=== PATIENT | male | born 1960 | race American Indian/Alaskan Native ===

== ENCOUNTER 2016-08-24 18:37 | Inpatient (IN) | payer OTHER ==
[2016-08-24 18:37] VITALS: BMI 25.0
--- NOTE | 2016-08-24 19:52 | C.PDOC ---
History Of Present Illness 55 y/o M c PMHx HTN, NH, cardiomegaly p/w bilateral lower leg edema x 5 days. He states the swelling is worse when he hangs his legs down and improves with elevation. He states it is difficult to walk now due to the pain. He denies any erythema, fever, or pain when not walking. He denies chest pain or dyspnea. Time Seen by Provider: 08/24/16 19:25 Chief Complaint (Nursing): Lower Extremity Problem/Injury Past Medical History Vital Signs: Last Vital Signs Temp 98.1 F 08/24/16 18:50 Pulse 112 H 08/24/16 18:50 Resp 20 08/24/16 18:50 BP 131/81 08/24/16 18:50 Pulse Ox 100 08/24/16 21:37 - Medical History PMH: HTN Family History: States: Unknown Family Hx - Social History Hx Alcohol Use: Yes Hx Substance Use: No - Immunization History Hx Tetanus Toxoid Vaccination: No Hx Influenza Vaccination: No Hx Pneumococcal Vaccination: No Review Of Systems Except As Marked, All Systems Reviewed And Found Negative. Constitutional: Negative for: Fever Cardiovascular: Negative for: Chest Pain Physical Exam - Physical Exam Additional Physical Exam Comments: Constitutional: No acute distress. Head: Normocephalic. Atraumatic. Eyes: PERRL. ENT: Moist mucous membranes. Neck: Supple. Cardiovascular: Regular rate. Radial pulses 2+ bilaterally. Chest: No tenderness. Respiratory: Crackles at R lung base. GI: Soft. Nontender. Nondistended. Back: No CVA tenderness. Musculoskeletal:Bilateral pitting edema of lower legs. Skin: No rash. Neurologic: Alert, no focal deficit. ED Course And Treatment - Laboratory Results Result Diagrams: 08/24/16 19:59 08/24/16 19:59 O2 Sat by Pulse Oximetry: 100 - Radiology CXR: Interpreted by Me, Viewed By Me CXR Interpretation: Yes: Cardiomegaly, Other (no consolidation) Medical Decision Making Medical Decision Making: EKG sinus rhythm 100 beats per minute, right bundle branch block and noncondordant ST elevations. Increased proBNP compared to previous. Will require diuresis, accepted to observation by Dr. Taylor. Disposition - Disposition Disposition: HOSPITALIZED Disposition Time: 20:34 Condition: FAIR - Clinical Impression Clinical Impression: Edema of foot
[2016-08-24 20:11] LABS: BASO # 0.1 K/uL (0.0-0.2); BASO % 1.5 % (0.0-2.0); EOS # 0.3 K/uL (0.0-0.7); EOS % 4.5 % (0.0-4.0); LYMPH # 0.8 K/uL (1.0-4.3); LYMPH % 11.3 % (20.0-40.0); MEAN CELL VOLUME 95.9 fL (80.0-94.0); MEAN CORPUSCULAR HEMOGLOBIN 31.4 pg (27.0-31.0); MEAN CORPUSCULAR HGB CONC 32.8 g/dL (33.0-37.0); MEAN PLATELET VOLUME 7.6 fL (7.2-11.7); MONO # 0.5 K/uL (0.0-0.8); NRBC % 0.1 % (0.0-2.0); WHITE BLOOD COUNT 6.7 K/uL (4.8-10.8)
[2016-08-24 20:12] LABS: CHLORIDE 92 mmol/L (98-107)
[2016-08-24 20:13] LABS: POTASSIUM 4.3 mmol/L (3.6-5.2); SODIUM 135 mmol/L (132-148)
[2016-08-24 20:15] LABS: ALB/GLOB RATIO 0.8 (1.0-2.1); ALKALINE PHOSPHATASE 71 U/L (38-126); AST/SGOT 29 U/L (17-59); BILIRUBIN,TOTAL 0.5 mg/dL (0.2-1.3); BLOOD UREA NITROGEN 10 mg/dL (9-20); CARBON DIOXIDE 29 mmol/L (22-30); GFR AFRICAN-AMERICAN > 60; TOTAL PROTEIN 8.4 g/dL (6.3-8.3)
[2016-08-24 20:16] LABS: ALT/SGPT 14 U/L (21-72); GLUCOSE,RANDOM 87 mg/dL (75-110)
[2016-08-24 20:19] LABS: INR 1.3
[2016-08-24 20:21] LABS: RBC URINE < 1 /hpf (0-3); URINE BILIRUBIN NEGATIVE (NEGATIVE); URINE BLOOD NEGATIVE (NEGATIVE); URINE COLOR Yellow (YELLOW); URINE GLUCOSE (UA) NORMAL (Normal); URINE KETONE NEGATIVE (NEGATIVE); URINE LEUKOCYTE ESTERASE NEG Leu/uL (Negative); URINE PROTEIN NEGATIVE (NEGATIVE); WBC URINE < 1 /hpf (0-5)
--- NOTE | 2016-08-24 23:47 | CP.PCM.HP ---
<Ynes Samayoa - Last Filed: 08/25/16 00:57> History of Present Illness - History of Present Illness History of Present Illness: CC: "leg swelling" 55 year old AA male with PMHx of SC, HTN, CHF, presents with 5 day history of lower extremity swelling. Patient admits to being off all his medications for the past 2 weeks since he ran out. He presented to the ED today when he noticed his leg swelling had worsened to the point where he was having trouble ambulating. He admits to associated bilateral leg pain. Patient reports this has happened to him one other time in the past (2011), but only to his right leg. Denies history of blood clots. He admits to dyspnea on exertion and is only able to travel 1/2 a block or go up 1 flight of stairs before having to catch his breath. He is able to lay flat, but admits to waking up in the middle of the night gasping for air. He admits to episode of chest pain this AM. Chest pain was rated 6/10, was described as pressure like and dull, radiating to left arm. Pain is intermittent and is now a 3/10. Denies diaphoresis, changes in vision, confusion, fevers, chills, n/v, diarrhea, constipation, abdominal pain, headache, lesions. Denies lesions on his legs. No redness, weeping, or warmth. PMHx: SC, HTN, CHF. Medications: ASA, Aldactone, Lisinopril and other medications he cannot remember. [facility] in [place]. Allergies: NKDA Social Hx: drinks 3 cans of 24 ox beers daily, denies drug and quit tobacco 1.5 months ago. Used to spoke 1/3 ppd for 30 years. Patient is homeless. Surgery Hx: none Family Hx: mother with heart issues, GM with DM, father with HTN. PMD: Dr. Venkat Allen (last seen 5 months ago) Present on Admission - Present on Admission Any Indicators Present on Admission: No Review of Systems - Constitutional Constitutional: absent: Chills, Fever - EENT Eyes: absent: Blurred Vision, Change in Vision Ears: absent: Dizziness - Cardiovascular Cardiovascular: Chest Pain, Chest Pain at Rest, Chest Pain with Activity, Dyspnea on Exertion, Pain Radiating to Arm/Neck/Jaw, Leg Edema, Paroxysmal Nocturnal Dyspnea, Pedal Edema. absent: Dyspnea, Orthopnea - Respiratory Respiratory: Dyspnea on Exertion. absent: Cough, Dyspnea, Wheezing - Gastrointestinal Gastrointestinal: absent: Abdominal Pain, Constipation, Diarrhea, Nausea, Vomiting - Genitourinary Genitourinary: absent: Difficulty Urinating, Dysuria - Musculoskeletal Musculoskeletal: absent: Back Pain, Numbness, Tingling - Integumentary Integumentary: absent: Lesions, Pruritus, Wounds - Neurological Neurological: absent: Dizziness, Numbness, Tingling, Weakness - Endocrine Endocrine: absent: Fatigue, Palpitations - Hematologic/Lymphatic Hematologic: absent: Easy Bleeding Past Patient History - Past Social History Smoking Status: Light Smoker < 10 Cigarettes Daily - CARDIAC Hx Hypertension: Yes - PSYCHIATRIC Hx Substance Use: No - SURGICAL HISTORY Hx Surgeries: No - ANESTHESIA Hx Anesthesia: No Meds Allergies/Adverse Reactions: Allergies Allergy/AdvReac Type Severity Reaction Status Date / Time No Known Allergies Allergy Verified 07/18/16 22:56 Physical Exam - Constitutional Appears: No Acute Distress - Head Exam Head Exam: NORMAL INSPECTION, NORMOCEPHALIC - Eye Exam Eye Exam: EOMI, Normal appearance, PERRL. absent: Scleral icterus - ENT Exam ENT Exam: Mucous Membranes Moist, Normal Exam - Neck Exam Neck exam: Positive for: Full Rom, Normal Inspection - Respiratory Exam Respiratory Exam: Clear to Auscultation Bilateral, NORMAL BREATHING PATTERN. absent: Rales, Rhonchi, Wheezes - Cardiovascular Exam Cardiovascular Exam: Tachycardia, REGULAR RHYTHM, +S1, +S2. absent: JVD, Rubs, Systolic Murmur - GI/Abdominal Exam GI & Abdominal Exam: Normal Bowel Sounds, Soft. absent: Distended, Tenderness - Extremities Exam Extremities exam: Positive for: calf tenderness, pedal edema, tenderness. Negative for: normal inspection - Back Exam Back exam: FULL ROM, NORMAL INSPECTION. absent: CVA tenderness (L), CVA tenderness (R) - Neurological Exam Neurological exam: Alert, Oriented x3 - Psychiatric Exam Psychiatric exam: Normal Affect, Normal Mood - Skin Skin Exam: Dry, Normal Color, Warm Additional comments: +venous stasis changes in b/l LE Results - Vital Signs Recent Vital Signs: Last Vital Signs Temp 98.2 F 08/24/16 22:27 Pulse 108 H 08/24/16 22:27 Resp 22 08/24/16 22:27 BP 113/71 08/24/16 22:27 Pulse Ox 98 08/24/16 22:27 - Labs Result Diagrams: 08/24/16 19:59 08/24/16 19:59 Assessment & Plan (1) CHF exacerbation Assessment and Plan: Patient with history of CHF, off meds for 2 weeks. Pro BNP on admission 3580. CXR shows cardiomegaly. f/u ECHO. No previous on record. Will call patient's pharmacy to confirm medications. Start the following medications: Lasix 60 mg IVP daily Coreg 3.125 mg PO BID Lisinopril 2.5 mg PO daily Aldactone 25 mg PO daily Cardio consult placed- Dr. Sauer- help appreciated. I/O's Daily weights Low Sodium Diet Status: Acute (2) Pedal edema Assessment and Plan: Likely secondary to CHF exacerbation. See plan above. F/U Venous Dopplers of LE. SCDs contraindicated. Status: Acute (3) Chest discomfort Assessment and Plan: Patient with hx of SC in 2011. SIXTO on admission negative. EKG on admission- sinus rhythm 103 bpm, LBBB. Also seen on EKG from 07/18/16. Cardio consult placed- Dr. Sauer- bonifacio appreciated. f/u SIXTO X2 Q8H f/u EKG X2 Q8H ASA 81 mg PO daily Coreg 3.125 mg PO BID Status: Acute (4) CAD (coronary artery disease) Assessment and Plan: Patient with hx of SC in 2011. SIXTO on admission negative. EKG on admission- sinus rhythm 103 bpm, LBBB. Also seen on EKG from 07/18/16. Cardio consult placed- Dr. Sauer- bonifacio appreciated. ASA 81 mg PO daily Coreg 3.125 mg PO BID Status: Acute (5) HTN (hypertension) Assessment and Plan: Lisinopril 2.5 mg PO daily Aldactone 25 mg PO daily Coreg 3.125 mg PO BID Lasix 60 mg IVP daily Status: Acute (6) Alcohol abuse Assessment and Plan: Folic Acid 1 mg PO daily Thiamine 100 mg PO daily MV 1 tab PO daily Seizure precautions Fall precautions Status: Acute (7) Prophylactic measure Assessment and Plan: Heparin 5000 SC Q8H Pepcid 20 mg PO BID SCDs contraindicated Status: Acute <Girish Taylor - Last Filed: 09/01/16 19:23> Results - Vital Signs Recent Vital Signs: Last Vital Signs Temp 98 F 08/29/16 15:00 Pulse 88 08/29/16 16:12 Resp 20 08/29/16 15:00 BP 97/63 L 08/29/16 15:00 Pulse Ox 95 08/29/16 15:00 - Labs Result Diagrams: 08/29/16 11:06 08/29/16 11:06 Assessment & Plan - Date & Time Date: 09/01/16 (I have seen and examined the patient. I agree with the findings and plan of care as documented by Dr. Samayoa. Patient with chf exacerbation and chest pain. History of CAD. Continue home meds. IV Lasix. ROMIx3 with EKG. Aspirin and Statin. Daily weight and record I&Os. Monitor for acute changes.) Time: 19:21 Attending/Attestation - Attestation I have personally seen and examined this patient.: Yes I have fully participated in the care of the patient.: Yes I have reviewed all pertinent clinical information: Yes
[2016-08-25 06:13] LABS: BASO # 0.1 K/uL (0.0-0.2); BASO % 1.2 % (0.0-2.0); EOS # 0.4 K/uL (0.0-0.7); EOS % 6.8 % (0.0-4.0); HEMATOCRIT 29.9 % (35.0-51.0); LYMPH % 18.1 % (20.0-40.0); MEAN CELL VOLUME 94.6 fL (80.0-94.0); MEAN CORPUSCULAR HEMOGLOBIN 31.3 pg (27.0-31.0); MEAN PLATELET VOLUME 7.6 fL (7.2-11.7); MONO # 0.6 K/uL (0.0-0.8); MONO % 11.9 % (0.0-10.0); RED CELL DISTRIBUTION WIDTH 16.1 % (11.5-14.5); WHITE BLOOD COUNT 5.4 K/uL (4.8-10.8)
[2016-08-25 06:45] LABS: CHLORIDE 95 mmol/L (98-107); POTASSIUM 3.8 mmol/L (3.6-5.2); SODIUM 135 mmol/L (132-148)
[2016-08-25 06:47] LABS: ALB/GLOB RATIO 0.7 (1.0-2.1); ALKALINE PHOSPHATASE 61 U/L (38-126); AST/SGOT 22 U/L (17-59); BILIRUBIN,TOTAL 0.7 mg/dL (0.2-1.3); CARBON DIOXIDE 29 mmol/L (22-30); GFR AFRICAN-AMERICAN > 60; TOTAL PROTEIN 7.3 g/dL (6.3-8.3)
[2016-08-25 06:48] LABS: ALT/SGPT 23 U/L (21-72); BLOOD UREA NITROGEN 9 mg/dL (9-20); CALCIUM 8.7 mg/dl (8.6-10.4); GLUCOSE,RANDOM 87 mg/dL (75-110)
[2016-08-25 06:50] LABS: MAGNESIUM 1.1 mg/dL (1.6-2.3); PHOSPHOROUS 4.6 mg/dL (2.5-4.5)
[2016-08-25 07:40] LABS: THYROID STIMULATING HORMONE 1.74 mIU/L (0.46-4.68)
--- NOTE | 2016-08-25 08:35 | RAD ---
HISTORY: leg swelling COMPARISON: 07/18/2016 FINDINGS: LUNGS: Mild venous congestion. Right hilar prominence. Left basilar airspace opacity with small left pleural effusion. PLEURA: As above. CARDIOVASCULAR: Cardiomegaly. OSSEOUS STRUCTURES: No significant abnormalities. VISUALIZED UPPER ABDOMEN: Normal. OTHER FINDINGS: Mammilated right hemidiaphragm. IMPRESSION: Mild venous congestion. Right hilar prominence. Left basilar airspace opacity with small left pleural effusion.
[2016-08-25] MEDS: Multiple Vitamins Tab PO SCH (11:00)
--- NOTE | 2016-08-25 11:09 | CP.PCM.PN ---
<Candice Tsai - Last Filed: 08/25/16 12:44> Subjective - Date & Time of Evaluation Date of Evaluation: 08/25/16 Time of Evaluation: 07:40 - Subjective Subjective: Internal medicine progress note for Hospitalist service-Candice Tsai, PGY-1 Pt S & E at bedside. Pt reports continued B/L LE pain/swelling/edema- some SOB- mostly resolved. Denies N/V/F/C, SOB, CP, abdominal pain. Objective - Vital Signs/Intake and Output Vital Signs (last 24 hours): Temp Pulse Resp BP Pulse Ox 98.1 F 91 H 18 110/66 99 08/25/16 10:31 08/25/16 10:31 08/25/16 10:31 08/25/16 10:59 08/25/16 10:31 Intake and Output: 08/25/16 08/25/16 06:59 18:59 Intake Total 254 540 Output Total 3100 400 Balance -2846 140 - Medications Medications: Current Medications Aspirin (Aspirin Chewable) 81 mg PO DAILY [facility] Last Admin: 08/25/16 10:59 Dose: 81 mg Carvedilol (Coreg) 3.125 mg PO BID [facility] Last Admin: 08/25/16 10:59 Dose: 3.125 mg Famotidine (Pepcid) 20 mg PO BID [facility] Last Admin: 08/25/16 11:00 Dose: 20 mg Folic Acid (Folic Acid) 1 mg PO DAILY [facility] Last Admin: 08/25/16 10:59 Dose: 1 mg Furosemide (Lasix) 60 mg IVP DAILY [facility] Last Admin: 08/25/16 10:59 Dose: 60 mg Heparin Sodium (Porcine) (Heparin) 5,000 units SC Q8 [facility] Last Admin: 08/25/16 06:46 Dose: 5,000 units Lisinopril (Zestril) 2.5 mg PO DAILY [facility] Multivitamins (Hexavitamin) 1 tab PO DAILY [facility] Last Admin: 08/25/16 11:00 Dose: 1 tab Spironolactone (Aldactone) 25 mg PO DAILY [facility] Last Admin: 08/25/16 11:00 Dose: 25 mg Thiamine HCl (Vitamin B1 Tab) 100 mg PO DAILY [facility] Last Admin: 08/25/16 11:01 Dose: 100 mg - Labs Labs: 08/25/16 06:00 08/25/16 06:00 PT 14.6 SECONDS (9.7-12.2) H 08/24/16 19:59 INR 1.3 08/24/16 19:59 APTT 31 SECONDS (21-34) 08/25/16 06:00 - Constitutional Appears: Non-toxic, No Acute Distress - Head Exam Head Exam: ATRAUMATIC, NORMAL INSPECTION, NORMOCEPHALIC - Eye Exam Eye Exam: EOMI, Normal appearance, PERRL Pupil Exam: NORMAL ACCOMODATION, PERRL - ENT Exam ENT Exam: Mucous Membranes Moist, Normal Exam - Neck Exam Neck Exam: Full ROM, Normal Inspection - Respiratory Exam Respiratory Exam: Decreased Breath Sounds (B/L ), NORMAL BREATHING PATTERN. absent: Clear to Ausculation Bilateral, Rales, Rhonchi, Wheezes, Respiratory Distress - Cardiovascular Exam Cardiovascular Exam: REGULAR RHYTHM, JVD, +S1, +S2, +S4 - GI/Abdominal Exam GI & Abdominal Exam: Soft, Normal Bowel Sounds. absent: Tenderness - Extremities Exam Extremities Exam: Full ROM, Pedal Edema (3+ pitting B/L), Tenderness (diffusely) . absent: Normal Capillary Refill - Back Exam Back Exam: NORMAL INSPECTION - Neurological Exam Neurological Exam: Alert, Awake, CN II-XII Intact, Oriented x3 - Psychiatric Exam Psychiatric exam: Normal Affect, Normal Mood - Skin Skin Exam: Dry, Intact, Normal Color, Warm Assessment and Plan - Assessment and Plan (Free Text) Assessment: (1) CHF exacerbation Patient with history of CHF, off meds for 2 weeks. Pro BNP on admission 3580. CXR shows cardiomegaly. FU ECHO- No previous on record. Cont Lasix 60 mg IVP daily - dose decreased to 40mg IVP Cont Coreg 3.125 mg PO BID Cont Lisinopril 2.5 mg PO daily Cont Aldactone 25 mg PO daily I/O's Daily weights Cardio consult placed-Camacho (2) Pedal edema Likely secondary to CHF exacerbation. See plan above. FU Venous Dopplers of LE. SCDs contraindicated. (3) Chest discomfort Patient with hx of CO in 2011. SIXTO on admission negative. EKG on admission- sinus rhythm 103 bpm, LBBB. Also seen on EKG from 07/18/16. Cardio consult placed- Dr. Sauer- help appreciated. SIXTO X2 neg EKG X2 only difference- 2nd EKG NSR instead of sinus tachycardia, compared to previous EKG in June of this year- pt had LBBB Cont ASA 81 mg PO daily Cont Coreg 3.125 mg PO BID (4) CAD (coronary artery disease) Patient with hx of CO in 2011. SIXTO neg x 2 EKG on admission- sinus rhythm 103 bpm, LBBB. Also seen on EKG from 07/18/16. Cardio consulted- [facility] Cont ASA 81 mg PO daily Coreg 3.125 mg PO BID Re-started statin as per pharmacy- Pravastatin 20mg daily- changed to Crestor 2.5mg daily (5) HTN (hypertension) Lisinopril 2.5 mg PO daily Aldactone 25 mg PO daily Coreg 3.125 mg PO BID Lasix 60 mg IVP daily switched to 40mg IVP daily (6) Alcohol abuse Folic Acid 1 mg PO daily Thiamine 100 mg PO daily MV 1 tab PO daily Started Vitamin D daily Seizure precautions Fall precautions CIWA protocol (7) Prophylactic measure Heparin 5000 SC Q8H Pepcid 20 mg PO BID SCDs contraindicated Dispo: Cont current medical mgmt FU tests DW attending <Gray Almonte - Last Filed: 08/25/16 17:38> Objective - Vital Signs/Intake and Output Vital Signs (last 24 hours): Temp Pulse Resp BP Pulse Ox 99.6 F 101 H 20 123/87 97 08/25/16 16:00 08/25/16 16:00 08/25/16 16:00 08/25/16 16:00 08/25/16 16:00 Intake and Output: 08/25/16 08/25/16 06:59 18:59 Intake Total 254 540 Output Total 3100 400 Balance -2846 140 - Medications Medications: Current Medications Aspirin (Aspirin Chewable) 81 mg PO DAILY [facility] Last Admin: 08/25/16 10:59 Dose: 81 mg Carvedilol (Coreg) 6.25 mg PO BID [facility] Ergocalciferol (Drisdol 50,000 Intl Units Cap) 1 cap PO QWK [facility] Famotidine (Pepcid) 20 mg PO BID [facility] Last Admin: 08/25/16 11:00 Dose: 20 mg Folic Acid (Folic Acid) 1 mg PO DAILY [facility] Last Admin: 08/25/16 10:59 Dose: 1 mg Furosemide (Lasix) 40 mg IVP Q12 [facility] Last Admin: 08/25/16 15:52 Dose: Not Given Heparin Sodium (Porcine) (Heparin) 5,000 units SC Q8 [facility] Last Admin: 08/25/16 06:46 Dose: 5,000 units Lisinopril (Zestril) 2.5 mg PO DAILY [facility] Last Admin: 08/25/16 12:00 Dose: 2.5 mg Multivitamins (Hexavitamin) 1 tab PO DAILY [facility] Last Admin: 08/25/16 11:00 Dose: 1 tab Rosuvastatin Calcium (Crestor) 2.5 mg PO [facility] Spironolactone (Aldactone) 25 mg PO DAILY [facility] Last Admin: 08/25/16 11:00 Dose: 25 mg Thiamine HCl (Vitamin B1 Tab) 100 mg PO DAILY [facility] Last Admin: 08/25/16 11:01 Dose: 100 mg - Labs Labs: 08/25/16 06:00 08/25/16 06:00 PT 14.6 SECONDS (9.7-12.2) H 08/24/16 19:59 INR 1.3 08/24/16 19:59 APTT 31 SECONDS (21-34) 08/25/16 06:00 Attending/Attestation - Attestation I have personally seen and examined this patient.: Yes I have fully participated in the care of the patient.: Yes I have reviewed all pertinent clinical information, including history, physical exam and plan: Yes Notes (Text): 08/25/16 17:35 Medical Attending: Patient was seen and examined by me. Agree with the above note by the resident. The patient reported that he felt that his breathing was much better than before. He explains he was previously on medication but that recently he has not been on medications. Currently pending echo at the moment. On exam he does appear to have JVD as well as S3 sound when listening to the heart. thank you Gray Almonte
[2016-08-25] MEDS ORDERED: Ergocalciferol 50,000 Intl Units Cap PO SCH (14:00)
--- NOTE | 2016-08-25 14:54 | CP.PCM.CON ---
History of Present Illness - History of Present Illness History of Present Illness: CC: "leg swelling" 55 year old AA male with PMHx of [place], HTN, CHF, presents with 5 day history of lower extremity swelling. Patient admits to being off all his medications for the past 2 weeks since he ran out. He presented to the ED today when he noticed his leg swelling had worsened to the point where he was having trouble ambulating. He admits to associated bilateral leg pain. Patient reports this has happened to him one other time in the past (2011), but only to his right leg. Denies history of blood clots. He admits to dyspnea on exertion and is only able to travel 1/2 a block or go up 1 flight of stairs before having to catch his breath. He is able to lay flat, but admits to waking up in the middle of the night gasping for air. He admits to episode of chest pain this AM. Chest pain was rated 6/10, was described as pressure like and dull, radiating to left arm. Pain is intermittent and is now a 3/10. Denies diaphoresis, changes in vision, confusion, fevers, chills, n/v, diarrhea, constipation, abdominal pain, headache, lesions. Denies lesions on his legs. No redness, weeping, or warmth. PER PT HE HAD CATH SEVERAL YEARS AGO AT [facility] AND REFUSED PCI AND AICD. PMHx: [place], HTN, CHF. Medications: ASA, Aldactone, Lisinopril and other medications he cannot remember. [facility] [address] in [place]. Allergies: NKDA Social Hx: drinks 3 cans of 24 ox beers daily, denies drug and quit tobacco 1.5 months ago. Used to spoke 1/3 ppd for 30 years. Patient is homeless. Surgery Hx: none Family Hx: mother with heart issues, GM with DM, father with HTN. PMD: Dr. Venkat Allen (last seen 5 months ago) Past Patient History - Past Social History Smoking Status: Light Smoker < 10 Cigarettes Daily - CARDIAC Hx Hypertension: Yes - MUSCULOSKELETAL/RHEUMATOLOGICAL Hx Falls: No - PSYCHIATRIC Hx Substance Use: No - SURGICAL HISTORY Hx Surgeries: No - ANESTHESIA Hx Anesthesia: No Meds Allergies/Adverse Reactions: Allergies Allergy/AdvReac Type Severity Reaction Status Date / Time No Known Allergies Allergy Verified 07/18/16 22:56 - Medications Medications: Current Medications Aspirin (Aspirin Chewable) 81 mg PO DAILY [facility] Last Admin: 08/25/16 10:59 Dose: 81 mg Carvedilol (Coreg) 3.125 mg PO BID [facility] Last Admin: 08/25/16 10:59 Dose: 3.125 mg Ergocalciferol (Drisdol 50,000 Intl Units Cap) 1 cap PO QWK [facility] Famotidine (Pepcid) 20 mg PO BID [facility] Last Admin: 08/25/16 11:00 Dose: 20 mg Folic Acid (Folic Acid) 1 mg PO DAILY [facility] Last Admin: 08/25/16 10:59 Dose: 1 mg Furosemide (Lasix) 40 mg IVP Q12 [facility] Heparin Sodium (Porcine) (Heparin) 5,000 units SC Q8 [facility] Last Admin: 08/25/16 06:46 Dose: 5,000 units Magnesium Sulfate/Dextrose (Magnesium Sulfate 1 Gm/100 Ml D5w) 100 mls @ 200 mls/hr IVPB Q30M [facility] Stop: 08/25/16 15:29 Lisinopril (Zestril) 2.5 mg PO DAILY [facility] Multivitamins (Hexavitamin) 1 tab PO DAILY [facility] Last Admin: 08/25/16 11:00 Dose: 1 tab Rosuvastatin Calcium (Crestor) 2.5 mg PO HS [facility] Spironolactone (Aldactone) 25 mg PO DAILY [facility] Last Admin: 08/25/16 11:00 Dose: 25 mg Thiamine HCl (Vitamin B1 Tab) 100 mg PO DAILY [facility] Last Admin: 08/25/16 11:01 Dose: 100 mg Physical Exam - Constitutional Appears: Well - Head Exam Head Exam: ATRAUMATIC, NORMAL INSPECTION, NORMOCEPHALIC - Eye Exam Eye Exam: EOMI, Normal appearance, PERRL Pupil Exam: NORMAL ACCOMODATION, PERRL - ENT Exam ENT Exam: Mucous Membranes Moist, Normal Exam - Neck Exam Neck exam: Positive for: Normal Inspection - Respiratory Exam Additional comments: B/L CRACKLES 1/2 WAY - Cardiovascular Exam Cardiovascular Exam: Diastolic murmur, REGULAR RHYTHM, +S1, +S2, Systolic Murmur - GI/Abdominal Exam GI & Abdominal Exam: Normal Bowel Sounds, Soft. absent: Tenderness - Extremities Exam Extremities exam: Positive for: pedal edema - Back Exam Back exam: NORMAL INSPECTION - Neurological Exam Neurological exam: Alert, CN II-XII Intact, Normal Gait, Oriented x3, Reflexes Normal - Psychiatric Exam Psychiatric exam: Normal Affect, Normal Mood - Skin Skin Exam: Dry, Intact, Normal Color, Warm Results - Vital Signs Recent Vital Signs: Last Vital Signs Temp 98 F 08/25/16 12:00 Pulse 96 H 08/25/16 12:00 Resp 18 08/25/16 12:00 BP 133/56 L 08/25/16 12:00 Pulse Ox 96 08/25/16 12:00 - Labs Result Diagrams: 08/25/16 06:00 08/25/16 06:00 Labs: Laboratory Results - last 24 hr 08/25/16 08/25/16 06:00 11:13 WBC 5.4 RBC 3.16 L Hgb 9.9 L Hct 29.9 L MCV 94.6 H MCH 31.3 H MCHC 33.0 RDW 16.1 H Plt Count 346 MPV 7.6 Neut % (Auto) 62.0 Lymph % (Auto) 18.1 L [place] % (Auto) 11.9 H Eos % (Auto) 6.8 H Baso % (Auto) 1.2 Neut # 3.3 Lymph # 1.0 [place] # 0.6 Eos # 0.4 Baso # 0.1 APTT 31 Sodium 135 Potassium 3.8 Chloride 95 L Carbon Dioxide 29 Anion Gap 15 BUN 9 Creatinine 0.8 Est GFR ( Amer) > 60 Est GFR (Non-Af Amer) > 60 Random Glucose 87 Calcium 8.7 Phosphorus 4.6 H Magnesium 1.1 L Total Bilirubin 0.7 AST 22 ALT 23 Alkaline Phosphatase 61 Total Creatine Kinase 49 L 58 CK-MB (Mass) 0.25 0.23 Troponin I, Quant 0.0320 0.0150 Total Protein 7.3 Albumin 2.9 L D Globulin 4.4 H Albumin/Globulin Ratio 0.7 L Triglycerides 44 Cholesterol 91 LDL Cholesterol Direct 38 HDL Cholesterol 31 TSH 3rd Generation 1.74 Assessment & Plan (1) CAD (coronary artery disease) Status: Acute (2) CHF exacerbation Status: Acute (3) HTN (hypertension) Status: Acute (4) Alcohol abuse Status: Acute - Assessment and Plan (Free Text) Plan: CONSIDER BUMEX 2 MG Q12 IVP FOR 2 DAYS WILL TRACK DOWN RECORDS FROM [facility] SHOULD BE CONSIDERED FOR AICD TITRATE COREG TOLERATED. MANAGE BP USING MAP NOT SYSTOLIC PRESSURE. REPLEAT MAG
[2016-08-25] MEDS: Rosuvastatin Calcium 2.5 mg Tab PO SCH (21:24)
--- NOTE | 2016-08-25 22:24 | CARD ---
APPROVED REPORT EKG Measurement Heart [id number] <Conclusion> Normal sinus rhythm Possible Left atrial enlargement Left axis deviation Left bundle branch block Abnormal ECG
--- NOTE | 2016-08-25 23:17 | CARD ---
APPROVED REPORT EKG Measurement Heart [id number] <Conclusion> Sinus tachycardia Possible Left atrial enlargement Left axis deviation Left bundle branch block Abnormal ECG
[2016-08-26] MEDS: Multiple Vitamins Tab PO SCH (09:51)
[2016-08-26 10:02] LABS: BASO # 0.1 K/uL (0.0-0.2); BASO % 1.1 % (0.0-2.0); EOS # 0.3 K/uL (0.0-0.7); HEMATOCRIT 32.9 % (35.0-51.0); LYMPH # 0.9 K/uL (1.0-4.3); LYMPH % 14.6 % (20.0-40.0); MEAN CELL VOLUME 94.1 fL (80.0-94.0); MEAN CORPUSCULAR HEMOGLOBIN 30.7 pg (27.0-31.0); MEAN CORPUSCULAR HGB CONC 32.6 g/dL (33.0-37.0); MEAN PLATELET VOLUME 7.6 fL (7.2-11.7); MONO # 0.5 K/uL (0.0-0.8); MONO % 8.1 % (0.0-10.0); RED CELL DISTRIBUTION WIDTH 16.2 % (11.5-14.5)
[2016-08-26 10:08] LABS: CHLORIDE 88 mmol/L (98-107); SODIUM 132 mmol/L (132-148)
[2016-08-26 10:09] LABS: POTASSIUM 3.3 mmol/L (3.6-5.2)
[2016-08-26 10:10] LABS: GFR AFRICAN-AMERICAN > 60
[2016-08-26 10:11] LABS: ALB/GLOB RATIO 0.8 (1.0-2.1); ALKALINE PHOSPHATASE 58 U/L (38-126); ALT/SGPT 10 U/L (21-72); AST/SGOT 23 U/L (17-59); BILIRUBIN,TOTAL 0.4 mg/dL (0.2-1.3); BLOOD UREA NITROGEN 13 mg/dL (9-20); CALCIUM 8.9 mg/dl (8.6-10.4); CARBON DIOXIDE 30 mmol/L (22-30); GLUCOSE,RANDOM 169 mg/dL (75-110); PHOSPHOROUS 4.3 mg/dL (2.5-4.5); TOTAL PROTEIN 7.7 g/dL (6.3-8.3)
[2016-08-26 10:12] LABS: MAGNESIUM 1.3 mg/dL (1.6-2.3)
--- NOTE | 2016-08-26 11:04 | CARD ---
APPROVED REPORT EXAM: Two-dimensional and M-mode echocardiogram with Doppler and color Doppler. Other Information Quality : GoodRhythm : INDICATION CAD Congestive Heart Failure FLUID,LCOHOL ABUSED RISK FACTORS Hypertension M-Mode DIMENSIONS RVDd2.18 (2.1-3.2cm)Left Atrium (MM)4.72 (2.5-4.0cm) IVSd1.13 (0.7-1.1cm)Aortic Root3.87 (2.2-3.7cm) LVDd5.82 (4.0-5.6cm)Aortic Cusp Exc.2.11 (1.5-2.0cm) PWd1.21 (0.7-1.1cm)FS (%) 23 % LVDs4.49 (2.0-3.8cm)LVEF (%)45 (>50%) Aortic Valve AoV Peak Wqbncare300.3cm/Jason Peak GR.6mmHg Mitral Valve MV E Bcrqrstz852.9cm/sMV A Eargajwr67.5cm/sE/A ratio4.1 TDI E/Lateral E'0.0E/Medial E'0.0 Tricuspid Valve TR Peak Upttumkr658fm/sTR Peak Gr.[id number] LEFT VENTRICLE The Left Ventricle is moderately dilated. There is normal left ventricular wall thickness. Left ventricle systolic function is severely impaired. The Ejection Fraction is <25%. There is global hypokinesis of the left ventricle. The left ventricular diastolic function is normal. No left ventricle thrombus noted on this study. RIGHT VENTRICLE The right ventricle is normal size. The right ventricular systolic function is normal. ATRIA The left atrium is moderately dilated. The right atrium is moderately dilated. AORTIC VALVE The aortic valve is trileaflet. No aortic regurgitation is present. There is no aortic valvular stenosis. There is no aortic valvular vegetation. MITRAL VALVE Mitral annular calcification is mild to moderate. There is no evidence of mitral valve prolapse. There is no mitral valve stenosis. Mitral regurgitation is mild to moderate. TRICUSPID VALVE The tricuspid valve is normal in structure. There is moderate tricuspid regurgitation. Right ventricular systolic pressure is estimated at 50-60 mmHg. There is moderate pulmonary hypertension. There is no tricuspid valve prolapse or vegetation. There is no tricuspid valve stenosis. PULMONIC VALVE The pulmonic valve is not well visualized. There is mild to moderate pulmonic valvular regurgitation. GREAT VESSELS The aortic root is mildly enlarged. The IVC collapses <50% with inspiration. PERICARDIAL EFFUSION There is no pericardial effusion. There is no pleural effusion. <Conclusion> The Left Ventricle is moderately dilated. Left ventricle systolic function is severely impaired. The Ejection Fraction is <25%. There is global hypokinesis of the left ventricle. The left ventricular diastolic function is normal. The right ventricularsize and systolic function are normal. The left atrium is moderately dilated. The right atrium is moderately dilated. Mitral regurgitation is mild to moderate. There is moderate tricuspid regurgitation. Right ventricular systolic pressure is estimated at 50-60 mmHg. There is moderate pulmonary hypertension. There is mild to moderate pulmonic valvular regurgitation. The aortic root is mildly enlarged.
--- NOTE | 2016-08-26 13:23 | CP.PCM.PN ---
<Candice Tsai - Last Filed: 08/26/16 13:20> Subjective - Date & Time of Evaluation Date of Evaluation: 08/26/16 Time of Evaluation: 07:50 - Subjective Subjective: Internal medicine progress note for Hospitalist service- Candice Tsai, PGY-1 Pt S & E at bedside. Pt reports good urine output overnight, continued B/L LE pain- inability to walk , poor sleep due to pain. Otherwise, is breathing better. Denies N/V/F/C, SOB, CP, abdominal pain. Objective - Vital Signs/Intake and Output Vital Signs (last 24 hours): Temp Pulse Resp BP Pulse Ox 98.2 F 78 19 102/68 98 08/26/16 12:00 08/26/16 12:00 08/26/16 12:00 08/26/16 12:00 08/26/16 12:00 - Medications Medications: Current Medications Acetaminophen (Tylenol 325mg Tab) 650 mg PO Q6 PRN PRN Reason: Pain, moderate (4-7) Aspirin (Aspirin Chewable) [address] [facility] Last Admin: 08/26/16 09:53 Dose: 81 mg Carvedilol (Coreg) 6.[address] [facility] Last Admin: 08/26/16 09:51 Dose: 6.25 mg Ergocalciferol (Drisdol 50,000 Intl Units Cap) [address] [facility] Last Admin: 08/25/16 17:53 Dose: 1 cap Famotidine (Pepcid) [address] [facility] Last Admin: 08/26/16 09:51 Dose: 20 mg Folic Acid (Folic Acid) [address] [facility] Last Admin: 08/26/16 09:51 Dose: 1 mg Furosemide (Lasix) [address] [facility] Last Admin: 08/26/16 09:53 Dose: 40 mg Heparin Sodium (Porcine) (Heparin) 5,[address] [facility] Last Admin: 08/26/16 05:54 Dose: 5,000 units Magnesium Sulfate/Dextrose (Magnesium Sulfate 1 Gm/100 Ml D5w) 100 mls @ 200 mls/hr IVPB ONCE ONE Stop: 08/26/16 13:45 Lisinopril (Zestril) 2.[address] [facility] Last Admin: 08/26/16 09:52 Dose: 2.5 mg Multivitamins (Hexavitamin) [address] [facility] Last Admin: 08/26/16 09:51 Dose: 1 tab Potassium Chloride (K-Dur 20 Meq Er Tab) [address] [facility] Rosuvastatin Calcium (Crestor) 2.[address] [facility] Last Admin: 08/25/16 21:24 Dose: 2.5 mg Spironolactone (Aldactone) [address] [facility] Last Admin: 08/26/16 09:52 Dose: 25 mg Thiamine HCl (Vitamin B1 Tab) [address] [facility] Last Admin: 08/26/16 09:52 Dose: 100 mg - Labs Labs: PT 14.6 SECONDS (9.7-12.2) H 08/24/16 19:59 INR 1.3 08/24/16 19:59 APTT 31 SECONDS (21-34) 08/25/16 06:00 - Constitutional Appears: Non-toxic, No Acute Distress - Head Exam Head Exam: ATRAUMATIC, NORMAL INSPECTION, NORMOCEPHALIC - Eye Exam Eye Exam: EOMI, Normal appearance, PERRL Pupil Exam: NORMAL ACCOMODATION, PERRL - ENT Exam ENT Exam: Mucous Membranes Moist, Normal Exam - Neck Exam Neck Exam: Full ROM, Normal Inspection - Respiratory Exam Respiratory Exam: Decreased Breath Sounds (at bases B/L), NORMAL BREATHING PATTERN. absent: Accessory Muscle Use, Chest Wall Tenderness, Clear to Ausculation Bilateral, Rales, Rhonchi, Wheezes, Respiratory Distress, Stridor - Cardiovascular Exam Cardiovascular Exam: REGULAR RHYTHM, JVD, +S1, +S2, +S4 - GI/Abdominal Exam GI & Abdominal Exam: Soft, Normal Bowel Sounds. absent: Distended, Firm, Guarding, Rigid, Tenderness - Extremities Exam Extremities Exam: Normal Inspection, Tenderness (B/L). absent: Pedal Edema - Back Exam Back Exam: Full ROM, NORMAL INSPECTION - Neurological Exam Neurological Exam: Alert, Awake, CN II-XII Intact, Oriented x3 - Psychiatric Exam Psychiatric exam: Normal Affect, Normal Mood - Skin Skin Exam: Dry, Intact, Normal Color, Warm Assessment and Plan - Assessment and Plan (Free Text) Assessment: (1) CHF exacerbation Patient with history of CHF, off meds for 2 weeks. Pro BNP on admission 3580. CXR shows cardiomegaly. Echo w/findings of LV mod dilated, LV systolic function severely impaired, EF<25 %, global hypokinesis of LV, LV diastolic functio normal, RV and systolic function normal, RA and LA mod dilated, MR mild to mod, mod TR, RV systolic P 50 -60mmHg, mod pulmonary HTN, mild-mod pulmonic valvular regurgitation, aortic root mildly enlarged Cont Lasix 40mg IVP daily Cont Coreg 3.125 mg PO BID Cont Lisinopril 2.5 mg PO daily Cont Aldactone 25 mg PO daily I/O's Daily weights Cardio consult [facility] - consider Bumex 2mg Q12H x 2 days, tracking down recs from [facility] [place], consider AICD, titrate Coreg as kishan, manage BP using MAP, not systolic pressure, repleat Mg (2) Pedal edema -resolving/ B/L LE pain Likely secondary to CHF exacerbation. See plan above. Tylenol PRN FU Venous Dopplers of LE- pending official report SCDs contraindicated. (3) Chest discomfort Patient with hx of PA in 2011. SIXTO on admission negative. EKG on admission- sinus rhythm 103 bpm, LBBB. Also seen on EKG from 07/18/16. SIXTO X2 neg EKG X2 only difference- 2nd EKG NSR instead of sinus tachycardia, compared to previous EKG in June of this year- pt had LBBB Cont ASA 81 mg PO daily Cont Coreg 3.125 mg PO BID Cardio recs as above (4) CAD (coronary artery disease) Patient with hx of PA in 2011. SIXTO neg x 2 EKG on admission- sinus rhythm 103 bpm, LBBB. Also seen on EKG from 07/18/16. Cont ASA 81 mg PO daily Coreg 3.125 mg PO BID Re-started statin as per pharmacy- Pravastatin 20mg daily- changed to Crestor 2.5mg daily Cardio following (5) HTN (hypertension) BP 122/92 Lisinopril 2.5 mg PO daily Aldactone 25 mg PO daily Coreg 3.125 mg PO BID Lasix 40mg IVP daily (6) Alcohol abuse Folic Acid 1 mg PO daily Thiamine 100 mg PO daily MV 1 tab PO daily Started Vitamin D daily Seizure precautions Fall precautions CIWA protocol (7) Hypomagnesemia Mg 1.1 Replaced 1 gm MgSO4 Repeated Mg 1.3 Given another 1 gm MgSo4 Will monitor (8) Prophylactic measure Heparin 5000 SC Q8H Pepcid 20 mg PO BID SCDs contraindicated Dispo: Transfer from [facility] to med-surg Changed to inpatient status Cont current medical mgmt Recs as per cardio PT/OT best CALDWELL attending <Gray Almonte - Last Filed: 08/26/16 14:07> Objective - Vital Signs/Intake and Output Vital Signs (last 24 hours): Temp Pulse Resp BP Pulse Ox 98.2 F 78 19 102/68 98 08/26/16 12:00 08/26/16 12:00 08/26/16 12:00 08/26/16 12:00 08/26/16 12:00 - Medications Medications: Current Medications Acetaminophen (Tylenol 325mg Tab) 650 mg PO Q6 PRN PRN Reason: Pain, moderate (4-7) Aspirin (Aspirin Chewable) [address] [facility] Last Admin: 08/26/16 09:53 Dose: 81 mg Carvedilol (Coreg) 6.[address] [facility] Last Admin: 08/26/16 09:51 Dose: 6.25 mg Ergocalciferol (Drisdol 50,000 Intl Units Cap) [address] [facility] Last Admin: 08/25/16 17:53 Dose: 1 cap Famotidine (Pepcid) [address] [facility] Last Admin: 08/26/16 09:51 Dose: 20 mg Folic Acid (Folic Acid) [address] [facility] Last Admin: 08/26/16 09:51 Dose: 1 mg Furosemide (Lasix) [address] [facility] Last Admin: 08/26/16 09:53 Dose: 40 mg Heparin Sodium (Porcine) (Heparin) 5,[address] [facility] Last Admin: 08/26/16 05:54 Dose: 5,000 units Magnesium Sulfate/Dextrose (Magnesium Sulfate 1 Gm/100 Ml D5w) 100 mls @ 200 mls/hr IVPB ONCE ONE Stop: 08/26/16 14:29 Lisinopril (Zestril) 2.[address] [facility] Last Admin: 08/26/16 09:52 Dose: 2.5 mg Multivitamins (Hexavitamin) [address] [facility] Last Admin: 08/26/16 09:51 Dose: 1 tab Potassium Chloride (K-Dur 20 Meq Er Tab) [address] [facility] Rosuvastatin Calcium (Crestor) 2.[address] [facility] Last Admin: 08/25/16 21:24 Dose: 2.5 mg Spironolactone (Aldactone) [address] [facility] Last Admin: 08/26/16 09:52 Dose: 25 mg Thiamine HCl (Vitamin B1 Tab) [address] [facility] Last Admin: 08/26/16 09:52 Dose: 100 mg - Labs Labs: PT 14.6 SECONDS (9.7-12.2) H 08/24/16 19:59 INR 1.3 08/24/16 19:59 APTT 31 SECONDS (21-34) 08/25/16 06:00 Attending/Attestation - Attestation I have personally seen and examined this patient.: Yes I have fully participated in the care of the patient.: Yes I have reviewed all pertinent clinical information, including history, physical exam and plan: Yes Notes (Text): 08/26/16 14:03 Medical Attending: Patient was seen and examined by me. Agree with the above note by the resident. Patient reports his lower extremity edema is much improved and that his breathing is much improved as well. As of now he is still having a lot of difficulty with weakness and as mentioned before he was not able to walk to hospital and required a wheelchair Patient can be moved out of ICU now. Continue with carlitos thank you Gray Almonte
[2016-08-26] MEDS: Potassium Chloride 20 mEq ER Tab PO SCH (14:22)
--- NOTE | 2016-08-26 15:59 | VASCLAB ---
PROCEDURE: Lower Extremity Venous Duplex Exam. HISTORY: LE swelling PRIORS: None. TECHNIQUE: Bilateral common femoral, femoral, popliteal and posterior tibial, peroneal and great saphenous veins were evaluated. Flow was assessed with color Doppler, compressibility, assessment of phasic flow and augmentation response. Report prepared by SIMEON Cuadra, RVT FINDINGS: RIGHT: 1. Common Femoral Vein: 1.1. Compressibility - Fully compressible: Thrombus - None : Flow - Phasic: Augmentation -Normal: Reflux - None. 2. Femoral Vein: 2.1. Compressibility - Fully compressible: Thrombus - None : Flow - Phasic: Augmentation -Normal: Reflux - None. 3. Popliteal Vein: 3.1. Compressibility - Fully compressible: Thrombus - None : Flow - Phasic: Augmentation -Normal: Reflux - None. 4. Posterior Tibial Vein: 4.1. Compressibility - Fully compressible: Thrombus - None: Flow - Phasic: Augmentation -Normal: Reflux - None. 5. Peroneal Vein: 5.1. Compressibility - Fully compressible: Thrombus - None: Flow - Phasic: Augmentation -Normal: Reflux - None. 6. Great Saphenous Vein: 6.1. Compressibility - Fully compressible: Thrombus - None: Flow - Phasic: Augmentation - Normal: Reflux - None. LEFT: 1. Common Femoral Vein: 1.1. Compressibility - Fully compressible: Thrombus - None: Flow - Phasic: Augmentation -Normal: Reflux - None. 2. Femoral Vein: 2.1. Compressibility - Fully compressible: Thrombus - None: Flow - Phasic: Augmentation -Normal: Reflux - None. 3. Popliteal Vein: 3.1. Compressibility - Fully compressible: Thrombus - None : Flow - Phasic: Augmentation -Normal: Reflux - None. 4. Posterior Tibial Vein: 4.1. Compressibility - Fully compressible: Thrombus - None: Flow - Phasic: Augmentation -Normal: Reflux - None. 5. Peroneal Vein: 5.1. Compressibility - Fully compressible: Thrombus - None: Flow - Phasic: Augmentation -Normal: Reflux - None. 6. Great Saphenous Vein: 6.1. Compressibility - Fully compressible: Thrombus - None: Flow - Phasic: Augmentation - Normal: Reflux - None. OTHER FINDINGS: Right: None significant. Left: None significant. IMPRESSION: Right: No evidence of deep or superficial vein thrombosis of the right lower extremity. Normal valve function noted of the right side. Left: No evidence of deep or superficial vein thrombosis of the left lower extremity. Normal valve function noted of the left side.
[2016-08-26 19:12] VITALS: RESP 20
[2016-08-26] MEDS: Rosuvastatin Calcium 2.5 mg Tab PO SCH (21:28)
[2016-08-27] MEDS: Multiple Vitamins Tab PO SCH (10:05)
[2016-08-27] MEDS: Potassium Chloride 20 mEq ER Tab PO SCH (10:05)
--- NOTE | 2016-08-27 10:42 | CP.PCM.PN ---
<Candice Tsai - Last Filed: 08/27/16 12:58> Subjective - Date & Time of Evaluation Date of Evaluation: 08/27/16 Time of Evaluation: 07:00 - Subjective Subjective: Internal medicine progress note for Hospitalist service- Candice Tsai, PGY-1 Pt S & E at bedside. Pt reports continued good urine output overnight, SOB resolved, only complaint is B/L LE soreness/weakness/inability to stand for long periods of time. Denies N/V/F/C, CP, abdominal pain, is eating well, sleeping ok - poor due to leg soreness. Objective - Vital Signs/Intake and Output Vital Signs (last 24 hours): Temp Pulse Resp BP Pulse Ox 98.2 F 90 20 139/98 H 99 08/27/16 07:52 08/27/16 07:52 08/27/16 07:52 08/27/16 10:06 08/27/16 07:52 Intake and Output: 08/27/16 08/27/16 06:59 18:59 Intake Total 540 Output Total 1800 Balance -1260 - Medications Medications: Current Medications Acetaminophen (Tylenol 325mg Tab) 650 mg PO Q6 PRN PRN Reason: Pain, moderate (4-7) Last Admin: 08/27/16 05:51 Dose: 650 mg Aspirin (Aspirin Chewable) 81 mg PO DAILY [facility] Last Admin: 08/27/16 10:06 Dose: 81 mg Carvedilol (Coreg) 6.25 mg PO BID [facility] Last Admin: 08/27/16 10:06 Dose: 6.25 mg Ergocalciferol (Drisdol 50,000 Intl Units Cap) 1 cap PO QWK [facility] Last Admin: 08/25/16 17:53 Dose: 1 cap Famotidine (Pepcid) 20 mg PO BID [facility] Last Admin: 08/27/16 10:06 Dose: 20 mg Folic Acid (Folic Acid) 1 mg PO DAILY [facility] Last Admin: 08/27/16 10:06 Dose: 1 mg Furosemide (Lasix) 20 mg IVP Q12 [facility] Heparin Sodium (Porcine) (Heparin) 5,000 units SC Q8 [facility] Last Admin: 08/27/16 05:55 Dose: 5,000 units Ibuprofen (Motrin Tab) 600 mg PO TID PRN PRN Reason: Pain, moderate (4-7) Lisinopril (Zestril) 2.5 mg PO DAILY [facility] Last Admin: 08/27/16 10:06 Dose: 2.5 mg Multivitamins (Hexavitamin) 1 tab PO DAILY [facility] Last Admin: 08/27/16 10:05 Dose: 1 tab Potassium Chloride (K-Dur 20 Meq Er Tab) 20 meq PO DAILY [facility] Last Admin: 08/27/16 10:05 Dose: 20 meq Rosuvastatin Calcium (Crestor) 2.5 mg PO HS [facility] Last Admin: 08/26/16 21:28 Dose: 2.5 mg Spironolactone (Aldactone) 25 mg PO DAILY [facility] Last Admin: 08/27/16 10:06 Dose: 25 mg Thiamine HCl (Vitamin B1 Tab) 100 mg PO DAILY [facility] Last Admin: 08/27/16 10:05 Dose: 100 mg - Labs Labs: PT 14.6 SECONDS (9.7-12.2) H 08/24/16 19:59 INR 1.3 08/24/16 19:59 APTT 31 SECONDS (21-34) 08/25/16 06:00 - Constitutional Appears: Non-toxic, No Acute Distress - Head Exam Head Exam: ATRAUMATIC, NORMAL INSPECTION, NORMOCEPHALIC - Eye Exam Eye Exam: EOMI, Normal appearance, PERRL Pupil Exam: NORMAL ACCOMODATION, PERRL - ENT Exam ENT Exam: Mucous Membranes Moist, Normal Exam - Neck Exam Neck Exam: Full ROM, Normal Inspection - Respiratory Exam Respiratory Exam: Clear to Ausculation Bilateral, NORMAL BREATHING PATTERN. absent: Accessory Muscle Use, Chest Wall Tenderness, Decreased Breath Sounds, Rales, Rhonchi, Wheezes, Respiratory Distress - Cardiovascular Exam Cardiovascular Exam: REGULAR RHYTHM, +S1, +S2. absent: JVD, +S4 - GI/Abdominal Exam GI & Abdominal Exam: Soft, Normal Bowel Sounds. absent: Distended, Firm, Guarding, Rigid, Tenderness - Extremities Exam Extremities Exam: Normal Inspection, Tenderness (B/L over Legs). absent: Pedal Edema - Back Exam Back Exam: Full ROM, NORMAL INSPECTION. absent: tenderness - Neurological Exam Neurological Exam: Alert, Awake, CN II-XII Intact, Oriented x3 - Psychiatric Exam Psychiatric exam: Normal Affect, Normal Mood - Skin Skin Exam: Dry, Intact, Normal Color, Warm Assessment and Plan - Assessment and Plan (Free Text) Assessment: (1) CHF exacerbation- resolving Patient with history of CHF, off meds for 2 weeks. Pro BNP on admission 3580. CXR shows cardiomegaly. Echo w/findings of LV mod dilated, LV systolic function severely impaired, EF<25 %, global hypokinesis of LV, LV diastolic functio normal, RV and systolic function normal, RA and LA mod dilated, MR mild to mod, mod TR, RV systolic P 50 -60mmHg, mod pulmonary HTN, mild-mod pulmonic valvular regurgitation, aortic root mildly enlarged Lasix 40mg IVP daily decreased to 20mg IVP daily Cont Coreg 3.125 mg PO BID Cont Lisinopril 2.5 mg PO daily Cont Aldactone 25 mg PO daily I/O's Daily weights Cardio consult [facility] - consider Bumex 2mg Q12H x 2 days, tracking down recs from [facility] [place], consider AICD, titrate Coreg as kishan, manage BP using MAP, not systolic pressure, repleat Mg (2) Pedal edema -resolved/ B/L LE pain Likely secondary to CHF exacerbation. See plan above. Tylenol PRN Started MOtrin PRN pain Venous Dopplers of LE-neg for DVT B/L SCDs contraindicated. (3) Chest discomfort Patient with hx of AR in 2011. SIXTO on admission negative. EKG on admission- sinus rhythm 103 bpm, LBBB. Also seen on EKG from 07/18/16. SIXTO X2 neg EKG X2 only difference- 2nd EKG NSR instead of sinus tachycardia, compared to previous EKG in June of this year- pt had LBBB Cont ASA 81 mg PO daily Cont Coreg 3.125 mg PO BID Cardio recs as above (4) CAD (coronary artery disease) Patient with hx of AR in 2011. SIXTO neg x 2 EKG on admission- sinus rhythm 103 bpm, LBBB. Also seen on EKG from 07/18/16. Cont ASA 81 mg PO daily Coreg 3.125 mg PO BID Re-started statin as per pharmacy- Pravastatin 20mg daily- changed to Crestor 2.5mg daily Cardio following (5) HTN (hypertension) BP 108/67 Lisinopril 2.5 mg PO daily Aldactone 25 mg PO daily Coreg 3.125 mg PO BID Lasix 40mg IVP daily changed to 20mg IVP daily (6) Alcohol abuse Folic Acid 1 mg PO daily Thiamine 100 mg PO daily MV 1 tab PO daily Started Vitamin D daily Seizure precautions Fall precautions CIWA protocol (7) Hypomagnesemia Mg 1.5 Replaced 1 gm MgSO4 Will monitor (8) hypokalemia - resolved K 3.7 Monitor (9) Prophylactic measure Heparin 5000 SC Q8H Pepcid 20 mg PO BID SCDs contraindicated Dispo: Decreased diuresis PT for B/L LE weakness Pain mgmt DW attending <Gray Almonte H - Last Filed: 08/27/16 14:40> Objective - Vital Signs/Intake and Output Vital Signs (last 24 hours): Temp Pulse Resp BP Pulse Ox 98.2 F 90 20 139/98 H 99 08/27/16 07:52 08/27/16 07:52 08/27/16 07:52 08/27/16 10:06 08/27/16 07:52 Intake and Output: 08/27/16 08/27/16 06:59 18:59 Intake Total 540 Output Total 1800 Balance -1260 - Medications Medications: Current Medications Acetaminophen (Tylenol 325mg Tab) 650 mg PO Q6 PRN PRN Reason: Pain, moderate (4-7) Last Admin: 08/27/16 05:51 Dose: 650 mg Aspirin (Aspirin Chewable) 81 mg PO DAILY [facility] Last Admin: 08/27/16 10:06 Dose: 81 mg Carvedilol (Coreg) 6.25 mg PO BID [facility] Last Admin: 08/27/16 10:06 Dose: 6.25 mg Ergocalciferol (Drisdol 50,000 Intl Units Cap) 1 cap PO QWK [facility] Last Admin: 08/25/16 17:53 Dose: 1 cap Famotidine (Pepcid) 20 mg PO BID [facility] Last Admin: 08/27/16 10:06 Dose: 20 mg Folic Acid (Folic Acid) 1 mg PO DAILY [facility] Last Admin: 08/27/16 10:06 Dose: 1 mg Furosemide (Lasix) 20 mg IVP Q12 [facility] Heparin Sodium (Porcine) (Heparin) 5,000 units SC Q8 [facility] Last Admin: 08/27/16 13:29 Dose: 5,000 units Ibuprofen (Motrin Tab) 600 mg PO TID PRN PRN Reason: Pain, moderate (4-7) Lisinopril (Zestril) 2.5 mg PO DAILY [facility] Last Admin: 08/27/16 10:06 Dose: 2.5 mg Multivitamins (Hexavitamin) 1 tab PO DAILY [facility] Last Admin: 08/27/16 10:05 Dose: 1 tab Potassium Chloride (K-Dur 20 Meq Er Tab) 20 meq PO DAILY [facility] Last Admin: 08/27/16 10:05 Dose: 20 meq Potassium Chloride (Potassium Chloride Oral Soln) 40 meq PO Q4 [facility] Stop: 08/27/16 20:01 Rosuvastatin Calcium (Crestor) 2.5 mg PO HS [facility] Last Admin: 08/26/16 21:28 Dose: 2.5 mg Spironolactone (Aldactone) 25 mg PO DAILY [facility] Last Admin: 08/27/16 10:06 Dose: 25 mg Thiamine HCl (Vitamin B1 Tab) 100 mg PO DAILY [facility] Last Admin: 08/27/16 10:05 Dose: 100 mg - Labs Labs: 08/27/16 11:13 08/27/16 11:13 PT 14.6 SECONDS (9.7-12.2) H 08/24/16 19:59 INR 1.3 08/24/16 19:59 APTT 31 SECONDS (21-34) 08/25/16 06:00 Attending/Attestation - Attestation I have personally seen and examined this patient.: Yes I have fully participated in the care of the patient.: Yes I have reviewed all pertinent clinical information, including history, physical exam and plan: Yes Notes (Text): 08/27/16 14:38 Medical Attending: Patient was seen and examined by me. Agree with the above note by the resident. The patient's lasix will be decreased to smaller dose. He has had a lot of improvement with the lasix, the edema is much less than before. The patient reports his breathing is much better as well. The patient still reports difficulty with walking, he reports weakness. Will need PT/OT thank you Gray Almonte
[2016-08-27 11:20] LABS: BASO # 0.1 K/uL (0.0-0.2); BASO % 1.2 % (0.0-2.0); EOS # 0.4 K/uL (0.0-0.7); EOS % 6.7 % (0.0-4.0); HEMATOCRIT 35.4 % (35.0-51.0); LYMPH # 1.1 K/uL (1.0-4.3); LYMPH % 18.3 % (20.0-40.0); MEAN CELL VOLUME 94.6 fL (80.0-94.0); MEAN CORPUSCULAR HEMOGLOBIN 30.9 pg (27.0-31.0); MEAN CORPUSCULAR HGB CONC 32.6 g/dL (33.0-37.0); MONO # 0.7 K/uL (0.0-0.8); MONO % 11.5 % (0.0-10.0)
[2016-08-27 11:41] LABS: CHLORIDE 87 mmol/L (98-107); POTASSIUM 3.7 mmol/L (3.6-5.2); SODIUM 133 mmol/L (132-148)
[2016-08-27 11:43] LABS: GFR AFRICAN-AMERICAN > 60
[2016-08-27 11:44] LABS: ALB/GLOB RATIO 0.8 (1.0-2.1); ALKALINE PHOSPHATASE 67 U/L (38-126); ALT/SGPT 7 U/L (21-72); AST/SGOT 31 U/L (17-59); BILIRUBIN,TOTAL 0.4 mg/dL (0.2-1.3); BLOOD UREA NITROGEN 17 mg/dL (9-20); CALCIUM 9.4 mg/dl (8.6-10.4); CARBON DIOXIDE 32 mmol/L (22-30); GLUCOSE,RANDOM 102 mg/dL (75-110); PHOSPHOROUS 4.4 mg/dL (2.5-4.5); TOTAL PROTEIN 8.5 g/dL (6.3-8.3)
[2016-08-27 11:45] LABS: MAGNESIUM 1.5 mg/dL (1.6-2.3)
--- NOTE | 2016-08-27 11:51 | CP.PCM.PN ---
Subjective - Date & Time of Evaluation Date of Evaluation: 08/27/16 Time of Evaluation: 13:22 - Subjective Subjective: PT WITH B/L KNEE PAIN AND LOWER LEG PAIN. NO DYSPNEA OR CP. Objective - Vital Signs/Intake and Output Vital Signs (last 24 hours): Temp Pulse Resp BP Pulse Ox 98.2 F 90 20 139/98 H 99 08/27/16 07:52 08/27/16 07:52 08/27/16 07:52 08/27/16 10:06 08/27/16 07:52 Intake and Output: 08/27/16 08/27/16 06:59 18:59 Intake Total 540 Output Total 1800 Balance -1260 - Medications Medications: Current Medications Acetaminophen (Tylenol 325mg Tab) 650 mg PO Q6 PRN PRN Reason: Pain, moderate (4-7) Last Admin: 08/27/16 05:51 Dose: 650 mg Aspirin (Aspirin Chewable) 81 mg PO DAILY [facility] Last Admin: 08/27/16 10:06 Dose: 81 mg Carvedilol (Coreg) 6.25 mg PO BID [facility] Last Admin: 08/27/16 10:06 Dose: 6.25 mg Ergocalciferol (Drisdol 50,000 Intl Units Cap) 1 cap PO QWK [facility] Last Admin: 08/25/16 17:53 Dose: 1 cap Famotidine (Pepcid) 20 mg PO BID [facility] Last Admin: 08/27/16 10:06 Dose: 20 mg Folic Acid (Folic Acid) 1 mg PO DAILY [facility] Last Admin: 08/27/16 10:06 Dose: 1 mg Furosemide (Lasix) 20 mg IVP Q12 [facility] Heparin Sodium (Porcine) (Heparin) 5,000 units SC Q8 [facility] Last Admin: 08/27/16 05:55 Dose: 5,000 units Ibuprofen (Motrin Tab) 600 mg PO TID PRN PRN Reason: Pain, moderate (4-7) Lisinopril (Zestril) 2.5 mg PO DAILY [facility] Last Admin: 08/27/16 10:06 Dose: 2.5 mg Multivitamins (Hexavitamin) 1 tab PO DAILY [facility] Last Admin: 08/27/16 10:05 Dose: 1 tab Potassium Chloride (K-Dur 20 Meq Er Tab) 20 meq PO DAILY [facility] Last Admin: 08/27/16 10:05 Dose: 20 meq Rosuvastatin Calcium (Crestor) 2.5 mg PO HS [facility] Last Admin: 08/26/16 21:28 Dose: 2.5 mg Spironolactone (Aldactone) 25 mg PO DAILY [facility] Last Admin: 08/27/16 10:06 Dose: 25 mg Thiamine HCl (Vitamin B1 Tab) 100 mg PO DAILY [facility] Last Admin: 08/27/16 10:05 Dose: 100 mg - Labs Labs: 08/27/16 11:13 08/27/16 11:13 PT 14.6 SECONDS (9.7-12.2) H 08/24/16 19:59 INR 1.3 08/24/16 19:59 APTT 31 SECONDS (21-34) 08/25/16 06:00 - Constitutional Appears: Well - Head Exam Head Exam: ATRAUMATIC, NORMAL INSPECTION, NORMOCEPHALIC - Eye Exam Eye Exam: EOMI, Normal appearance, PERRL Pupil Exam: NORMAL ACCOMODATION, PERRL - ENT Exam ENT Exam: Mucous Membranes Moist, Normal Exam - Neck Exam Neck Exam: Full ROM, Normal Inspection. absent: Lymphadenopathy - Respiratory Exam Respiratory Exam: Clear to Ausculation Bilateral, NORMAL BREATHING PATTERN - Cardiovascular Exam Cardiovascular Exam: REGULAR RHYTHM, +S1, +S2. absent: Murmur - GI/Abdominal Exam GI & Abdominal Exam: Soft, Normal Bowel Sounds. absent: Tenderness - Extremities Exam Extremities Exam: Full ROM, Normal Capillary Refill, Normal Inspection. absent : Joint Swelling, Pedal Edema - Back Exam Back Exam: NORMAL INSPECTION - Neurological Exam Neurological Exam: Alert, Awake, CN II-XII Intact, Normal Gait, Oriented x3 - Psychiatric Exam Psychiatric exam: Normal Affect, Normal Mood - Skin Skin Exam: Dry, Intact, Normal Color, Warm Assessment and Plan (1) CAD (coronary artery disease) Status: Acute (2) CHF exacerbation Status: Acute (3) HTN (hypertension) Status: Acute (4) Alcohol abuse Status: Acute - Assessment and Plan (Free Text) Plan: REPLEAT K AND MAG AGREE WITH DECREASING DIURETICS CURRENTLY UNABLE TO LOCATE PTS [facility] [place] RECORDS. EXAC SEEMS TO BE DUE TO MED NONCOMPLIANCE. 35 MIN
[2016-08-27] MEDS: Potassium Chloride 20 mEq/15 ml LIQ UD PO SCH ×2 (16:00→20:00)
[2016-08-27] MEDS: Rosuvastatin Calcium 2.5 mg Tab PO SCH (21:35)
[2016-08-28 05:56] LABS: BASO # 0.1 K/uL (0.0-0.2); BASO % 1.6 % (0.0-2.0); EOS # 0.4 K/uL (0.0-0.7); LYMPH # 1.3 K/uL (1.0-4.3); LYMPH % 20.7 % (20.0-40.0); MEAN CELL VOLUME 93.6 fL (80.0-94.0); MEAN CORPUSCULAR HEMOGLOBIN 30.6 pg (27.0-31.0); MEAN CORPUSCULAR HGB CONC 32.7 g/dL (33.0-37.0); MEAN PLATELET VOLUME 7.9 fL (7.2-11.7); MONO # 0.7 K/uL (0.0-0.8); MONO % 10.6 % (0.0-10.0); NRBC % 0.1 % (0.0-2.0); RED CELL DISTRIBUTION WIDTH 16.1 % (11.5-14.5); WHITE BLOOD COUNT 6.2 K/uL (4.8-10.8)
[2016-08-28 06:14] LABS: CHLORIDE 90 mmol/L (98-107); POTASSIUM 5.8 mmol/L (3.6-5.2); SODIUM 130 mmol/L (132-148)
[2016-08-28 06:16] LABS: ALB/GLOB RATIO 0.8 (1.0-2.1); ALKALINE PHOSPHATASE 69 U/L (38-126); AST/SGOT 33 U/L (17-59); BILIRUBIN,TOTAL 0.4 mg/dL (0.2-1.3); BLOOD UREA NITROGEN 15 mg/dL (9-20); CARBON DIOXIDE 27 mmol/L (22-30); GFR AFRICAN-AMERICAN > 60; TOTAL PROTEIN 8.7 g/dL (6.3-8.3)
[2016-08-28 06:17] LABS: CALCIUM 9.6 mg/dl (8.6-10.4); GLUCOSE,RANDOM 97 mg/dL (75-110); MAGNESIUM 1.6 mg/dL (1.6-2.3); PHOSPHOROUS 4.4 mg/dL (2.5-4.5)
[2016-08-28 06:20] LABS: ALT/SGPT < 6 U/L (21-72)
[2016-08-28] MEDS ORDERED: Calcium Gluconate 4.65 mEq/10 ml Inj IVP ONE (07:52)
[2016-08-28] MEDS ORDERED: Sod Polystyrene Sulf 15 gm/60 ml Oral Susp PO ONE (08:34)
--- NOTE | 2016-08-28 09:59 | CP.PCM.PN ---
<Candice Tsai - Last Filed: 08/28/16 09:56> Subjective - Date & Time of Evaluation Date of Evaluation: 08/28/16 Time of Evaluation: 09:30 - Subjective Subjective: Internal medicine progress note for Hospitalist service- Candice Tsai, PGY-1 Pt S & E at bedside. Pt reports continued B/L LE pain, weakness, does not remember if he worked with PT yesterday. Denies N/V/F/C, SOB, CP, chest tightness, lower extremity swelling. Objective - Vital Signs/Intake and Output Vital Signs (last 24 hours): Temp Pulse Resp BP Pulse Ox 98.5 F 81 20 114/78 100 08/28/16 08:32 08/28/16 08:32 08/28/16 08:32 08/28/16 08:51 08/28/16 08:32 Intake and Output: 08/28/16 08/28/16 06:59 18:59 Intake Total 250 Output Total 500 Balance -250 - Medications Medications: Current Medications Acetaminophen (Tylenol 325mg Tab) 650 mg PO Q6 PRN PRN Reason: Pain, moderate (4-7) Last Admin: 08/28/16 06:16 Dose: 650 mg Aspirin (Aspirin Chewable) 81 mg PO DAILY [facility] Last Admin: 08/27/16 10:06 Dose: 81 mg Carvedilol (Coreg) 6.25 mg PO BID [facility] Last Admin: 08/27/16 17:56 Dose: 6.25 mg Ergocalciferol (Drisdol 50,000 Intl Units Cap) 1 cap PO QWK [facility] Last Admin: 08/25/16 17:53 Dose: 1 cap Famotidine (Pepcid) 20 mg PO BID [facility] Last Admin: 08/27/16 17:56 Dose: 20 mg Folic Acid (Folic Acid) 1 mg PO DAILY [facility] Last Admin: 08/27/16 10:06 Dose: 1 mg Furosemide (Lasix) 20 mg IVP Q12 [facility] Last Admin: 08/27/16 21:35 Dose: 20 mg Heparin Sodium (Porcine) (Heparin) 5,000 units SC Q8 [facility] Last Admin: 08/28/16 06:19 Dose: 5,000 units Ibuprofen (Motrin Tab) 600 mg PO TID PRN PRN Reason: Pain, moderate (4-7) Lisinopril (Zestril) 2.5 mg PO DAILY [facility] Last Admin: 08/27/16 10:06 Dose: 2.5 mg Multivitamins (Hexavitamin) 1 tab PO DAILY [facility] Last Admin: 08/27/16 10:05 Dose: 1 tab Rosuvastatin Calcium (Crestor) 2.5 mg PO HS [facility] Last Admin: 08/27/16 21:35 Dose: 2.5 mg Spironolactone (Aldactone) 25 mg PO DAILY [facility] Last Admin: 08/27/16 10:06 Dose: 25 mg Thiamine HCl (Vitamin B1 Tab) 100 mg PO DAILY [facility] Last Admin: 08/27/16 10:05 Dose: 100 mg - Labs Labs: 08/28/16 05:44 08/28/16 05:44 PT 14.6 SECONDS (9.7-12.2) H 08/24/16 19:59 INR 1.3 08/24/16 19:59 APTT 31 SECONDS (21-34) 08/25/16 06:00 - Constitutional Appears: Non-toxic, No Acute Distress - Head Exam Head Exam: ATRAUMATIC, NORMAL INSPECTION, NORMOCEPHALIC - Eye Exam Eye Exam: EOMI, Normal appearance, PERRL Pupil Exam: NORMAL ACCOMODATION, PERRL - ENT Exam ENT Exam: Mucous Membranes Moist, Normal Exam - Neck Exam Neck Exam: Full ROM, Normal Inspection - Respiratory Exam Respiratory Exam: Clear to Ausculation Bilateral, NORMAL BREATHING PATTERN. absent: Rales, Rhonchi, Wheezes, Respiratory Distress, Stridor - Cardiovascular Exam Cardiovascular Exam: REGULAR RHYTHM, +S1, +S2 - GI/Abdominal Exam GI & Abdominal Exam: Soft, Normal Bowel Sounds. absent: Tenderness - Extremities Exam Extremities Exam: Normal Inspection, Tenderness (over B/L LE, karina with movement) . absent: Pedal Edema - Neurological Exam Neurological Exam: Alert, Awake, CN II-XII Intact, Oriented x3 - Psychiatric Exam Psychiatric exam: Normal Affect, Normal Mood - Skin Skin Exam: Dry, Intact, Normal Color, Warm Assessment and Plan - Assessment and Plan (Free Text) Assessment: Hyperkalemia K 5.8 Lasix 40mg IVP x 1 Kayexelate EKG w/o changes from previous Monitor B/L LE pain Tylenol PRN Started MOtrin PRN pain Venous Dopplers of LE-neg for DVT B/L SCDs contraindicated. FU B/L Knee and ankle X-rays CHF exacerbation- resolving Patient with history of CHF, off meds for 2 weeks. Pro BNP on admission 3580. CXR shows cardiomegaly. Echo w/findings of LV mod dilated, LV systolic function severely impaired, EF<25 %, global hypokinesis of LV, LV diastolic functio normal, RV and systolic function normal, RA and LA mod dilated, MR mild to mod, mod TR, RV systolic P 50 -60mmHg, mod pulmonary HTN, mild-mod pulmonic valvular regurgitation, aortic root mildly enlarged Lasix 40mg IVP daily decreased to 20mg IVP daily Cont Coreg 3.125 mg PO BID Cont Lisinopril 2.5 mg PO daily Cont Aldactone 25 mg PO daily I/O's Daily weights Cardio consult [facility] - consider Bumex 2mg Q12H x 2 days, tracking down recs from [facility] [place], consider AICD, titrate Coreg as kishan, manage BP using MAP, not systolic pressure, repleat Mg Chest discomfort Repeat EKG same as previous Patient with hx of [place] in 2011. SIXTO on admission negative. EKG on admission- sinus rhythm 103 bpm, LBBB. Also seen on EKG from 07/18/16. SIXTO X2 neg EKG X2 only difference- 2nd EKG NSR instead of sinus tachycardia, compared to previous EKG in June of this year- pt had LBBB Cont ASA 81 mg PO daily Cont Coreg 3.125 mg PO BID Cardio recs as above CAD (coronary artery disease) Patient with hx of MO in 2011. SIXTO neg x 2 EKG on admission- sinus rhythm 103 bpm, LBBB. Also seen on EKG from 07/18/16. Cont ASA 81 mg PO daily Coreg 3.125 mg PO BID Re-started statin as per pharmacy- Pravastatin 20mg daily- changed to Crestor 2.5mg daily Cardio following HTN (hypertension) BP 117/77 Lisinopril 2.5 mg PO daily Aldactone 25 mg PO daily Coreg 3.125 mg PO BID Cont Lasix 20mg IVP daily Alcohol abuse Folic Acid 1 mg PO daily Thiamine 100 mg PO daily MV 1 tab PO daily Started Vitamin D daily Seizure precautions Fall precautions [facility] protocol Hypomagnesemia- resolved Mg 1.6 Will monitor Prophylactic measure Heparin 5000 SC Q8H Pepcid 20 mg PO BID SCDs contraindicated Dispo: PT for B/L LE weakness Pain mgmt FU B/L Knee and ankle x-rays DW attending <Gray Almonte H - Last Filed: 08/28/16 15:40> Objective - Vital Signs/Intake and Output Vital Signs (last 24 hours): Temp Pulse Resp BP Pulse Ox 98.5 F 81 20 114/78 100 08/28/16 08:32 08/28/16 13:25 08/28/16 08:32 08/28/16 08:51 08/28/16 08:32 Intake and Output: 08/28/16 08/28/16 06:59 18:59 Intake Total 750 Output Total 2500 Balance -1750 - Medications Medications: Current Medications Acetaminophen (Tylenol 325mg Tab) 650 mg PO Q6 PRN PRN Reason: Pain, moderate (4-7) Last Admin: 08/28/16 06:16 Dose: 650 mg Aspirin (Aspirin Chewable) 81 mg PO DAILY [facility] Last Admin: 08/28/16 11:10 Dose: 81 mg Carvedilol (Coreg) 6.25 mg PO BID [facility] Last Admin: 08/28/16 11:11 Dose: 6.25 mg Ergocalciferol (Drisdol 50,000 Intl Units Cap) 1 cap PO QWK [facility] Last Admin: 08/25/16 17:53 Dose: 1 cap Famotidine (Pepcid) 20 mg PO BID [facility] Last Admin: 08/28/16 11:11 Dose: 20 mg Folic Acid (Folic Acid) 1 mg PO DAILY [facility] Last Admin: 08/28/16 11:11 Dose: 1 mg Furosemide (Lasix) 20 mg IVP Q12 [facility] Last Admin: 08/28/16 11:08 Dose: Not Given Heparin Sodium (Porcine) (Heparin) 5,000 units SC Q8 [facility] Last Admin: 08/28/16 13:08 Dose: 5,000 units Ibuprofen (Motrin Tab) 600 mg PO TID PRN PRN Reason: Pain, moderate (4-7) Lisinopril (Zestril) 2.5 mg PO DAILY [facility] Last Admin: 08/28/16 11:25 Dose: 2.5 mg Multivitamins (Hexavitamin) 1 tab PO DAILY [facility] Last Admin: 08/28/16 11:10 Dose: 1 tab Rosuvastatin Calcium (Crestor) 2.5 mg PO HS [facility] Last Admin: 08/27/16 21:35 Dose: 2.5 mg Spironolactone (Aldactone) 25 mg PO DAILY [facility] Last Admin: 08/28/16 11:11 Dose: 25 mg Thiamine HCl (Vitamin B1 Tab) 100 mg PO DAILY [facility] Last Admin: 08/28/16 11:10 Dose: 100 mg - Labs Labs: 08/28/16 05:44 08/28/16 05:44 PT 14.6 SECONDS (9.7-12.2) H 08/24/16 19:59 INR 1.3 08/24/16 19:59 APTT 31 SECONDS (21-34) 08/25/16 06:00 Attending/Attestation - Attestation I have personally seen and examined this patient.: Yes I have fully participated in the care of the patient.: Yes I have reviewed all pertinent clinical information, including history, physical exam and plan: Yes Notes (Text): Medical Attending: Patient was seen and examined by me. Agree with the above note by the resident. The patient reports that breathing is improving and also the swelling in the legs has decreased. According to the PT notes, the patient stood up only to report a lot of bilateral knee pain. Will re-adjust medication for pain. thank you Gray Almonte
[2016-08-28] MEDS: Multiple Vitamins Tab PO SCH (11:10)
--- NOTE | 2016-08-28 11:11 | RAD ---
PROCEDURE: Bilateral Knee Radiographs. HISTORY: knee pain COMPARISON: None. FINDINGS: BONES: Right Knee: Normal. No fracture. Left Knee: Normal. No fracture. JOINTS: Right Knee: No marked osteoarthrosis patellofemoral joint space narrowing is suggested Left knee: No marked osteoarthrosis patellofemoral joint space narrowing is suggested SOFT TISSUES: Right Knee: Normal. Left Knee: Normal. JOINT EFFUSION: Right Knee: None. Left Knee: None. OTHER FINDINGS: None. IMPRESSION: Patellofemoral joint space narrowing bilaterally
--- NOTE | 2016-08-28 13:18 | RAD ---
PROCEDURE: HISTORY: leg pain COMPARISON: None TECHNIQUE: Three views FINDINGS: A complete medial malleolar fracture chronic appearing is suggested at the fracture site a few tiny cystic changes are suggested . No acute fracture suggested. Anterior tibial plafond osseous hypertrophic changes probable Anterior posterior for joint soft tissue swelling - effusion probable IMPRESSION: Chronic medial malleolar fracture. 1 mm distraction of the fracture fragment . Effusion probable
[2016-08-28] MEDS: Rosuvastatin Calcium 2.5 mg Tab PO SCH (21:26)
--- NOTE | 2016-08-29 08:56 | CP.PCM.PN ---
Subjective - Date & Time of Evaluation Date of Evaluation: 08/29/16 Time of Evaluation: 07:00 - Subjective Subjective: Internal medicine progress note for Hospitalist service- Candice Tsai, PGY-1 Pt S & E at bedside. Pt continues to complain of B/L LE soreness, inability to stand, B/L LE weakness. Denies other complaints-N/V/F/C, SOB, CP, abdominal pain, tolerating diet, ambulating, moving bowels, sleeping ok. Objective - Vital Signs/Intake and Output Vital Signs (last 24 hours): Temp Pulse Resp BP Pulse Ox 98.8 F 86 20 107/75 98 08/29/16 00:00 08/29/16 01:41 08/29/16 00:00 08/29/16 00:00 08/29/16 00:00 Intake and Output: 08/29/16 08/29/16 06:59 18:59 Intake Total 300 200 Output Total 500 Balance 300 -300 - Medications Medications: Current Medications Acetaminophen (Tylenol 325mg Tab) 650 mg PO Q6 PRN PRN Reason: Pain, moderate (4-7) Last Admin: 08/28/16 06:16 Dose: 650 mg Aspirin (Aspirin Chewable) 81 mg PO DAILY [facility] Last Admin: 08/28/16 11:10 Dose: 81 mg Carvedilol (Coreg) 6.25 mg PO BID [facility] Last Admin: 08/28/16 17:22 Dose: 6.25 mg Ergocalciferol (Drisdol 50,000 Intl Units Cap) 1 cap PO QWK [facility] Last Admin: 08/25/16 17:53 Dose: 1 cap Famotidine (Pepcid) 20 mg PO BID [facility] Last Admin: 08/28/16 17:22 Dose: 20 mg Folic Acid (Folic Acid) 1 mg PO DAILY [facility] Last Admin: 08/28/16 11:11 Dose: 1 mg Furosemide (Lasix) 20 mg IVP Q12 [facility] Last Admin: 08/28/16 21:26 Dose: 20 mg Heparin Sodium (Porcine) (Heparin) 5,000 units SC Q8 [facility] Last Admin: 08/29/16 07:41 Dose: 5,000 units Ibuprofen (Motrin Tab) 600 mg PO TID PRN PRN Reason: Pain, moderate (4-7) Lisinopril (Zestril) 2.5 mg PO DAILY [facility] Last Admin: 08/28/16 11:25 Dose: 2.5 mg Multivitamins (Hexavitamin) 1 tab PO DAILY [facility] Last Admin: 08/28/16 11:10 Dose: 1 tab Rosuvastatin Calcium (Crestor) 2.5 mg PO HS [facility] Last Admin: 08/28/16 21:26 Dose: 2.5 mg Spironolactone (Aldactone) 25 mg PO DAILY [facility] Last Admin: 08/28/16 11:11 Dose: 25 mg Thiamine HCl (Vitamin B1 Tab) 100 mg PO DAILY [facility] Last Admin: 08/28/16 11:10 Dose: 100 mg - Labs Labs: 08/28/16 05:44 08/28/16 05:44 PT 14.6 SECONDS (9.7-12.2) H 08/24/16 19:59 INR 1.3 08/24/16 19:59 APTT 31 SECONDS (21-34) 08/25/16 06:00 Assessment and Plan - Assessment and Plan (Free Text) Assessment: B/L LE pain Tylenol PRN Started MOtrin PRN pain Venous Dopplers of LE-neg for DVT B/L SCDs contraindicated. Knee x-ray w/findings of Patellofemoral joint space narrowing bilaterally Ankle x-ray w/findings of Chronic medial malleolar fracture. 1 mm distraction of the fracture fragment. Effusion probable Will consider ortho consult Crutches Hyperkalemia FU labs CHF exacerbation- resolved Patient with history of CHF, off meds for 2 weeks. Pro BNP on admission 3580. CXR shows cardiomegaly. Echo w/findings of LV mod dilated, LV systolic function severely impaired, EF<25 %, global hypokinesis of LV, LV diastolic functio normal, RV and systolic function normal, RA and LA mod dilated, MR mild to mod, mod TR, RV systolic P 50 -60mmHg, mod pulmonary HTN, mild-mod pulmonic valvular regurgitation, aortic root mildly enlarged Lasix 40mg IVP daily decreased to 20mg IVP daily Cont Coreg 3.125 mg PO BID Cont Lisinopril 2.5 mg PO daily Cont Aldactone 25 mg PO daily I/O's Daily weights Cardio consult [facility] - consider Bumex 2mg Q12H x 2 days, tracking down recs from [facility] [place], consider AICD, titrate Coreg as kishan, manage BP using MAP, not systolic pressure, replete Mg Chest discomfort Repeat EKG same as previous Patient with hx of [place] in 2011. SIXTO on admission negative. EKG on admission- sinus rhythm 103 bpm, LBBB. Also seen on EKG from 07/18/16. SIXTO X2 neg EKG X2 only difference- 2nd EKG NSR instead of sinus tachycardia, compared to previous EKG in June of this year- pt had LBBB Cont ASA 81 mg PO daily Cont Coreg 3.125 mg PO BID Cardio recs as above CAD (coronary artery disease) Patient with hx of [place] in 2011. SIXTO neg x 2 EKG on admission- sinus rhythm 103 bpm, LBBB. Also seen on EKG from 07/18/16. Cont ASA 81 mg PO daily Coreg 3.125 mg PO BID Re-started statin as per pharmacy- Pravastatin 20mg daily- changed to Crestor 2.5mg daily Cardio following HTN (hypertension) BP 107/85 Lisinopril 2.5 mg PO daily Aldactone 25 mg PO daily Coreg 3.125 mg PO BID Cont Lasix 20mg IVP daily Alcohol abuse Folic Acid 1 mg PO daily Thiamine 100 mg PO daily MV 1 tab PO daily Started Vitamin D daily Seizure precautions Fall precautions [facility] protocol Prophylactic measure Heparin 5000 SC Q8H Pepcid 20 mg PO BID SCDs contraindicated Dispo: PT for B/L LE weakness Pain mgmt DW attending
[2016-08-29 09:36] VITALS: PULSE 88
[2016-08-29] MEDS: Multiple Vitamins Tab PO SCH (11:12)
[2016-08-29 11:22] LABS: BASO # 0.1 K/uL (0.0-0.2); BASO % 1.6 % (0.0-2.0); EOS # 0.3 K/uL (0.0-0.7); EOS % 5.2 % (0.0-4.0); HEMATOCRIT 40.6 % (35.0-51.0); LYMPH # 1.3 K/uL (1.0-4.3); LYMPH % 22.5 % (20.0-40.0); MEAN CELL VOLUME 93.1 fL (80.0-94.0); MEAN CORPUSCULAR HEMOGLOBIN 30.1 pg (27.0-31.0); MEAN CORPUSCULAR HGB CONC 32.4 g/dL (33.0-37.0); MONO # 0.6 K/uL (0.0-0.8); MONO % 9.8 % (0.0-10.0); NRBC % 0.1 % (0.0-2.0); RED CELL DISTRIBUTION WIDTH 16.7 % (11.5-14.5); WHITE BLOOD COUNT 5.8 K/uL (4.8-10.8)
[2016-08-29 11:30] LABS: CHLORIDE 84 mmol/L (98-107)
[2016-08-29 11:31] LABS: SODIUM 128 mmol/L (132-148)
[2016-08-29 11:33] LABS: ALB/GLOB RATIO 0.7 (1.0-2.1); ALKALINE PHOSPHATASE 84 U/L (38-126); AST/SGOT 39 U/L (17-59); BILIRUBIN,TOTAL 0.8 mg/dL (0.2-1.3); BLOOD UREA NITROGEN 22 mg/dL (9-20); CARBON DIOXIDE 29 mmol/L (22-30); GFR AFRICAN-AMERICAN > 60; GLUCOSE,RANDOM 121 mg/dL (75-110)
[2016-08-29 11:34] LABS: ALT/SGPT 12 U/L (21-72); CALCIUM 10.4 mg/dl (8.6-10.4); MAGNESIUM 1.6 mg/dL (1.6-2.3); PHOSPHOROUS 5.6 mg/dL (2.5-4.5)
--- NOTE | 2016-08-29 15:20 | CP.PCM.DIS ---
<QuinCandice - Last Filed: 08/29/16 15:21> Provider - Provider Date of Admission: 08/26/16 10:32 Attending physician: Girish Taylor MD Primary care physician: Alejandro Consults: Cardio-Chauncey Time Spent in preparation of Discharge (in minutes): 60 Hospital Course - Lab Results Lab Results: Micro Results 08/26/16 18:31 Naris MRSA Culture - Final MRSA NOT DETECTED Most Recent Lab Values WBC 5.8 K/uL (4.8-10.8) 08/29/16 11:06 RBC 4.37 Mil/uL (4.40-5.90) L 08/29/16 11:06 Hgb 13.2 g/dL (12.0-18.0) 08/29/16 11:06 Hct 40.6 % (35.0-51.0) 08/29/16 11:06 MCV 93.1 fL (80.0-94.0) 08/29/16 11:06 MCH 30.1 pg (27.0-31.0) 08/29/16 11:06 MCHC 32.4 g/dL (33.0-37.0) L 08/29/16 11:06 RDW 16.7 % (11.5-14.5) H 08/29/16 11:06 Plt Count 429 K/uL (130-400) H 08/29/16 11:06 MPV 8.0 fL (7.2-11.7) 08/29/16 11:06 Neut % (Auto) 60.9 % (50.0-75.0) 08/29/16 11:06 Lymph % (Auto) 22.5 % (20.0-40.0) 08/29/16 11:06 Gregg % (Auto) 9.8 % (0.0-10.0) 08/29/16 11:06 Eos % (Auto) 5.2 % (0.0-4.0) H 08/29/16 11:06 Baso % (Auto) 1.6 % (0.0-2.0) 08/29/16 11:06 Neut # 3.5 K/uL (1.8-7.0) 08/29/16 11:06 Lymph # 1.3 K/uL (1.0-4.3) 08/29/16 11:06 Gregg # 0.6 K/uL (0.0-0.8) 08/29/16 11:06 Eos # 0.3 K/uL (0.0-0.7) 08/29/16 11:06 Baso # 0.1 K/uL (0.0-0.2) 08/29/16 11:06 PT 14.6 SECONDS (9.7-12.2) H 08/24/16 19:59 INR 1.3 08/24/16 19:59 APTT 31 SECONDS (21-34) 08/25/16 06:00 Sodium 128 mmol/L (132-148) L 08/29/16 11:06 Potassium 5.0 mmol/L (3.6-5.2) 08/29/16 11:06 Chloride 84 mmol/L (98-107) L 08/29/16 11:06 Carbon Dioxide 29 mmol/L (22-30) 08/29/16 11:06 Anion Gap 20 (10-20) 08/29/16 11:06 BUN 22 mg/dL (9-20) H 08/29/16 11:06 Creatinine 1.2 MG/DL (0.8-1.5) 08/29/16 11:06 Est GFR ( Amer) > 60 08/29/16 11:06 Est GFR (Non-Af Amer) > 60 08/29/16 11:06 Random Glucose 121 mg/dL (75-110) H 08/29/16 11:06 Calcium 10.4 mg/dl (8.6-10.4) 08/29/16 11:06 Phosphorus 5.6 mg/dL (2.5-4.5) H 08/29/16 11:06 Magnesium 1.6 mg/dL (1.6-2.3) 08/29/16 11:06 Total Bilirubin 0.8 mg/dL (0.2-1.3) 08/29/16 11:06 AST 39 U/L (17-59) 08/29/16 11:06 ALT 12 U/L (21-72) L D 08/29/16 11:06 Alkaline Phosphatase 84 U/L (38-126) 08/29/16 11:06 Total Creatine Kinase 58 U/L (55-170) 08/25/16 11:13 CK-MB (Mass) 0.23 ng/mL (0.0-3.38) 08/25/16 11:13 Troponin I < 0.0120 ng/mL (0.00-0.120) 08/24/16 19:59 Troponin I, Quant 0.0150 ng/mL (0.00-0.120) 08/25/16 11:13 NT-Pro-B Natriuret Pep 3580 pg/mL (0-900) H 08/24/16 19:59 Total Protein 10.0 g/dL (6.3-8.3) H 08/29/16 11:06 Albumin 4.2 g/dL (3.5-5.0) 08/29/16 11:06 Globulin 5.8 gm/dL (2.2-3.9) H 08/29/16 11:06 Albumin/Globulin Ratio 0.7 (1.0-2.1) L 08/29/16 11:06 Triglycerides 44 mg/dL (0-149) 08/25/16 06:00 Cholesterol 91 mg/dL (0-199) 08/25/16 06:00 LDL Cholesterol Direct 38 mg/dL (0-129) 08/25/16 06:00 HDL Cholesterol 31 mg/dL (30-70) 08/25/16 06:00 TSH 3rd Generation 1.74 mIU/L (0.46-4.68) 08/25/16 06:00 Urine Color Yellow (YELLOW) 08/24/16 20:07 Urine Clarity Clear (Clear) 08/24/16 20:07 Urine pH 7.0 (5.0-8.0) 08/24/16 20:07 Ur Specific [place] 1.012 (1.003-1.030) 08/24/16 20:07 Urine Protein Negative mg/dL (NEGATIVE) 08/24/16 20:07 Urine Glucose (UA) Normal mg/dL (Normal) 08/24/16 20:07 Urine Ketones Negative mg/dL (NEGATIVE) 08/24/16 20:07 Urine Blood Negative (NEGATIVE) 08/24/16 20:07 Urine Nitrate Negative (NEGATIVE) 08/24/16 20:07 Urine Bilirubin Negative (NEGATIVE) 08/24/16 20:07 Urine Urobilinogen 4.0 mg/dL (0.2-1.0) 08/24/16 20:07 Ur Leukocyte Esterase Neg Jose/uL (Negative) 08/24/16 20:07 Urine WBC (Auto) < 1 /hpf (0-5) 08/24/16 20:07 Urine RBC (Auto) < 1 /hpf (0-3) 08/24/16 20:07 - Hospital Course Hospital Course: 55 year old AA male with PMHx of [place], HTN, CHF, presents with 5 day history of lower extremity swelling. Patient admits to being off all his medications for the past 2 weeks since he ran out. He presented to the ED today when he noticed his leg swelling had worsened to the point where he was having trouble ambulating. He admits to associated bilateral leg pain. Patient reports this has happened to him one other time in the past (2011), but only to his right leg. Denies history of blood clots. He admits to dyspnea on exertion and is only able to travel 1/2 a block or go up 1 flight of stairs before having to catch his breath. He is able to lay flat, but admits to waking up in the middle of the night gasping for air. He admits to episode of chest pain this AM. Chest pain was rated 6/10, was described as pressure like and dull, radiating to left arm. Pain is intermittent and is now a 3/10. Denies diaphoresis, changes in vision, confusion, fevers, chills, n/v, diarrhea, constipation, abdominal pain, headache, lesions. Denies lesions on his legs. No redness, weeping, or warmth. Pt admitted to hospital, CHF exacerbation work up and treatment initiated, pt placed on CIWA protocol and ETOH withdrawal medications. Pro BNP on admission 3580, CXR showed cardiomegaly. Echo done with findings of severely impaired systolic function, EF<25%. Pt seen/evaluated by cardiology. Patient with good diuresis, decreased SOB and B/L LE edema over hospitalization. Pt continued to complain of B/L LE pain/soresness. X-rays of knees & ankles were done with findings of:Knee x-ray w/findings of Patellofemoral joint space narrowing bilaterally. Ankle x-ray w/findings of Chronic medial malleolar fracture. 1 mm distraction of the fracture fragment. Effusion probable. Physical therapy evaluation was conducted, pt was given instructions on how to use crutches. Pt was given crutches, immobility boot with instructions to follow up with his primary resident care spec for further fracture management and medical management. Pt stable and ready for discharge with instructions to re-start home medications. Diagnoses: CHF exacerbation, Right chronic medial malleolar fracture, Transient hyperkalemia, hx CAD, HTN, ETOH abuse, transient hypomagnesemia - Date & Time of H&P Date of H&P: 08/24/16 Time of H&P: 23:47 Discharge Exam - Head Exam Head Exam: ATRAUMATIC, NORMAL INSPECTION, NORMOCEPHALIC - Eye Exam Eye Exam: EOMI, Normal appearance, PERRL Pupil Exam: NORMAL ACCOMODATION, PERRL - ENT Exam ENT Exam: Mucous Membranes Moist, Normal Exam - Neck Exam Neck exam: Full Rom, Normal Inspection - Respiratory Exam Respiratory Exam: Clear to PA & Lateral, NORMAL BREATHING PATTERN, UNREMARKABLE. absent: Chest Wall Tenderness - Cardiovascular Exam Cardiovascular Exam: REGULAR RHYTHM, +S1, +S2. absent: JVD - GI/Abdominal Exam GI & Abdominal Exam: Normal Bowel Sounds, Soft, Unremarkable. absent: Tenderness - Extremities Exam Extremities exam: normal capillary refill, normal inspection, tenderness ( minimal B/L) - Back Exam Back exam: FULL ROM, NORMAL INSPECTION - Neurological Exam Neurological exam: Alert, CN II-XII Intact, Oriented x3 - Psychiatric Exam Psychiatric exam: Normal Affect, Normal Mood - Skin Skin Exam: Dry, Intact, Normal Color, Warm Discharge Plan - Discharge Medications Prescriptions: Spironolactone [Aldactone] 25 mg PO DAILY #30 tab Carvedilol [Coreg] 6.25 mg PO BID #60 tab Aspirin [Ecotrin] 81 mg PO DAILY #30 tabec Furosemide [Lasix] 20 mg PO DAILY #30 tablet Lisinopril [Zestril] 2.5 mg PO DAILY #30 tab - Follow Up Plan Condition: STABLE Disposition: HOME/ ROUTINE Additional Instructions: Patient cleared for discharge as per Dr. Almonte. Please use crutches to ambulate due to Right ankle fracture. Please follow up with your primary care provider within 1 week after hospitalization for re-evaluation of medications and instructions regarding further fracture management. You are being given prescriptions for your medications, please be sure and fill them, take them daily. If you have pain in your legs, you may take Ibuprofen 400mg every 6 hours as needed, over the counter. If you have a recurrence of symptoms, please return to hospital. Clinical Quality Measures - CQM - Heart Failure Ejection Fraction: Less Than 40 % Left Ventricular Function to be assessed after discharge: No BUZZ Inhibitor Prescribed: Yes Beta-Marissa Prescribed: Carvedilol Angiotensin II Receptor Marissa Prescribed: No Contraindication/Reason for not providing: Not indicated at this time AnticoagulationTherapy for Atrial Fibrillation/Atrialflutter: No Contraindication/Reason for not providing: Not indicated at this time Aldosterone Antagonist Prescribed: Yes Hydralazine Nitrate Prescribed: No Contraindication/Reason for not providing: Not indicated at this time Implantable Cardioverter Defibrillator Therapy: No Contraindication/Reason for not providing: Not indicated at this time Cardiac Resynchronization Therapy Prescribed: No Contraindication/Reason for not providing: Not indicated at this time Will be discharged to: Home Follow Up Date (must be within 7 days from discharge): 08/29/16 Follow Up Time: 09:00 - Date & Time of Discharge Summary Date of Discharge Summary: 08/29/16 Time of Discharge Summary: 15:18 <Gray Almonte - Last Filed: 08/29/16 15:42> Provider - Provider Date of Admission: 08/26/16 10:32 Attending physician: Girish Taylor MD Hospital Course - Lab Results Lab Results: Micro Results 08/26/16 18:31 Naris MRSA Culture - Final MRSA NOT DETECTED Most Recent Lab Values WBC 5.8 K/uL (4.8-10.8) 08/29/16 11:06 RBC 4.37 Mil/uL (4.40-5.90) L 08/29/16 11:06 Hgb 13.2 g/dL (12.0-18.0) 08/29/16 11:06 Hct 40.6 % (35.0-51.0) 08/29/16 11:06 MCV 93.1 fL (80.0-94.0) 08/29/16 11:06 MCH 30.1 pg (27.0-31.0) 08/29/16 11:06 MCHC 32.4 g/dL (33.0-37.0) L 08/29/16 11:06 RDW 16.7 % (11.5-14.5) H 08/29/16 11:06 Plt Count 429 K/uL (130-400) H 08/29/16 11:06 MPV 8.0 fL (7.2-11.7) 08/29/16 11:06 Neut % (Auto) 60.9 % (50.0-75.0) 08/29/16 11:06 Lymph % (Auto) 22.5 % (20.0-40.0) 08/29/16 11:06 Gregg % (Auto) 9.8 % (0.0-10.0) 08/29/16 11:06 Eos % (Auto) 5.2 % (0.0-4.0) H 08/29/16 11:06 Baso % (Auto) 1.6 % (0.0-2.0) 08/29/16 11:06 Neut # 3.5 K/uL (1.8-7.0) 08/29/16 11:06 Lymph # 1.3 K/uL (1.0-4.3) 08/29/16 11:06 Gregg # 0.6 K/uL (0.0-0.8) 08/29/16 11:06 Eos # 0.3 K/uL (0.0-0.7) 08/29/16 11:06 Baso # 0.1 K/uL (0.0-0.2) 08/29/16 11:06 PT 14.6 SECONDS (9.7-12.2) H 08/24/16 19:59 INR 1.3 08/24/16 19:59 APTT 31 SECONDS (21-34) 08/25/16 06:00 Sodium 128 mmol/L (132-148) L 08/29/16 11:06 Potassium 5.0 mmol/L (3.6-5.2) 08/29/16 11:06 Chloride 84 mmol/L (98-107) L 08/29/16 11:06 Carbon Dioxide 29 mmol/L (22-30) 08/29/16 11:06 Anion Gap 20 (10-20) 08/29/16 11:06 BUN 22 mg/dL (9-20) H 08/29/16 11:06 Creatinine 1.2 MG/DL (0.8-1.5) 08/29/16 11:06 Est GFR ( Amer) > 60 08/29/16 11:06 Est GFR (Non-Af Amer) > 60 08/29/16 11:06 Random Glucose 121 mg/dL (75-110) H 08/29/16 11:06 Calcium 10.4 mg/dl (8.6-10.4) 08/29/16 11:06 Phosphorus 5.6 mg/dL (2.5-4.5) H 08/29/16 11:06 Magnesium 1.6 mg/dL (1.6-2.3) 08/29/16 11:06 Total Bilirubin 0.8 mg/dL (0.2-1.3) 08/29/16 11:06 AST 39 U/L (17-59) 08/29/16 11:06 ALT 12 U/L (21-72) L D 08/29/16 11:06 Alkaline Phosphatase 84 U/L (38-126) 08/29/16 11:06 Total Creatine Kinase 58 U/L (55-170) 08/25/16 11:13 CK-MB (Mass) 0.23 ng/mL (0.0-3.38) 08/25/16 11:13 Troponin I < 0.0120 ng/mL (0.00-0.120) 08/24/16 19:59 Troponin I, Quant 0.0150 ng/mL (0.00-0.120) 08/25/16 11:13 NT-Pro-B Natriuret Pep 3580 pg/mL (0-900) H 08/24/16 19:59 Total Protein 10.0 g/dL (6.3-8.3) H 08/29/16 11:06 Albumin 4.2 g/dL (3.5-5.0) 08/29/16 11:06 Globulin 5.8 gm/dL (2.2-3.9) H 08/29/16 11:06 Albumin/Globulin Ratio 0.7 (1.0-2.1) L 08/29/16 11:06 Triglycerides 44 mg/dL (0-149) 08/25/16 06:00 Cholesterol 91 mg/dL (0-199) 08/25/16 06:00 LDL Cholesterol Direct 38 mg/dL (0-129) 08/25/16 06:00 HDL Cholesterol 31 mg/dL (30-70) 08/25/16 06:00 TSH 3rd Generation 1.74 mIU/L (0.46-4.68) 08/25/16 06:00 Urine Color Yellow (YELLOW) 08/24/16 20:07 Urine Clarity Clear (Clear) 08/24/16 20:07 Urine pH 7.0 (5.0-8.0) 08/24/16 20:07 Ur Specific [place] 1.012 (1.003-1.030) 08/24/16 20:07 Urine Protein Negative mg/dL (NEGATIVE) 08/24/16 20:07 Urine Glucose (UA) Normal mg/dL (Normal) 08/24/16 20: Urine Ketones Negative mg/dL (NEGATIVE) 08/24/16 20:07 Urine Blood Negative (NEGATIVE) 08/24/16 20:07 Urine Nitrate Negative (NEGATIVE) 08/24/16 20:07 Urine Bilirubin Negative (NEGATIVE) 08/24/16 20:07 Urine Urobilinogen 4.0 mg/dL (0.2-1.0) 08/24/16 20:07 Ur Leukocyte Esterase Neg Jose/uL (Negative) 08/24/16 20:07 Urine WBC (Auto) < 1 /hpf (0-5) 08/24/16 20:07 Urine RBC (Auto) < 1 /hpf (0-3) 08/24/16 20:07 Attending/Attestation - Attestation I have personally seen and examined this patient.: Yes I have fully participated in the care of the patient.: Yes I have reviewed all pertinent clinical information, including history, physical exam and plan: Yes Notes (Text): Medical attending: Patient was seen and examined by me, agrees the above note by medical management specialist. When we saw the patient he reported that his breathing was much better than before, he also reported that the swelling in his lower extremities has also decreased significantly. He is been on IV Lasix and I explained to him that he needs to continue that Lasix when he gets home. The patient explains to us that he was not on his medication for some time which unfortunately led him to have more shortness of breath as well as lower extremity swelling and difficulty breathing. X-rays of the lower extremity suggests that he has a very small chronic medial malleolar fracture in the ankle area, he would benefit from a boot as well as walking on crutches at least for the short period of time. I explained to the patient that he should drooping on his crutches for this short duration of time until he feels more comfortable walking Thank you very much, Gray Almonte
[2016-08-29 17:04] VITALS: BP 97/63; TEMP 98; O2SAT 95
--- NOTE | 2016-09-01 12:35 | CARD ---
APPROVED REPORT EKG Measurement Heart [id number] 156P13 [id number] <Conclusion> Normal sinus rhythm Biatrial enlargement Left bundle branch block Abnormal ECG
== END 2016-08-29 19:25 | disposition home or self-care (01) | DRG 127 ==
LOC: C.ER 18:37 → C.9E 21:51 → C.9I 08-25 06:47 → OBSVTOIN 08-26 10:32 → C.3T 08-26 18:41
PROVIDERS: ADMIT Family Medicine; ATTEND Family Medicine
DX: I11.0 Hypertensive heart disease with heart failure (principal); I27.2 Other secondary pulmonary hypertension; I37.1 Nonrheumatic pulmonary valve insufficiency; E87.6 Hypokalemia; F10.239 Alcohol dependence with withdrawal, unspecified; I45.2 Bifascicular block; E87.5 Hyperkalemia; S82.54XA Nondisplaced fracture of medial malleolus of right tibia, initial encounter for closed fracture; I50.9 Heart failure, unspecified; I25.2 Old myocardial infarction; I25.10 Atherosclerotic heart disease of native coronary artery without angina pectoris; E83.42 Hypomagnesemia; Z87.891 Personal history of nicotine dependence; Z59.0 Homelessness; X58.XXXA Exposure to other specified factors, initial encounter; Z68.34 Body mass index [BMI] 34.0-34.9, adult

== ENCOUNTER 2017-03-14 01:57 | Inpatient (IN) | payer MEDICAID ==
[2017-03-14] MEDS ORDERED: Sodium Chloride 0.9% 1,000 ML IV ONE (02:46)
--- NOTE | 2017-03-14 02:48 | C.PDOC ---
History Of Present Illness <Mica Traylor - Last Filed: 03/14/17 19:26> <Claudine Sanderson - Last Filed: 03/15/17 23:19> 56 year old male with prior Hx of HTN presents to the ED with a sudden onset of chest pain that started today at 14:00, pain has been non stop, he admits to drinking 3 cans of beer and 1 shot [employer]. Patient states he quit smoking about 3 months ago. He denies diabetes, nausea, vomit, fever, chills, SOB, and known sick contacts. (Mica Traylor) History Per: Patient History/Exam Limitations: no limitations Onset/Duration Of Symptoms: Hrs Current Symptoms Are (Timing): Still Present Quality: Tightness Associated Symptoms: denies: Nausea, Dyspnea, Diaphoresis Recent travel outside of the [place]: No Additional History Per: Patient <Mica Traylor - Last Filed: 03/14/17 19:26> <Claudine Sanderson - Last Filed: 03/15/17 23:19> Chief Complaint (Nursing): Chest Pain Past Medical History Reviewed: Historical Data, Nursing Documentation, Vital Signs - Medical History PMH: CAD, CHF, HTN Surgical History: No Surg Hx Family History: States: Unknown Family Hx - Social History Hx Alcohol Use: Yes Hx Substance Use: No - Immunization History Hx Tetanus Toxoid Vaccination: No Hx Influenza Vaccination: No Hx Pneumococcal Vaccination: No <Mica Traylor - Last Filed: 03/14/17 19:26> Vital Signs: Last Vital Signs Temp 98.3 F 03/15/17 15:12 Pulse 74 03/15/17 19:30 Resp 20 03/15/17 15:12 BP 105/71 03/15/17 15:12 Pulse Ox 99 03/15/17 15:12 Review Of Systems Constitutional: Negative for: Fever, Chills, Sweats Cardiovascular: Positive for: Chest Pain. Negative for: Palpitations Respiratory: Positive for: Cough. Negative for: Shortness of Breath Gastrointestinal: Negative for: Nausea, Vomiting, Abdominal Pain Neurological: Negative for: Weakness, Numbness <Mica Traylor - Last Filed: 03/14/17 19:26> Physical Exam - Physical Exam Appears: Non-toxic, No Acute Distress Skin: Normal Color, Warm, Dry Head: Atraumatic, Normacephalic Oral Mucosa: Moist Neck: Normal, Supple Chest: Symmetrical Cardiovascular: Rhythm Regular, No Friction Rub, No Murmur Respiratory: No Normal Breath Sounds (Diminished breath sounds on right side), No Rales, No Rhonchi, No Wheezing Gastrointestinal/Abdominal: Soft, No Tenderness, No Guarding, No Rebound Extremity: Normal ROM, Pedal Edema Pulses: Left Dorsalis Pedis: Normal, Right Dorsalis Pedis: Normal Neurological/Psych: Oriented x3, Normal Speech, Normal Cognition <Mica Traylor - Last Filed: 03/14/17 19:26> ED Course And Treatment - Laboratory Results Result Diagrams: 03/14/17 03:02 03/14/17 03:02 ECG: Interpreted By Me ECG Rhythm: Sinus Rhythm Interpretation Of ECG: Intraventicular conduction delay left bundle, no old ekg for comparisson Rate From EC O2 Sat by Pulse Oximetry: 100 (On RA) Pulse Ox Interpretation: Normal - Radiology CXR: Interpreted by Me, Viewed By Me CXR Interpretation: Yes: No Acute Disease, Cardiomegaly ([place]). No: Fracture, Pnemothorax Nexus Criteria: Negative Progress Note: CT chest pos for R pleural effusionposs infiltrate <Mica Traylor - Last Filed: 03/14/17 19:26> - Laboratory Results Result Diagrams: 03/14/17 03:02 03/14/17 03:02 <Claudine Sanderson - Last Filed: 03/15/17 23:19> Medical Decision Making <Mica Traylor - Last Filed: 03/14/17 19:26> <Claudine Sanderson - Last Filed: 03/15/17 23:19> Medical Decision Making: Impression : 56 y/o male presents with CP since this afternoon Plan: * Angio Chest CT ordered * EKG ordered * Blood work ordered * CXR ordered * IV Fluids administered (Mica Traylor) Disposition - Disposition Disposition Time: 19:28 <Mica Traylor - Last Filed: 03/14/17 19:26> - Disposition Disposition Time: 10:36 <Claudine Sanderson - Last Filed: 03/15/17 23:19> - Disposition Disposition: HOSPITALIZED Condition: FAIR - Clinical Impression Clinical Impression: Pneumonia, Pleural effusion, Lung mass - Scribe Statement The provider has reviewed the documentation as recorded by the Scribe <Mica Traylor - Last Filed: 03/14/17 19:26> <Claudine Sanderson - Last Filed: 03/15/17 23:19> - Scribe Statement Aki Griffin All medical record entries made by the Scribe were at my direction and personally dictated by me. I have reviewed the chart and agree that the record accurately reflects my personal performance of the history, physical exam, medical decision making, and the department course for this patient. I have also personally directed, reviewed, and agree with the discharge instructions and disposition. (Mica Traylor) Addendum <Mica Traylor - Last Filed: 03/14/17 19:26> <Claudine Sanderson - Last Filed: 03/15/17 23:19> Addendum: 03/14/17 10:15 Accession No. : [id number] Patient Name / ID : NASEEM LUO / [id number] Exam Date : 03/14/2017 08:44:29 ( Approved ) Study Comment : Sex / Age : M / 56Y Creator : Danica An RT,CT Dictator : Accounts Payable Lead : [employer] Worker : Сергей Olivier MD Approver2 : Report Date : 03/14/2017 09:10:53 My Comment : PROCEDURE: CT Chest with contrast (Pulmonary Angiogram) HISTORY: r/o pe COMPARISON: Comparison made with chest radiograph 03/12/2017 TECHNIQUE: Axial computed tomography images were obtained of the chest in the pulmonary arterial phase of enhancement. Coronal and sagittal reformatted images were created and reviewed. Intravenous contrast dose: 100 cc Visipaque 320 Radiation dose: Total exam DLP = 293.27 mGy-cm. This CT exam was performed using one or more of the following dose reduction techniques: Automated exposure control, adjustment of the mA and/or kV according to patient size, and/or use of iterative reconstruction technique. FINDINGS: PULMONARY ARTERIES: . The visualized portions of the pulmonary trunk, right and left main, lobar segmental and proximal subsegmental branches of the pulmonary arteries are well opacified with no definitive filling defects seen to suggest acute central pulmonary embolus. Pulmonary trunk measures approximately 3.1 cm. AORTA: No acute findings. No thoracic aortic aneurysm. Ascending thoracic aorta measures approximately 3.4 cm. Descending thoracic aorta measures approximately 2.5 cm. . LUNGS: Moderate size right-sided effusion and right basilar atelectasis. There is also appears to be masslike rounded atelectasis and/or infiltrate in the middle lobe and to a lesser lung base and lingular region. . Mild on linear/on substance segmental atelectasis in the left lung base and lingular region. . In addition , there appears to be a small amount of fluid tracking along the left major fissure PLEURAL SPACES: As above. No evidence of pneumothorax HEART: Marked cardiomegaly. . There appears to be small amount of fluid anterior to the aorta and pulmonary trunk. LYMPH NODES: No lymphadenopathy. BONES, CHEST WALL: Note is made of a hemivertebra involving the T6 segment. OTHER FINDINGS: Central airways are midline and patent. Small hiatal hernia with mild wall thickening of the distal esophagus Minimal changes of gynecomastia IMPRESSION: No evidence of acute central pulmonary embolus. Moderate-sized of right-sided effusion and right basilar atelectasis. There is also on what may represent masslike rounded atelectasis and or infiltrate in the middle lobe an mild subsegmental atelectasis in the left lung base and lingular region. Marked cardiomegaly. Hemivertebra T6 segment 03/14/17 10:[address] Hickman (covers for Dr. Allen). Since patient is medicaid patient, he would like patient admitted to service. Will discuss with Dr. Peres. Patient had right sided pain, admits to nonproductive cough for 3 days, denies fever, SOB. (+) 35 year history of smoking, quit 3 months ago. 03/14/17 10:[address] Peres, agrees with admission to his service for right sided pleural effusion, atelectasis vs pneumonia. IV rocephin and IV azithromycin ordered for possible pneumonia. BNP added and pending. (Claudine Sanderson)
[2017-03-14 03:06] LABS: BASO # 0.1 K/uL (0.0-0.2); BASO % 1.2 % (0.0-2.0); EOS # 0.1 K/uL (0.0-0.7); EOS % 1.3 % (0.0-4.0); LYMPH % 21.9 % (20.0-40.0); MEAN CELL VOLUME 104.4 fL (80.0-94.0); MEAN CORPUSCULAR HEMOGLOBIN 34.8 pg (27.0-31.0); MEAN CORPUSCULAR HGB CONC 33.3 g/dL (33.0-37.0); MEAN PLATELET VOLUME 7.6 fL (7.2-11.7); MONO # 0.5 K/uL (0.0-0.8); MONO % 11.7 % (0.0-10.0); NRBC % 0.1 % (0.0-2.0); WHITE BLOOD COUNT 4.7 K/uL (4.8-10.8)
[2017-03-14 03:13] LABS: CHLORIDE 102 mmol/L (98-107)
[2017-03-14 03:14] LABS: SODIUM 136 mmol/L (132-148)
[2017-03-14 03:16] LABS: ALB/GLOB RATIO 0.6 (1.0-2.1); ALKALINE PHOSPHATASE 86 U/L (38-126); AST/SGOT 65 U/L (17-59); BILIRUBIN,TOTAL 1.2 mg/dL (0.2-1.3); BLOOD UREA NITROGEN 7 mg/dL (9-20); CARBON DIOXIDE 26 mmol/L (22-30); GFR AFRICAN-AMERICAN > 60; GLUCOSE,RANDOM 72 mg/dL (75-110); TOTAL PROTEIN 9.3 g/dL (6.3-8.3)
[2017-03-14 03:17] LABS: ALT/SGPT 23 U/L (21-72); CALCIUM 8.7 mg/dl (8.6-10.4)
[2017-03-14 03:48] LABS: POTASSIUM 4.6 mmol/L (3.6-5.2)
[2017-03-14] MEDS ORDERED: Iodixanol 320 MG/ML 100 ML BOTTLE IV ONE (05:41)
--- NOTE | 2017-03-14 10:02 | CT ---
PROCEDURE: CT Chest with contrast (Pulmonary Angiogram) HISTORY: r/o pe COMPARISON: Comparison made with chest radiograph 03/12/2017 TECHNIQUE: Axial computed tomography images were obtained of the chest in the pulmonary arterial phase of enhancement. Coronal and sagittal reformatted images were created and reviewed. Intravenous contrast dose: 100 cc Visipaque 320 Radiation dose: Total exam DLP = 293.27 mGy-cm. This CT exam was performed using one or more of the following dose reduction techniques: Automated exposure control, adjustment of the mA and/or kV according to patient size, and/or use of iterative reconstruction technique. FINDINGS: PULMONARY ARTERIES: . The visualized portions of the pulmonary trunk, right and left main, lobar segmental and proximal subsegmental branches of the pulmonary arteries are well opacified with no definitive filling defects seen to suggest acute central pulmonary embolus. Pulmonary trunk measures approximately 3.1 cm. AORTA: No acute findings. No thoracic aortic aneurysm. Ascending thoracic aorta measures approximately 3.4 cm. Descending thoracic aorta measures approximately 2.5 cm. . LUNGS: Moderate size right-sided effusion and right basilar atelectasis. There is also appears to be masslike rounded atelectasis and/or infiltrate in the middle lobe and to a lesser lung base and lingular region. . Mild on linear/on substance segmental atelectasis in the left lung base and lingular region. . In addition, there appears to be a small amount of fluid tracking along the left major fissure PLEURAL SPACES: As above. No evidence of pneumothorax HEART: Marked cardiomegaly. . There appears to be small amount of fluid anterior to the aorta and pulmonary trunk. LYMPH NODES: No lymphadenopathy. BONES, CHEST WALL: Note is made of a hemivertebra involving the T6 segment. OTHER FINDINGS: Central airways are midline and patent. Small hiatal hernia with mild wall thickening of the distal esophagus Minimal changes of gynecomastia IMPRESSION: No evidence of acute central pulmonary embolus. Moderate-sized of right-sided effusion and right basilar atelectasis. There is also on what may represent masslike rounded atelectasis and or infiltrate in the middle lobe an mild subsegmental atelectasis in the left lung base and lingular region. Marked cardiomegaly. Hemivertebra T6 segment
[2017-03-14] MEDS ORDERED: Azithromycin 500 MG in Sodium Chloride 0.9% 250 ML IVPB STA ×2 (10:37)
[2017-03-14] MEDS ORDERED: Ipratropium 0.02% Inhal Soln (0.5 mg/2.5 ml) UD IH PRN (10:38)
--- NOTE | 2017-03-14 11:04 | RAD ---
PROCEDURE: CHEST RADIOGRAPH, 1 VIEW HISTORY: chest pain COMPARISON: Correlation made with subsequent CTA chest an FINDINGS: LUNGS: Moderate-sized right-sided effusion and minor right basilar atelectasis. Trace left effusion. PLEURA: No pneumothorax or pleural fluid seen. CARDIOVASCULAR: Marked cardiomegaly. OSSEOUS STRUCTURES: No significant abnormalities. VISUALIZED UPPER ABDOMEN: Normal. OTHER FINDINGS: None. IMPRESSION: Marked cardiomegaly. Moderate size right-sided effusion and minor right basilar atelectasis. Trace left effusion
[2017-03-14] MEDS ORDERED: Azithromycin 500mg/250ML NS 0 MG/0 ML BAG IVPB ONE (12:01)
[2017-03-14] MEDS ORDERED: cefTRIAXone IV 1 gm in Dextros 50 ML IVPB STA (12:03)
[2017-03-14] MEDS ORDERED: cefTRIAXone IV 1 gm in Dextros 50 ML IVPB ONE (12:05)
[2017-03-14] MEDS ORDERED: Pneumococcal 23-Valent Vaccine IM ONE (14:47)
--- NOTE | 2017-03-14 17:32 | CP.PCM.CON ---
History of Present Illness - History of Present Illness History of Present Illness: reason for consultation: pleural effusion 56-year-old male with history of alcohol abuse, hypertension presented to emergency room with sudden onset of chest pain. CAT scan of the chest with contrast showed no pulmonary embolism but moderate right pleural effusion. Patient denies fever chills. Complaining of slight cough and on and off shortness of breath. Review of Systems - Review of Systems All systems: reviewed and no additional remarkable complaints except (chest pain ) Past Patient History - Infectious Disease Hx of Infectious Diseases: None - Past Medical History & Family History Past Medical History?: Yes - Past Social History Smoking Status: Former Smoker - CARDIAC Hx Congestive Heart Failure: Yes Hx Hypertension: Yes - PULMONARY Hx Respiratory Disorders: No - NEUROLOGICAL Hx Neurological Disorder: No - HEENT Hx HEENT Problems: No - RENAL Hx Chronic Kidney Disease: No - ENDOCRINE/METABOLIC Hx Endocrine Disorders: No - HEMATOLOGICAL/ONCOLOGICAL Hx Blood Disorders: No - INTEGUMENTARY Hx Dermatological Problems: No - MUSCULOSKELETAL/RHEUMATOLOGICAL Hx Musculoskeletal Disorders: No Hx Falls: No - GASTROINTESTINAL Hx Gastrointestinal Disorders: No - GENITOURINARY/GYNECOLOGICAL Hx Genitourinary Disorders: No - PSYCHIATRIC Hx Psychophysiologic Disorder: No Hx Substance Use: No - SURGICAL HISTORY Hx Surgeries: No Other/Comment: PT REFUSED CARDIAC STENT - ANESTHESIA Hx Anesthesia: No Meds Allergies/Adverse Reactions: Allergies Allergy/AdvReac Type Severity Reaction Status Date / Time No Known Allergies Allergy Verified 03/02/17 09:42 - Medications Medications: Current Medications Aspirin (Ecotrin) 81 mg PO DAILY [facility] Carvedilol (Coreg) 6.25 mg PO BID [facility] Last Admin: 03/14/17 17:18 Dose: 6.25 mg Enoxaparin Sodium (Lovenox) 40 mg SC DAILY [facility] Furosemide (Lasix) 20 mg PO DAILY [facility] Azithromycin 500 mg/ Sodium (Chloride) 250 mls @ 250 mls/hr IVPB DAILY [facility] Ipratropium [place] (Atrovent) 0.5 mg IH RQ6 PRN PRN Reason: Shortness of Breath Lisinopril (Zestril) 2.5 mg PO DAILY [facility] Pneumococcal Polyvalent Vaccine (Pneumovax 23 Vaccine) 0.5 ml IM .ONCE ONE Stop: 03/16/17 14:01 Spironolactone (Aldactone) 25 mg PO DAILY [facility] Thiamine HCl (Vitamin B1 Tab) 100 mg PO DAILY [facility] Physical Exam - Head Exam Head Exam: ATRAUMATIC, NORMOCEPHALIC - Eye Exam Eye Exam: Normal appearance - ENT Exam ENT Exam: Mucous Membranes Moist - Neck Exam Neck exam: Positive for: Normal Inspection - Respiratory Exam Respiratory Exam: Clear to Auscultation Bilateral - Cardiovascular Exam Cardiovascular Exam: REGULAR RHYTHM - GI/Abdominal Exam GI & Abdominal Exam: Normal Bowel Sounds - Extremities Exam Extremities exam: Positive for: normal inspection - Neurological Exam Neurological exam: Alert, Oriented x3 Results - Vital Signs Recent Vital Signs: Last Vital Signs Temp 97.7 F 03/14/17 15:10 Pulse 97 H 03/14/17 15:10 Resp 20 03/14/17 15:10 BP 116/76 03/14/17 17:15 Pulse Ox 100 03/14/17 15:10 - Labs Result Diagrams: 03/14/17 03:02 03/14/17 03:02 Labs: Laboratory Results - last 24 hr 03/14/17 03/14/17 03/14/17 03:02 03:02 03:02 WBC 4.7 L RBC 2.97 L Hgb 10.3 L D Hct 31.0 L MCV 104.4 H D MCH 34.8 H MCHC 33.3 RDW 15.0 H Plt Count 298 D MPV 7.6 Neut % (Auto) 63.9 Lymph % (Auto) 21.9 [place] % (Auto) 11.7 H Eos % (Auto) 1.3 Baso % (Auto) 1.2 Neut # 3.0 Lymph # 1.0 [place] # 0.5 Eos # 0.1 Baso # 0.1 D-Dimer, Quantitative 1138 H Sodium 136 Potassium 4.6 Chloride 102 Carbon Dioxide 26 Anion Gap 13 BUN 7 L Creatinine 0.7 L Est GFR ( Amer) > 60 Est GFR (Non-Af Amer) > 60 Random Glucose 72 L Calcium 8.7 Total Bilirubin 1.2 AST 65 H ALT 23 Alkaline Phosphatase 86 Troponin I 0.0150 NT-Pro-B Natriuret Pep Total Protein 9.3 H Albumin 3.5 Globulin 5.8 H Albumin/Globulin Ratio 0.6 L 03/14/17 11:57 WBC RBC Hgb Hct MCV MCH MCHC RDW Plt Count MPV Neut % (Auto) Lymph % (Auto) [place] % (Auto) Eos % (Auto) Baso % (Auto) Neut # Lymph # [place] # Eos # Baso # D-Dimer, Quantitative Sodium Potassium Chloride Carbon Dioxide Anion Gap BUN Creatinine Est GFR ( Amer) Est GFR (Non-Af Amer) Random Glucose Calcium Total Bilirubin AST ALT Alkaline Phosphatase Troponin I NT-Pro-B Natriuret Pep 5460 H Total Protein Albumin Globulin Albumin/Globulin Ratio Assessment & Plan (1) Pleural effusion Status: Acute Comment: CHF versus pneumonia. Continue antibiotics. Thoracentesis. Ejection fraction 25%. history of alcohol abuse (2) Alcohol abuse Status: Acute (3) CHF exacerbation Status: Acute
--- NOTE | 2017-03-14 22:55 | CP.PCM.HP ---
History of Present Illness - History of Present Illness History of Present Illness: 56 year old male with prior Hx of HTN presents to the ED with a sudden onset of chest pain that started today at 14:00, pain has been non stop, he admits to drinking 3 cans of beer and 1 shot [employer]. Patient states he quit smoking about 3 months ago. He denies diabetes, nausea, vomit, fever, chills, SOB, and known sick contacts Present on Admission - Present on Admission Any Indicators Present on Admission: No Past Patient History - Infectious Disease Hx of Infectious Diseases: None - Past Medical History & Family History Past Medical History?: Yes - Past Social History Smoking Status: Former Smoker - CARDIAC Hx Congestive Heart Failure: Yes Hx Hypertension: Yes - PULMONARY Hx Respiratory Disorders: No - NEUROLOGICAL Hx Neurological Disorder: No - HEENT Hx HEENT Problems: No - RENAL Hx Chronic Kidney Disease: No - ENDOCRINE/METABOLIC Hx Endocrine Disorders: No - HEMATOLOGICAL/ONCOLOGICAL Hx Blood Disorders: No - INTEGUMENTARY Hx Dermatological Problems: No - MUSCULOSKELETAL/RHEUMATOLOGICAL Hx Musculoskeletal Disorders: No Hx Falls: No - GASTROINTESTINAL Hx Gastrointestinal Disorders: No - GENITOURINARY/GYNECOLOGICAL Hx Genitourinary Disorders: No - PSYCHIATRIC Hx Substance Use: No - SURGICAL HISTORY Hx Surgeries: No Other/Comment: PT REFUSED CARDIAC STENT - ANESTHESIA Hx Anesthesia: No Meds Allergies/Adverse Reactions: Allergies Allergy/AdvReac Type Severity Reaction Status Date / Time No Known Allergies Allergy Verified 03/02/17 09:42 Results - Vital Signs Recent Vital Signs: Last Vital Signs Temp 97.7 F 03/14/17 15:10 Pulse 78 03/14/17 20:00 Resp 20 03/14/17 15:10 BP 116/76 03/14/17 17:15 Pulse Ox 100 03/14/17 19:29 - Labs Result Diagrams: 03/14/17 03:02 03/14/17 03:02 Labs: Laboratory Results - last 24 hr 03/14/17 03/14/17 03/14/17 03:02 03:02 03:02 WBC 4.7 L RBC 2.97 L Hgb 10.3 L D Hct 31.0 L MCV 104.4 H D MCH 34.8 H MCHC 33.3 RDW 15.0 H Plt Count 298 D MPV 7.6 Neut % (Auto) 63.9 Lymph % (Auto) 21.9 [place] % (Auto) 11.7 H Eos % (Auto) 1.3 Baso % (Auto) 1.2 Neut # 3.0 Lymph # 1.0 [place] # 0.5 Eos # 0.1 Baso # 0.1 D-Dimer, Quantitative 1138 H Sodium 136 Potassium 4.6 Chloride 102 Carbon Dioxide 26 Anion Gap 13 BUN 7 L Creatinine 0.7 L Est GFR ( Amer) > 60 Est GFR (Non-Af Amer) > 60 Random Glucose 72 L Calcium 8.7 Total Bilirubin 1.2 AST 65 H ALT 23 Alkaline Phosphatase 86 Troponin I 0.0150 NT-Pro-B Natriuret Pep Total Protein 9.3 H Albumin 3.5 Globulin 5.8 H Albumin/Globulin Ratio 0.6 L 03/14/17 11:57 WBC RBC Hgb Hct MCV MCH MCHC RDW Plt Count MPV Neut % (Auto) Lymph % (Auto) [place] % (Auto) Eos % (Auto) Baso % (Auto) Neut # Lymph # [place] # Eos # Baso # D-Dimer, Quantitative Sodium Potassium Chloride Carbon Dioxide Anion Gap BUN Creatinine Est GFR ( Amer) Est GFR (Non-Af Amer) Random Glucose Calcium Total Bilirubin AST ALT Alkaline Phosphatase Troponin I NT-Pro-B Natriuret Pep 5460 H Total Protein Albumin Globulin Albumin/Globulin Ratio
[2017-03-15] MEDS: Azithromycin 500 MG in Sodium Chloride 0.9% 250 ML IVPB SCH (09:47)
[2017-03-15] MEDS ORDERED: Enoxaparin 30 mg Syringe SC SCH (10:00)
[2017-03-15] MEDS: Acetaminophen-Codeine 300/30 mg Tab PO PRN ×2 (16:53→23:43)
--- NOTE | 2017-03-15 21:07 | CP.PCM.PN ---
Subjective - Date & Time of Evaluation Date of Evaluation: 03/15/17 Time of Evaluation: 16:10 - Subjective Subjective: Pt seen and evalauted at bedside CAT scan of the chest with contrast showed no pulmonary embolism but moderate right pleural effusion. Patient denies fever chills. Complaining of slight cough and on and off shortness of breath. Objective - Vital Signs/Intake and Output Vital Signs (last 24 hours): Temp Pulse Resp BP Pulse Ox 98.3 F 74 20 105/71 99 03/15/17 15:12 03/15/17 19:30 03/15/17 15:12 03/15/17 15:12 03/15/17 15:12 - Medications Medications: Current Medications Acetaminophen/Codeine Phosphate (Tylenol/Codeine 300 Mg/30 Mg) 2 ea PO Q4 PRN PRN Reason: Pain, moderate (4-7) Last Admin: 03/15/17 16:53 Dose: 2 ea Aspirin (Ecotrin) 81 mg PO DAILY [facility] Last Admin: 03/15/17 09:47 Dose: 81 mg Carvedilol (Coreg) 6.25 mg PO BID [facility] Last Admin: 03/15/17 09:47 Dose: 6.25 mg Enoxaparin Sodium (Lovenox) 40 mg SC DAILY [facility] Last Admin: 03/15/17 09:48 Dose: 40 mg Furosemide (Lasix) 20 mg PO DAILY [facility] Last Admin: 03/15/17 09:47 Dose: 20 mg Azithromycin 500 mg/ Sodium (Chloride) 250 mls @ 250 mls/hr IVPB DAILY [facility] Last Admin: 03/15/17 09:47 Dose: 250 mls/hr Ipratropium [place] (Atrovent) 0.5 mg IH RQ6 PRN PRN Reason: Shortness of Breath Last Admin: 03/15/17 09:10 Dose: 0.5 mg Lisinopril (Zestril) 2.5 mg PO DAILY [facility] Last Admin: 03/15/17 09:47 Dose: 2.5 mg Pneumococcal Polyvalent Vaccine (Pneumovax 23 Vaccine) 0.5 ml IM .ONCE ONE Stop: 03/16/17 14:01 Spironolactone (Aldactone) 25 mg PO DAILY [facility] Last Admin: 03/15/17 09:47 Dose: 25 mg Thiamine HCl (Vitamin B1 Tab) 100 mg PO DAILY [facility] Last Admin: 03/15/17 09:47 Dose: 100 mg - Labs Labs: 03/14/17 03:02 03/14/17 03:02 - Constitutional Appears: No Acute Distress - Head Exam Head Exam: ATRAUMATIC, NORMAL INSPECTION, NORMOCEPHALIC - Eye Exam Eye Exam: EOMI, Normal appearance, PERRL Pupil Exam: NORMAL ACCOMODATION, PERRL - Respiratory Exam Respiratory Exam: Decreased Breath Sounds, Rales, Rhonchi - Cardiovascular Exam Cardiovascular Exam: REGULAR RHYTHM, +S1, +S2. absent: Murmur - GI/Abdominal Exam GI & Abdominal Exam: Soft, Normal Bowel Sounds. absent: Tenderness Assessment and Plan (1) Pleural effusion Assessment & Plan: CHF versus pneumonia. Continue antibiotics. Thoracentesis. Ejection fraction 25%. history of alcohol abuse Status: Acute (2) Pneumonia Status: Acute (3) Alcohol abuse Status: Acute (4) Chest pain Assessment & Plan: 56-year-old male with history of alcohol abuse, hypertension presented to emergency room with sudden onset of chest pain. CAT scan of the chest with contrast showed no pulmonary embolism but moderate right pleural effusion. Patient denies fever chills. Complaining of slight cough and on and off shortness of breath. Status: Acute
[2017-03-16] MEDS: Acetaminophen-Codeine 300/30 mg Tab PO PRN (04:01)
--- NOTE | 2017-03-16 09:35 | CP.PCM.PN ---
<Hodan Milian - Last Filed: 03/16/17 11:49> Subjective - Date & Time of Evaluation Date of Evaluation: 03/16/17 Time of Evaluation: 09:00 - Subjective Subjective: Pulmonology Note for Dr. Berry's Service Patient was seen and examined at bedside. Patient reported he did not have SOB when ambulating or walking to the bathroom. He reported a nonproductive cough which keeps him up at night. Denied fever, chills, headache, chest pain, SOB, cough abdominal pain, n/v/d/c, or urinary symptoms. After patient was seen, MANAGER [employer] was called 10:32am for SOB. Ordered during [employer]: CXR, ABG, IR- consult for thoracentesis was ordered, BiPAP PRN Objective - Vital Signs/Intake and Output Vital Signs (last 24 hours): Temp Pulse Resp BP Pulse Ox 97.4 F L 79 20 105/73 96 03/16/17 08:58 03/16/17 08:58 03/16/17 08:58 03/16/17 08:58 03/16/17 08:58 - Medications Medications: Current Medications Acetaminophen/Codeine Phosphate (Tylenol/Codeine 300 Mg/30 Mg) 2 ea PO Q4 PRN PRN Reason: Pain, moderate (4-7) Last Admin: 03/16/17 04:01 Dose: 2 ea Aspirin (Ecotrin) 81 mg PO DAILY [facility] Last Admin: 03/15/17 09:47 Dose: 81 mg Carvedilol (Coreg) 6.25 mg PO BID [facility] Last Admin: 03/15/17 09:47 Dose: 6.25 mg Enoxaparin Sodium (Lovenox) 40 mg SC DAILY [facility] Furosemide (Lasix) 20 mg PO DAILY [facility] Last Admin: 03/15/17 09:47 Dose: 20 mg Azithromycin 500 mg/ Sodium (Chloride) 250 mls @ 250 mls/hr IVPB DAILY [facility] Last Admin: 03/15/17 09:47 Dose: 250 mls/hr Ipratropium [place] (Atrovent) 0.5 mg IH RQ6 PRN PRN Reason: Shortness of Breath Last Admin: 03/15/17 09:10 Dose: 0.5 mg Lisinopril (Zestril) 2.5 mg PO DAILY [facility] Last Admin: 03/15/17 09:47 Dose: 2.5 mg Pneumococcal Polyvalent Vaccine (Pneumovax 23 Vaccine) 0.5 ml IM .ONCE ONE Stop: 03/16/17 14:01 Spironolactone (Aldactone) 25 mg PO DAILY [facility] Last Admin: 03/15/17 09:47 Dose: 25 mg Thiamine HCl (Vitamin B1 Tab) 100 mg PO DAILY [facility] Last Admin: 03/15/17 09:47 Dose: 100 mg - Labs Labs: 03/14/17 03:02 03/14/17 03:02 - Constitutional Appears: No Acute Distress - Head Exam Head Exam: NORMAL INSPECTION, NORMOCEPHALIC - Eye Exam Eye Exam: EOMI, Normal appearance, PERRL Pupil Exam: NORMAL ACCOMODATION - ENT Exam ENT Exam: Mucous Membranes Dry - Respiratory Exam Respiratory Exam: Decreased Breath Sounds (R >L ), NORMAL BREATHING PATTERN. absent: Rales, Rhonchi, Wheezes - Cardiovascular Exam Cardiovascular Exam: REGULAR RHYTHM, RRR, +S1, +S2 - GI/Abdominal Exam GI & Abdominal Exam: Soft, Normal Bowel Sounds. absent: Distended, Tenderness - Extremities Exam Extremities Exam: Normal Inspection. absent: Pedal Edema, Tenderness - Neurological Exam Neurological Exam: Alert, Awake, Oriented x3 - Skin Skin Exam: Dry, Intact, Normal Color, Warm Assessment and Plan - Assessment and Plan (Free Text) Plan: RLL Pleural Effusion Chest CT: No evidence of acute central pulmonary embolus. Moderate-sized of right-sided effusion and right basilar atelectasis. There is also on what may represent masslike rounded atelectasis and or infiltrate in the middle lobe an mild subsegmental atelectasis in the left lung base and lingular region. CXR: Moderate bilateral pleural effusions with adjacent prominent consolidative changes at both lung bases; right greater left. Venous congestion. Right hilar prominence. Tortuous aorta. Cardiomegaly. Worsening Pleural Effusion, now bilaterally R > L IR consulted for thoracentesis F/U ABG Phenegran PRN, Atrovent PRN Azithromycin 250mg IVP daily started on 03/15/17 Lasix 20mg PO daily Aldactone 25mg PO daily BiPAP PRN Chronic Systolic Congestive Heart Failure ECHO 08/2016: EF of <25%, LV mod dilated, LV systolic function severely impaired , global hypokinesis of LV, LV diastolic functio normal, RV and systolic function normal, RA and LA mod dilated, MR mild to mod, mod TR, RV systolic P 50 -60mmHg, mod pulmonary HTN, mild-mod pulmonic valvular regurgitation, aortic root mildly enlarged Lasix 20mg PO daily Aldactone 25mg PO daily Hx Chronic Alcohol Abuse Hx CAD Patient with hx of [place] in 2012 Hx HTN DW Maicol Wilson DO, PGY-1 <Raimundo Berry - Last Filed: 03/16/17 13:30> Objective - Vital Signs/Intake and Output Vital Signs (last 24 hours): Temp Pulse Resp BP Pulse Ox 97.4 F L 75 24 105/75 100 03/16/17 08:58 03/16/17 10:56 03/16/17 10:56 03/16/17 10:56 03/16/17 10:56 - Medications Medications: Current Medications Acetaminophen/Codeine Phosphate (Tylenol/Codeine 300 Mg/30 Mg) 2 ea PO Q4 PRN PRN Reason: Pain, moderate (4-7) Last Admin: 03/16/17 04:01 Dose: 2 ea Aspirin (Ecotrin) 81 mg PO DAILY [facility] Last Admin: 03/16/17 09:40 Dose: 81 mg Carvedilol (Coreg) 6.25 mg PO BID [facility] Last Admin: 03/16/17 09:39 Dose: 6.25 mg Enoxaparin Sodium (Lovenox) 40 mg SC DAILY [facility] Last Admin: 03/16/17 09:39 Dose: 40 mg Furosemide (Lasix) 20 mg PO DAILY [facility] Last Admin: 03/16/17 09:40 Dose: 20 mg Azithromycin 500 mg/ Sodium (Chloride) 250 mls @ 250 mls/hr IVPB DAILY [facility] Last Admin: 03/16/17 09:39 Dose: 250 mls/hr Ipratropium [place] (Atrovent) 0.5 mg IH RQ6 PRN PRN Reason: Shortness of Breath Last Admin: 03/15/17 09:10 Dose: 0.5 mg Lisinopril (Zestril) 2.5 mg PO DAILY [facility] Last Admin: 03/16/17 09:40 Dose: 2.5 mg Pneumococcal Polyvalent Vaccine (Pneumovax 23 Vaccine) 0.5 ml IM .ONCE ONE Stop: 03/16/17 14:01 Promethazine HCl (Phenergan Syrup) 12.5 mg PO Q6 PRN PRN Reason: Cough and congestion Spironolactone (Aldactone) 25 mg PO DAILY [facility] Last Admin: 03/16/17 09:40 Dose: 25 mg Thiamine HCl (Vitamin B1 Tab) 100 mg PO DAILY [facility] Last Admin: 03/16/17 09:39 Dose: 100 mg - Labs Labs: 03/14/17 03:02 03/14/17 03:02 Assessment and Plan (1) Pleural effusion Status: Acute (2) Alcohol abuse Status: Acute (3) CHF exacerbation Status: Acute Attending/Attestation - Attestation I have personally seen and examined this patient.: Yes I have fully participated in the care of the patient.: Yes I have reviewed all pertinent clinical information, including history, physical exam and plan: Yes Notes (Text): 03/16/17 13:28 the patient seen and examined Status post rapid response for shortness of breath Chest x-ray bilateral effusions Followup ABG BiPAP Continue Lasix
[2017-03-16] MEDS: Azithromycin 500 MG in Sodium Chloride 0.9% 250 ML IVPB SCH (09:39)
[2017-03-16] MEDS: Enoxaparin 40 mg Syringe SC SCH (09:39)
[2017-03-16] MEDS ORDERED: Promethazine 12.5 mg/10 ml Syrup PO PRN (10:45)
--- NOTE | 2017-03-16 10:46 | CP.PCM.PN ---
Subjective - Date & Time of Evaluation Date of Evaluation: 03/16/17 Time of Evaluation: 10:45 - Subjective Subjective: Progress note. Rapid response Rapid response called at about 1030 AM. Patient was found by nurse and said "can 't breathe" and vomiting. VSS, patient stabilized. placed on non rebreather. Objective - Vital Signs/Intake and Output Vital Signs (last 24 hours): Temp Pulse Resp BP Pulse Ox 97.4 F L 79 20 108/77 96 03/16/17 08:58 03/16/17 08:58 03/16/17 08:58 03/16/17 09:40 03/16/17 08:58 - Medications Medications: Current Medications Acetaminophen/Codeine Phosphate (Tylenol/Codeine 300 Mg/30 Mg) 2 ea PO Q4 PRN PRN Reason: Pain, moderate (4-7) Last Admin: 03/16/17 04:01 Dose: 2 ea Aspirin (Ecotrin) 81 mg PO DAILY [facility] Last Admin: 03/16/17 09:40 Dose: 81 mg Carvedilol (Coreg) 6.25 mg PO BID [facility] Last Admin: 03/16/17 09:39 Dose: 6.25 mg Enoxaparin Sodium (Lovenox) 40 mg SC DAILY [facility] Last Admin: 03/16/17 09:39 Dose: 40 mg Furosemide (Lasix) 20 mg PO DAILY [facility] Last Admin: 03/16/17 09:40 Dose: 20 mg Azithromycin 500 mg/ Sodium (Chloride) 250 mls @ 250 mls/hr IVPB DAILY [facility] Last Admin: 03/16/17 09:39 Dose: 250 mls/hr Ipratropium [place] (Atrovent) 0.5 mg IH RQ6 PRN PRN Reason: Shortness of Breath Last Admin: 03/15/17 09:10 Dose: 0.5 mg Lisinopril (Zestril) 2.5 mg PO DAILY [facility] Last Admin: 03/16/17 09:40 Dose: 2.5 mg Pneumococcal Polyvalent Vaccine (Pneumovax 23 Vaccine) 0.5 ml IM .ONCE ONE Stop: 03/16/17 14:01 Spironolactone (Aldactone) 25 mg PO DAILY [facility] Last Admin: 03/16/17 09:40 Dose: 25 mg Thiamine HCl (Vitamin B1 Tab) 100 mg PO DAILY [facility] Last Admin: 03/16/17 09:39 Dose: 100 mg - Labs Labs: 03/14/17 03:02 03/14/17 03:02 Assessment and Plan - Assessment and Plan (Free Text) Assessment: -stat cxr ordered -IR consulted for possible thoracentesis -VSS -continue on non rebreather
--- NOTE | 2017-03-16 11:15 | RAD ---
Chest x-ray single frontal view History: Shortness of breath. Comparison: 03/14/2017 Findings: Moderate bilateral pleural effusions with adjacent prominent consolidative changes at both lung bases; right greater left. Venous congestion. Right hilar prominence. Tortuous aorta. Cardiomegaly. Degenerative changes in the spine and shoulders. Some tubing projects over the right lateral thorax, likely external. Impression: Moderate bilateral pleural effusions with adjacent prominent consolidative changes at both lung bases; right greater left. Venous congestion. Right hilar prominence. Tortuous aorta. Cardiomegaly.
--- NOTE | 2017-03-16 12:58 | CARD ---
APPROVED REPORT EKG Measurement Heart [id number] <Conclusion> Normal sinus rhythm Left atrial enlargement Right axis deviation Nonspecific intraventricular block Abnormal ECG
[2017-03-16] MEDS ORDERED: Influenza Vaccine 60 mcg/0.5 mL SYR (4YR UP) IM ONE (14:00)
[2017-03-16] MEDS ORDERED: Pneumococcal 23-Valent Vaccine IM ONE (14:00)
[2017-03-16] MEDS: Budesonide 0.5 mg/2 ml Inhal Susp UD INH SCH (19:02)
[2017-03-16] MEDS: Albuterol-Ipratrop 3 mg / 0.5 (3 ml) UD INH SCH (19:03)
--- NOTE | 2017-03-16 23:05 | CP.PCM.PN ---
Subjective - Date & Time of Evaluation Date of Evaluation: 03/16/17 Time of Evaluation: 17:30 - Subjective Subjective: Pt seen and evaluated, is restless, agitated, in delirium tremens and CHF Objective - Vital Signs/Intake and Output Vital Signs (last 24 hours): Temp Pulse Resp BP Pulse Ox 98 F 70 20 118/83 97 03/16/17 15:52 03/16/17 17:21 03/16/17 17:21 03/16/17 17:21 03/16/17 15:52 Intake and Output: 03/16/17 03/17/17 18:59 06:59 Intake Total 320 Output Total 450 Balance -130 - Medications Medications: Current Medications Acetaminophen/Codeine Phosphate (Tylenol/Codeine 300 Mg/30 Mg) 2 ea PO Q4 PRN PRN Reason: Pain, moderate (4-7) Last Admin: 03/16/17 04:01 Dose: 2 ea Albuterol/Ipratropium (Duoneb 3 Mg/0.5 Mg (3 Ml) Ud) 3 ml INH RQ6 [facility] Last Admin: 03/16/17 19:03 Dose: 3 ml Aspirin (Ecotrin) 81 mg PO DAILY [facility] Last Admin: 03/16/17 09:40 Dose: 81 mg Budesonide (Pulmicort Respules) 0.5 mg INH RQ12 [facility] Last Admin: 03/16/17 19:02 Dose: 0.5 mg Carvedilol (Coreg) 6.25 mg PO BID [facility] Last Admin: 03/16/17 17:16 Dose: 6.25 mg Chlordiazepoxide (Librium) 25 mg PO Q8 PRN PRN Reason: Agitation Enoxaparin Sodium (Lovenox) 40 mg SC DAILY [facility] Last Admin: 03/16/17 09:39 Dose: 40 mg Furosemide (Lasix) 40 mg IVP DAILY [facility] Azithromycin 500 mg/ Sodium (Chloride) 250 mls @ 250 mls/hr IVPB DAILY [facility] Last Admin: 03/16/17 09:39 Dose: 250 mls/hr Ipratropium [place] (Atrovent) 0.5 mg IH RQ6 PRN PRN Reason: Shortness of Breath Last Admin: 03/15/17 09:10 Dose: 0.5 mg Lisinopril (Zestril) 2.5 mg PO DAILY [facility] Last Admin: 03/16/17 09:40 Dose: 2.5 mg Promethazine HCl (Phenergan Syrup) 12.5 mg PO Q6 PRN PRN Reason: Cough and congestion Spironolactone (Aldactone) 25 mg PO DAILY [facility] Last Admin: 03/16/17 09:40 Dose: 25 mg Thiamine HCl (Vitamin B1 Tab) 100 mg PO DAILY [facility] Last Admin: 03/16/17 09:39 Dose: 100 mg - Labs Labs: 03/14/17 03:02 03/14/17 03:02 - Constitutional Appears: Toxic, Agitated, Confused - Head Exam Head Exam: ATRAUMATIC, NORMAL INSPECTION, NORMOCEPHALIC - Eye Exam Eye Exam: EOMI, Normal appearance, PERRL Pupil Exam: NORMAL ACCOMODATION, PERRL - ENT Exam ENT Exam: Mucous Membranes Moist, Normal Exam - Respiratory Exam Respiratory Exam: Decreased Breath Sounds, Rales - Cardiovascular Exam Cardiovascular Exam: +S1, +S2 Additional comments: s3 pos - GI/Abdominal Exam GI & Abdominal Exam: Soft, Normal Bowel Sounds. absent: Tenderness - Extremities Exam Extremities Exam: Pedal Edema Additional comments: +3 pedal edema Assessment and Plan (1) Pleural effusion Status: Acute (2) Pneumonia Status: Acute (3) Alcohol abuse Status: Acute (4) Chest pain Status: Acute (5) CHF exacerbation Status: Acute
[2017-03-17] MEDS: Albuterol-Ipratrop 3 mg / 0.5 (3 ml) UD INH SCH ×4 (01:20→19:02)
[2017-03-17 07:23] LABS: HEMATOCRIT 29.5 % (35.0-51.0); MEAN CELL VOLUME 104.3 fL (80.0-94.0); MEAN CORPUSCULAR HEMOGLOBIN 34.4 pg (27.0-31.0); MEAN PLATELET VOLUME 8.1 fL (7.2-11.7); RED CELL DISTRIBUTION WIDTH 15.3 % (11.5-14.5)
[2017-03-17 07:44] LABS: INR 1.8
[2017-03-17] MEDS: Budesonide 0.5 mg/2 ml Inhal Susp UD INH SCH ×3 (08:47→19:02)
[2017-03-17] MEDS: Azithromycin 500 MG in Sodium Chloride 0.9% 250 ML IVPB SCH (09:49)
--- NOTE | 2017-03-17 11:28 | CP.PCM.PN ---
<Hodan Milian - Last Filed: 03/17/17 11:25> Subjective - Date & Time of Evaluation Date of Evaluation: 03/17/17 Time of Evaluation: 09:00 - Subjective Subjective: Pulmonology Note for Dr. Berry's Service Patient was seen and examined at bedside. Patient reported he still continues to feel SOB, but not as severe as it was yesterday. He has been able to ambulate to the bathroom without needing to have oxygen placed. Denied fever, chills, headache, chest pain, cough abdominal pain, n/v/d/c, or urinary symptoms. Objective - Vital Signs/Intake and Output Vital Signs (last 24 hours): Temp Pulse Resp BP Pulse Ox 97.5 F L 69 18 104/69 96 03/17/17 07:35 03/17/17 07:35 03/17/17 07:35 03/17/17 09:52 03/17/17 07:35 Intake and Output: 03/17/17 03/17/17 06:59 18:59 Intake Total 320 Output Total 450 Balance -130 - Medications Medications: Current Medications Acetaminophen/Codeine Phosphate (Tylenol/Codeine 300 Mg/30 Mg) 2 ea PO Q4 PRN PRN Reason: Pain, moderate (4-7) Last Admin: 03/16/17 04:01 Dose: 2 ea Albuterol/Ipratropium (Duoneb 3 Mg/0.5 Mg (3 Ml) Ud) 3 ml INH RQ6 [facility] Last Admin: 03/17/17 08:47 Dose: Not Given Aspirin (Ecotrin) 81 mg PO DAILY [facility] Last Admin: 03/16/17 09:40 Dose: 81 mg Budesonide (Pulmicort Respules) 0.5 mg INH RQ12 [facility] Last Admin: 03/17/17 08:47 Dose: Not Given Carvedilol (Coreg) 6.25 mg PO BID [facility] Last Admin: 03/17/17 10:02 Dose: Not Given Chlordiazepoxide (Librium) 25 mg PO Q8 PRN PRN Reason: Agitation Enoxaparin Sodium (Lovenox) 40 mg SC DAILY [facility] Last Admin: 03/16/17 09:39 Dose: 40 mg Furosemide (Lasix) 40 mg IVP DAILY [facility] Last Admin: 03/17/17 09:52 Dose: 40 mg Azithromycin 500 mg/ Sodium (Chloride) 250 mls @ 250 mls/hr IVPB DAILY [facility] Last Admin: 03/17/17 09:49 Dose: 250 mls/hr Ipratropium [place] (Atrovent) 0.5 mg IH RQ6 PRN PRN Reason: Shortness of Breath Last Admin: 03/15/17 09:10 Dose: 0.5 mg Lisinopril (Zestril) 2.5 mg PO DAILY [facility] Last Admin: 03/17/17 10:02 Dose: Not Given Promethazine HCl (Phenergan Syrup) 12.5 mg PO Q6 PRN PRN Reason: Cough and congestion Spironolactone (Aldactone) 25 mg PO DAILY [facility] Last Admin: 03/17/17 10:02 Dose: Not Given Thiamine HCl (Vitamin B1 Tab) 100 mg PO DAILY [facility] Last Admin: 03/17/17 09:52 Dose: 100 mg - Labs Labs: 03/17/17 06:57 03/14/17 03:02 PT 20.3 SECONDS (9.7-12.2) H 03/17/17 06:57 INR 1.8 03/17/17 06:57 APTT 35 SECONDS (21-34) H 03/17/17 06:57 - Additional Findings Additional findings: - Constitutional Appears: No Acute Distress - Head Exam Head Exam: NORMAL INSPECTION, NORMOCEPHALIC - Eye Exam Eye Exam: EOMI, Normal appearance, PERRL Pupil Exam: NORMAL ACCOMODATION - ENT Exam ENT Exam: Mucous Membranes Dry - Respiratory Exam Respiratory Exam: Decreased Breath Sounds (R >L ), NORMAL BREATHING PATTERN. absent: Rales, Rhonchi, Wheezes - Cardiovascular Exam Cardiovascular Exam: REGULAR RHYTHM, RRR, +S1, +S2 - GI/Abdominal Exam GI & Abdominal Exam: Soft, Normal Bowel Sounds. absent: Distended, Tenderness - Extremities Exam Extremities Exam: Normal Inspection. absent: Pedal Edema, Tenderness - Neurological Exam Neurological Exam: Alert, Awake, Oriented x3 - Skin Skin Exam: Dry, Intact, Normal Color, Warm Assessment and Plan - Assessment and Plan (Free Text) Plan: RLL Pleural Effusion Chest CT: No evidence of acute central pulmonary embolus. Moderate-sized of right-sided effusion and right basilar atelectasis. There is also on what may represent masslike rounded atelectasis and or infiltrate in the middle lobe an mild subsegmental atelectasis in the left lung base and lingular region. CXR: Moderate bilateral pleural effusions with adjacent prominent consolidative changes at both lung bases; right greater left. Venous congestion. Right hilar prominence. Tortuous aorta. Cardiomegaly. Worsening Pleural Effusion, now bilaterally R > L IR consulted for thoracentesis - not enough fluid for thoracentesis - resumed ASA and lovenox Phenegran PRN, Atrovent PRN Azithromycin 250mg IVP daily started on 03/15/17 Increased Lasix to 40mg IVP daily Aldactone 25mg PO daily BiPAP PRN Chronic Systolic Congestive Heart Failure ECHO 08/2016: EF of <25%, LV mod dilated, LV systolic function severely impaired , global hypokinesis of LV, LV diastolic functio normal, RV and systolic function normal, RA and LA mod dilated, MR mild to mod, mod TR, RV systolic P 50 -60mmHg, mod pulmonary HTN, mild-mod pulmonic valvular regurgitation, aortic root mildly enlarged Lasix 20mg PO daily Aldactone 25mg PO daily Hx Chronic Alcohol Abuse Hx CAD Patient with hx of [place] in 2011 Hx HTN DW Maicol Wilson DO, PGY-1 <Raimundo Berry S - Last Filed: 03/17/17 16:15> Objective - Vital Signs/Intake and Output Vital Signs (last 24 hours): Temp Pulse Resp BP Pulse Ox 97.5 F L 69 18 104/69 96 03/17/17 07:35 03/17/17 07:35 03/17/17 07:35 03/17/17 09:52 03/17/17 07:35 Intake and Output: 03/17/17 03/17/17 06:59 18:59 Intake Total 320 Output Total 450 Balance -130 - Medications Medications: Current Medications Acetaminophen/Codeine Phosphate (Tylenol/Codeine 300 Mg/30 Mg) 2 ea PO Q4 PRN PRN Reason: Pain, moderate (4-7) Last Admin: 03/16/17 04:01 Dose: 2 ea Albuterol/Ipratropium (Duoneb 3 Mg/0.5 Mg (3 Ml) Ud) 3 ml INH RQ6 [facility] Last Admin: 03/17/17 13:56 Dose: 3 ml Aspirin (Ecotrin) 81 mg PO DAILY [facility] Last Admin: 03/16/17 09:40 Dose: 81 mg Budesonide (Pulmicort Respules) 0.5 mg INH RQ12 [facility] Last Admin: 03/17/17 13:56 Dose: 0.5 mg Carvedilol (Coreg) 6.25 mg PO BID [facility] Last Admin: 03/17/17 10:02 Dose: Not Given Chlordiazepoxide (Librium) 25 mg PO Q8 PRN PRN Reason: Agitation Enoxaparin Sodium (Lovenox) 40 mg SC DAILY [facility] Last Admin: 03/16/17 09:39 Dose: 40 mg Furosemide (Lasix) 40 mg IVP DAILY [facility] Last Admin: 03/17/17 09:52 Dose: 40 mg Azithromycin 500 mg/ Sodium (Chloride) 250 mls @ 250 mls/hr IVPB DAILY [facility] Last Admin: 03/17/17 09:49 Dose: 250 mls/hr Ipratropium [place] (Atrovent) 0.5 mg IH RQ6 PRN PRN Reason: Shortness of Breath Last Admin: 03/15/17 09:10 Dose: 0.5 mg Lisinopril (Zestril) 2.5 mg PO DAILY [facility] Last Admin: 03/17/17 10:02 Dose: Not Given Promethazine HCl (Phenergan Syrup) 12.5 mg PO Q6 PRN PRN Reason: Cough and congestion Spironolactone (Aldactone) 25 mg PO DAILY [facility] Last Admin: 03/17/17 10:02 Dose: Not Given Thiamine HCl (Vitamin B1 Tab) 100 mg PO DAILY [facility] Last Admin: 03/17/17 09:52 Dose: 100 mg - Labs Labs: 03/17/17 06:57 03/17/17 14:27 PT 20.3 SECONDS (9.7-12.2) H 03/17/17 06:57 INR 1.8 03/17/17 06:57 APTT 35 SECONDS (21-34) H 03/17/17 06:57 Assessment and Plan (1) Pleural effusion Status: Acute (2) Alcohol abuse Status: Acute (3) CHF exacerbation Status: Acute Attending/Attestation - Attestation I have personally seen and examined this patient.: Yes I have fully participated in the care of the patient.: Yes I have reviewed all pertinent clinical information, including history, physical exam and plan: Yes Notes (Text): 03/17/17 16:13 Patient seen and examined. Breathing much improved off BIPAP and 100% nonrebreather Started on Librium because of history of alcohol abuse Seen by IR and no thoracentesis done because of small effusion Continue diuretics Continue present treatment
[2017-03-17 13:01] LABS: CHLORIDE 98 mmol/L (98-107); POTASSIUM 4.9 mmol/L (3.6-5.2); SODIUM 132 mmol/L (132-148)
[2017-03-17 13:04] LABS: ALKALINE PHOSPHATASE 86 U/L (38-126); ALT/SGPT 32 U/L (21-72); AST/SGOT 45 U/L (17-59); BLOOD UREA NITROGEN 17 mg/dL (9-20); CARBON DIOXIDE 23 mmol/L (22-30); GFR AFRICAN-AMERICAN > 60; GLUCOSE,RANDOM 95 mg/dL (75-110); TOTAL PROTEIN 8.6 g/dL (6.3-8.3)
[2017-03-17 13:05] LABS: ALB/GLOB RATIO 0.7 (1.0-2.1)
[2017-03-17 14:47] LABS: CHLORIDE 98 mmol/L (98-107)
[2017-03-17 14:48] LABS: POTASSIUM 4.2 mmol/L (3.6-5.2); SODIUM 131 mmol/L (132-148)
[2017-03-17 14:50] LABS: ALB/GLOB RATIO 0.8 (1.0-2.1); ALKALINE PHOSPHATASE 84 U/L (38-126); AST/SGOT 52 U/L (17-59); CARBON DIOXIDE 24 mmol/L (22-30); GFR AFRICAN-AMERICAN > 60; TOTAL PROTEIN 7.9 g/dL (6.3-8.3)
[2017-03-17 14:51] LABS: ALT/SGPT 25 U/L (21-72); BLOOD UREA NITROGEN 18 mg/dL (9-20); CALCIUM 8.7 mg/dl (8.6-10.4); GLUCOSE,RANDOM 71 mg/dL (75-110)
--- NOTE | 2017-03-17 22:53 | CP.PCM.PN ---
Subjective - Date & Time of Evaluation Date of Evaluation: 03/17/17 Time of Evaluation: 20:00 - Subjective Subjective: Patient was seen and examined at bedside. Patient reported he still continues to feel SOB, but not as severe as it was yesterday. He has been able to ambulate to the bathroom without needing to have oxygen placed. Denied fever, chills, headache, chest pain, cough abdominal pain, n/v/d/c, or urinary symptoms. Objective - Vital Signs/Intake and Output Vital Signs (last 24 hours): Temp Pulse Resp BP Pulse Ox 98.3 F 81 20 116/87 100 03/17/17 15:40 03/17/17 18:07 03/17/17 15:40 03/17/17 18:07 03/17/17 15:40 Intake and Output: 03/17/17 03/18/17 18:59 06:59 Intake Total 650 320 Output Total 600 Balance 650 -280 - Medications Medications: Current Medications Acetaminophen/Codeine Phosphate (Tylenol/Codeine 300 Mg/30 Mg) 2 ea PO Q4 PRN PRN Reason: Pain, moderate (4-7) Last Admin: 03/16/17 04:01 Dose: 2 ea Albuterol/Ipratropium (Duoneb 3 Mg/0.5 Mg (3 Ml) Ud) 3 ml INH RQ6 [facility] Last Admin: 03/17/17 19:02 Dose: 3 ml Aspirin (Ecotrin) 81 mg PO DAILY [facility] Last Admin: 03/16/17 09:40 Dose: 81 mg Budesonide (Pulmicort Respules) 0.5 mg INH RQ12 [facility] Last Admin: 03/17/17 19:02 Dose: 0.5 mg Carvedilol (Coreg) 6.25 mg PO BID [facility] Last Admin: 03/17/17 18:04 Dose: 6.25 mg Chlordiazepoxide (Librium) 25 mg PO Q8 PRN PRN Reason: Agitation Enoxaparin Sodium (Lovenox) 40 mg SC DAILY [facility] Last Admin: 03/16/17 09:39 Dose: 40 mg Furosemide (Lasix) 40 mg IVP DAILY [facility] Last Admin: 03/17/17 09:52 Dose: 40 mg Azithromycin 500 mg/ Sodium (Chloride) 250 mls @ 250 mls/hr IVPB DAILY [facility] Last Admin: 03/17/17 09:49 Dose: 250 mls/hr Ipratropium [place] (Atrovent) 0.5 mg IH RQ6 PRN PRN Reason: Shortness of Breath Last Admin: 03/15/17 09:10 Dose: 0.5 mg Lisinopril (Zestril) 2.5 mg PO DAILY [facility] Last Admin: 03/17/17 10:02 Dose: Not Given Promethazine HCl (Phenergan Syrup) 12.5 mg PO Q6 PRN PRN Reason: Cough and congestion Spironolactone (Aldactone) 25 mg PO DAILY [facility] Last Admin: 03/17/17 10:02 Dose: Not Given Thiamine HCl (Vitamin B1 Tab) 100 mg PO DAILY [facility] Last Admin: 03/17/17 09:52 Dose: 100 mg - Labs Labs: 03/17/17 06:57 03/17/17 14:27 PT 20.3 SECONDS (9.7-12.2) H 03/17/17 06:57 INR 1.8 03/17/17 06:57 APTT 35 SECONDS (21-34) H 03/17/17 06:57 Assessment and Plan (1) Pleural effusion Status: Acute (2) Pneumonia Status: Acute (3) Alcohol abuse Status: Acute (4) Chest pain Status: Acute (5) CHF exacerbation Status: Acute
[2017-03-18] MEDS: Albuterol-Ipratrop 3 mg / 0.5 (3 ml) UD INH SCH ×4 (01:33→20:13)
--- NOTE | 2017-03-18 04:34 | CON ---
DATE: REASON FOR CONSULTATION: Shortness of breath. HISTORY OF PRESENT ILLNESS: The patient is 56 years old male who has history of hypertension, smoking and alcohol abuse, admitted because of shortness of breath. The patient is unaware of any history of heart attack in the past. He denies any retrosternal chest pain at this time. SOCIAL HISTORY: The patient is a smoker and ETOH abuser. REVIEW OF SYSTEMS: The patient has experienced gradual and progressive loss of weight. He denies any vomiting or diarrhea. PHYSICAL EXAMINATION: GENERAL: The patient is a middle-aged male who does not appear to be in acute distress. VITAL SIGNS: Blood pressure 104/70, heart rate 71, temperature 98.3, respirations 20. HEENT: Pale conjunctivae. NECK: No JVD. CHEST: Bilateral rhonchi. HEART: S1 and S2 regular. ABDOMEN: Soft. EXTREMITIES: No edema. LABORATORY DATA: Today's SMA-7 is within normal limits except for sodium of 131, which has been progressively going down compared to 136 on admission. ProBNP is 5460. One set of troponin is negative. INR is 1.8, PTT is 35, D-dimer is elevated at 138. Hemoglobin and hematocrit 9.7 and 29.5, white count and platelet count today are within normal limits. Chest CT angio, no evidence of acute central pulmonary embolus, moderate sized right-sided pleural effusion and right basilar atelectasis. There are also what may represent mass-like rounded atelectasis or infiltrate in the middle lobe and mild subsegmental atelectasis in the left lung base and lingular region. Marked cardiomegaly. Chest x-ray revealed cardiomegaly and right pleural effusion. EKG revealed sinus rhythm, left atrial enlargement, right axis deviation, nonspecific intraventricular conduction delay. Echocardiogram study performed in 08/2016 revealed ejection fraction below 25% with global hypokinesis, normal right ventricular size and systolic function, moderate pulmonary hypertension, and mildly dilated aortic root. ASSESSMENT: 1. Exacerbation of congestive heart failure. 2. Right pleural effusion. 3. Questionable right middle lobe mass. 4. Hyponatremia. 5. Mild anemia. RECOMMENDATIONS: Continue Aldactone at 25 mg daily, Zithromax 500 mg intravenously daily, Coreg 6.25 mg twice a day, aspirin 81 mg once a day, Lasix 40 mg intravenously daily, Lovenox 40 mg subcutaneous once a day, thiamine 100 mg orally daily, and Zestril 2.5 mg daily. I will also obtain a urine for drug screen. Kalen Lao MD
[2017-03-18] MEDS: Budesonide 0.5 mg/2 ml Inhal Susp UD INH SCH ×2 (07:31→20:13)
[2017-03-18] MEDS: Enoxaparin 40 mg Syringe SC SCH (09:40)
[2017-03-18] MEDS: Azithromycin 500 MG in Sodium Chloride 0.9% 250 ML IVPB SCH (10:11)
--- NOTE | 2017-03-18 10:15 | CP.PCM.PN ---
<Maria Esther Miliana - Last Filed: 03/18/17 13:55> Subjective - Date & Time of Evaluation Date of Evaluation: 03/18/17 Time of Evaluation: 09:00 - Subjective Subjective: Pulmonology Note for Dr. Berry's Service Patient was seen and examined at bedside. Patient reported his breathing has improved, but continues to feel like he needs oxygen. Denied fever, chills, headache, chest pain, cough abdominal pain, n/v/d/c, or urinary symptoms. Objective - Vital Signs/Intake and Output Vital Signs (last 24 hours): Temp Pulse Resp BP Pulse Ox 98.4 F 70 20 118/74 96 03/17/17 23:10 03/18/17 08:00 03/17/17 23:10 03/18/17 09:39 03/17/17 23:10 Intake and Output: 03/18/17 03/18/17 06:59 18:59 Intake Total 320 Output Total 600 Balance -280 - Medications Medications: Current Medications Acetaminophen/Codeine Phosphate (Tylenol/Codeine 300 Mg/30 Mg) 2 ea PO Q4 PRN PRN Reason: Pain, moderate (4-7) Last Admin: 03/16/17 04:01 Dose: 2 ea Albuterol/Ipratropium (Duoneb 3 Mg/0.5 Mg (3 Ml) Ud) 3 ml INH RQ6 [facility] Last Admin: 03/18/17 07:31 Dose: Not Given Aspirin (Ecotrin) 81 mg PO DAILY [facility] Last Admin: 03/18/17 09:40 Dose: Not Given Budesonide (Pulmicort Respules) 0.5 mg INH RQ12 [facility] Last Admin: 03/18/17 07:31 Dose: Not Given Carvedilol (Coreg) 6.25 mg PO BID [facility] Last Admin: 03/18/17 09:39 Dose: 6.25 mg Chlordiazepoxide (Librium) 25 mg PO Q8 PRN PRN Reason: Agitation Enoxaparin Sodium (Lovenox) 40 mg SC DAILY [facility] Last Admin: 03/18/17 09:40 Dose: Not Given Furosemide (Lasix) 40 mg IVP DAILY [facility] Last Admin: 03/18/17 09:39 Dose: 40 mg Azithromycin 500 mg/ Sodium (Chloride) 250 mls @ 250 mls/hr IVPB DAILY [facility] Last Admin: 03/17/17 09:49 Dose: 250 mls/hr Ipratropium [place] (Atrovent) 0.5 mg IH RQ6 PRN PRN Reason: Shortness of Breath Last Admin: 03/15/17 09:10 Dose: 0.5 mg Lisinopril (Zestril) 2.5 mg PO DAILY [facility] Last Admin: 03/18/17 09:39 Dose: 2.5 mg Promethazine HCl (Phenergan Syrup) 12.5 mg PO Q6 PRN PRN Reason: Cough and congestion Last Admin: 03/18/17 09:40 Dose: 12.5 mg Spironolactone (Aldactone) 25 mg PO DAILY [facility] Last Admin: 03/18/17 09:40 Dose: 25 mg Thiamine HCl (Vitamin B1 Tab) 100 mg PO DAILY [facility] Last Admin: 03/18/17 09:40 Dose: 100 mg - Labs Labs: 03/17/17 06:57 03/17/17 14:27 PT 20.3 SECONDS (9.7-12.2) H 03/17/17 06:57 INR 1.8 03/17/17 06:57 APTT 35 SECONDS (21-34) H 03/17/17 06:57 - Additional Findings Additional findings: - Constitutional Appears: No Acute Distress - Head Exam Head Exam: NORMAL INSPECTION, NORMOCEPHALIC - Eye Exam Eye Exam: EOMI, Normal appearance, PERRL Pupil Exam: NORMAL ACCOMODATION - ENT Exam ENT Exam: Mucous Membranes Dry - Respiratory Exam Respiratory Exam: Decreased Breath Sounds (R >L ), NORMAL BREATHING PATTERN. absent: Rales, Rhonchi, Wheezes - Cardiovascular Exam Cardiovascular Exam: REGULAR RHYTHM, RRR, +S1, +S2 - GI/Abdominal Exam GI & Abdominal Exam: Soft, Normal Bowel Sounds. absent: Distended, Tenderness - Extremities Exam Extremities Exam: Normal Inspection. absent: Pedal Edema, Tenderness - Neurological Exam Neurological Exam: Alert, Awake, Oriented x3 - Skin Skin Exam: Dry, Intact, Normal Color, Warm Assessment and Plan - Assessment and Plan (Free Text) Plan: RLL Pleural Effusion Chest CT: No evidence of acute central pulmonary embolus. Moderate-sized of right-sided effusion and right basilar atelectasis. There is also on what may represent masslike rounded atelectasis and or infiltrate in the middle lobe an mild subsegmental atelectasis in the left lung base and lingular region. CXR: Moderate bilateral pleural effusions with adjacent prominent consolidative changes at both lung bases; right greater left. Venous congestion. Right hilar prominence. Tortuous aorta. Cardiomegaly. Worsening Pleural Effusion, now bilaterally R > L IR consulted for thoracentesis - not enough fluid for thoracentesis - resumed ASA and lovenox Phenegran PRN, Atrovent PRN Azithromycin 500mg IVP daily started on 03/15/17 Increased Lasix to 40mg IVP daily Aldactone 25mg PO daily BiPAP PRN Chronic Systolic Congestive Heart Failure ECHO 08/2016: EF of <25%, LV mod dilated, LV systolic function severely impaired , global hypokinesis of LV, LV diastolic functio normal, RV and systolic function normal, RA and LA mod dilated, MR mild to mod, mod TR, RV systolic P 50 -60mmHg, mod pulmonary HTN, mild-mod pulmonic valvular regurgitation, aortic root mildly enlarged Lasix to 40mg IVP daily Aldactone 25mg PO daily Hx Chronic Alcohol Abuse Started on librium taper Hx CAD Patient with hx of [place] in 2011 Hx HTN DW Maicol Wilson DO, PGY-1 <Raimundo Berry S - Last Filed: 03/18/17 14:58> Objective - Vital Signs/Intake and Output Vital Signs (last 24 hours): Temp Pulse Resp BP Pulse Ox 97.9 F 70 18 118/74 98 03/18/17 07:15 03/18/17 08:00 03/18/17 07:15 03/18/17 09:39 03/18/17 07:15 Intake and Output: 03/18/17 03/18/17 06:59 18:59 Intake Total 320 Output Total 600 Balance -280 - Medications Medications: Current Medications Acetaminophen/Codeine Phosphate (Tylenol/Codeine 300 Mg/30 Mg) 2 ea PO Q4 PRN PRN Reason: Pain, moderate (4-7) Last Admin: 03/18/17 10:18 Dose: 2 ea Albuterol/Ipratropium (Duoneb 3 Mg/0.5 Mg (3 Ml) Ud) 3 ml INH RQ6 [facility] Last Admin: 03/18/17 13:49 Dose: 3 ml Aspirin (Ecotrin) 81 mg PO DAILY [facility] Last Admin: 03/18/17 09:40 Dose: Not Given Budesonide (Pulmicort Respules) 0.5 mg INH RQ12 [facility] Last Admin: 03/18/17 07:31 Dose: Not Given Carvedilol (Coreg) 6.25 mg PO BID [facility] Last Admin: 03/18/17 09:39 Dose: 6.25 mg Chlordiazepoxide (Librium) 25 mg PO Q8 PRN PRN Reason: Agitation Enoxaparin Sodium (Lovenox) 40 mg SC DAILY [facility] Last Admin: 03/18/17 09:40 Dose: Not Given Furosemide (Lasix) 40 mg IVP DAILY [facility] Last Admin: 03/18/17 09:39 Dose: 40 mg Vancomycin/Sodium Chloride (Vancomycin 1 Gm/Ns 200 Ml) 1 gm in 200 mls @ 133 mls/hr IVPB Q12H [facility] Stop: 03/23/17 14:31 Last Admin: 03/18/17 14:09 Dose: 133 mls/hr Ceftriaxone Sodium (Rocephin Iv 1 Gm Duplex) 50 mls @ 100 mls/hr IVPB Q24H [facility] Last Admin: 03/18/17 14:04 Dose: 100 mls/hr Ipratropium [place] (Atrovent) 0.5 mg IH RQ6 PRN PRN Reason: Shortness of Breath Last Admin: 03/15/17 09:10 Dose: 0.5 mg Lisinopril (Zestril) 2.5 mg PO DAILY [facility] Last Admin: 03/18/17 09:39 Dose: 2.5 mg Promethazine HCl (Phenergan Syrup) 12.5 mg PO Q6 PRN PRN Reason: Cough and congestion Last Admin: 03/18/17 09:40 Dose: 12.5 mg Spironolactone (Aldactone) 25 mg PO DAILY [facility] Last Admin: 03/18/17 09:40 Dose: 25 mg Thiamine HCl (Vitamin B1 Tab) 100 mg PO DAILY [facility] Last Admin: 03/18/17 09:40 Dose: 100 mg - Labs Labs: 03/17/17 06:57 03/17/17 14:27 PT 20.3 SECONDS (9.7-12.2) H 03/17/17 06:57 INR 1.8 03/17/17 06:57 APTT 35 SECONDS (21-34) H 03/17/17 06:57 Assessment and Plan (1) Pleural effusion Status: Acute (2) Alcohol abuse Status: Acute (3) CHF exacerbation Status: Acute Attending/Attestation - Attestation I have personally seen and examined this patient.: Yes I have fully participated in the care of the patient.: Yes I have reviewed all pertinent clinical information, including history, physical exam and plan: Yes Notes (Text): 03/18/17 14:58 Patient seen and examined. Still complaining of dyspnea on exertion but overall breathing much improved Afebrile denies any chest pain
[2017-03-18] MEDS: Acetaminophen-Codeine 300/30 mg Tab PO PRN (10:18)
[2017-03-18] MEDS: cefTRIAXone IV 1 gm in Dextros 50 ML IVPB SCH (14:04)
[2017-03-18] MEDS: Vancomycin 1 gm/NS 200 ml 1 GM/200 ML BAG IVPB SCH (14:09)
--- NOTE | 2017-03-18 19:22 | PN ---
DATE: SUBJECTIVE: The patient is still experiencing shortness of breath. He denies any chest pain. PHYSICAL EXAMINATION VITAL SIGNS: Blood pressure 118/74, heart rate 70, temperature 97.9, respiration 18. HEENT: Pale conjunctivae. CHEST: Absent breath sound over the bases. HEART: S1 and S2 regular. EXTREMITIES: Trace leg edema. LABORATORY DATA: Urine drug screen is positive for opiates. ASSESSMENT: 1. The patient with congestive heart failure. 2. Right pleural effusion. 3. Hyponatremia. 4. Anemia. RECOMMENDATIONS: Continue Aldactone at 25 mg once a day, Coreg 6.25 mg twice a day, aspirin 81 mg once a day, Lasix 40 mg intravenously daily, IV Rocephin at 1 g daily, IV vancomycin at 1 g q. 12 hours, Zestril 2.5 mg once a day, thiamine at 100 mg once a day. Kalen Lao MD
--- NOTE | 2017-03-18 23:28 | CP.PCM.PN ---
Subjective - Date & Time of Evaluation Date of Evaluation: 03/18/17 Time of Evaluation: 19:30 - Subjective Subjective: PT SEEN AND EXAMINED, FEELING BETTER Objective - Vital Signs/Intake and Output Vital Signs (last 24 hours): Temp Pulse Resp BP Pulse Ox 97.4 F L 55 L 20 105/62 100 03/18/17 16:00 03/18/17 16:00 03/18/17 16:00 03/18/17 16:00 03/18/17 16:00 - Medications Medications: Current Medications Acetaminophen/Codeine Phosphate (Tylenol/Codeine 300 Mg/30 Mg) 2 ea PO Q4 PRN PRN Reason: Pain, moderate (4-7) Last Admin: 03/18/17 10:18 Dose: 2 ea Albuterol/Ipratropium (Duoneb 3 Mg/0.5 Mg (3 Ml) Ud) 3 ml INH RQ6 [facility] Last Admin: 03/18/17 20:13 Dose: Not Given Aspirin (Ecotrin) 81 mg PO DAILY [facility] Last Admin: 03/18/17 09:40 Dose: Not Given Budesonide (Pulmicort Respules) 0.5 mg INH RQ12 [facility] Last Admin: 03/18/17 20:13 Dose: Not Given Carvedilol (Coreg) 6.25 mg PO BID [facility] Last Admin: 03/18/17 17:31 Dose: 6.25 mg Chlordiazepoxide (Librium) 25 mg PO Q8 PRN PRN Reason: Agitation Enoxaparin Sodium (Lovenox) 40 mg SC DAILY [facility] Last Admin: 03/18/17 09:40 Dose: Not Given Furosemide (Lasix) 40 mg IVP DAILY [facility] 234 [facility] Last Admin: 03/18/17 09:39 Dose: 40 mg Vancomycin/Sodium Chloride (Vancomycin 1 Gm/Ns 200 Ml) 1 gm in 200 mls @ 133 mls/hr IVPB Q12H [facility] Stop: 03/23/17 14:31 Last Admin: 03/18/17 14:09 Dose: 133 mls/hr Ceftriaxone Sodium (Rocephin Iv 1 Gm Duplex) 50 mls @ 100 mls/hr IVPB Q24H [facility] 234 [facility]S [facility] Last Admin: 03/18/17 14:04 Dose: 100 mls/hr Ipratropium [place] (Atrovent) 0.5 mg IH RQ6 PRN PRN Reason: Shortness of Breath Last Admin: 03/15/17 09:10 Dose: 0.5 mg Lisinopril (Zestril) 2.5 mg PO DAILY [facility] 234 [facility]S [facility] Last Admin: 03/18/17 09:39 Dose: 2.5 mg Promethazine HCl (Phenergan Syrup) 12.5 mg PO Q6 PRN PRN Reason: Cough and congestion Last Admin: 03/18/17 09:40 Dose: 12.5 mg Spironolactone (Aldactone) 25 mg PO DAILY [facility] 234 [facility] Last Admin: 03/18/17 09:40 Dose: 25 mg Thiamine HCl (Vitamin B1 Tab) 100 mg PO DAILY [facility] 234 [facility] Last Admin: 03/18/17 09:40 Dose: 100 mg - Labs Labs: 03/17/17 06:57 03/17/17 14:27 PT 20.3 SECONDS (9.7-12.2) H 03/17/17 06:57 INR 1.8 03/17/17 06:57 APTT 35 SECONDS (21-34) H 03/17/17 06:57 Assessment and Plan (1) Pleural effusion Status: Acute (2) Pneumonia Status: Acute (3) Alcohol abuse Status: Acute (4) Chest pain Status: Acute (5) CHF exacerbation Status: Acute
[2017-03-19] MEDS: Albuterol-Ipratrop 3 mg / 0.5 (3 ml) UD INH SCH ×4 (01:15→19:34)
[2017-03-19] MEDS: Vancomycin 1 gm/NS 200 ml 1 GM/200 ML BAG IVPB SCH ×2 (01:49→14:58)
[2017-03-19 06:50] LABS: CHLORIDE 100 mmol/L (98-107); POTASSIUM 3.8 mmol/L (3.6-5.2); SODIUM 135 mmol/L (132-148)
[2017-03-19 06:53] LABS: BLOOD UREA NITROGEN 17 mg/dL (9-20); CARBON DIOXIDE 26 mmol/L (22-30); GFR AFRICAN-AMERICAN > 60
[2017-03-19 06:54] LABS: CALCIUM 8.6 mg/dl (8.6-10.4); GLUCOSE,RANDOM 86 mg/dL (75-110)
[2017-03-19] MEDS: Budesonide 0.5 mg/2 ml Inhal Susp UD INH SCH ×2 (07:30→19:34)
--- NOTE | 2017-03-19 08:46 | CP.PCM.PN ---
<ArnoldsantaVimalHodan - Last Filed: 03/19/17 09:26> Subjective - Date & Time of Evaluation Date of Evaluation: 03/19/17 Time of Evaluation: 09:00 - Subjective Subjective: Pulmonology Note for Dr. Berry's Service Patient was seen and examined at bedside. Patient reported his breathing has improved significantly. Denied fever, chills, headache, chest pain, cough abdominal pain, n/v/d/c, or urinary symptoms. Objective - Vital Signs/Intake and Output Vital Signs (last 24 hours): Temp Pulse Resp BP Pulse Ox 98.1 F 72 20 105/65 98 03/19/17 04:40 03/19/17 04:40 03/19/17 04:40 03/19/17 04:40 03/19/17 04:40 - Medications Medications: Current Medications Acetaminophen/Codeine Phosphate (Tylenol/Codeine 300 Mg/30 Mg) 2 ea PO Q4 PRN PRN Reason: Pain, moderate (4-7) Last Admin: 03/18/17 10:18 Dose: 2 ea Albuterol/Ipratropium (Duoneb 3 Mg/0.5 Mg (3 Ml) Ud) 3 ml INH RQ6 [facility] Last Admin: 03/19/17 07:30 Dose: 3 ml Aspirin (Ecotrin) 81 mg PO DAILY [facility] Last Admin: 03/18/17 09:40 Dose: Not Given Budesonide (Pulmicort Respules) 0.5 mg INH RQ12 [facility] Last Admin: 03/19/17 07:30 Dose: 0.5 mg Carvedilol (Coreg) 6.25 mg PO BID [facility] Last Admin: 03/18/17 17:31 Dose: 6.25 mg Chlordiazepoxide (Librium) 25 mg PO Q8 PRN PRN Reason: Agitation Enoxaparin Sodium (Lovenox) 40 mg SC DAILY [facility] Last Admin: 03/18/17 09:40 Dose: Not Given Furosemide (Lasix) 40 mg IVP DAILY [facility] Last Admin: 03/18/17 09:39 Dose: 40 mg Vancomycin/Sodium Chloride (Vancomycin 1 Gm/Ns 200 Ml) 1 gm in 200 mls @ 133 mls/hr IVPB Q12H [facility] Stop: 03/23/17 14:31 Last Admin: 03/19/17 01:49 Dose: 133 mls/hr Ceftriaxone Sodium (Rocephin Iv 1 Gm Duplex) 50 mls @ 100 mls/hr IVPB Q24H [facility] Last Admin: 03/18/17 14:04 Dose: 100 mls/hr Ipratropium [place] (Atrovent) 0.5 mg IH RQ6 PRN PRN Reason: Shortness of Breath Last Admin: 03/15/17 09:10 Dose: 0.5 mg Lisinopril (Zestril) 2.5 mg PO DAILY [facility] Last Admin: 03/18/17 09:39 Dose: 2.5 mg Promethazine HCl (Phenergan Syrup) 12.5 mg PO Q6 PRN PRN Reason: Cough and congestion Last Admin: 03/18/17 09:40 Dose: 12.5 mg Spironolactone (Aldactone) 25 mg PO DAILY [facility] Last Admin: 03/18/17 09:40 Dose: 25 mg Thiamine HCl (Vitamin B1 Tab) 100 mg PO DAILY [facility] Last Admin: 03/18/17 09:40 Dose: 100 mg - Labs Labs: 03/17/17 06:57 03/19/17 06:19 PT 20.3 SECONDS (9.7-12.2) H 03/17/17 06:57 INR 1.8 03/17/17 06:57 APTT 35 SECONDS (21-34) H 03/17/17 06:57 - Additional Findings Additional findings: - Constitutional Appears: No Acute Distress - Head Exam Head Exam: NORMAL INSPECTION, NORMOCEPHALIC - Eye Exam Eye Exam: EOMI, Normal appearance, PERRL Pupil Exam: NORMAL ACCOMODATION - ENT Exam ENT Exam: Mucous Membranes Dry - Respiratory Exam Respiratory Exam: Decreased Breath Sounds (R >L ), NORMAL BREATHING PATTERN. absent: Rales, Rhonchi, Wheezes - Cardiovascular Exam Cardiovascular Exam: REGULAR RHYTHM, RRR, +S1, +S2 - GI/Abdominal Exam GI & Abdominal Exam: Soft, Normal Bowel Sounds. absent: Distended, Tenderness - Extremities Exam Extremities Exam: Normal Inspection. absent: Pedal Edema, Tenderness - Neurological Exam Neurological Exam: Alert, Awake, Oriented x3 - Skin Skin Exam: Dry, Intact, Normal Color, Warm Assessment and Plan - Assessment and Plan (Free Text) Plan: RLL Pleural Effusion Chest CT: No evidence of acute central pulmonary embolus. Moderate-sized of right-sided effusion and right basilar atelectasis. There is also on what may represent masslike rounded atelectasis and or infiltrate in the middle lobe an mild subsegmental atelectasis in the left lung base and lingular region. CXR: Moderate bilateral pleural effusions with adjacent prominent consolidative changes at both lung bases; right greater left. Venous congestion. Right hilar prominence. Tortuous aorta. Cardiomegaly. Worsening Pleural Effusion, now bilaterally R > L IR consulted for thoracentesis - not enough fluid for thoracentesis - resumed ASA and lovenox Phenegran PRN, Atrovent PRN Azithromycin 500mg IVP daily started on 03/15/17 Increased Lasix to 40mg IVP daily Aldactone 25mg PO daily BiPAP PRN Continue current management - pulse ox 96-98 on RA and NC Chronic Systolic Congestive Heart Failure ECHO 08/2016: EF of <25%, LV mod dilated, LV systolic function severely impaired , global hypokinesis of LV, LV diastolic functio normal, RV and systolic function normal, RA and LA mod dilated, MR mild to mod, mod TR, RV systolic P 50 -60mmHg, mod pulmonary HTN, mild-mod pulmonic valvular regurgitation, aortic root mildly enlarged Lasix to 40mg IVP daily Aldactone 25mg PO daily Hx Chronic Alcohol Abuse Started on librium taper Hx CAD Patient with hx of VT in 2011 Hx HTN Pulmonology will be signing off - Thank you for the interesting consult. Please re-consult if necessary. Maicol Morrell Dr., DO, PGY-1 <Raimundo Berry S - Last Filed: 03/19/17 17:47> Objective - Vital Signs/Intake and Output Vital Signs (last 24 hours): Temp Pulse Resp BP Pulse Ox 98.6 F 68 20 134/91 H 100 03/19/17 15:15 03/19/17 16:00 03/19/17 15:15 03/19/17 15:15 03/19/17 15:15 Intake and Output: 03/19/17 03/19/17 06:59 18:59 Intake Total 480 Output Total 2000 Balance -1520 - Medications Medications: Current Medications Acetaminophen/Codeine Phosphate (Tylenol/Codeine 300 Mg/30 Mg) 2 ea PO Q4 PRN PRN Reason: Pain, moderate (4-7) Last Admin: 03/18/17 10:18 Dose: 2 ea Albuterol/Ipratropium (Duoneb 3 Mg/0.5 Mg (3 Ml) Ud) 3 ml INH RQ6 [facility] Last Admin: 03/19/17 13:37 Dose: 3 ml Aspirin (Ecotrin) 81 mg PO DAILY [facility] Last Admin: 03/19/17 10:04 Dose: 81 mg Budesonide (Pulmicort Respules) 0.5 mg INH RQ12 [facility] Last Admin: 03/19/17 07:30 Dose: 0.5 mg Carvedilol (Coreg) 6.25 mg PO BID [facility] Last Admin: 03/19/17 10:04 Dose: 6.25 mg Chlordiazepoxide (Librium) 25 mg PO Q8 PRN PRN Reason: Agitation Enoxaparin Sodium (Lovenox) 40 mg SC DAILY [facility] Last Admin: 03/19/17 10:04 Dose: 40 mg Furosemide (Lasix) 40 mg IVP DAILY [facility] Last Admin: 03/19/17 10:04 Dose: 40 mg Vancomycin/Sodium Chloride (Vancomycin 1 Gm/Ns 200 Ml) 1 gm in 200 mls @ 133 mls/hr IVPB Q12H [facility] Stop: 03/23/17 14:31 Last Admin: 03/19/17 14:58 Dose: 133 mls/hr Ceftriaxone Sodium (Rocephin Iv 1 Gm Duplex) 50 mls @ 100 mls/hr IVPB Q24H [facility] Last Admin: 03/19/17 14:00 Dose: 100 mls/hr Ipratropium [place] (Atrovent) 0.5 mg IH RQ6 PRN PRN Reason: Shortness of Breath Last Admin: 03/15/17 09:10 Dose: 0.5 mg Lisinopril (Zestril) 2.5 mg PO DAILY [facility] Last Admin: 03/19/17 10:04 Dose: 2.5 mg Promethazine HCl (Phenergan Syrup) 12.5 mg PO Q6 PRN PRN Reason: Cough and congestion Last Admin: 03/18/17 09:40 Dose: 12.5 mg Spironolactone (Aldactone) 25 mg PO DAILY [facility] Last Admin: 03/19/17 10:04 Dose: 25 mg Thiamine HCl (Vitamin B1 Tab) 100 mg PO DAILY [facility] Last Admin: 03/19/17 10:04 Dose: 100 mg - Labs Labs: 03/17/17 06:57 03/19/17 06:19 PT 20.3 SECONDS (9.7-12.2) H 03/17/17 06:57 INR 1.8 03/17/17 06:57 APTT 35 SECONDS (21-34) H 03/17/17 06:57 Assessment and Plan (1) Pleural effusion Status: Acute (2) Alcohol abuse Status: Acute (3) CHF exacerbation Status: Acute Attending/Attestation - Attestation I have personally seen and examined this patient.: Yes I have fully participated in the care of the patient.: Yes I have reviewed all pertinent clinical information, including history, physical exam and plan: Yes
[2017-03-19] MEDS: Enoxaparin 40 mg Syringe SC SCH (10:04)
[2017-03-19] MEDS: cefTRIAXone IV 1 gm in Dextros 50 ML IVPB SCH (14:00)
--- NOTE | 2017-03-19 17:09 | PN ---
DATE: SUBJECTIVE: The patient's shortness of breath has improved as well as the leg swelling. PHYSICAL EXAMINATION: VITAL SIGNS: Blood pressure 115/73, heart rate is 67, temperature 98.1 and respirations 20. HEENT: Pale conjunctivae. CHEST: Bilateral rhonchi. HEART: S1 and S2 regular. EXTREMITIES: Trace leg edema. LABORATORY DATA: Today's SMA-7 is within normal limits. ASSESSMENT: 1. Cardiomyopathy. The patient reported that he had coronary intervention in 2011 at [facility], but does not recall the processing mgr. He is chest pain free now. 2. Pneumonia. 3. Alcohol abuse. 4. Anemia. 5. Improved hyponatremia. RECOMMENDATIONS: Continue current Aldactone 25 mg once a day, Coreg 6.25 mg once a day, aspirin 81 mg once a day, Lasix 40 mg intravenously once a day, Lovenox 40 mg once a day and Zestril 2.5 mg once a day. Continue IV vancomycin at 1 g q. 12 hours. The patient will be followed by his own outreach team member, Dr. Venkat Allen, at [facility] whom the patient follows on a regular basis with. Kalen Lao MD
--- NOTE | 2017-03-19 20:05 | CP.PCM.PN ---
Subjective - Date & Time of Evaluation Date of Evaluation: 03/19/17 Time of Evaluation: 19:00 - Subjective Subjective: Patient was seen and examined at bedside. Patient reported his breathing has improved significantly. Denied fever, chills, headache, chest pain, cough abdominal pain, n/v/d/c, or urinary symptoms. Objective - Vital Signs/Intake and Output Vital Signs (last 24 hours): Temp Pulse Resp BP Pulse Ox 98.6 F 77 20 113/74 100 03/19/17 15:15 03/19/17 17:51 03/19/17 15:15 03/19/17 17:51 03/19/17 15:15 Intake and Output: 03/19/17 03/20/17 18:59 06:59 Intake Total 480 Output Total 2000 Balance -1520 - Medications Medications: Current Medications Acetaminophen/Codeine Phosphate (Tylenol/Codeine 300 Mg/30 Mg) 2 ea PO Q4 PRN PRN Reason: Pain, moderate (4-7) Last Admin: 03/18/17 10:18 Dose: 2 ea Albuterol/Ipratropium (Duoneb 3 Mg/0.5 Mg (3 Ml) Ud) 3 ml INH RQ6 [facility] Last Admin: 03/19/17 19:34 Dose: 3 ml Aspirin (Ecotrin) 81 mg PO DAILY [facility] Last Admin: 03/19/17 10:04 Dose: 81 mg Budesonide (Pulmicort Respules) 0.5 mg INH RQ12 [facility] Last Admin: 03/19/17 19:34 Dose: 0.5 mg Carvedilol (Coreg) 6.25 mg PO BID [facility] Last Admin: 03/19/17 17:50 Dose: 6.25 mg Chlordiazepoxide (Librium) 25 mg PO Q8 PRN PRN Reason: Agitation Enoxaparin Sodium (Lovenox) 40 mg SC DAILY [facility] Last Admin: 03/19/17 10:04 Dose: 40 mg Furosemide (Lasix) 40 mg IVP DAILY [facility] Last Admin: 03/19/17 10:04 Dose: 40 mg Vancomycin/Sodium Chloride (Vancomycin 1 Gm/Ns 200 Ml) 1 gm in 200 mls @ 133 mls/hr IVPB Q12H [facility] Stop: 03/23/17 14:31 Last Admin: 03/19/17 14:58 Dose: 133 mls/hr Ceftriaxone Sodium (Rocephin Iv 1 Gm Duplex) 50 mls @ 100 mls/hr IVPB Q24H [facility] Last Admin: 03/19/17 14:00 Dose: 100 mls/hr Ipratropium [place] (Atrovent) 0.5 mg IH RQ6 PRN PRN Reason: Shortness of Breath Last Admin: 03/15/17 09:10 Dose: 0.5 mg Lisinopril (Zestril) 2.5 mg PO DAILY [facility] Last Admin: 03/19/17 10:04 Dose: 2.5 mg Promethazine HCl (Phenergan Syrup) 12.5 mg PO Q6 PRN PRN Reason: Cough and congestion Last Admin: 03/18/17 09:40 Dose: 12.5 mg Spironolactone (Aldactone) 25 mg PO DAILY [facility] Last Admin: 03/19/17 10:04 Dose: 25 mg Thiamine HCl (Vitamin B1 Tab) 100 mg PO DAILY [facility] Last Admin: 03/19/17 10:04 Dose: 100 mg - Labs Labs: 03/17/17 06:57 03/19/17 06:19 PT 20.3 SECONDS (9.7-12.2) H 03/17/17 06:57 INR 1.8 03/17/17 06:57 APTT 35 SECONDS (21-34) H 03/17/17 06:57 Assessment and Plan (1) Pleural effusion Assessment & Plan: RLL Pleural Effusion Chest CT: No evidence of acute central pulmonary embolus. Moderate-sized of right-sided effusion and right basilar atelectasis. There is also on what may represent masslike rounded atelectasis and or infiltrate in the middle lobe an mild subsegmental atelectasis in the left lung base and lingular region. CXR: Moderate bilateral pleural effusions with adjacent prominent consolidative changes at both lung bases; right greater left. Venous congestion. Right hilar prominence. Tortuous aorta. Cardiomegaly. Worsening Pleural Effusion, now bilaterally R > L IR consulted for thoracentesis - not enough fluid for thoracentesis - resumed ASA and lovenox Phenegran PRN, Atrovent PRN Azithromycin 500mg IVP daily started on 03/15/17 Increased Lasix to 40mg IVP daily Aldactone 25mg PO daily BiPAP PRN Continue current management - pulse ox 96-98 on RA and NC Status: Acute (2) Pneumonia Status: Acute (3) Alcohol abuse Assessment & Plan: Hx Chronic Alcohol Abuse Started on librium taper Status: Acute (4) Chest pain Status: Acute (5) CHF exacerbation Assessment & Plan: Chronic Systolic Congestive Heart Failure ECHO 08/2016: EF of <25%, LV mod dilated, LV systolic function severely impaired , global hypokinesis of LV, LV diastolic functio normal, RV and systolic function normal, RA and LA mod dilated, MR mild to mod, mod TR, RV systolic P 50 -60mmHg, mod pulmonary HTN, mild-mod pulmonic valvular regurgitation, aortic root mildly enlarged Lasix to 40mg IVP daily Aldactone 25mg PO daily Status: Acute (6) CHF (congestive heart failure) Status: Acute
[2017-03-19] MEDS: Acetaminophen-Codeine 300/30 mg Tab PO PRN (21:48)
[2017-03-20] MEDS: Albuterol-Ipratrop 3 mg / 0.5 (3 ml) UD INH SCH ×3 (01:10→14:10)
[2017-03-20] MEDS: Vancomycin 1 gm/NS 200 ml 1 GM/200 ML BAG IVPB SCH ×2 (01:54→15:43)
[2017-03-20] MEDS: Acetaminophen-Codeine 300/30 mg Tab PO PRN ×2 (02:03→09:07)
[2017-03-20] MEDS: Budesonide 0.5 mg/2 ml Inhal Susp UD INH SCH (07:37)
[2017-03-20 07:45] LABS: CHLORIDE 96 mmol/L (98-107); POTASSIUM 4.1 mmol/L (3.6-5.2); SODIUM 134 mmol/L (132-148)
[2017-03-20 07:47] LABS: GFR AFRICAN-AMERICAN > 60
[2017-03-20 07:48] LABS: BLOOD UREA NITROGEN 18 mg/dL (9-20); CALCIUM 8.9 mg/dl (8.6-10.4); CARBON DIOXIDE 30 mmol/L (22-30); GLUCOSE,RANDOM 96 mg/dL (75-110)
[2017-03-20 07:52] LABS: BASO # 0.1 K/uL (0.0-0.2); EOS # 0.1 K/uL (0.0-0.7); EOS % 2.6 % (0.0-4.0); HEMATOCRIT 30.3 % (35.0-51.0); LYMPH # 1.1 K/uL (1.0-4.3); MEAN CORPUSCULAR HEMOGLOBIN 34.9 pg (27.0-31.0); MEAN CORPUSCULAR HGB CONC 33.5 g/dL (33.0-37.0); MEAN PLATELET VOLUME 8.4 fL (7.2-11.7); MONO # 0.6 K/uL (0.0-0.8); MONO % 11.4 % (0.0-10.0); NRBC % 0.1 % (0.0-2.0); RED CELL DISTRIBUTION WIDTH 14.8 % (11.5-14.5); WHITE BLOOD COUNT 5.2 K/uL (4.8-10.8)
[2017-03-20] MEDS: Enoxaparin 40 mg Syringe SC SCH (09:09)
[2017-03-20] MEDS: cefTRIAXone IV 1 gm in Dextros 50 ML IVPB SCH (13:43)
--- NOTE | 2017-03-20 14:03 | CP.PCM.PN ---
Subjective - Date & Time of Evaluation Date of Evaluation: 03/20/17 Time of Evaluation: 11:20 - Subjective Subjective: Patient seen today , sob improved, denies any chest pain, dizziness, headache, cough, N/VD ambulates without sob No overnight events reported by RN Objective - Vital Signs/Intake and Output Vital Signs (last 24 hours): Temp Pulse Resp BP Pulse Ox 97.3 F L 68 20 110/71 100 03/20/17 07:30 03/20/17 07:30 03/20/17 07:30 03/20/17 09:05 03/20/17 07:30 Intake and Output: 03/20/17 03/20/17 06:59 18:59 Intake Total 1180 Output Total 2200 Balance -1020 - Medications Medications: Current Medications Acetaminophen/Codeine Phosphate (Tylenol/Codeine 300 Mg/30 Mg) 2 ea PO Q4 PRN PRN Reason: Pain, moderate (4-7) Last Admin: 03/20/17 09:07 Dose: 2 ea Albuterol/Ipratropium (Duoneb 3 Mg/0.5 Mg (3 Ml) Ud) 3 ml INH RQ6 [facility] Last Admin: 03/20/17 07:37 Dose: 3 ml Aspirin (Ecotrin) 81 mg PO DAILY [facility] Last Admin: 03/20/17 09:05 Dose: 81 mg Budesonide (Pulmicort Respules) 0.5 mg INH RQ12 [facility] Last Admin: 03/20/17 07:37 Dose: 0.5 mg Carvedilol (Coreg) 6.25 mg PO BID [facility] Last Admin: 03/20/17 09:06 Dose: Not Given Chlordiazepoxide (Librium) 25 mg PO Q8 PRN PRN Reason: Agitation Enoxaparin Sodium (Lovenox) 40 mg SC DAILY [facility] Last Admin: 03/20/17 09:09 Dose: 40 mg Furosemide (Lasix) 40 mg IVP DAILY [facility] Last Admin: 03/20/17 09:05 Dose: 40 mg Vancomycin/Sodium Chloride (Vancomycin 1 Gm/Ns 200 Ml) 1 gm in 200 mls @ 133 mls/hr IVPB Q12H [facility] Stop: 03/23/17 14:31 Last Admin: 03/20/17 01:54 Dose: 133 mls/hr Ceftriaxone Sodium (Rocephin Iv 1 Gm Duplex) 50 mls @ 100 mls/hr IVPB Q24H [facility] Last Admin: 03/20/17 13:43 Dose: 100 mls/hr Ipratropium [place] (Atrovent) 0.5 mg IH RQ6 PRN PRN Reason: Shortness of Breath Last Admin: 03/15/17 09:10 Dose: 0.5 mg Lisinopril (Zestril) 2.5 mg PO DAILY [facility] Last Admin: 03/20/17 09:05 Dose: 2.5 mg Promethazine HCl (Phenergan Syrup) 12.5 mg PO Q6 PRN PRN Reason: Cough and congestion Last Admin: 03/18/17 09:40 Dose: 12.5 mg Spironolactone (Aldactone) 25 mg PO DAILY [facility] Last Admin: 03/20/17 09:05 Dose: 25 mg Thiamine HCl (Vitamin B1 Tab) 100 mg PO DAILY [facility] Last Admin: 03/20/17 09:05 Dose: 100 mg - Labs Labs: 03/20/17 07:15 03/20/17 07:15 PT 20.3 SECONDS (9.7-12.2) H 03/17/17 06:57 INR 1.8 03/17/17 06:57 APTT 35 SECONDS (21-34) H 03/17/17 06:57 - Constitutional Appears: Well, No Acute Distress - Respiratory Exam Respiratory Exam: Decreased Breath Sounds, Clear to Ausculation Bilateral, NORMAL BREATHING PATTERN - Cardiovascular Exam Cardiovascular Exam: REGULAR RHYTHM, +S1, +S2 - Extremities Exam Extremities Exam: Full ROM - Neurological Exam Neurological Exam: Alert, Awake, Normal Gait, Oriented x3 Assessment and Plan - Assessment and Plan (Free Text) Assessment: A/P 56 yr old male admitted for chest pain /Pneumonia/, Pleural effusion, and chroninc CHF troponin x 3 - negative patient clinically improved with IV lasix blood culture - ist- +pepto streptococus and started on vanco and rocephin repeat blood culture - negative for [address] CHEST -No evidence of acute central pulmonary embolus. Moderate-sized of right-sided effusion and right basilar atelectasis. There is also on what may represent masslike rounded atelectasis and or infiltrate in the middle lobe an mild subsegmental atelectasis in the left lung base and lingular region. Marked cardiomegaly. D/w Dr. Peres, stable for discharge home today and f/u with his general road supervisor Dr. Allen. N discharge plan discussed with patient who understands and agree with plan meds to bed side offered and patient accepted Patient instructed to returns to ED if symptoms returns
--- NOTE | 2017-03-20 16:55 | PCM.HF ---
Heart Failure Core Measure - Heart Failure Ejection Fraction: Less Than 40 % BUZZ Inhibitor Prescribed: Yes Beta-Marissa Prescribed: Carvedilol Angiotensin II Receptor Marissa Prescribed: No Contraindication/Reason for not providing: buzz AnticoagulationTherapy for Atrial Fibrillation/Atrialflutter: No Contraindication/Reason for not providing: no hx of afib Aldosterone Antagonist Prescribed: Yes Hydralazine Nitrate Prescribed: No Contraindication/Reason for not providing: low bp Implantable Cardioverter Defibrillator Therapy: No Contraindication/Reason for not providing: medical therapy as per tower operator Cardiac Resynchronization Therapy Prescribed: No Contraindication/Reason for not providing: an aicd - Follow up Will be discharged to: Home Follow Up Date (must be within 7 days from discharge): 03/24/17 Follow Up Time: 09:00
[2017-03-20 17:39] VITALS: BP 129/78; PULSE 74; RESP 18; TEMP 97.5; O2SAT 95
--- NOTE | 2017-03-20 18:13 | PN ---
SUBJECTIVE: The patient denies chest pain. His shortness of breath has improved as well as leg swelling. PHYSICAL EXAMINATION: VITAL SIGNS: Blood pressure 108/76, heart rate 68, temperature 97.3, respirations 20. HEENT: Normocephalic. CHEST: Bilateral rhonchi. HEART: S1 and S2 regular. ABDOMEN: Soft. EXTREMITIES: 1+ pitting edema. LABORATORY DATA: Hemoglobin and hematocrit 10.2 and 30.3, white count 10, platelet counts today are within normal limits. Today, SMA-7 is within normal limits except for chloride of 96. ASSESSMENT: 1. Exacerbation of congestive heart failure. 2. Right pleural effusion. 3. Improved hyponatremia. 4. Anemia. 5. EtOH abuse. RECOMMENDATIONS: Continue Aldactone 25 mg daily, Coreg 6.25 mg once a day, aspirin 81 mg once a day, Lasix 40 mg intravenously once a day, subcutaneous Lovenox 40 mg once a day, IV Rocephin and IV vancomycin. Continue Zestril 2.5 mg once a day. The patient is not a suitable candidate for long-term anticoagulation because of his compliance as well as EtOH abuse. Kalen Lao MD
--- NOTE | 2017-03-20 23:25 | CP.PCM.DIS ---
Provider - Provider Date of Admission: 03/14/17 10:36 Attending physician: Luis Enrique Peres MD Diagnosis - Discharge Diagnosis (1) Pleural effusion Status: Acute (2) Pneumonia Status: Acute (3) Alcohol abuse Status: Acute (4) Chest pain Status: Acute (5) CHF exacerbation Status: Acute (6) CHF (congestive heart failure) Status: Acute Hospital Course - Lab Results Lab Results: Micro Results 03/17/17 12:15 Blood Blood Culture - Preliminary NO GROWTH AFTER 3 DAYS 03/17/17 14:27 Blood Blood Culture - Preliminary NO GROWTH AFTER 3 DAYS 03/14/17 11:30 Blood Blood Culture - Final Peptostreptococcus Species 03/14/17 11:30 Blood Gram Stain - Final 03/14/17 11:30 Blood S.aureus & Coag-Neg Staph PNA FISH - Final 03/14/17 11:30 Blood Blood Culture - Final Peptostreptococcus Species 03/14/17 11:30 Blood Gram Stain - Final Most Recent Lab Values WBC 5.2 K/uL (4.8-10.8) 03/20/17 07:15 RBC 2.92 Mil/uL (4.40-5.90) L 03/20/17 07:15 Hgb 10.2 g/dL (12.0-18.0) L 03/20/17 07:15 Hct 30.3 % (35.0-51.0) L 03/20/17 07:15 MCV 104.0 fL (80.0-94.0) H 03/20/17 07:15 MCH 34.9 pg (27.0-31.0) H 03/20/17 07:15 MCHC 33.5 g/dL (33.0-37.0) 03/20/17 07:15 RDW 14.8 % (11.5-14.5) H 03/20/17 07:15 Plt Count 257 K/uL (130-400) 03/20/17 07:15 MPV 8.4 fL (7.2-11.7) 03/20/17 07:15 Neut % (Auto) 63.0 % (50.0-75.0) 03/20/17 07:15 Lymph % (Auto) 22.0 % (20.0-40.0) 03/20/17 07:15 [place] % (Auto) 11.4 % (0.0-10.0) H 03/20/17 07:15 Eos % (Auto) 2.6 % (0.0-4.0) 03/20/17 07:15 Baso % (Auto) 1.0 % (0.0-2.0) 03/20/17 07:15 Neut # 3.3 K/uL (1.8-7.0) 03/20/17 07:15 Lymph # 1.1 K/uL (1.0-4.3) 03/20/17 07:15 [place] # 0.6 K/uL (0.0-0.8) 03/20/17 07:15 Eos # 0.1 K/uL (0.0-0.7) 03/20/17 07:15 Baso # 0.1 K/uL (0.0-0.2) 03/20/17 07:15 PT 20.3 SECONDS (9.7-12.2) H 03/17/17 06:57 INR 1.8 03/17/17 06:57 APTT 35 SECONDS (21-34) H 03/17/17 06:57 D-Dimer, Quantitative 1138 ng/mlDDU (0-243) H 03/14/17 03:02 Sodium 134 mmol/L (132-148) 03/20/17 07:15 Potassium 4.1 mmol/L (3.6-5.2) 03/20/17 07:15 Chloride 96 mmol/L (98-107) L 03/20/17 07:15 Carbon Dioxide 30 mmol/L (22-30) 03/20/17 07:15 Anion Gap 12 (10-20) 03/20/17 07:15 BUN 18 mg/dL (9-20) 03/20/17 07:15 Creatinine 0.9 mg/dL (0.8-1.5) 03/20/17 07:15 Est GFR ( Amer) > 60 03/20/17 07:15 Est GFR (Non-Af Amer) > 60 03/20/17 07:15 POC Glucose (mg/dL) 115 mg/dL (65-110) H 03/16/17 11:48 Random Glucose 96 mg/dL (75-110) 03/20/17 07:15 Calcium 8.9 mg/dl (8.6-10.4) 03/20/17 07:15 Total Bilirubin 1.0 mg/dL (0.2-1.3) 03/17/17 14:27 AST 52 U/L (17-59) 03/17/17 14:27 ALT 25 U/L (21-72) 03/17/17 14:27 Alkaline Phosphatase 84 U/L (38-126) 03/17/17 14:27 Troponin I 0.0150 ng/mL (0.00-0.120) 03/14/17 03:02 NT-Pro-B Natriuret Pep 5460 pg/mL (0-900) H 03/14/17 11:57 Total Protein 7.9 g/dL (6.3-8.3) 03/17/17 14:27 Albumin 3.5 g/dL (3.5-5.0) 03/17/17 14:27 Globulin 4.4 gm/dL (2.2-3.9) H 03/17/17 14:27 Albumin/Globulin Ratio 0.8 (1.0-2.1) L 03/17/17 14:27 Vancomycin Trough 12.2 ug/mL (5.0-10.0) H 03/20/17 13:58 Urine Opiates Screen Positive (NEGATIVE) 03/17/17 23:01 Urine Methadone Screen Negative (NEGATIVE) 03/17/17 23:01 Ur Barbiturates Screen Negative (NEGATIVE) 03/17/17 23:01 Ur Phencyclidine Scrn Negative (NEGATIVE) 03/17/17 23:01 Ur Amphetamines Screen Negative (NEGATIVE) 03/17/17 23:01 U Benzodiazepines Scrn Negative (NEGATIVE) 03/17/17 23:01 U Oth Cocaine Metabols Negative (NEGATIVE) 03/17/17 23:01 U Cannabinoids Screen Negative (NEGATIVE) 03/17/17 23:01 TB Test (QFT) Nil 0.03 IU/mL 03/14/17 11:59 TB Test Mitogen - Nil 1.89 IU/mL 03/14/17 11:59 TB Test TB - Nil <0.00 IU/mL 03/14/17 11:59 TB Test (QFT) Negative (Negative) 03/14/17 11:59 - Hospital Course Hospital Course: A/P 56 yr old male admitted for chest pain /Pneumonia/, Pleural effusion, and chroninc CHF troponin x 3 - negative patient clinically improved with IV lasix blood culture - ist- +pepto streptococus and started on vanco and rocephin repeat blood culture - negative for [address] CHEST -No evidence of acute central pulmonary embolus. Moderate-sized of right-sided effusion and right basilar atelectasis. There is also on what may represent masslike rounded atelectasis and or infiltrate in the middle lobe an mild subsegmental atelectasis in the left lung base and lingular region. Marked cardiomegaly. Pt is stable for discharge home today and f/u with his clinical dental technician Dr. Allen. Alanna discharge plan discussed with patient who understands and agree with plan meds to bed side offered and patient accepted Patient instructed to returns to ED if symptoms returns Discharge Exam - Head Exam Head Exam: ATRAUMATIC, NORMAL INSPECTION, NORMOCEPHALIC Discharge Plan - Discharge Medications Prescriptions: Spironolactone [Aldactone] 25 mg PO DAILY #30 tab Amoxicillin/Clavulanate [Augmentin 875 MG-125 MG] 1 tab PO Q12 #10 tab Carvedilol [Coreg] 6.25 mg PO BID #60 tab Aspirin [Ecotrin] 81 mg PO DAILY #30 tabec Furosemide [Lasix] 40 mg PO DAILY #30 tablet Budesonide [Pulmicort Respules] 0.5 mg INH RQ12 #30 neb Albuterol HFA [Ventolin HFA 90 mcg/actuation (8 g)] 0.09 mg IH Q6 PRN #2 puff PRN Reason: Shortness Of Breath Lisinopril [Zestril] 2.5 mg PO DAILY #30 tab - Follow Up Plan Condition: FAIR Disposition: HOME/ ROUTINE Instructions: Heart Failure (DC), Chest Pain (DC), Heart Healthy Diet (DC), Pleural Effusion (DC), Pneumonia (DC) Additional Instructions: Please f/u with Dr. Alejandro Johnston in 3-5 days continue medication as per med. rec.
== END 2017-03-20 19:30 | disposition home or self-care (01) | DRG 544 ==
LOC: C.ER 01:57 → C.9E 10:36 → C.6T 11:43
PROVIDERS: ADMIT Internal Medicine; ATTEND Internal Medicine
DX: I11.0 Hypertensive heart disease with heart failure (principal); J18.9 Pneumonia, unspecified organism; I42.9 Cardiomyopathy, unspecified; E87.1 Hypo-osmolality and hyponatremia; J98.11 Atelectasis; D64.9 Anemia, unspecified; I50.22 Chronic systolic (congestive) heart failure; F17.200 Nicotine dependence, unspecified, uncomplicated; I25.10 Atherosclerotic heart disease of native coronary artery without angina pectoris; F10.10 Alcohol abuse, uncomplicated; Y90.9 Presence of alcohol in blood, level not specified; Z68.1 Body mass index [BMI] 19.9 or less, adult

== ENCOUNTER 2017-04-05 22:52 | Inpatient (IN) | payer MEDICAID ==
--- NOTE | 2017-04-05 23:07 | C.PDOC ---
History Of Present Illness presents with some shortness of breath. States that he has had about 3 beers car ferry [employer]. No cp or palpitation. States he has an enlarged heart and he has been refusing a defibrillator. Speaking in complete sentences. Time Seen by Provider: 04/05/17 23:07 Chief Complaint (Nursing): Medical Clearance History Per: Patient History/Exam Limitations: no limitations Onset/Duration Of Symptoms: Days Current Symptoms Are (Timing): Still Present Severity: Mild Pain Scale Rating Of: 2 Reports Recently: Seen In ED, Treated By A Physician, Hospitalized Recent travel outside of the [place]: No Additional History Per: Patient Past Medical History Reviewed: Historical Data, Nursing Documentation, Vital Signs Vital Signs: Last Vital Signs Temp 98 F 04/05/17 23:00 Pulse 83 04/06/17 01:47 Resp 23 04/06/17 01:47 BP 92/50 L 04/06/17 01:59 Pulse Ox 98 04/06/17 01:47 - Medical History PMH: CAD, CHF, HTN Denies: Chronic Kidney Disease Family History: States: No Known Family Hx - Social History Hx Alcohol Use: Yes Hx Substance Use: No - Immunization History Hx Tetanus Toxoid Vaccination: No Hx Influenza Vaccination: No Hx Pneumococcal Vaccination: No Review Of Systems Constitutional: Negative for: Fever, Chills Eyes: Negative for: Redness ENT: Negative for: Throat Pain Cardiovascular: Negative for: Chest Pain Respiratory: Positive for: Shortness of Breath Gastrointestinal: Negative for: Nausea, Vomiting, Abdominal Pain Genitourinary: Negative for: Dysuria Musculoskeletal: Negative for: Back Pain Skin: Positive for: Lesions (both legs). Negative for: Rash Neurological: Negative for: Weakness Psych: Negative for: Anxiety Physical Exam - Physical Exam Appears: Non-toxic, No Acute Distress Skin: Warm, Dry Head: Normacephalic Eye(s): bilateral: Normal Inspection Oral Mucosa: Moist Neck: Supple Chest: Symmetrical Cardiovascular: Rhythm Regular Respiratory: Rales (few at bases) Gastrointestinal/Abdominal: Soft, No Tenderness, No Distention Back: No CVA Tenderness Extremity: No Calf Tenderness Extremity: Bilateral: Atraumatic Pulses: Left Dorsalis Pedis: Normal, Right Dorsalis Pedis: Normal Neurological/Psych: Oriented x3, Normal Speech, Normal Cognition Gait: Steady ED Course And Treatment - Laboratory Results Result Diagrams: 04/05/17 23:26 04/05/17 23:26 ECG: Interpreted By Me, Viewed By Me ECG Rhythm: Sinus Rhythm (79), Nonspecific Changes (rad, non specific ivcd unchanged from 03/14/17) O2 Sat by Pulse Oximetry: 98 Pulse Ox Interpretation: Normal - Radiology CXR: Interpreted by Me, Viewed By Me CXR Interpretation: Yes: Cardiomegaly, Other. No: Infiltrates, Fracture Disposition Discussed With Dr.: Girish Taylor Comment: accepted the pt on his service and took over the care at 2:10 AM Doctor Will See Patient In The: ED Counseled Patient/Family Regarding: Studies Performed, Diagnosis - Disposition Disposition: HOSPITALIZED Disposition Time: 23:07 Condition: FAIR Forms: [employer] (Pakistani) - POA Present On Arrival: None - Clinical Impression Clinical Impression: CHF (congestive heart failure), Alcohol abuse Decision To Admit - Pt Status Changed To: Hospital Disposition Of: Inpatient - Admit Certification Admit to Inpatient:: After my assessment, the patient will require hospitalization for at least two midnights. This is because of the severity of symptoms shown, intensity of services needed, and/or the medical risk in this patient being treated as an outpatient. - InPatient: Physician Admission Certification: I certify that this patient requires 2 or more midnights of care for the following reason:: After my assessment, the patient will require hospitalization for at least two midnights. This is because of the severity of symptoms shown, intensity of services needed, and/or the medical risk in this patient being treated as an outpatient. - . Bed Request Type: Telemetry Admitting Physician: Girish Taylor Patient Diagnosis: CHF (congestive heart failure), Alcohol abuse
[2017-04-05] MEDS ORDERED: Aspirin 325 mg EC Tablets PO STA (23:09)
[2017-04-05 23:31] LABS: BASO % 1.3 % (0.0-2.0); EOS # 0.2 K/uL (0.0-0.7); EOS % 4.4 % (0.0-4.0); HEMATOCRIT 32.4 % (35.0-51.0); LYMPH # 1.1 K/uL (1.0-4.3); LYMPH % 29.3 % (20.0-40.0); MEAN CELL VOLUME 100.3 fL (80.0-94.0); MEAN CORPUSCULAR HEMOGLOBIN 32.6 pg (27.0-31.0); MEAN CORPUSCULAR HGB CONC 32.6 g/dL (33.0-37.0); MONO # 0.4 K/uL (0.0-0.8); MONO % 10.9 % (0.0-10.0); NRBC % 0.1 % (0.0-2.0); RED CELL DISTRIBUTION WIDTH 15.8 % (11.5-14.5); WHITE BLOOD COUNT 3.7 K/uL (4.8-10.8)
[2017-04-05 23:39] LABS: CHLORIDE 101 mmol/L (98-107)
[2017-04-05 23:40] LABS: POTASSIUM 3.9 mmol/L (3.6-5.2); SODIUM 134 mmol/L (132-148)
[2017-04-05 23:43] LABS: ALB/GLOB RATIO 0.6 (1.0-2.1); ALKALINE PHOSPHATASE 84 U/L (38-126); ALT/SGPT 35 U/L (21-72); AST/SGOT 36 U/L (17-59); BILIRUBIN,TOTAL 0.8 mg/dL (0.2-1.3); BLOOD UREA NITROGEN 7 mg/dL (9-20); CARBON DIOXIDE 23 mmol/L (22-30); GFR AFRICAN-AMERICAN > 60; GLUCOSE,RANDOM 79 mg/dL (75-110)
[2017-04-05 23:44] LABS: ALCOHOL SERUM 163 mg/dl (0-10); CALCIUM 8.2 mg/dl (8.6-10.4)
[2017-04-06] LABS: INR 1.4
[2017-04-06 00:05] LABS: URINE BILIRUBIN NEGATIVE (NEGATIVE); URINE BLOOD NEGATIVE (NEGATIVE); URINE COLOR Yellow (YELLOW); URINE GLUCOSE (UA) NORMAL (Normal); URINE KETONE NEGATIVE (NEGATIVE); URINE LEUKOCYTE ESTERASE NEG Leu/uL (Negative); URINE PROTEIN 1+ mg/dL (NEGATIVE); WBC URINE 1 /hpf (0-5)
--- NOTE | 2017-04-06 02:12 | CP.PCM.HP ---
<Saud Zaidi - Last Filed: 04/06/17 06:00> History of Present Illness - History of Present Illness History of Present Illness: CC: "I feel short of breath" Patient is a 56 year old AA male, with PMHx of CO, HTN, CHF, presents with 3 day history of cough and worsening SOB. Patient history severely limited by patient's lack of cooperation. Patient admits to not taking all his medications for over a week because he ran out. He presented to the ED this evening because his cough was worsening, and he was starting to become short of breath. Patient states the cough is dry, and he has attempted to take cough syrup for but this has not improved the cough. He admits associated bilateral leg swelling that he states "is there all the time." He admits to dyspnea on exertion and is only able to travel 1/2 -1 block before becoming short of breath when he can normally "walk four blocks." He states he is unable to lay flat and admits waking up in the middle of the night gasping for air. He denies chest pain or palpitations. Denies diaphoresis, changes in vision, confusion, fevers, chills, n/v, diarrhea, constipation, abdominal pain, headache, lesions. Denies pain in his legs, which are without redness, weeping, or warmth. Patient admits long history of alcohol abuse. He states his latest use was today when he had "2-3 tallboys" (24oz beers). He denies history of seizures from alcohol withdrawal. Patient states he is aware he has "a weak heart." EMR shows pt has been recommended for defibrillator before, but pt has refused. PMHx: CO (2012), HTN, CHF. Medications: Patient states he does not remember them, but has not been taking them since discharged from hospital on Allergies: NKDA Social Hx: drinks ~3 cans of 24 ox beers daily, denies drug and quit tobacco 1.5 months ago. Used to spoke 1/3 ppd for 30 years. Patient is homeless. Surgery Hx: none Family Hx: mother with heart issues, GM with DM, father with HTN. PMD: Dr. Venkat Allen (last seen 3 months ago) Present on Admission - Present on Admission Any Indicators Present on Admission: No Review of Systems - Review of Systems Systems not reviewed;Unavailable: Uncooperative - Constitutional Constitutional: absent: Chills, Fever - EENT Eyes: absent: Change in Vision Ears: absent: Decreased Hearing Nose/Mouth/Throat: absent: Nasal Discharge, Sore Throat - Cardiovascular Cardiovascular: Dyspnea, Dyspnea on Exertion. absent: Chest Pain - Respiratory Respiratory: Cough, Dyspnea. absent: Hemoptysis, Wheezing - Gastrointestinal Gastrointestinal: absent: Abdominal Pain, Nausea, Vomiting - Genitourinary Genitourinary: absent: Difficulty Urinating, Dysuria - Integumentary Integumentary: Lesions (bilateral legs) Additional comments: chronic venous changes noted - Neurological Neurological: absent: Tingling, Weakness Past Patient History - Infectious Disease Hx of Infectious Diseases: None - Past Medical History & Family History Past Medical History?: Yes - Past Social History Smoking Status: Former Smoker - CARDIAC Hx Congestive Heart Failure: Yes Hx Hypertension: Yes - PULMONARY Hx Respiratory Disorders: No - NEUROLOGICAL Hx Neurological Disorder: No - HEENT Hx HEENT Problems: No - RENAL Hx Chronic Kidney Disease: No - ENDOCRINE/METABOLIC Hx Endocrine Disorders: No - HEMATOLOGICAL/ONCOLOGICAL Hx Blood Disorders: No - INTEGUMENTARY Hx Dermatological Problems: No - MUSCULOSKELETAL/RHEUMATOLOGICAL Hx Musculoskeletal Disorders: No Hx Falls: No - GASTROINTESTINAL Hx Gastrointestinal Disorders: No - GENITOURINARY/GYNECOLOGICAL Hx Genitourinary Disorders: No - PSYCHIATRIC Hx Substance Use: No - SURGICAL HISTORY Hx Surgeries: No Other/Comment: PT REFUSED CARDIAC STENT - ANESTHESIA Hx Anesthesia: No Meds Allergies/Adverse Reactions: Allergies Allergy/AdvReac Type Severity Reaction Status Date / Time No Known Allergies Allergy Verified 03/02/17 09:42 Physical Exam - Constitutional Appears: Non-toxic, No Acute Distress, Unkempt, Chronically Ill - Head Exam Head Exam: ATRAUMATIC, NORMOCEPHALIC - Eye Exam Eye Exam: EOMI. absent: Scleral icterus - ENT Exam ENT Exam: Mucous Membranes Dry - Neck Exam Additional comments: Difficult to assess JVD due to pts non-compliance and refusal to move from decubitis position in bed - Respiratory Exam Respiratory Exam: Rales (bases). absent: Accessory Muscle Use, Clear to Auscultation Bilateral - Cardiovascular Exam Cardiovascular Exam: +S1, +S2 - GI/Abdominal Exam GI & Abdominal Exam: Normal Bowel Sounds, Soft. absent: Distended, Tenderness - Extremities Exam Extremities exam: Positive for: calf tenderness (bilateral), pedal edema, pedal pulses present. Negative for: normal inspection - Back Exam Back exam: absent: CVA tenderness (L), CVA tenderness (R) - Neurological Exam Neurological exam: Alert Additional comments: patient refusing to answer orientation questions - Skin Skin Exam: Dry, Normal Color, Warm Results - Vital Signs Recent Vital Signs: Last Vital Signs Temp 98 F 04/05/17 23:00 Pulse 83 04/06/17 01:47 Resp 23 04/06/17 01:47 BP 92/50 L 04/06/17 01:59 Pulse Ox 98 04/06/17 02:11 - Labs Result Diagrams: 04/05/17 23:26 04/05/17 23:26 Labs: Laboratory Results - last 24 hr 04/05/17 04/05/17 04/05/17 00:00 23:07 23:26 WBC 3.7 L RBC 3.23 L Hgb 10.5 L Hct 32.4 L MCV 100.3 H D MCH 32.6 H MCHC 32.6 L RDW 15.8 H Plt Count 209 MPV 8.0 Neut % (Auto) 54.1 Lymph % (Auto) 29.3 [place] % (Auto) 10.9 H Eos % (Auto) 4.4 H Baso % (Auto) 1.3 Neut # 2.0 Lymph # 1.1 [place] # 0.4 Eos # 0.2 Baso # 0.0 PT INR APTT Sodium Potassium Chloride Carbon Dioxide Anion Gap BUN Creatinine Est GFR ( Amer) Est GFR (Non-Af Amer) POC Glucose (mg/dL) 80 Random Glucose Calcium Total Bilirubin AST ALT Alkaline Phosphatase Troponin I NT-Pro-B Natriuret Pep Total Protein Albumin Globulin Albumin/Globulin Ratio Urine Color Yellow Urine Clarity Clear Urine pH 6.0 Ur Specific [place] 1.003 Urine Protein 1+ H Urine Glucose (UA) Normal Urine Ketones Negative Urine Blood Negative Urine Nitrate Negative Urine Bilirubin Negative Urine Urobilinogen 4.0 Ur Leukocyte Esterase Neg Urine WBC (Auto) 1 Alcohol, Quantitative 04/05/17 04/05/17 23:26 23:26 WBC RBC Hgb Hct MCV MCH MCHC RDW Plt Count MPV Neut % (Auto) Lymph % (Auto) [place] % (Auto) Eos % (Auto) Baso % (Auto) Neut # Lymph # [place] # Eos # Baso # PT 15.6 H INR 1.4 APTT 38 H Sodium 134 Potassium 3.9 Chloride 101 Carbon Dioxide 23 Anion Gap 14 BUN 7 L Creatinine 0.7 L Est GFR ( Amer) > 60 Est GFR (Non-Af Amer) > 60 POC Glucose (mg/dL) Random Glucose 79 Calcium 8.2 L Total Bilirubin 0.8 AST 36 ALT 35 Alkaline Phosphatase 84 Troponin I 0.0260 NT-Pro-B Natriuret Pep 4930 H Total Protein 9.0 H Albumin 3.5 Globulin 5.4 H Albumin/Globulin Ratio 0.6 L Urine Color Urine Clarity Urine pH Ur Specific [place] Urine Protein Urine Glucose (UA) Urine Ketones Urine Blood Urine Nitrate Urine Bilirubin Urine Urobilinogen Ur Leukocyte Esterase Urine WBC (Auto) Alcohol, Quantitative 163 H Assessment & Plan - Assessment and Plan (Free Text) Plan: CHF exacerbation Admit to telemetry Patient with history of systolic CHF, off meds for 1 week Pro BNP on admission 4930 (Prior admissions: 3580, 3310, 3580) CXR (04/06/17): cardiomegaly, no obvious infiltrate (f/u offical read) EKG (04/06/17): NSR, 79 BPM, right axis deviation ECHO (08/25/16): EF <25%, LV moderately dilated, global hypokinesis of LV, moderate pulm HTN Quantiferon negative on previous admission (03/14/17) Start the following medications: Lasix 40 mg IVP BID Coreg 6.25 mg PO BID (HOLD until UDS negative for cocaine) Lisinopril 2.5 mg PO daily Aldactone 25 mg PO daily Robitussin for cough PRN Cardio consult placed- Dr. Good, help appreciated. f/u reccs I/O's Daily weights Low Sodium Diet Pedal edema Likely secondary to CHF exacerbation. SCDs contraindicated f/u US VDL B/L Hx of CO Patient with hx of CO in 2011. SIXTO on admission negative. EKG on admission- sinus rhythm 103 bpm, LBBB. Also seen on EKG from 07/18/16. Cardio consult placed- - help appreciated. f/u SIXTO X2 Q8H f/u EKG X2 Q8H ASA 81 mg PO daily Coreg 6.25 mg PO BID (HOLD until UDS negative for cocaine) CAD (coronary artery disease) Patient with hx of [place] in 2011. SIXTO on admission negative. EKG on admission- sinus rhythm 103 bpm, LBBB. Also seen on EKG from 07/18/16. Cardio consult placed- Dr. Good- help appreciated. ASA 81 mg PO daily Coreg 6.25 mg PO BID (HOLD until UDS negative for cocaine) HTN (hypertension) Initially hypotensive in ED Lisinopril 2.5 mg PO daily Aldactone 25 mg PO daily Coreg 6.250 mg PO BID (HOLD until UDS negative for cocaine) Lasix 40 mg IVP BID Monitor Alcohol abuse Alcohol level 143 Folic Acid 1 mg PO daily Thiamine 100 mg PO daily MV 1 tab PO daily CIWA protocol Clonidine 0.1mg PO Q4H PRN withdrawal symptoms Ativan 1mg IV Q4H PRN Seizure precautions Fall precautions f/u UDS Leukopenia WBC 3.7 on presentation f/u HIV Elevated INR believed 2/2 liver damage from chronic alcoholism INR 1.4 Macrocytic anemia MCV 100.3 2/2 long-term alcohol abuse Proteinuria UA: 1+ protein Continue home zestril 2.5mg PO Daily Prophylactic measure Heparin 5000 SC Q8H Pepcid 20 mg PO BID SCDs contraindicated due to lower extremity edema Saud Zaidi PGY-[address] Taylor, media specialist <Girish Taylor - Last Filed: 04/06/17 06:12> Results - Vital Signs Recent Vital Signs: Last Vital Signs Temp 98.1 F 04/06/17 04:00 Pulse 88 04/06/17 04:00 Resp 20 04/06/17 04:00 BP 115/80 04/06/17 04:00 Pulse Ox 100 04/06/17 04:00 - Labs Result Diagrams: 04/05/17 23:26 04/05/17 23:26 Labs: Laboratory Results - last 24 hr 04/05/17 04/05/17 04/05/17 00:00 23:07 23:26 WBC 3.7 L RBC 3.23 L Hgb 10.5 L Hct 32.4 L MCV 100.3 H D MCH 32.6 H MCHC 32.6 L RDW 15.8 H Plt Count 209 MPV 8.0 Neut % (Auto) 54.1 Lymph % (Auto) 29.3 [place] % (Auto) 10.9 H Eos % (Auto) 4.4 H Baso % (Auto) 1.3 Neut # 2.0 Lymph # 1.1 [place] # 0.4 Eos # 0.2 Baso # 0.0 PT INR APTT Sodium Potassium Chloride Carbon Dioxide Anion Gap BUN Creatinine Est GFR ( Amer) Est GFR (Non-Af Amer) POC Glucose (mg/dL) 80 Random Glucose Calcium Total Bilirubin AST ALT Alkaline Phosphatase Troponin I NT-Pro-B Natriuret Pep Total Protein Albumin Globulin Albumin/Globulin Ratio Urine Color Yellow Urine Clarity Clear Urine pH 6.0 Ur Specific [place] 1.003 Urine Protein 1+ H Urine Glucose (UA) Normal Urine Ketones Negative Urine Blood Negative Urine Nitrate Negative Urine Bilirubin Negative Urine Urobilinogen 4.0 Ur Leukocyte Esterase Neg Urine WBC (Auto) 1 Alcohol, Quantitative 04/05/17 04/05/17 23:26 23:26 WBC RBC Hgb Hct MCV MCH MCHC RDW Plt Count MPV Neut % (Auto) Lymph % (Auto) [place] % (Auto) Eos % (Auto) Baso % (Auto) Neut # Lymph # [place] # Eos # Baso # PT 15.6 H INR 1.4 APTT 38 H Sodium 134 Potassium 3.9 Chloride 101 Carbon Dioxide 23 Anion Gap 14 BUN 7 L Creatinine 0.7 L Est GFR ( Amer) > 60 Est GFR (Non-Af Amer) > 60 POC Glucose (mg/dL) Random Glucose 79 Calcium 8.2 L Total Bilirubin 0.8 AST 36 ALT 35 Alkaline Phosphatase 84 Troponin I 0.0260 NT-Pro-B Natriuret Pep 4930 H Total Protein 9.0 H Albumin 3.5 Globulin 5.4 H Albumin/Globulin Ratio 0.6 L Urine Color Urine Clarity Urine pH Ur Specific [place] Urine Protein Urine Glucose (UA) Urine Ketones Urine Blood Urine Nitrate Urine Bilirubin Urine Urobilinogen Ur Leukocyte Esterase Urine WBC (Auto) Alcohol, Quantitative 163 H Assessment & Plan - Date & Time Date: 04/06/17 (I have seen and examined the patient. I agree with the findings and plan of care as documented by Dr. Zaidi. Patient with CHF exacerbation and history of CO. Continue home meds. ROMIx3 with EKG. Consult to Cardio. IV lasix. Daily weights. Monitor I&Os. Monitor for acute changes.) Time: 06:11 Attending/Attestation - Attestation I have personally seen and examined this patient.: Yes I have fully participated in the care of the patient.: Yes I have reviewed all pertinent clinical information: Yes
[2017-04-06] MEDS ORDERED: guaiFENesin 100 mg/5 ml Syrup UD PO PRN (04:08)
--- NOTE | 2017-04-06 09:14 | RAD ---
PROCEDURE: CHEST RADIOGRAPH, 1 VIEW HISTORY: Shortness of breath COMPARISON: 03/14/2017 FINDINGS: LUNGS: Moderate venous congestion with small to moderate right and small left pleural effusion. Patchy consolidative changes in the mid to lower lung zones bilaterally. Biapical pleural thickening with upper lobe granulomatous changes. PLEURA: As above. CARDIOVASCULAR: Cardiomegaly. OSSEOUS STRUCTURES: Degenerative changes in the spine and shoulders. VISUALIZED UPPER ABDOMEN: Normal. OTHER FINDINGS: None. IMPRESSION: Moderate venous congestion with small to moderate right and small left pleural effusion. Patchy consolidative changes in the mid to lower lung zones bilaterally. Biapical pleural thickening with upper lobe granulomatous changes.
[2017-04-06] MEDS: Multiple Vitamins Tab PO SCH (10:16)
[2017-04-06 11:39] LABS: BASO % 0.9 % (0.0-2.0); EOS # 0.1 K/uL (0.0-0.7); EOS % 4.2 % (0.0-4.0); HEMATOCRIT 32.4 % (35.0-51.0); LYMPH # 0.7 K/uL (1.0-4.3); LYMPH % 20.7 % (20.0-40.0); MEAN CELL VOLUME 98.6 fL (80.0-94.0); MEAN CORPUSCULAR HGB CONC 33.5 g/dL (33.0-37.0); MEAN PLATELET VOLUME 8.3 fL (7.2-11.7); MONO # 0.4 K/uL (0.0-0.8); MONO % 12.6 % (0.0-10.0); NRBC % 0.1 % (0.0-2.0); RED CELL DISTRIBUTION WIDTH 16.1 % (11.5-14.5); WHITE BLOOD COUNT 3.5 K/uL (4.8-10.8)
[2017-04-06 11:53] LABS: CHLORIDE 101 mmol/L (98-107)
[2017-04-06 11:54] LABS: POTASSIUM 3.8 mmol/L (3.6-5.2); SODIUM 137 mmol/L (132-148)
[2017-04-06 11:56] LABS: ALB/GLOB RATIO 0.7 (1.0-2.1); ALKALINE PHOSPHATASE 87 U/L (38-126); AST/SGOT 31 U/L (17-59); BILIRUBIN,TOTAL 0.7 mg/dL (0.2-1.3); BLOOD UREA NITROGEN 9 mg/dL (9-20); CARBON DIOXIDE 25 mmol/L (22-30); GFR AFRICAN-AMERICAN > 60; GLUCOSE,RANDOM 94 mg/dL (75-110)
[2017-04-06 11:57] LABS: ALT/SGPT 27 U/L (21-72); CALCIUM 8.3 mg/dl (8.6-10.4)
[2017-04-06 13:49] LABS: MAGNESIUM 0.9 mg/dL (1.6-2.3)
[2017-04-06] MEDS ORDERED: Magnesium Sulfate 1 gm in D5W 1 GM/100 ML BAG IVPB ONE ×2 (13:51→17:26)
[2017-04-06] MEDS: Magnesium Oxide 400 mg Tab UD PO SCH (17:41)
--- NOTE | 2017-04-06 21:34 | CARD ---
APPROVED REPORT EKG Measurement Heart [id number] <Conclusion> Normal sinus rhythm Left atrial enlargement Right axis deviation Nonspecific intraventricular block Abnormal ECG
[2017-04-06] MEDS: Magnesium Sulfate 1 gm in D5W 1 GM/100 ML BAG IVPB SCH (22:41)
[2017-04-07] MEDS: Magnesium Sulfate 1 gm in D5W 1 GM/100 ML BAG IVPB SCH (00:07)
[2017-04-07 07:36] LABS: BASO # 0.1 K/uL (0.0-0.2); BASO % 1.1 % (0.0-2.0); EOS # 0.1 K/uL (0.0-0.7); EOS % 2.8 % (0.0-4.0); HEMATOCRIT 31.5 % (35.0-51.0); LYMPH # 1.1 K/uL (1.0-4.3); LYMPH % 23.8 % (20.0-40.0); MEAN CELL VOLUME 97.6 fL (80.0-94.0); MEAN CORPUSCULAR HEMOGLOBIN 32.6 pg (27.0-31.0); MEAN CORPUSCULAR HGB CONC 33.4 g/dL (33.0-37.0); MEAN PLATELET VOLUME 8.1 fL (7.2-11.7); MONO # 0.6 K/uL (0.0-0.8); MONO % 13.6 % (0.0-10.0); NRBC % 0.2 % (0.0-2.0); RED CELL DISTRIBUTION WIDTH 15.7 % (11.5-14.5); WHITE BLOOD COUNT 4.6 K/uL (4.8-10.8)
[2017-04-07 08:18] LABS: CHLORIDE 96 mmol/L (98-107); POTASSIUM 3.6 mmol/L (3.6-5.2); SODIUM 131 mmol/L (132-148)
[2017-04-07 08:20] LABS: BILIRUBIN,TOTAL 1.4 mg/dL (0.2-1.3); GFR AFRICAN-AMERICAN > 60
[2017-04-07 08:21] LABS: ALB/GLOB RATIO 0.8 (1.0-2.1); ALKALINE PHOSPHATASE 81 U/L (38-126); ALT/SGPT 21 U/L (21-72); AST/SGOT 33 U/L (17-59); BLOOD UREA NITROGEN 13 mg/dL (9-20); CALCIUM 8.2 mg/dl (8.6-10.4); CARBON DIOXIDE 27 mmol/L (22-30); GLUCOSE,RANDOM 83 mg/dL (75-110); PHOSPHOROUS 4.5 mg/dL (2.5-4.5); TOTAL PROTEIN 7.6 g/dL (6.3-8.3)
[2017-04-07 08:22] LABS: MAGNESIUM 1.4 mg/dL (1.6-2.3)
[2017-04-07] MEDS ORDERED: Magnesium Sulfate 1 gm in D5W 1 GM/100 ML BAG IVPB ONE (09:41)
[2017-04-07] MEDS: Magnesium Oxide 400 mg Tab UD PO SCH ×2 (10:09→17:31)
[2017-04-07] MEDS: Multiple Vitamins Tab PO SCH (10:10)
--- NOTE | 2017-04-07 12:34 | CARD ---
APPROVED REPORT EKG Measurement Heart [id number] ID [id number] <Conclusion> Normal sinus rhythm Left atrial enlargement Right axis deviation Nonspecific intraventricular block Abnormal ECG
--- NOTE | 2017-04-07 12:34 | CARD ---
APPROVED REPORT EKG Measurement Heart [id number] <Conclusion> Sinus rhythm with occasional premature ventricular complexes Left atrial enlargement Right axis deviation Nonspecific intraventricular block Abnormal ECG
--- NOTE | 2017-04-07 15:20 | CP.PCM.PN ---
Subjective - Date & Time of Evaluation Date of Evaluation: 04/07/17 Time of Evaluation: 15:18 - Subjective Subjective: Patient has been seen and examined. Patient has been complaining of a dry cough but it has improved. Patient denies any fevers, chills, chest pain, abdominal pain, changes in bowel habits, or urinary symptoms. Per Nurse, patient had 17 PVC's around 11:13 AM. Patient was asymptomatic Objective - Vital Signs/Intake and Output Vital Signs (last 24 hours): Temp Pulse Resp BP Pulse Ox 98.1 F 82 20 128/86 95 04/07/17 08:38 04/07/17 08:38 04/07/17 08:38 04/07/17 10:10 04/07/17 08:38 - Medications Medications: Current Medications Aspirin (Ecotrin) 81 mg PO DAILY [facility] Last Admin: 04/07/17 10:10 Dose: 81 mg Carvedilol (Coreg) 6.25 mg PO BID [facility] Last Admin: 04/07/17 10:09 Dose: 6.25 mg Clonidine HCl (Catapres) 0.1 mg PO Q4H PRN PRN Reason: Symptoms of alcohol withdrawl Famotidine (Pepcid) 20 mg PO BID [facility] Last Admin: 04/07/17 10:11 Dose: 20 mg Folic Acid (Folic Acid) 1 mg PO DAILY [facility] Last Admin: 04/07/17 10:12 Dose: 1 mg Furosemide (Lasix) 40 mg IVP BID [facility] Last Admin: 04/07/17 10:10 Dose: 40 mg Guaifenesin (Robitussin) 100 mg PO Q4H PRN PRN Reason: Cough Heparin Sodium (Porcine) (Heparin) 5,000 units SC Q8H [facility] Last Admin: 04/07/17 10:16 Dose: Not Given Lisinopril (Zestril) 2.5 mg PO DAILY [facility] Last Admin: 04/07/17 10:11 Dose: 2.5 mg Lorazepam (Ativan) 1 mg PO Q4H PRN PRN Reason: Symptoms of alcohol withdrawl Magnesium Oxide (Mag-Ox) 800 mg PO BID [facility] Last Admin: 04/07/17 10:09 Dose: 800 mg Multivitamins (Hexavitamin) 1 tab PO DAILY [facility] Last Admin: 04/07/17 10:10 Dose: 1 tab Pneumococcal Polyvalent Vaccine (Pneumovax 23 Vaccine) 0.5 ml IM .ONCE ONE Stop: 04/08/17 10:01 Spironolactone (Aldactone) 25 mg PO DAILY [facility] Last Admin: 04/07/17 10:09 Dose: 25 mg Thiamine HCl (Vitamin B1 Tab) 100 mg PO DAILY [facility] Last Admin: 04/07/17 10:11 Dose: 100 mg - Labs Labs: 04/07/17 07:26 04/07/17 07:26 PT 15.6 SECONDS (9.7-12.2) H 04/05/17 23:26 INR 1.4 04/05/17 23:26 APTT 38 SECONDS (21-34) H 04/05/17 23:26 - Constitutional Appears: No Acute Distress - Head Exam Head Exam: ATRAUMATIC, NORMAL INSPECTION, NORMOCEPHALIC - Eye Exam Eye Exam: Normal appearance - ENT Exam ENT Exam: Mucous Membranes Moist - Respiratory Exam Respiratory Exam: Clear to Ausculation Bilateral, NORMAL BREATHING PATTERN - Cardiovascular Exam Cardiovascular Exam: RRR, +S1, +S2 - GI/Abdominal Exam GI & Abdominal Exam: Soft. absent: Tenderness - Extremities Exam Extremities Exam: Pedal Edema (trace (improved)) - Neurological Exam Neurological Exam: Alert, Awake, Oriented x3 - Psychiatric Exam Psychiatric exam: Normal Affect, Normal Mood - Skin Skin Exam: Normal Color, Warm Assessment and Plan - Assessment and Plan (Free Text) Assessment: 56 year old male with PMHx of CHF (EF<25%), [place], CAD, HTN, and ETOH abuse admitted for SOB 2/2 to CHF exacerbation. Plan: CHF exacerbation Admit to telemetry Patient with history of systolic CHF, off meds for 1 week Pro BNP on admission 4930 (Prior admissions: 3580, 3310, 3580) CXR (04/06/17): cardiomegaly, no obvious infiltrate (f/u offical read) EKG (04/06/17): NSR, 79 BPM, right axis deviation ECHO (08/25/16): EF <25%, LV moderately dilated, global hypokinesis of LV, moderate pulm HTN Quantiferon negative on previous admission (03/14/17) Start the following medications: Lasix 40 mg IVP BID Coreg 6.25 mg PO BID Lisinopril 2.5 mg PO daily Aldactone 25 mg PO daily Robitussin for cough PRN I/O's Daily weights Low Sodium Diet Pedal edema Likely secondary to CHF exacerbation. SCDs contraindicated f/u US VDL B/L Hx of [place] Patient with hx of [place] in 2011. SIXTO on admission negative. EKG on admission- sinus rhythm 103 bpm, LBBB. Also seen on EKG from 07/18/16. 3rd EKG had occasional PVC's Troponins NEGATIVE x 3 ASA 81 mg PO daily Coreg 6.25 mg PO BID CAD (coronary artery disease) Patient with hx of [place] in 2011. SIXTO on admission negative. EKG on admission- sinus rhythm 103 bpm, LBBB. Also seen on EKG from 07/18/16. ASA 81 mg PO daily Coreg 6.25 mg PO BID HTN (hypertension) Initially hypotensive in ED Lisinopril 2.5 mg PO daily Aldactone 25 mg PO daily Coreg 6.250 mg PO BID (HOLD until UDS negative for cocaine) Lasix 40 mg IVP BID Monitor Alcohol abuse Alcohol level 143 Folic Acid 1 mg PO daily Thiamine 100 mg PO daily MV 1 tab PO daily CIWA protocol Clonidine 0.1mg PO Q4H PRN withdrawal symptoms Ativan 1mg IV Q4H PRN Seizure precautions Fall precautions 04/06/17 UDS negative except Alcohol Leukopenia WBC 3.7 on presentation HIV NEGATIVE Elevated INR believed 2/2 liver damage from chronic alcoholism INR 1.4 Macrocytic anemia MCV 100.3 2/2 long-term alcohol abuse B12 an Folate Proteinuria UA: 1+ protein Continue home zestril 2.5mg PO Daily Prophylactic measure Heparin 5000 SC Q8H Pepcid 20 mg PO BID SCDs contraindicated due to lower extremity edema Rhonda Corbin PGY-1 Discussed with Attending.
[2017-04-07 17:10] LABS: VENOUS BLOOD GAS BASE EXCESS 6.7 mmol/L (0.0-2.0); VENOUS BLOOD GAS PCO2 55 mmHg (40-60); VENOUS BLOOD PH 7.39 (7.32-7.43)
[2017-04-07 17:31] LABS: INR 1.4
[2017-04-08 09:11] LABS: BASO % 1.2 % (0.0-2.0); EOS # 0.3 K/uL (0.0-0.7); EOS % 6.4 % (0.0-4.0); LYMPH # 1.1 K/uL (1.0-4.3); LYMPH % 27.6 % (20.0-40.0); MEAN CELL VOLUME 97.9 fL (80.0-94.0); MEAN CORPUSCULAR HEMOGLOBIN 32.9 pg (27.0-31.0); MEAN CORPUSCULAR HGB CONC 33.6 g/dL (33.0-37.0); MEAN PLATELET VOLUME 8.5 fL (7.2-11.7); MONO # 0.6 K/uL (0.0-0.8); MONO % 14.5 % (0.0-10.0); NRBC % 0.1 % (0.0-2.0); RED CELL DISTRIBUTION WIDTH 15.9 % (11.5-14.5)
[2017-04-08 09:25] LABS: ALKALINE PHOSPHATASE 76 U/L (38-126); ALT/SGPT 25 U/L (21-72); AST/SGOT 27 U/L (17-59); BILIRUBIN,TOTAL 0.6 mg/dL (0.2-1.3); BLOOD UREA NITROGEN 17 mg/dL (9-20); CALCIUM 8.4 mg/dl (8.6-10.4); CARBON DIOXIDE 29 mmol/L (22-30); CHLORIDE 97 mmol/L (98-107); GFR AFRICAN-AMERICAN > 60; GLUCOSE,RANDOM 80 mg/dL (75-110); MAGNESIUM 1.3 mg/dL (1.6-2.3); PHOSPHOROUS 4.3 mg/dL (2.5-4.5); SODIUM 133 mmol/L (132-148); TOTAL PROTEIN 8.3 g/dL (6.3-8.3)
[2017-04-08 09:28] LABS: ALB/GLOB RATIO 0.6 (1.0-2.1)
[2017-04-08] MEDS ORDERED: Pneumococcal 23-Valent Vaccine IM ONE (10:00)
[2017-04-08] MEDS: Magnesium Sulfate 1 gm in D5W 1 GM/100 ML BAG IVPB SCH ×2 (10:30→10:51)
[2017-04-08] MEDS: Magnesium Oxide 400 mg Tab UD PO SCH ×2 (10:51→17:42)
[2017-04-08] MEDS: Multiple Vitamins Tab PO SCH (10:52)
--- NOTE | 2017-04-08 11:10 | CP.PCM.CON ---
<Trino Otero Neva - Last Filed: 04/08/17 12:22> History of Present Illness - History of Present Illness History of Present Illness: Cardiology consult note for Dr. Scott Tang DO, PGY-8 Reason For Consult: SOB HPI: 56 AA M pertinent PMHx MT, HTN, CHF presented 2 days ago with 3 day history of cough and worsening SOB. Pt admits to medication non-compliance for over a week 2/2 running out of meds. Cough was dry, cough syrup did not help. Pt states that for the past few days, he is only able to walk ~ 1 block before [place]. He further reports pain in his b/l LE with exertion. He states that before that, he was able to easily walk 20 blocks. He also admits to b/l LE swelling, which he states IS his baseline. Pt also admits to orthopnea. Pt had an MT 5 years ago, at which time he was taken to the laboratory inspector but did not have stents placed. He admits that around this time, he used to do cocaine. Pt had a recent ECHO in August which showed 45% EF. Pt denies any current symptoms, including f/ch/cp/sob/n/v/d/dysuria/frequency/ urgency/hematuria/hematochezia/ hematemesis PSHx: Pt denies PMHx: MT (2011), HTN, CHF All: NKDA SocHx: +heavy daily etoh; +smoker; denies illicits. pt homeless FamHx: Cardiac on maternal; DM, HTN Meds: Pt non-compliant with medications PMD: Dr. Venkat Allen (last seen 3 months ago) ROS: Const'l: pt denies fever, chills, generalized weakness ENT: pt denies dysphagia, otalgia, hearing deficit, rhinorrhea Eyes: pt denies sudden loss of vision, diplopia, blurred vision MSK: pt denies muscle stiffness, joint pain, extremity cramping Cardio: +see hpi Pulm: pt denies cough, hemoptysis, wheeze GI: pt denies loss of appetite, abdominal pain, constipation, melena, n/v/d : pt denies burning on urination, urinary frequency, hematuria, urinary urgency Neuro: pt denies paresis, paresthesia, dizziness, peng, numbness, tingling Derm: pt denies skin changes, lesions, nail changes Endo: pt denies intolerance to heat/cold, diaphoresis, night sweats, polydipsia Psych: pt denies anxiety, depression, mood changes Past Patient History - Infectious Disease Hx of Infectious Diseases: None - Past Medical History & Family History Past Medical History?: Yes - Past Social History Smoking Status: Former Smoker - CARDIAC Hx Congestive Heart Failure: Yes Hx Hypertension: Yes - PULMONARY Hx Respiratory Disorders: No - NEUROLOGICAL Hx Neurological Disorder: No - HEENT Hx HEENT Problems: No - RENAL Hx Chronic Kidney Disease: No - ENDOCRINE/METABOLIC Hx Endocrine Disorders: No - HEMATOLOGICAL/ONCOLOGICAL Hx Blood Disorders: No - INTEGUMENTARY Hx Dermatological Problems: No - MUSCULOSKELETAL/RHEUMATOLOGICAL Hx Musculoskeletal Disorders: No Hx Falls: No - GASTROINTESTINAL Hx Gastrointestinal Disorders: No - GENITOURINARY/GYNECOLOGICAL Hx Genitourinary Disorders: No - PSYCHIATRIC Hx Substance Use: No - SURGICAL HISTORY Hx Surgeries: No Other/Comment: PT REFUSED CARDIAC STENT - ANESTHESIA Hx Anesthesia: No Meds Allergies/Adverse Reactions: Allergies Allergy/AdvReac Type Severity Reaction Status Date / Time No Known Allergies Allergy Verified 03/02/17 09:42 - Medications Medications: Current Medications Aspirin (Ecotrin) 81 mg PO DAILY [facility] Last Admin: 04/08/17 10:52 Dose: 81 mg Carvedilol (Coreg) 6.25 mg PO BID [facility] Last Admin: 04/08/17 10:52 Dose: 6.25 mg Clonidine HCl (Catapres) 0.1 mg PO Q4H PRN PRN Reason: Symptoms of alcohol withdrawl Famotidine (Pepcid) 20 mg PO BID [facility] Last Admin: 04/08/17 10:52 Dose: 20 mg Folic Acid (Folic Acid) 1 mg PO DAILY [facility] Last Admin: 04/08/17 10:52 Dose: 1 mg Furosemide (Lasix) 40 mg IVP BID [facility] Last Admin: 04/08/17 10:51 Dose: 40 mg Guaifenesin (Robitussin) 100 mg PO Q4H PRN PRN Reason: Cough Heparin Sodium (Porcine) (Heparin) 5,000 units SC Q8H [facility] Last Admin: 04/08/17 10:52 Dose: 5,000 units Lisinopril (Zestril) 2.5 mg PO DAILY [facility] Last Admin: 04/08/17 10:52 Dose: 2.5 mg Lorazepam (Ativan) 1 mg PO Q4H PRN PRN Reason: Symptoms of alcohol withdrawl Magnesium Oxide (Mag-Ox) 800 mg PO BID [facility] Last Admin: 04/08/17 10:51 Dose: 800 mg Multivitamins (Hexavitamin) 1 tab PO DAILY [facility] Last Admin: 04/08/17 10:52 Dose: 1 tab Spironolactone (Aldactone) 25 mg PO DAILY [facility] Last Admin: 04/08/17 10:52 Dose: 25 mg Thiamine HCl (Vitamin B1 Tab) 100 mg PO DAILY [facility] Last Admin: 04/08/17 10:52 Dose: 100 mg Physical Exam - Additional Findings Additional findings: Phys Exam: VS as below Const'l: a&o x 4, nad Head/Neck: neck supple, no jvd, trachea midline, carotid midline, no cervical/ head mass Eyes: dolores, nonicteric sclera, eom intact ENT: auditory acuity grossly intact, throat not congested, no nasal deformity Cardio: rrr, no m/r/g, no carotid bruit, nml s1, s2 Pulm: no accessory muscle use, equal nml breath sounds bilaterally, ctab Abd: s/nt/nd, nbs x 4 q, no palpable masses Derm: no rashes, no ulcers, no lesions Extr: no edema, no cyanosis, no calf tenderness, no lesions, no varicosities Neuro: cn II-XII grossly intact, ue and le 5/5 muscle strength bilaterally, no los ue, le bilaterally and core Results - Vital Signs Recent Vital Signs: Last Vital Signs Temp 97.9 F 04/08/17 07:44 Pulse 72 04/08/17 10:49 Resp 20 04/08/17 07:44 BP 114/77 04/08/17 10:51 Pulse Ox 99 04/08/17 07:44 - Labs Result Diagrams: 04/08/17 08:58 04/08/17 08:58 Labs: Laboratory Results - last 24 hr 04/07/17 04/07/17 04/07/17 17:00 17:12 17:12 WBC RBC Hgb Hct MCV MCH MCHC RDW Plt Count MPV Neut % (Auto) Lymph % (Auto) [place] % (Auto) Eos % (Auto) Baso % (Auto) Neut # Lymph # [place] # Eos # Baso # ESR 79 H PT 15.3 H INR 1.4 APTT 33 D pO2 29 L VBG pH 7.39 VBG pCO2 55 VBG HCO3 29.0 VBG Total CO2 35.0 H VBG O2 Sat (Calc) 40.6 VBG Base Excess 6.7 H VBG Potassium 4.3 Sodium 138.0 Chloride 102.0 Glucose 90 Lactate 1.9 Potassium Carbon Dioxide Anion Gap BUN Creatinine Est GFR ( Amer) Est GFR (Non-Af Amer) Random Glucose Lactic Acid Calcium Phosphorus Magnesium Total Bilirubin AST ALT Alkaline Phosphatase NT-Pro-B Natriuret Pep Total Protein Albumin Globulin Albumin/Globulin Ratio Procalcitonin Plasma Cortisol PM Venous Blood Potassium 4.3 04/07/17 04/07/17 04/07/17 17:12 17:12 17:12 WBC RBC Hgb Hct MCV MCH MCHC RDW Plt Count MPV Neut % (Auto) Lymph % (Auto) [place] % (Auto) Eos % (Auto) Baso % (Auto) Neut # Lymph # [place] # Eos # Baso # ESR PT INR APTT pO2 VBG pH VBG pCO2 VBG HCO3 VBG Total CO2 VBG O2 Sat (Calc) VBG Base Excess VBG Potassium Sodium Chloride Glucose Lactate Potassium Carbon Dioxide Anion Gap BUN Creatinine Est GFR ( Amer) Est GFR (Non-Af Amer) Random Glucose Lactic Acid 1.7 Calcium Phosphorus Magnesium Total Bilirubin AST ALT Alkaline Phosphatase NT-Pro-B Natriuret Pep Total Protein Albumin Globulin Albumin/Globulin Ratio Procalcitonin < 0.05 L Plasma Cortisol PM 5.74 Venous Blood Potassium 04/07/17 04/08/17 04/08/17 17:14 08:58 08:58 WBC 4.0 L RBC 3.17 L Hgb 10.4 L Hct 31.0 L MCV 97.9 H MCH 32.9 H MCHC 33.6 RDW 15.9 H Plt Count 238 MPV 8.5 Neut % (Auto) 50.3 Lymph % (Auto) 27.6 [place] % (Auto) 14.5 H Eos % (Auto) 6.4 H Baso % (Auto) 1.2 Neut # 2.0 Lymph # 1.1 [place] # 0.6 Eos # 0.3 Baso # 0.0 ESR PT INR APTT pO2 VBG pH VBG pCO2 VBG HCO3 VBG Total CO2 VBG O2 Sat (Calc) VBG Base Excess VBG Potassium Sodium 133 Chloride 97 L Glucose Lactate Potassium 4.0 Carbon Dioxide 29 Anion Gap 11 BUN 17 Creatinine 1.1 Est GFR ( Amer) > 60 Est GFR (Non-Af Amer) > 60 Random Glucose 80 Lactic Acid Calcium 8.4 L Phosphorus 4.3 Magnesium 1.3 L Total Bilirubin 0.6 AST 27 ALT 25 Alkaline Phosphatase 76 NT-Pro-B Natriuret Pep 6340 H Total Protein 8.3 Albumin 3.3 L Globulin 5.1 H Albumin/Globulin Ratio 0.6 L Procalcitonin Plasma Cortisol PM Venous Blood Potassium Assessment & Plan - Assessment and Plan (Free Text) Assessment: A/P 56 M with PMHx of CAD, HTN, CHF, and EtOH abuse presenting with SOB. CHF exacerbation - Pro BNP on admission 4930 (Prior admissions: 3580, 3310, 3580) - CXR (04/06/17): cardiomegaly, no obvious infiltrate (f/u offical read) - EKG (04/06/17): NSR, 79 BPM, right axis deviation - ECHO: please see ECHO reading - Lasix 40 mg IVP BID - Coreg 6.25 mg PO BID (HOLD until UDS negative for cocaine) - Lisinopril 2.5 mg PO daily - Aldactone 25 mg PO daily - Robitussin for cough PRN - I/O's - Daily weights - Low Sodium Diet Hx of MT - Patient with hx of MT in 2011. - SIXTO on admission negative. - EKG on admission- sinus rhythm 103 bpm, LBBB. Also seen on EKG from 07/18/16. - ASA 81 mg PO daily - Coreg 6.25 mg PO BID (HOLD until UDS negative for cocaine) CAD - ASA 81 mg PO daily - Coreg 6.25 mg PO BID (HOLD until UDS negative for cocaine) HTN - Lisinopril 2.5 mg PO daily - Aldactone 25 mg PO daily - Coreg 6.250 mg PO BID (HOLD until UDS negative for cocaine) - Lasix 40 mg IVP BID - Monitor Possible PVD - b/l NARDA <Derek Chavez - Last Filed: 04/11/17 22:00> Meds - Medications Medications: Current Medications Aspirin (Ecotrin) 81 mg PO DAILY [facility] Last Admin: 04/08/17 10:52 Dose: 81 mg Carvedilol (Coreg) 6.25 mg PO BID [facility] Last Admin: 04/08/17 10:52 Dose: 6.25 mg Clonidine HCl (Catapres) 0.1 mg PO Q4H PRN PRN Reason: Symptoms of alcohol withdrawl Famotidine (Pepcid) 20 mg PO BID [facility] Last Admin: 04/08/17 10:52 Dose: 20 mg Folic Acid (Folic Acid) 1 mg PO DAILY [facility] Last Admin: 04/08/17 10:52 Dose: 1 mg Furosemide (Lasix) 40 mg IVP BID [facility] Last Admin: 04/08/17 10:51 Dose: 40 mg Guaifenesin (Robitussin) 100 mg PO Q4H PRN PRN Reason: Cough Heparin Sodium (Porcine) (Heparin) 5,000 units SC Q8H [facility] Last Admin: 04/08/17 10:52 Dose: 5,000 units Lisinopril (Zestril) 2.5 mg PO DAILY [facility] Last Admin: 04/08/17 10:52 Dose: 2.5 mg Lorazepam (Ativan) 1 mg PO Q4H PRN PRN Reason: Symptoms of alcohol withdrawl Magnesium Oxide (Mag-Ox) 800 mg PO BID [facility] Last Admin: 04/08/17 10:51 Dose: 800 mg Multivitamins (Hexavitamin) 1 tab PO DAILY [facility] Last Admin: 04/08/17 10:52 Dose: 1 tab Rosuvastatin Calcium (Crestor) 5 mg PO [facility] Spironolactone (Aldactone) 25 mg PO DAILY [facility] Last Admin: 04/08/17 10:52 Dose: 25 mg Thiamine HCl (Vitamin B1 Tab) 100 mg PO DAILY [facility] Last Admin: 04/08/17 10:52 Dose: 100 mg Results - Vital Signs Recent Vital Signs: Last Vital Signs Temp 98 F 04/08/17 15:00 Pulse 67 04/08/17 15:00 Resp 20 04/08/17 15:00 BP 109/72 04/08/17 15:00 Pulse Ox 96 04/08/17 15:00 - Labs Result Diagrams: 04/11/17 11:44 04/11/17 11:44 Labs: Laboratory Results - last 24 hr 11/04/07/17 04/07/17 17:00 17:12 17:12 WBC RBC Hgb Hct MCV MCH MCHC RDW Plt Count MPV Neut % (Auto) Lymph % (Auto) [place] % (Auto) Eos % (Auto) Baso % (Auto) Neut # Lymph # [place] # Eos # Baso # ESR 79 H PT 15.3 H INR 1.4 APTT 33 D pO2 29 L VBG pH 7.39 VBG pCO2 55 VBG HCO3 29.0 VBG Total CO2 35.0 H VBG O2 Sat (Calc) 40.6 VBG Base Excess 6.7 H VBG Potassium 4.3 Sodium 138.0 Chloride 102.0 Glucose 90 Lactate 1.9 Potassium Carbon Dioxide Anion Gap BUN Creatinine Est GFR ( Amer) Est GFR (Non-Af Amer) Random Glucose Lactic Acid Calcium Phosphorus Magnesium Total Bilirubin AST ALT Alkaline Phosphatase NT-Pro-B Natriuret Pep Total Protein Albumin Globulin Albumin/Globulin Ratio Procalcitonin Plasma Cortisol PM Venous Blood Potassium 4.3 04/07/17 04/07/17 04/07/17 17:12 17:12 17:12 WBC RBC Hgb Hct MCV MCH MCHC RDW Plt Count MPV Neut % (Auto) Lymph % (Auto) [place] % (Auto) Eos % (Auto) Baso % (Auto) Neut # Lymph # [place] # Eos # Baso # ESR PT INR APTT pO2 VBG pH VBG pCO2 VBG HCO3 VBG Total CO2 VBG O2 Sat (Calc) VBG Base Excess VBG Potassium Sodium Chloride Glucose Lactate Potassium Carbon Dioxide Anion Gap BUN Creatinine Est GFR ( Amer) Est GFR (Non-Af Amer) Random Glucose Lactic Acid 1.7 Calcium Phosphorus Magnesium Total Bilirubin AST ALT Alkaline Phosphatase NT-Pro-B Natriuret Pep Total Protein Albumin Globulin Albumin/Globulin Ratio Procalcitonin < 0.05 L Plasma Cortisol PM 5.74 Venous Blood Potassium 04/07/17 04/08/17 04/08/17 17:14 08:58 08:58 WBC 4.0 L RBC 3.17 L Hgb 10.4 L Hct 31.0 L MCV 97.9 H MCH 32.9 H MCHC 33.6 RDW 15.9 H Plt Count 238 MPV 8.5 Neut % (Auto) 50.3 Lymph % (Auto) 27.6 [place] % (Auto) 14.5 H Eos % (Auto) 6.4 H Baso % (Auto) 1.2 Neut # 2.0 Lymph # 1.1 [place] # 0.6 Eos # 0.3 Baso # 0.0 ESR PT INR APTT pO2 VBG pH VBG pCO2 VBG HCO3 VBG Total CO2 VBG O2 Sat (Calc) VBG Base Excess VBG Potassium Sodium 133 Chloride 97 L Glucose Lactate Potassium 4.0 Carbon Dioxide 29 Anion Gap 11 BUN 17 Creatinine 1.1 Est GFR ( Amer) > 60 Est GFR (Non-Af Amer) > 60 Random Glucose 80 Lactic Acid Calcium 8.4 L Phosphorus 4.3 Magnesium 1.3 L Total Bilirubin 0.6 AST 27 ALT 25 Alkaline Phosphatase 76 NT-Pro-B Natriuret Pep 6340 H Total Protein 8.3 Albumin 3.3 L Globulin 5.1 H Albumin/Globulin Ratio 0.6 L Procalcitonin Plasma Cortisol PM Venous Blood Potassium Attending/Attestation - Attestation I have personally seen and examined this patient.: Yes I have fully participated in the care of the patient.: Yes I have reviewed all pertinent clinical information: Yes Notes (Text): 04/11/17 21:59 Worsening CHF plan for further w/u cont aggressive diuretic therapy RAAS modulation
--- NOTE | 2017-04-08 16:10 | CP.PCM.PN ---
<Rhonda Corbin - Last Filed: 04/08/17 16:04> Subjective - Date & Time of Evaluation Date of Evaluation: 04/08/17 Time of Evaluation: 16:04 - Subjective Subjective: Patient has been seen and examined. Patient has been complaining of a dry cough but it has improved. Patient denies any fevers, chills, chest pain, abdominal pain, changes in bowel habits, or urinary symptoms. Objective - Vital Signs/Intake and Output Vital Signs (last 24 hours): Temp Pulse Resp BP Pulse Ox 98 F 67 20 109/72 96 04/08/17 15:00 04/08/17 15:00 04/08/17 15:00 04/08/17 15:00 04/08/17 15:00 Intake and Output: 04/08/17 04/08/17 06:59 18:59 Intake Total 600 Output Total 900 Balance -300 - Medications Medications: Current Medications Aspirin (Ecotrin) 81 mg PO DAILY [facility] Last Admin: 04/08/17 10:52 Dose: 81 mg Carvedilol (Coreg) 6.25 mg PO BID [facility] Last Admin: 04/08/17 10:52 Dose: 6.25 mg Clonidine HCl (Catapres) 0.1 mg PO Q4H PRN PRN Reason: Symptoms of alcohol withdrawl Famotidine (Pepcid) 20 mg PO BID [facility] Last Admin: 04/08/17 10:52 Dose: 20 mg Folic Acid (Folic Acid) 1 mg PO DAILY [facility] Last Admin: 04/08/17 10:52 Dose: 1 mg Furosemide (Lasix) 40 mg IVP BID [facility] Last Admin: 04/08/17 10:51 Dose: 40 mg Guaifenesin (Robitussin) 100 mg PO Q4H PRN PRN Reason: Cough Heparin Sodium (Porcine) (Heparin) 5,000 units SC Q8H [facility] Last Admin: 04/08/17 10:52 Dose: 5,000 units Lisinopril (Zestril) 2.5 mg PO DAILY [facility] Last Admin: 04/08/17 10:52 Dose: 2.5 mg Lorazepam (Ativan) 1 mg PO Q4H PRN PRN Reason: Symptoms of alcohol withdrawl Magnesium Oxide (Mag-Ox) 800 mg PO BID [facility] Last Admin: 04/08/17 10:51 Dose: 800 mg Multivitamins (Hexavitamin) 1 tab PO DAILY [facility] Last Admin: 04/08/17 10:52 Dose: 1 tab Rosuvastatin Calcium (Crestor) 5 mg PO [facility] Spironolactone (Aldactone) 25 mg PO DAILY [facility] Last Admin: 04/08/17 10:52 Dose: 25 mg Thiamine HCl (Vitamin B1 Tab) 100 mg PO DAILY [facility] Last Admin: 04/08/17 10:52 Dose: 100 mg - Labs Labs: 04/08/17 08:58 04/08/17 08:58 PT 15.3 SECONDS (9.7-12.2) H 04/07/17 17:12 INR 1.4 04/07/17 17:12 APTT 33 SECONDS (21-34) D 04/07/17 17:12 - Additional Findings Additional findings: Constitutional Appears: No Acute Distress - Head Exam Head Exam: ATRAUMATIC, NORMAL INSPECTION, NORMOCEPHALIC - Eye Exam Eye Exam: Normal appearance - ENT Exam ENT Exam: Mucous Membranes Moist - Respiratory Exam Respiratory Exam: Clear to Ausculation Bilateral, NORMAL BREATHING PATTERN - Cardiovascular Exam Cardiovascular Exam: RRR, +S1, +S2 - GI/Abdominal Exam GI & Abdominal Exam: Soft. absent: Tenderness - Extremities Exam Extremities Exam: Pedal Edema (trace (improved)) - Neurological Exam Neurological Exam: Alert, Awake, Oriented x3 - Psychiatric Exam Psychiatric exam: Normal Affect, Normal Mood - Skin Skin Exam: Normal Color, Warm Assessment and Plan - Assessment and Plan (Free Text) Assessment: 56 year old male with PMHx of CHF (EF<25%), SD, CAD, HTN, and ETOH abuse admitted for SOB 2/2 to CHF exacerbation. Plan: CHF exacerbation Admit to telemetry Patient with history of systolic CHF, off meds for 1 week Pro BNP on admission 4930 (Prior admissions: 3580, 3310, 3580) CXR (04/06/17): cardiomegaly, no obvious infiltrate (f/u offical read) EKG (04/06/17): NSR, 79 BPM, right axis deviation ECHO (08/25/16): EF <25%, LV moderately dilated, global hypokinesis of LV, moderate pulm HTN Quantiferon negative on previous admission (03/14/17) ECHO ordered. Follow up Results Cardio Consult (Dr. Chavez) Cont. the following medications: Lasix 40 mg IVP BID Coreg 6.25 mg PO BID Lisinopril 2.5 mg PO daily Aldactone 25 mg PO daily Crestor 5 HS Robitussin for cough PRN I/O's Daily weights Low Sodium Diet Pedal edema Likely secondary to CHF exacerbation. SCDs contraindicated US negative for DVT Hx of SD Patient with hx of SD in 2011. SIXTO on admission negative. EKG on admission- sinus rhythm 103 bpm, LBBB. Also seen on EKG from 07/18/16. 3rd EKG had occasional PVC's Troponins NEGATIVE x 3 ASA 81 mg PO daily Coreg 6.25 mg PO BID Lisinopril 2.5 mg PO daily Crestor 5 PO HS CAD (coronary artery disease) Patient with hx of SD in 2011. SIXTO on admission negative. EKG on admission- sinus rhythm 103 bpm, LBBB. Also seen on EKG from 07/18/16. ASA 81 mg PO daily Coreg 6.25 mg PO BID Crestor 5 PO HS HTN (hypertension) Initially hypotensive in ED Lisinopril 2.5 mg PO daily Aldactone 25 mg PO daily Coreg 6.250 mg PO BID (HOLD until UDS negative for cocaine) Lasix 40 mg IVP BID Monitor Alcohol abuse Alcohol level 143 Folic Acid 1 mg PO daily Thiamine 100 mg PO daily MV 1 tab PO daily [facility] protocol Clonidine 0.1mg PO Q4H PRN withdrawal symptoms Ativan 1mg IV Q4H PRN Seizure precautions Fall precautions 04/06/17 UDS negative except Alcohol Leukopenia WBC 3.7 on presentation HIV NEGATIVE Elevated INR believed 2/2 liver damage from chronic alcoholism INR 1.4 Macrocytic anemia MCV 100.3 2/2 long-term alcohol abuse B12 an Folate Proteinuria UA: 1+ protein Continue home zestril 2.5mg PO Daily Prophylactic measure Heparin 5000 SC Q8H Pepcid 20 mg PO BID SCDs contraindicated due to lower extremity edema Rhonda Corbin PGY-1 Discussed with Attending. Dispo: Patient refused AICD on admission. I have been reinforcing the need for AICD on every visit. Patient understands risk associated with not getting an AICD including . Patient stated that he will cont. to think about it, but he is afraid of surgery. <Angela Schmitt V - Last Filed: 04/08/17 23:49> Objective - Vital Signs/Intake and Output Vital Signs (last 24 hours): Temp Pulse Resp BP Pulse Ox 97.9 F 73 20 110/73 98 04/08/17 22:33 04/08/17 22:33 04/08/17 22:33 04/08/17 22:33 04/08/17 22:33 Intake and Output: 04/08/17 04/09/17 18:59 06:59 Intake Total 600 Output Total 900 Balance -300 - Medications Medications: Current Medications Aspirin (Ecotrin) 81 mg PO DAILY [facility] Last Admin: 04/08/17 10:52 Dose: 81 mg Carvedilol (Coreg) 6.25 mg PO BID [facility] Last Admin: 04/08/17 17:44 Dose: Not Given Clonidine HCl (Catapres) 0.1 mg PO Q4H PRN PRN Reason: Symptoms of alcohol withdrawl Famotidine (Pepcid) 20 mg PO BID [facility] Last Admin: 04/08/17 17:43 Dose: 20 mg Folic Acid (Folic Acid) 1 mg PO DAILY [facility] Last Admin: 04/08/17 10:52 Dose: 1 mg Furosemide (Lasix) 40 mg IVP BID [facility] Last Admin: 04/08/17 17:44 Dose: Not Given Guaifenesin (Robitussin) 100 mg PO Q4H PRN PRN Reason: Cough Last Admin: 04/08/17 17:42 Dose: 100 mg Heparin Sodium (Porcine) (Heparin) 5,000 units SC Q8H [facility] Last Admin: 04/08/17 17:44 Dose: Not Given Lisinopril (Zestril) 2.5 mg PO DAILY [facility] Last Admin: 04/08/17 10:52 Dose: 2.5 mg Lorazepam (Ativan) 1 mg PO Q4H PRN PRN Reason: Symptoms of alcohol withdrawl Magnesium Oxide (Mag-Ox) 800 mg PO BID [facility] Last Admin: 04/08/17 17:42 Dose: 800 mg Multivitamins (Hexavitamin) 1 tab PO DAILY [facility] Last Admin: 04/08/17 10:52 Dose: 1 tab Rosuvastatin Calcium (Crestor) 5 mg PO HS [facility] Last Admin: 04/08/17 21:11 Dose: 5 mg Spironolactone (Aldactone) 25 mg PO DAILY [facility] Last Admin: 04/08/17 10:52 Dose: 25 mg Thiamine HCl (Vitamin B1 Tab) 100 mg PO DAILY [facility] Last Admin: 04/08/17 10:52 Dose: 100 mg - Labs Labs: 04/08/17 08:58 04/08/17 08:58 PT 15.3 SECONDS (9.7-12.2) H 04/07/17 17:12 INR 1.4 04/07/17 17:12 APTT 33 SECONDS (21-34) D 04/07/17 17:12 Attending/Attestation - Attestation I have personally seen and examined this patient.: Yes I have fully participated in the care of the patient.: Yes I have reviewed all pertinent clinical information, including history, physical exam and plan: Yes Notes (Text): Patient seen, examined and case discussed with day-time resident. Patient seen at bedside. Patient reports swelling in the legs has resolved alot. Patient reports shortness of breathe has improved. Patient is aware his heart is a weak pumper, and he refuses AICD because he is afraid of surgery. Patient has never had surgery. Patient does not want cardiac arrest either. Explained to the patient the AICD fires as a warning when there is an abnormal rhythm that requires a shock. Patient has had SD about 5 years ago, [place] [facility] [place] follow with [place]ology. Cardiology consult on this admission given EF <25, CHF,, and will need cardiology to monitor as outpatient. Assessment/Plan 1) Acute systolic CHF exacerbation * Admit to telemetry * Patient with history of systolic CHF, off meds for 1 week * Pro BNP on admission 4930 (Prior admissions: 3580, 3310, 3580) * CXR (04/06/17): cardiomegaly, no obvious infiltrate (f/u offical read) * EKG (04/06/17): NSR, 79 BPM, right axis deviation * ECHO (08/25/16): EF <25%, LV moderately dilated, global hypokinesis of LV, moderate pulm HTN * Quantiferon negative on previous admission (03/14/17) * ECHO ordered. Follow up Results * Cardio Consult (Dr. Chavez) on board * Cont. the following medications: * Lasix 40 mg IVP BID * Coreg 6.25 mg PO BID * Lisinopril 2.5 mg PO daily * Aldactone 25 mg PO daily * Crestor 5 HS * Robitussin for cough PRN * Aspirin 81mg PO daily * I/O's * Daily weights * Low Sodium Diet 2) Pedal edema * Likely secondary to CHF exacerbation. * SCDs contraindicated * US negative for DVT 3) Hx of SD * Patient with hx of SD in 2011. * SIXTO on admission negative. * EKG on admission- sinus rhythm 103 bpm, LBBB. Also seen on EKG from 07/18/16. 3rd EKG had occasional PVC's * Troponins NEGATIVE x 3 * ASA 81 mg PO daily * Coreg 6.25 mg PO BID * Lisinopril 2.5 mg PO daily * Crestor 5 PO HS 4) CAD (coronary artery disease) * Patient with hx of SD in 2011. * SIXTO on admission negative. * EKG on admission- sinus rhythm 103 bpm, LBBB. Also seen on EKG from 07/18/16. * ASA 81 mg PO daily * Coreg 6.25 mg PO BID * Crestor 5MG PO HS 5) HTN (hypertension) Initially hypotensive in ED * Lisinopril 2.5 mg PO daily * Aldactone 25 mg PO daily * Coreg 6.250 mg PO BID (HOLD until UDS negative for cocaine) * Lasix 40 mg IVP BID * Monitor 6) Alcohol abuse * Alcohol level 143 * Folic Acid 1 mg PO daily * Thiamine 100 mg PO daily * MV 1 tab PO daily * [facility] protocol * Clonidine 0.1mg PO Q4H PRN withdrawal symptoms * Ativan 1mg IV Q4H PRN * Seizure precautions * Fall precautions * 04/06/17 UDS negative except Alcohol 7) Leukopenia * WBC 3.7 on presentation * HIV NEGATIVE * History of alcoholism * N >2.0 8) Elevated INR * believed 2/2 liver damage from chronic alcoholism * INR 1.4 9) Macrocytic anemia * MCV 100.3 * 2/2 long-term alcohol abuse * B12 an Folate 10) Proteinuria * UA: 1+ protein * Continue home zestril 2.5mg PO Daily 11) Prophylactic measure * Heparin 5000 SC Q8H * Pepcid 20 mg PO BID * SCDs contraindicated due to lower extremity edema Dispo: Patient refused AICD on admission. I have been reinforcing the need for AICD. Patient understands risk associated with not getting an AICD including . Patient stated that he will cont. to think about it, but he is afraid of surgery.
--- NOTE | 2017-04-09 05:37 | CARD ---
APPROVED REPORT EXAM: Two-dimensional and M-mode echocardiogram with Doppler and color Doppler. Other Information Quality : GoodRhythm : NSR INDICATION Pleural Effusion Cardiac Disease: CAD Chest Pain Congestive Heart Failure ALCOHOL ABUSE, PNEUMONIA RISK FACTORS Hypertension 2D DIMENSIONS IVSd0.9 (0.7-1.1cm)LVDd6.9 (3.9-5.9cm) PWd1.0 (0.7-1.1cm) M-Mode DIMENSIONS Left Atrium (MM)5.04 (2.5-4.0cm)Aortic Root3.57 (2.2-3.7cm) Aortic Cusp Exc.2.24 (1.5-2.0cm) Mitral Valve E/A ratio0.0 TDI E/Lateral E'0.0E/Medial E'0.0 Tricuspid Valve TR Peak [id number] Peak [id number] LEFT VENTRICLE The Left Ventricle is severely dilated. There is normal left ventricular wall thickness. Left ventricle systolic function is severely impaired. The Ejection Fraction is 15-20%. There is severe global hypokinesis of the left ventricle. RIGHT VENTRICLE The right ventricle is normal size. There is normal right ventricular wall thickness. Systolic function is severely reduced. ATRIA The left atrium is moderately dilated. The right atrium is severely dilated. The interatrial septum bows toward right atrium consistent with elevated left atrial pressure. AORTIC VALVE The aortic valve is normal in structure. No aortic regurgitation is present. There is no aortic valvular stenosis. There is no aortic valvular vegetation. MITRAL VALVE The mitral valve is normal in structure. There is no evidence of mitral valve prolapse. There is no mitral valve stenosis. Mitral regurgitation is mild. TRICUSPID VALVE The tricuspid valve is normal in structure. There is mild to moderate tricuspid regurgitation. Right ventricular systolic pressure is estimated at 40-50 mmHg. There is mild-moderate pulmonary hypertension. PULMONIC VALVE The pulmonic valve is not well visualized. There is mild pulmonic valvular regurgitation. GREAT VESSELS The aortic root is normal in size. PERICARDIAL EFFUSION There is no pericardial effusion. <Conclusion> Dilated cardiomyopathy with severely impaired left ventricular systolic function. The Ejection Fraction is 15-20%. No aortic regurgitation is present. Mitral regurgitation is mild. There is mild to moderate tricuspid regurgitation. There is mild-moderate pulmonary hypertension. There is mild pulmonic valvular regurgitation.
--- NOTE | 2017-04-09 08:45 | CP.PCM.PN ---
<Trino Otero - Last Filed: 04/09/17 10:28> Subjective - Date & Time of Evaluation Date of Evaluation: 04/09/17 Time of Evaluation: 10:29 - Subjective Subjective: Cardiology progress note for Dr. Scott Tang DO PGY - 1, Pt s/e bedside. Pt is doing well, states that swelling in his b/l LE is much better than when he first arrived. Pt states his sob is near-resolved. No cp. No further complaints at this time. Objective - Vital Signs/Intake and Output Vital Signs (last 24 hours): Temp Pulse Resp BP Pulse Ox 97.7 F 67 20 102/69 94 L 04/09/17 08:37 04/09/17 08:37 04/09/17 08:37 04/09/17 08:37 04/09/17 08:37 Intake and Output: 04/09/17 04/09/17 06:59 18:59 Intake Total 200 Balance 200 - Medications Medications: Current Medications Aspirin (Ecotrin) 81 mg PO DAILY [facility] Last Admin: 04/08/17 10:52 Dose: 81 mg Carvedilol (Coreg) 6.25 mg PO BID [facility] Last Admin: 04/08/17 17:44 Dose: Not Given Clonidine HCl (Catapres) 0.1 mg PO Q4H PRN PRN Reason: Symptoms of alcohol withdrawl Famotidine (Pepcid) 20 mg PO BID [facility] Last Admin: 04/08/17 17:43 Dose: 20 mg Folic Acid (Folic Acid) 1 mg PO DAILY [facility] Last Admin: 04/08/17 10:52 Dose: 1 mg Furosemide (Lasix) 40 mg IVP BID [facility] Last Admin: 04/08/17 17:44 Dose: Not Given Guaifenesin (Robitussin) 100 mg PO Q4H PRN PRN Reason: Cough Last Admin: 04/08/17 17:42 Dose: 100 mg Heparin Sodium (Porcine) (Heparin) 5,000 units SC Q8H [facility] Last Admin: 04/09/17 02:00 Dose: Not Given Lisinopril (Zestril) 2.5 mg PO DAILY [facility] Last Admin: 04/08/17 10:52 Dose: 2.5 mg Lorazepam (Ativan) 1 mg PO Q4H PRN PRN Reason: Symptoms of alcohol withdrawl Magnesium Oxide (Mag-Ox) 800 mg PO BID [facility] Last Admin: 04/08/17 17:42 Dose: 800 mg Multivitamins (Hexavitamin) 1 tab PO DAILY [facility] Last Admin: 04/08/17 10:52 Dose: 1 tab Rosuvastatin Calcium (Crestor) 5 mg PO HS [facility] Last Admin: 04/08/17 21:11 Dose: 5 mg Spironolactone (Aldactone) 25 mg PO DAILY [facility] Last Admin: 04/08/17 10:52 Dose: 25 mg Thiamine HCl (Vitamin B1 Tab) 100 mg PO DAILY [facility] Last Admin: 04/08/17 10:52 Dose: 100 mg - Labs Labs: 04/08/17 08:58 04/08/17 08:58 PT 15.3 SECONDS (9.7-12.2) H 04/07/17 17:12 INR 1.4 04/07/17 17:12 APTT 33 SECONDS (21-34) D 04/07/17 17:12 - Additional Findings Additional findings: Phys Exam: VS as below Const'l: a&o x 4, nad Head/Neck: neck supple, no jvd, trachea midline, carotid midline, no cervical/ head mass Eyes: dolores, nonicteric sclera, eom intact ENT: auditory acuity grossly intact, throat not congested, no nasal deformity Cardio: rrr, no m/r/g, no carotid bruit, nml s1, s2 Pulm: no accessory muscle use, equal nml breath sounds bilaterally, ctab Abd: s/nt/nd, nbs x 4 q, no palpable masses Derm: no rashes, no ulcers, no lesions Extr: no edema, no cyanosis, no calf tenderness, no lesions, no varicosities Neuro: cn II-XII grossly intact, ue and le 5/5 muscle strength bilaterally, no los ue, le bilaterally and core Assessment and Plan - Assessment and Plan (Free Text) Assessment: A/P 56 M with PMHx of CAD, HTN, CHF, and EtOH abuse presenting with SOB. CHF exacerbation likely 2/2 medication non-compliance - Pro BNP on admission 4930 (Prior admissions: 3580, 3310, 3580) - ECHO: Dilated CM with severely impaired LV systolic function; 15-20% EF. No AR. Significant EF change from previous ECHO. - Lasix, Coreg, Lisinopril, Aldactone - Robitussin for cough PRN - I/O's, Daily weights - Low Sodium Diet - Ordered trope, BNP - Cath, as his EF has fallen significantly since August Hx of WA - Patient with hx of WA in 2011. - SIXTO on admission negative. - EKG on admission- sinus rhythm 103 bpm, LBBB. Also seen on EKG from 07/18/16. - ASA 81 mg PO daily - Coreg 6.25 mg PO BID CAD - ASA 81 mg PO daily - Coreg 6.25 mg PO BID HTN - Lisinopril 2.5 mg PO daily - Aldactone 25 mg PO daily - Coreg 6.250 mg PO BID - Lasix 40 mg IVP BID - Monitor Possible PVD - b/l NARDA: not read yet Dispo: can labeler, since his EF has fallen significantly since AUGUST. <Derek Chavez - Last Filed: 04/11/17 21:59> Objective - Vital Signs/Intake and Output Vital Signs (last 24 hours): Temp Pulse Resp BP Pulse Ox 97.9 F 65 20 103/59 L 98 04/11/17 15:10 04/11/17 18:00 04/11/17 15:10 04/11/17 15:10 04/11/17 15:10 Intake and Output: 04/11/17 04/12/17 18:59 06:59 Intake Total 400 Balance 400 - Medications Medications: Current Medications Aspirin (Ecotrin) 81 mg PO DAILY [facility] Last Admin: 04/11/17 10:36 Dose: 81 mg Carvedilol (Coreg) 6.25 mg PO BID [facility] Last Admin: 04/11/17 18:00 Dose: 6.25 mg Famotidine (Pepcid) 20 mg PO BID [facility] Last Admin: 04/11/17 18:00 Dose: 20 mg Folic Acid (Folic Acid) 1 mg PO DAILY [facility] Last Admin: 04/11/17 10:37 Dose: 1 mg Furosemide (Lasix) 40 mg IVP BID [facility] Last Admin: 04/11/17 10:34 Dose: 40 mg Guaifenesin (Robitussin) 100 mg PO Q4H PRN PRN Reason: Cough Last Admin: 04/08/17 17:42 Dose: 100 mg Ketorolac Tromethamine (Toradol) 10 mg PO Q6 PRN PRN Reason: Pain, moderate (4-7) Last Admin: 04/11/17 15:06 Dose: 10 mg Lisinopril (Zestril) 2.5 mg PO DAILY [facility] Last Admin: 04/11/17 12:01 Dose: 2.5 mg Lorazepam (Ativan) 1 mg PO Q4H PRN PRN Reason: Symptoms of alcohol withdrawl Multivitamins (Hexavitamin) 1 tab PO DAILY [facility] Last Admin: 04/11/17 10:36 Dose: 1 tab [id number] Ethyl Esters (Lovaza) 1 gm PO BID [facility] Last Admin: 04/11/17 18:00 Dose: 1 gm Rosuvastatin Calcium (Crestor) 5 mg PO HS [facility] Last Admin: 04/10/17 22:23 Dose: 5 mg Spironolactone (Aldactone) 25 mg PO DAILY [facility] Last Admin: 04/11/17 10:36 Dose: 25 mg Thiamine HCl (Vitamin B1 Tab) 100 mg PO DAILY [facility] Last Admin: 04/11/17 10:37 Dose: 100 mg - Labs Labs: 04/11/17 11:44 04/11/17 11:44 PT 14.9 SECONDS (9.7-12.2) H 04/10/17 11:12 INR 1.3 04/10/17 11:12 APTT 33 SECONDS (21-34) D 04/07/17 17:12 Attending/Attestation - Attestation I have personally seen and examined this patient.: Yes I have fully participated in the care of the patient.: Yes I have reviewed all pertinent clinical information, including history, physical exam and plan: Yes Notes (Text): 04/11/17 21:58 will need further w/u with complete heart cath cont GDMT for CHF
[2017-04-09 08:47] LABS: BASO # 0.1 K/uL (0.0-0.2); BASO % 1.6 % (0.0-2.0); EOS # 0.3 K/uL (0.0-0.7); EOS % 6.7 % (0.0-4.0); HEMATOCRIT 33.6 % (35.0-51.0); LYMPH # 1.1 K/uL (1.0-4.3); LYMPH % 28.7 % (20.0-40.0); MEAN CELL VOLUME 97.9 fL (80.0-94.0); MEAN CORPUSCULAR HEMOGLOBIN 31.7 pg (27.0-31.0); MEAN CORPUSCULAR HGB CONC 32.4 g/dL (33.0-37.0); MEAN PLATELET VOLUME 8.6 fL (7.2-11.7); MONO # 0.5 K/uL (0.0-0.8); MONO % 13.4 % (0.0-10.0); NRBC % 0.2 % (0.0-2.0); RED CELL DISTRIBUTION WIDTH 16.1 % (11.5-14.5); WHITE BLOOD COUNT 3.9 K/uL (4.8-10.8)
[2017-04-09 09:05] LABS: ALKALINE PHOSPHATASE 71 U/L (38-126); ALT/SGPT 28 U/L (21-72); AST/SGOT 27 U/L (17-59); BILIRUBIN,TOTAL 0.8 mg/dL (0.2-1.3); BLOOD UREA NITROGEN 20 mg/dL (9-20); CALCIUM 8.5 mg/dl (8.6-10.4); CARBON DIOXIDE 28 mmol/L (22-30); CHLORIDE 97 mmol/L (98-107); CHOLESTEROL 97 mg/dL (0-199); GFR AFRICAN-AMERICAN > 60; GLUCOSE,RANDOM 83 mg/dL (75-110); MAGNESIUM 1.4 mg/dL (1.6-2.3); PHOSPHOROUS 3.7 mg/dL (2.5-4.5); SODIUM 133 mmol/L (132-148); TOTAL PROTEIN 7.7 g/dL (6.3-8.3)
[2017-04-09 09:07] LABS: ALB/GLOB RATIO 0.8 (1.0-2.1)
[2017-04-09] MEDS: Magnesium Oxide 400 mg Tab UD PO SCH (09:18)
[2017-04-09] MEDS: Multiple Vitamins Tab PO SCH (09:19)
[2017-04-09 09:35] LABS: THYROID STIMULATING HORMONE 2.43 mIU/L (0.46-4.68)
[2017-04-09 10:10] LABS: FOLATE 14.9 ng/mL
[2017-04-09] MEDS: Magnesium Sulfate 1 gm in D5W 1 GM/100 ML BAG IVPB SCH ×2 (11:35→13:44)
[2017-04-09] MEDS: Omega-3-Acid Ethyl Esters 1 GM Cap PO SCH ×2 (13:42→18:00)
--- NOTE | 2017-04-09 16:23 | VASCLAB ---
PROCEDURE: Lower Extremity Venous Duplex Exam. HISTORY: Edema; calf tenderness PRIORS: Last exam 08/2016, normal. TECHNIQUE: Bilateral common femoral, femoral, popliteal and posterior tibial, peroneal and great saphenous veins were evaluated. Flow was assessed with color Doppler, compressibility, assessment of phasic flow and augmentation response. Report prepared by SIMEON Cuadra, RVT FINDINGS: RIGHT: 1. Common Femoral Vein: 1.1. Compressibility - Fully compressible: Thrombus - None : Flow - Phasic: Augmentation -Normal: Reflux - None. 2. Femoral Vein: 2.1. Compressibility - Fully compressible: Thrombus - None : Flow - Phasic: Augmentation -Normal: Reflux - None. 3. Popliteal Vein: 3.1. Compressibility - Fully compressible: Thrombus - None : Flow - Phasic: Augmentation -Normal: Reflux - Moderate. 4.14 seconds 4. Posterior Tibial Vein: 4.1. Compressibility - Fully compressible: Thrombus - None: Flow - Phasic: Augmentation -Normal: Reflux - Mild. 2.13 seconds 5. Peroneal Vein: 5.1. Compressibility - Fully compressible: Thrombus - None: Flow - Phasic: Augmentation -Normal: Reflux - None. 6. Great Saphenous Vein: 6.1. Compressibility - Fully compressible: Thrombus - None: Flow - Phasic: Augmentation - Normal: Reflux - None. LEFT: 1. Common Femoral Vein: 1.1. Compressibility - Fully compressible: Thrombus - None: Flow - Phasic: Augmentation -Normal: Reflux - None. 2. Femoral Vein: 2.1. Compressibility - Fully compressible: Thrombus - None: Flow - Phasic: Augmentation -Normal: Reflux - None. 3. Popliteal Vein: 3.1. Compressibility - Fully compressible: Thrombus - None : Flow - Phasic: Augmentation -Normal: Reflux - None. 4. Posterior Tibial Vein: 4.1. Compressibility - Fully compressible: Thrombus - None: Flow - Phasic: Augmentation -Normal: Reflux - None. 5. Peroneal Vein: 5.1. Compressibility - Fully compressible: Thrombus - None: Flow - Phasic: Augmentation -Normal: Reflux - Moderate. 4.72 seconds 6. Great Saphenous Vein: 6.1. Compressibility - Fully compressible: Thrombus - None: Flow - Phasic: Augmentation - Normal: Reflux - None. OTHER FINDINGS: Right: None significant. Left: None significant. IMPRESSION: Right: No evidence of deep or superficial vein thrombosis of the right lower extremity. Valvular incompetence noted of the popliteal and posterior tibial veins. Left: No evidence of deep or superficial vein thrombosis of the left lower extremity. Valvular incompetence noted of the peroneal veins.
--- NOTE | 2017-04-09 17:01 | CP.PCM.PN ---
"<Rhonda Corbin - Last Filed: 04/09/17 16:49> Subjective - Date & Time of Evaluation Date of Evaluation: 04/09/17 Time of Evaluation: 08:15 - Subjective Subjective: Patient has been seen and examined. Patient has been complaining of a dry cough but it has improved. Patient denies any fevers, chills, chest pain, abdominal pain, changes in bowel habits, or urinary symptoms. Patient does complain of distal leg soreness. Objective - Vital Signs/Intake and Output Vital Signs (last 24 hours): Temp Pulse Resp BP Pulse Ox 97.6 F 71 20 114/53 L 96 04/09/17 09:16 04/09/17 12:30 04/09/17 09:16 04/09/17 11:00 04/09/17 09:16 Intake and Output: 04/09/17 04/09/17 06:59 18:59 Intake Total 200 700 Output Total 1500 Balance 200 -800 - Medications Medications: Current Medications Aspirin (Ecotrin) 81 mg PO DAILY [facility] Last Admin: 04/09/17 09:19 Dose: 81 mg Carvedilol (Coreg) 6.25 mg PO BID [facility] Last Admin: 04/09/17 10:45 Dose: Not Given Famotidine (Pepcid) 20 mg PO BID [facility] Last Admin: 04/09/17 09:19 Dose: 20 mg Folic Acid (Folic Acid) 1 mg PO DAILY [facility] Last Admin: 04/09/17 09:19 Dose: 1 mg Furosemide (Lasix) 40 mg IVP BID [facility] Last Admin: 04/09/17 09:20 Dose: 40 mg Guaifenesin (Robitussin) 100 mg PO Q4H PRN PRN Reason: Cough Last Admin: 04/08/17 17:42 Dose: 100 mg Lisinopril (Zestril) 2.5 mg PO DAILY [facility] Last Admin: 04/09/17 11:00 Dose: Not Given Lorazepam (Ativan) 1 mg PO Q4H PRN PRN Reason: Symptoms of alcohol withdrawl Multivitamins (Hexavitamin) 1 tab PO DAILY [facility] Last Admin: 04/09/17 09:19 Dose: 1 tab [id number] Ethyl Esters (Lovaza) 1 gm PO BID [facility] Last Admin: 04/09/17 13:42 Dose: 1 gm Rosuvastatin Calcium (Crestor) 5 mg PO HS [facility] Last Admin: 04/08/17 21:11 Dose: 5 mg Spironolactone (Aldactone) 25 mg PO DAILY [facility] Last Admin: 04/09/17 09:19 Dose: 25 mg Thiamine HCl (Vitamin B1 Tab) 100 mg PO DAILY [facility] Last Admin: 04/09/17 09:19 Dose: 100 mg - Labs Labs: 04/09/17 08:38 04/09/17 08:38 PT 15.3 SECONDS (9.7-12.2) H 04/07/17 17:12 INR 1.4 04/07/17 17:12 APTT 33 SECONDS (21-34) D 04/07/17 17:12 - Additional Findings Additional findings: Constitutional Appears: No Acute Distress - Head Exam Head Exam: ATRAUMATIC, NORMAL INSPECTION, NORMOCEPHALIC - Eye Exam Eye Exam: Normal appearance - ENT Exam ENT Exam: Mucous Membranes Moist - Respiratory Exam Respiratory Exam: Clear to Ausculation Bilateral, NORMAL BREATHING PATTERN - Cardiovascular Exam Cardiovascular Exam: RRR, +S1, +S2 - GI/Abdominal Exam GI & Abdominal Exam: Soft. absent: Tenderness - Extremities Exam Extremities Exam: Absent: Pedal Edema - Neurological Exam Neurological Exam: Alert, Awake, Oriented x3 - Psychiatric Exam Psychiatric exam: Normal Affect, Normal Mood - Skin Skin Exam: Normal Color, Warm Assessment and Plan - Assessment and Plan (Free Text) Assessment: 56 year old male with PMHx of CHF (EF<20%), ND, CAD, HTN, and ETOH abuse admitted for SOB 2/2 to CHF exacerbation. Plan: CHF exacerbation Admit to telemetry Patient with history of systolic CHF, off meds for 1 week Pro BNP on admission 4930 (Prior admissions: 3580, 3310, 3580) Pro BNP (04/07/17): 6340 || Pro BNP (04/09/17): 3040 CXR (04/06/17): cardiomegaly, no obvious infiltrate (f/u offical read) EKG (04/06/17): NSR, 79 BPM, right axis deviation ECHO (08/25/16): EF <25%, LV moderately dilated, global hypokinesis of LV, moderate pulm HTN Quantiferon negative on previous admission (03/14/17) ECHO ordered showed EF between 15-20%. Plan for Cath per Cardio Cardio Consult (Dr. Chavez) - Recs appreciated Cont. the following medications: Lasix 40 mg IVP BID Coreg 6.25 mg PO BID Lisinopril 2.5 mg PO daily Aldactone 25 mg PO daily Crestor 5 HS Robitussin for cough PRN I/O's Daily weights Low Sodium Diet Pedal edema (Resolved) Likely secondary to CHF exacerbation. SCDs contraindicated US negative for DVT Hx of ND Patient with hx of ND in 2011. SIXTO on admission negative. EKG on admission- sinus rhythm 103 bpm, LBBB. Also seen on EKG from 07/18/16. 3rd EKG had occasional PVC's Troponins NEGATIVE x 3 Peripheral Vascular Disease Lower Ext Arterial Duplex Scan showed Valvular incompetence of right popliteal and posterior tibial veins and Left peroneal veins. NO DVT B/L. ASA 81 mg PO daily Coreg 6.25 mg PO BID Lisinopril 2.5 mg PO daily Crestor 5 PO HS CAD (coronary artery disease) Patient with hx of ND in 2011. SIXTO on admission negative. EKG on admission- sinus rhythm 103 bpm, LBBB. Also seen on EKG from 07/18/16. ASA 81 mg PO daily Coreg 6.25 mg PO BID Crestor 5 PO HS HTN (hypertension) Initially hypotensive in ED Lisinopril 2.5 mg PO daily Aldactone 25 mg PO daily Coreg 6.250 mg PO BID (HOLD until UDS negative for cocaine) Lasix 40 mg IVP BID Monitor Alcohol abuse Alcohol level 143 Folic Acid 1 mg PO daily Thiamine 100 mg PO daily MV 1 tab PO daily CIWA protocol Clonidine 0.1mg PO Q4H PRN withdrawal symptoms Ativan 1mg IV Q4H PRN Seizure precautions Fall precautions 04/06/17 UDS negative except Alcohol Leukopenia WBC 3.7 on presentation HIV NEGATIVE Elevated INR believed 2/2 liver damage from chronic alcoholism INR 1.4 Macrocytic anemia MCV 100.3 2/2 long-term alcohol abuse B12 an Folate Low HDL Start Lovaza Proteinuria UA: 1+ protein Continue home zestril 2.5mg PO Daily Prophylactic measure Heparin 5000 SC Q8H Pepcid 20 mg PO BID SCDs contraindicated due to lower extremity edema Dispo: Patient refused AICD on admission. I have been reinforcing the need for AICD on every visit. Patient understands risk associated with not getting an AICD including . Patient stated that he will cont. to think about it, but he is afraid of surgery. Rhonda Corbin PGY-1 Discussed with Attending. <Angela Schmitt V - Last Filed: 04/09/17 22:37> Objective - Vital Signs/Intake and Output Vital Signs (last 24 hours): Temp Pulse Resp BP Pulse Ox 97.4 F L 60 20 104/74 98 04/09/17 15:21 04/09/17 18:00 04/09/17 15:21 04/09/17 18:00 04/09/17 15:21 Intake and Output: 04/09/17 04/10/17 18:59 06:59 Intake Total 700 Output Total 1500 Balance -800 - Medications Medications: Current Medications Aspirin (Ecotrin) 81 mg PO DAILY [facility] Last Admin: 04/09/17 09:19 Dose: 81 mg Carvedilol (Coreg) 6.25 mg PO BID [facility] Last Admin: 04/09/17 18:00 Dose: 6.25 mg Famotidine (Pepcid) 20 mg PO BID [facility] Last Admin: 04/09/17 18:00 Dose: 20 mg Folic Acid (Folic Acid) 1 mg PO DAILY [facility] Last Admin: 04/09/17 09:19 Dose: 1 mg Furosemide (Lasix) 40 mg IVP BID [facility] Last Admin: 04/09/17 18:00 Dose: 40 mg Guaifenesin (Robitussin) 100 mg PO Q4H PRN PRN Reason: Cough Last Admin: 04/08/17 17:42 Dose: 100 mg Lisinopril (Zestril) 2.5 mg PO DAILY [facility] Last Admin: 04/09/17 11:00 Dose: Not Given Lorazepam (Ativan) 1 mg PO Q4H PRN PRN Reason: Symptoms of alcohol withdrawl Multivitamins (Hexavitamin) 1 tab PO DAILY [facility] Last Admin: 04/09/17 09:19 Dose: 1 tab [id number] Ethyl Esters (Lovaza) 1 gm PO BID [facility] Last Admin: 04/09/17 18:00 Dose: 1 gm Rosuvastatin Calcium (Crestor) 5 mg PO HS [facility] Last Admin: 04/09/17 21:20 Dose: 5 mg Spironolactone (Aldactone) 25 mg PO DAILY [facility] Last Admin: 04/09/17 09:19 Dose: 25 mg Thiamine HCl (Vitamin B1 Tab) 100 mg PO DAILY [facility] Last Admin: 04/09/17 09:19 Dose: 100 mg - Labs Labs: 04/09/17 08:38 04/09/17 08:38 PT 15.3 SECONDS (9.7-12.2) H 04/07/17 17:12 INR 1.4 04/07/17 17:12 APTT 33 SECONDS (21-34) D 04/07/17 17:12 Attending/Attestation - Attestation I have personally seen and examined this patient.: Yes I have fully participated in the care of the patient.: Yes I have reviewed all pertinent clinical information, including history, physical exam and plan: Yes Notes (Text): Patient seen, examined and case discussed with day-time resident. Patient seen at bedside. Patient reports swelling in the legs has resolved alot. Weights reflect: 148lbs to 124lbs Patient reports shortness of breathe has improved. Patient reports pleuritic chest pain; Patient has not made a decision about AICD. Per cardiology, recommending for cardiac cath in light of worsening EF. WIll need to follow-up with cardiology, when patient is to have cardiac cath. Assessment/Plan 1) Acute systolic CHF exacerbation * Admit to telemetry * Patient with history of systolic CHF, off meds for 1 week * Pro BNP on admission 4930 (Prior admissions: 3580, 3310, 3580) * CXR (04/06/17): cardiomegaly, no obvious infiltrate * EKG (04/06/17): NSR, 79 BPM, right axis deviation * ECHO (08/25/16): EF <25%, LV moderately dilated, global hypokinesis of LV, moderate pulm HTN * Quantiferon negative on previous admission (03/14/17) * ECHO ordered: EF: 15-20% systolic * Cardio Consult (Dr. Chavez) on board * Cont. the following medications: * Lasix 40 mg IVP BID * Coreg 6.25 mg PO BID * Lisinopril 2.5 mg PO daily * Aldactone 25 mg PO daily * Crestor 5 HS * Robitussin for cough PRN * Aspirin 81mg PO daily * I/O's * Daily weights-->improved 148 to 124lbs * Low Sodium Diet 2) Pedal edema * Likely secondary to CHF exacerbation. * SCDs contraindicated * US negative for DVT 3) Hx of ND * Patient with hx of ND in 2011. * SIXTO on admission negative. * EKG on admission- sinus rhythm 103 bpm, LBBB. Also seen on EKG from 07/18/16. 3rd EKG had occasional PVC's * Troponins NEGATIVE x 3 * ASA 81 mg PO daily * Coreg 6.25 mg PO BID * Lisinopril 2.5 mg PO daily * Crestor 5 PO HS 4) CAD (coronary artery disease) * Patient with hx of ND in 2011. * SIXTO on admission negative. * EKG on admission- sinus rhythm 103 bpm, LBBB. Also seen on EKG from 07/18/16. * ASA 81 mg PO daily * Coreg 6.25 mg PO BID * Crestor 5MG PO HS 5) HTN (hypertension) Initially hypotensive in ED * Lisinopril 2.5 mg PO daily * Aldactone 25 mg PO daily * Coreg 6.250 mg PO BID (HOLD until UDS negative for cocaine) * Lasix 40 mg IVP BID * Monitor 6) Alcohol abuse * Alcohol level 143 * Folic Acid 1 mg PO daily * Thiamine 100 mg PO daily * MV 1 tab PO daily * CIWA protocol * Clonidine 0.1mg PO Q4H PRN withdrawal symptoms * Ativan 1mg IV Q4H PRN * Seizure precautions * Fall precautions * 04/06/17 UDS negative except Alcohol 7) Leukopenia * WBC 3.7 on presentation * HIV NEGATIVE * History of alcoholism * Neutrophil >2.0 8) Elevated INR * believed 2/2 liver damage from chronic alcoholism * INR 1.4 9) Macrocytic anemia * MCV 100.3 * 2/2 long-term alcohol abuse * B12 an Folate 10) Proteinuria * UA: 1+ protein * Continue home zestril 2.5mg PO Daily 11) Prophylactic measure * Heparin 5000 SC Q8H * Pepcid 20 mg PO BID * SCDs contraindicated due to lower extremity edema Dispo: Patient refused AICD on admission; wants to think about it. Cardiology recommending for cardiac cath. Cardiology to discuss risk and benefits of cardiac cath with the patient."
--- NOTE | 2017-04-10 02:41 | CP.PCM.PN ---
<Trino Otero - Last Filed: 04/10/17 20:25> Subjective - Date & Time of Evaluation Date of Evaluation: 04/10/17 Time of Evaluation: 07:00 - Subjective Subjective: Cardiology progress note for Dr. Scott Tang DO PGY - 1, Pt s/e bedside. Pt is doing well, states that swelling in his b/l LE is much better than when he first arrived. Pt states his sob is near-resolved. No cp. No further complaints at this time. Objective - Vital Signs/Intake and Output Vital Signs (last 24 hours): Temp Pulse Resp BP Pulse Ox 97.9 F 78 20 100/69 99 04/09/17 23:50 04/10/17 00:05 04/09/17 23:50 04/09/17 23:50 04/09/17 23:50 Intake and Output: 04/09/17 04/10/17 18:59 06:59 Intake Total 700 Output Total 1500 Balance -800 - Medications Medications: Current Medications Aspirin (Ecotrin) 81 mg PO DAILY [facility] Last Admin: 04/09/17 09:19 Dose: 81 mg Carvedilol (Coreg) 6.25 mg PO BID [facility] Last Admin: 04/09/17 18:00 Dose: 6.25 mg Famotidine (Pepcid) 20 mg PO BID [facility] Last Admin: 04/09/17 18:00 Dose: 20 mg Folic Acid (Folic Acid) 1 mg PO DAILY [facility] Last Admin: 04/09/17 09:19 Dose: 1 mg Furosemide (Lasix) 40 mg IVP BID [facility] Last Admin: 04/09/17 18:00 Dose: 40 mg Guaifenesin (Robitussin) 100 mg PO Q4H PRN PRN Reason: Cough Last Admin: 04/08/17 17:42 Dose: 100 mg Lisinopril (Zestril) 2.5 mg PO DAILY [facility] Last Admin: 04/09/17 11:00 Dose: Not Given Lorazepam (Ativan) 1 mg PO Q4H PRN PRN Reason: Symptoms of alcohol withdrawl Multivitamins (Hexavitamin) 1 tab PO DAILY [facility] Last Admin: 04/09/17 09:19 Dose: 1 tab [id number] Ethyl Esters (Lovaza) 1 gm PO BID [facility] Last Admin: 04/09/17 18:00 Dose: 1 gm Rosuvastatin Calcium (Crestor) 5 mg PO HS [facility] Last Admin: 04/09/17 21:20 Dose: 5 mg Spironolactone (Aldactone) 25 mg PO DAILY [facility] Last Admin: 04/09/17 09:19 Dose: 25 mg Thiamine HCl (Vitamin B1 Tab) 100 mg PO DAILY [facility] Last Admin: 04/09/17 09:19 Dose: 100 mg - Labs Labs: 04/09/17 08:38 04/09/17 08:38 PT 15.3 SECONDS (9.7-12.2) H 04/07/17 17:12 INR 1.4 04/07/17 17:12 APTT 33 SECONDS (21-34) D 04/07/17 17:12 - Additional Findings Additional findings: Phys Exam: VS as below Const'l: a&o x 4, nad Head/Neck: neck supple, no jvd, trachea midline, carotid midline, no cervical /head mass Eyes: dolores, nonicteric sclera, eom intact ENT: auditory acuity grossly intact, throat not congested, no nasal deformity Cardio: rrr, no m/r/g, no carotid bruit, nml s1, s2 Pulm: no accessory muscle use, equal nml breath sounds bilaterally, ctab Abd: s/nt/nd, nbs x 4 q, no palpable masses Derm: no rashes, no ulcers, no lesions Extr: no edema, no cyanosis, no calf tenderness, no lesions, no varicosities Neuro: cn II-XII grossly intact, ue and le 5/5 muscle strength bilaterally, no los ue, le bilaterally and core Assessment and Plan - Assessment and Plan (Free Text) Assessment: A/P 56 M with PMHx of CAD, HTN, CHF, and EtOH abuse presenting with SOB. CHF exacerbation likely 2/2 medication non-compliance - Pro BNP on admission 4930. BNP Now: - ECHO: Dilated CM with severely impaired LV systolic function; 15-20% EF. No AR. Significant EF change from previous ECHO. - Lasix, Coreg, Lisinopril, Aldactone - Robitussin for cough PRN - I/O's, Daily weights - Low Sodium Diet - Ordered trope, BNP - Cath, as his EF has fallen significantly since August Hx of KS - Patient with hx of KS in 2011. - SIXTO on admission negative. - EKG on admission- sinus rhythm 103 bpm, LBBB. Also seen on EKG from 07/18/16. - ASA 81 mg PO daily - Coreg 6.25 mg PO BID CAD - ASA 81 mg PO daily - Coreg 6.25 mg PO BID HTN - Lisinopril 2.5 mg PO daily - Aldactone 25 mg PO daily - Coreg 6.250 mg PO BID - Lasix 40 mg IVP BID - Monitor Possible PVD - b/l NARDA: not read yet Dispo: pathology laboratory technologist, since his EF has fallen significantly since AUGUST. Pt will be taken to dental laboratory technician apprentice on Thursday. Thank you for this interesting consult Trino Tang DO PGY - 1, d/w Dr. Chavez <Derek Chavez - Last Filed: 04/11/17 22:01> Objective - Vital Signs/Intake and Output Vital Signs (last 24 hours): Temp Pulse Resp BP Pulse Ox 97.9 F 65 20 103/59 L 98 04/11/17 15:10 04/11/17 18:00 04/11/17 15:10 04/11/17 15:10 04/11/17 15:10 Intake and Output: 04/11/17 04/12/17 18:59 06:59 Intake Total 400 Balance 400 - Medications Medications: Current Medications Aspirin (Ecotrin) 81 mg PO DAILY [facility] Last Admin: 04/11/17 10:36 Dose: 81 mg Carvedilol (Coreg) 6.25 mg PO BID [facility] Last Admin: 04/11/17 18:00 Dose: 6.25 mg Famotidine (Pepcid) 20 mg PO BID [facility] Last Admin: 04/11/17 18:00 Dose: 20 mg Folic Acid (Folic Acid) 1 mg PO DAILY [facility] Last Admin: 04/11/17 10:37 Dose: 1 mg Furosemide (Lasix) 40 mg IVP BID [facility] Last Admin: 04/11/17 10:34 Dose: 40 mg Guaifenesin (Robitussin) 100 mg PO Q4H PRN PRN Reason: Cough Last Admin: 04/08/17 17:42 Dose: 100 mg Ketorolac Tromethamine (Toradol) 10 mg PO Q6 PRN PRN Reason: Pain, moderate (4-7) Last Admin: 04/11/17 15:06 Dose: 10 mg Lisinopril (Zestril) 2.5 mg PO DAILY [facility] Last Admin: 04/11/17 12:01 Dose: 2.5 mg Lorazepam (Ativan) 1 mg PO Q4H PRN PRN Reason: Symptoms of alcohol withdrawl Multivitamins (Hexavitamin) 1 tab PO DAILY [facility] Last Admin: 04/11/17 10:36 Dose: 1 tab [id number] Ethyl Esters (Lovaza) 1 gm PO BID [facility] Last Admin: 04/11/17 18:00 Dose: 1 gm Rosuvastatin Calcium (Crestor) 5 mg PO HS [facility] Last Admin: 04/10/17 22:23 Dose: 5 mg Spironolactone (Aldactone) 25 mg PO DAILY [facility] Last Admin: 04/11/17 10:36 Dose: 25 mg Thiamine HCl (Vitamin B1 Tab) 100 mg PO DAILY [facility] Last Admin: 04/11/17 10:37 Dose: 100 mg - Labs Labs: 04/11/17 11:44 04/11/17 11:44 PT 14.9 SECONDS (9.7-12.2) H 04/10/17 11:12 INR 1.3 04/10/17 11:12 APTT 33 SECONDS (21-34) D 04/07/17 17:12 Attending/Attestation - Attestation I have personally seen and examined this patient.: Yes I have fully participated in the care of the patient.: Yes I have reviewed all pertinent clinical information, including history, physical exam and plan: Yes Notes (Text): 04/11/17 22:00 CHF - worsening EF hx of KS in 2011 no ischemic w/u in last 5 years plan for [facility] on Thursday cont GDMT for CHF and CAD
[2017-04-10] MEDS: Omega-3-Acid Ethyl Esters 1 GM Cap PO SCH ×2 (09:20→18:20)
[2017-04-10] MEDS: Multiple Vitamins Tab PO SCH (09:20)
--- NOTE | 2017-04-10 10:59 | CARD ---
APPROVED REPORT EKG Measurement Heart [id number] MD [id number] <Conclusion> Normal sinus rhythm Possible Left atrial enlargement Indeterminate axis Left bundle branch block Abnormal ECG
[2017-04-10 11:23] LABS: INR 1.3
[2017-04-10 11:27] LABS: BASO # 0.1 K/uL (0.0-0.2); BASO % 1.1 % (0.0-2.0); EOS # 0.2 K/uL (0.0-0.7); EOS % 4.8 % (0.0-4.0); HEMATOCRIT 36.6 % (35.0-51.0); LYMPH # 0.9 K/uL (1.0-4.3); LYMPH % 19.8 % (20.0-40.0); MEAN CELL VOLUME 97.6 fL (80.0-94.0); MEAN CORPUSCULAR HEMOGLOBIN 32.3 pg (27.0-31.0); MEAN CORPUSCULAR HGB CONC 33.1 g/dL (33.0-37.0); MEAN PLATELET VOLUME 8.5 fL (7.2-11.7); MONO # 0.6 K/uL (0.0-0.8); MONO % 13.7 % (0.0-10.0); NRBC % 0.1 % (0.0-2.0); RED CELL DISTRIBUTION WIDTH 16.2 % (11.5-14.5); WHITE BLOOD COUNT 4.6 K/uL (4.8-10.8)
[2017-04-10 11:44] LABS: ALKALINE PHOSPHATASE 78 U/L (38-126); ALT/SGPT 18 U/L (21-72); AST/SGOT 29 U/L (17-59); BILIRUBIN,TOTAL 0.6 mg/dL (0.2-1.3); BLOOD UREA NITROGEN 18 mg/dL (9-20); CALCIUM 8.9 mg/dl (8.6-10.4); CARBON DIOXIDE 26 mmol/L (22-30); CHLORIDE 94 mmol/L (98-107); GFR AFRICAN-AMERICAN > 60; GLUCOSE,RANDOM 95 mg/dL (75-110); MAGNESIUM 1.3 mg/dL (1.6-2.3); PHOSPHOROUS 3.1 mg/dL (2.5-4.5); POTASSIUM 3.9 mmol/L (3.6-5.2); SODIUM 132 mmol/L (132-148); TOTAL PROTEIN 9.4 g/dL (6.3-8.3)
[2017-04-10 11:53] LABS: ALB/GLOB RATIO 0.7 (1.0-2.1)
[2017-04-10] MEDS: Magnesium Sulfate 1 gm in D5W 1 GM/100 ML BAG IVPB SCH ×2 (14:18→15:22)
--- NOTE | 2017-04-10 18:51 | CP.PCM.PN ---
"<Zay Graham - Last Filed: 04/10/17 18:46> Subjective - Date & Time of Evaluation Date of Evaluation: 04/10/17 Time of Evaluation: 18:46 - Subjective Subjective: PGY-[address] Schmitt. No acute events noted overnight. Patient states his breathing is much improved from a few days ago. He says his LE swelling is improved as well. He denied chest pain, abdominal pain, shortness of breath, fever, vomiting, diarrhea. Objective - Vital Signs/Intake and Output Vital Signs (last 24 hours): Temp Pulse Resp BP Pulse Ox 97.7 F 71 20 110/73 96 04/10/17 15:24 04/10/17 15:24 04/10/17 15:24 04/10/17 18:19 04/10/17 15:24 Intake and Output: 04/10/17 04/10/17 06:59 18:59 Intake Total 600 Balance 600 - Medications Medications: Current Medications Aspirin (Ecotrin) 81 mg PO DAILY [facility] Last Admin: 04/10/17 09:19 Dose: 81 mg Carvedilol (Coreg) 6.25 mg PO BID [facility] Last Admin: 04/10/17 18:19 Dose: 6.25 mg Famotidine (Pepcid) 20 mg PO BID [facility] Last Admin: 04/10/17 18:20 Dose: 20 mg Folic Acid (Folic Acid) 1 mg PO DAILY [facility] Last Admin: 04/10/17 09:20 Dose: 1 mg Furosemide (Lasix) 40 mg IVP BID [facility] Last Admin: 04/10/17 18:19 Dose: 40 mg Guaifenesin (Robitussin) 100 mg PO Q4H PRN PRN Reason: Cough Last Admin: 04/08/17 17:42 Dose: 100 mg Lisinopril (Zestril) 2.5 mg PO DAILY [facility] Last Admin: 04/10/17 09:21 Dose: 2.5 mg Lorazepam (Ativan) 1 mg PO Q4H PRN PRN Reason: Symptoms of alcohol withdrawl Multivitamins (Hexavitamin) 1 tab PO DAILY [facility] Last Admin: 04/10/17 09:20 Dose: 1 tab Lydjw-0-Sfyi Ethyl Esters (Lovaza) 1 gm PO BID [facility] Last Admin: 04/10/17 18:20 Dose: 1 gm Rosuvastatin Calcium (Crestor) 5 mg PO HS [facility] Last Admin: 04/09/17 21:20 Dose: 5 mg Spironolactone (Aldactone) 25 mg PO DAILY [facility] Last Admin: 04/10/17 09:18 Dose: 25 mg Thiamine HCl (Vitamin B1 Tab) 100 mg PO DAILY [facility] Last Admin: 04/10/17 09:20 Dose: 100 mg - Labs Labs: 04/10/17 11:12 04/10/17 11:12 PT 14.9 SECONDS (9.7-12.2) H 04/10/17 11:12 INR 1.3 04/10/17 11:12 APTT 33 SECONDS (21-34) D 04/07/17 17:12 - Additional Findings Additional findings: Constitutional Appears: No Acute Distress - Head Exam Head Exam: ATRAUMATIC, NORMAL INSPECTION, NORMOCEPHALIC - Eye Exam Eye Exam: Normal appearance - ENT Exam ENT Exam: Mucous Membranes Moist - Respiratory Exam Respiratory Exam: Clear to Ausculation Bilateral, NORMAL BREATHING PATTERN - Cardiovascular Exam Cardiovascular Exam: RRR, +S1, +S2 - GI/Abdominal Exam GI & Abdominal Exam: Soft. absent: Tenderness - Extremities Exam Extremities Exam: Absent: Pedal Edema - Neurological Exam Neurological Exam: Alert, Awake, Oriented x3 - Psychiatric Exam Psychiatric exam: Normal Affect, Normal Mood - Skin Skin Exam: Normal Color, Warm Assessment and Plan - Assessment and Plan (Free Text) Assessment: Assessment: 56 year old male with PMHx of CHF (EF<20%), [place], CAD, HTN, and ETOH abuse admitted for SOB 2/2 to CHF exacerbation. Plan: CHF exacerbation Admit to telemetry Patient with history of systolic CHF, off meds for 1 week Pro BNP on admission 4930 (Prior admissions: 3580, 3310, 3580) Pro BNP (04/07/17): 6340 || Pro BNP (04/09/17): 3040 CXR (04/06/17): cardiomegaly, no obvious infiltrate (f/u offical read) EKG (04/06/17): NSR, 79 BPM, right axis deviation ECHO (08/25/16): EF <25%, LV moderately dilated, global hypokinesis of LV, moderate pulm HTN Quantiferon negative on previous admission (03/14/17) ECHO ordered showed EF between 15-20%. Plan for Cath per Cardio, cardio awaiting BNP/Trop to determine disposition, if patient stays then possible cath friday 04/13 Cardio Consult (Dr. Chavez) - Recs appreciated Cont. the following medications: Lasix 40 mg IVP BID Coreg 6.25 mg PO BID Lisinopril 2.5 mg PO daily Aldactone 25 mg PO daily Crestor 5 HS Robitussin for cough PRN I/O's Daily weights Low Sodium Diet Pedal edema (Resolved) Likely secondary to CHF exacerbation. SCDs contraindicated US negative for DVT Hx of [place] Patient with hx of [place] in 2011. SIXTO on admission negative. EKG on admission- sinus rhythm 103 bpm, LBBB. Also seen on EKG from 07/18/16. 3rd EKG had occasional PVC's Troponins NEGATIVE x 3 Peripheral Vascular Disease Lower Ext Arterial Duplex Scan showed Valvular incompetence of right popliteal and posterior tibial veins and Left peroneal veins. NO DVT B/L. ASA 81 mg PO daily Coreg 6.25 mg PO BID Lisinopril 2.5 mg PO daily Crestor 5 PO HS CAD (coronary artery disease) Patient with hx of [place] in 2011. SIXTO on admission negative. EKG on admission- sinus rhythm 103 bpm, LBBB. Also seen on EKG from 07/18/16. ASA 81 mg PO daily Coreg 6.25 mg PO BID Crestor 5 PO HS HTN (hypertension) Initially hypotensive in ED Lisinopril 2.5 mg PO daily Aldactone 25 mg PO daily Coreg 6.250 mg PO BID (HOLD until UDS negative for cocaine) Lasix 40 mg IVP BID Monitor Alcohol abuse Alcohol level 143 Folic Acid 1 mg PO daily Thiamine 100 mg PO daily MV 1 tab PO daily CIWA protocol Clonidine 0.1mg PO Q4H PRN withdrawal symptoms Ativan 1mg IV Q4H PRN Seizure precautions Fall precautions 04/06/17 UDS negative except Alcohol Leukopenia WBC 3.7 on presentation HIV NEGATIVE Elevated INR believed 2/2 liver damage from chronic alcoholism INR 1.4 Macrocytic anemia MCV 100.3 2/2 long-term alcohol abuse B12 an Folate Low HDL Start Lovaza Proteinuria UA: 1+ protein Continue home zestril 2.5mg PO Daily Prophylactic measure Heparin 5000 SC Q8H Pepcid 20 mg PO BID SCDs contraindicated due to lower extremity edema Dispo: Patient refused AICD on admission. I have been reinforcing the need for AICD on every visit. Patient understands risk associated with not getting an AICD including . Patient stated that he will cont. to think about it, but he is afraid of surgery. <Angela Schmitt V - Last Filed: 04/12/17 15:05> Objective - Vital Signs/Intake and Output Vital Signs (last 24 hours): Temp Pulse Resp BP Pulse Ox 98.3 F 68 20 120/82 98 04/12/17 09:39 04/12/17 12:30 04/12/17 09:39 04/12/17 11:30 04/12/17 09:39 Intake and Output: 04/12/17 04/12/17 06:59 18:59 Intake Total 150 400 Output Total 600 Balance 150 -200 - Medications Medications: Current Medications Aspirin (Ecotrin) 81 mg PO DAILY [facility] Last Admin: 04/12/17 10:09 Dose: 81 mg Carvedilol (Coreg) 6.25 mg PO BID [facility] Last Admin: 04/12/17 10:00 Dose: 6.25 mg Famotidine (Pepcid) 20 mg PO BID [facility] Last Admin: 04/12/17 10:09 Dose: 20 mg Folic Acid (Folic Acid) 1 mg PO DAILY [facility] Last Admin: 04/12/17 10:10 Dose: 1 mg Furosemide (Lasix) 40 mg IVP BID [facility] Last Admin: 04/12/17 10:00 Dose: 40 mg Guaifenesin (Robitussin) 100 mg PO Q4H PRN PRN Reason: Cough Last Admin: 04/08/17 17:42 Dose: 100 mg Ketorolac Tromethamine (Toradol) 10 mg PO Q6 PRN PRN Reason: Pain, moderate (4-7) Last Admin: 04/11/17 15:06 Dose: 10 mg Lisinopril (Zestril) 2.5 mg PO DAILY [facility] Last Admin: 04/12/17 11:30 Dose: 2.5 mg Lorazepam (Ativan) 1 mg PO Q4H PRN PRN Reason: Symptoms of alcohol withdrawl Multivitamins (Hexavitamin) 1 tab PO DAILY [facility] Last Admin: 04/12/17 10:09 Dose: 1 tab Cddas-0-Mlaf Ethyl Esters (Lovaza) 1 gm PO BID [facility] Last Admin: 04/12/17 10:09 Dose: 1 gm Rosuvastatin Calcium (Crestor) 5 mg PO HS [facility] Last Admin: 04/11/17 22:38 Dose: 5 mg Spironolactone (Aldactone) 25 mg PO DAILY [facility] Last Admin: 04/12/17 10:00 Dose: 25 mg Thiamine HCl (Vitamin B1 Tab) 100 mg PO DAILY [facility] Last Admin: 04/12/17 10:10 Dose: 100 mg - Labs Labs: 04/12/17 11:33 04/12/17 11:33 PT 14.9 SECONDS (9.7-12.2) H 04/10/17 11:12 INR 1.3 04/10/17 11:12 APTT 33 SECONDS (21-34) D 04/07/17 17:12 Attending/Attestation - Attestation I have personally seen and examined this patient.: Yes I have fully participated in the care of the patient.: Yes I have reviewed all pertinent clinical information, including history, physical exam and plan: Yes Notes (Text): This is late computer entry for 04/10/17. Patient seen, examined and case discussed with day-time resident. Patient seen at bedside. Patient reports swelling in the legs has resolved alot. Weights reflect: 148lbs to 123lbs Patient reports shortness of breathe has improved. Patient still refuses to have the AICD. Per cardiology, recommending for inpatient cardiac cath in light of worsening EF. Patient refused blood work; re-ordered for Probnp. Assessment/Plan 1) Acute systolic CHF exacerbation * Admit to telemetry * Patient with history of systolic CHF, off meds for 1 week * Pro BNP on admission 4930 (Prior admissions: 3580, 3310, 3580) * CXR (04/06/17): cardiomegaly, no obvious infiltrate * EKG (04/06/17): NSR, 79 BPM, right axis deviation * ECHO (08/25/16): EF <25%, LV moderately dilated, global hypokinesis of LV, moderate pulm HTN * Quantiferon negative on previous admission (03/14/17) * ECHO ordered: EF: 15-20% systolic * Cardio Consult (Dr. Chavez) on board * Inpatient cardiac cath * Cont. the following medications: * Lasix 40 mg IVP BID * Coreg 6.25 mg PO BID * Lisinopril 2.5 mg PO daily * Aldactone 25 mg PO daily * Crestor 5 HS * Robitussin for cough PRN * Aspirin 81mg PO daily * I/O's * Daily weights-->improved 148 to 123lbs * Low Sodium Diet 2) Pedal edema * Likely secondary to CHF exacerbation. * SCDs contraindicated * US negative for DVT * Improved 3) Hx of [place] * Patient with hx of [place] in 2011. * SIXTO on admission negative. * EKG on admission- sinus rhythm 103 bpm, LBBB. Also seen on EKG from 07/18/16. 3rd EKG had occasional PVC's * Troponins NEGATIVE x 3 * ASA 81 mg PO daily * Coreg 6.25 mg PO BID * Lisinopril 2.5 mg PO daily * Crestor 5 PO HS 4) CAD (coronary artery disease) * Patient with hx of [place] in 2011. * SIXTO on admission negative. * EKG on admission- sinus rhythm 103 bpm, LBBB. Also seen on EKG from 07/18/16. * ASA 81 mg PO daily * Coreg 6.25 mg PO BID * Crestor 5MG PO HS 5) HTN (hypertension) * Lisinopril 2.5 mg PO daily * Aldactone 25 mg PO daily * Coreg 6.250 mg PO BID (HOLD until UDS negative for cocaine) * Lasix 40 mg IVP BID * Monitor 6) Alcohol abuse * Alcohol level 143 * Folic Acid 1 mg PO daily * Thiamine 100 mg PO daily * MV 1 tab PO daily * [facility] protocol * Clonidine 0.1mg PO Q4H PRN withdrawal symptoms * Ativan 1mg IV Q4H PRN * Seizure precautions * Fall precautions * 04/06/17 UDS negative except Alcohol 7) Leukopenia * WBC 3.7 on presentation * HIV NEGATIVE * History of alcoholism * Neutrophil >2.0 8) Elevated INR * believed 2/2 liver damage from chronic alcoholism * INR 1.4 9) Macrocytic anemia * MCV 100.3 * 2/2 long-term alcohol abuse * B12 an Folate 10) Proteinuria * UA: 1+ protein * Continue home zestril 2.5mg PO Daily 11) Prophylactic measure * Heparin 5000 SC Q8H * Pepcid 20 mg PO BID * SCDs contraindicated due to lower extremity edema Dispo: Patient refused AICD on admission; wants to think about it. Patient to have inpatient cardiac cath."
--- NOTE | 2017-04-11 05:45 | CP.PCM.PN ---
"<Rhonda Corbin - Last Filed: 04/11/17 05:43> Subjective - Date & Time of Evaluation Date of Evaluation: 04/11/17 Time of Evaluation: 05:44 - Subjective Subjective: No acute events noted overnight. Patient states his breathing is much improved from a few days ago. He says his LE swelling is improved as well. He denied chest pain, abdominal pain, shortness of breath, fever, vomiting, diarrhea. Objective - Vital Signs/Intake and Output Vital Signs (last 24 hours): Temp Pulse Resp BP Pulse Ox 97.7 F 68 20 100/68 99 04/10/17 15:24 04/11/17 04:07 04/10/17 23:40 04/10/17 23:40 04/10/17 23:40 Intake and Output: 04/10/17 04/11/17 18:59 06:59 Intake Total 600 Balance 600 - Medications Medications: Current Medications Aspirin (Ecotrin) 81 mg PO DAILY [facility] Last Admin: 04/10/17 09:19 Dose: 81 mg Carvedilol (Coreg) 6.25 mg PO BID [facility] Last Admin: 04/10/17 18:19 Dose: 6.25 mg Famotidine (Pepcid) 20 mg PO BID [facility] Last Admin: 04/10/17 18:20 Dose: 20 mg Folic Acid (Folic Acid) 1 mg PO DAILY [facility] Last Admin: 04/10/17 09:20 Dose: 1 mg Furosemide (Lasix) 40 mg IVP BID [facility] Last Admin: 04/10/17 20:00 Dose: Not Given Guaifenesin (Robitussin) 100 mg PO Q4H PRN PRN Reason: Cough Last Admin: 04/08/17 17:42 Dose: 100 mg Lisinopril (Zestril) 2.5 mg PO DAILY [facility] Last Admin: 04/10/17 09:21 Dose: 2.5 mg Lorazepam (Ativan) 1 mg PO Q4H PRN PRN Reason: Symptoms of alcohol withdrawl Multivitamins (Hexavitamin) 1 tab PO DAILY [facility] Last Admin: 04/10/17 09:20 Dose: 1 tab Wgfoh-6-Iglx Ethyl Esters (Lovaza) 1 gm PO BID [facility] Last Admin: 04/10/17 18:20 Dose: 1 gm Rosuvastatin Calcium (Crestor) 5 mg PO HS [facility] Last Admin: 04/10/17 22:23 Dose: 5 mg Spironolactone (Aldactone) 25 mg PO DAILY [facility] Last Admin: 04/10/17 09:18 Dose: 25 mg Thiamine HCl (Vitamin B1 Tab) 100 mg PO DAILY [facility] Last Admin: 04/10/17 09:20 Dose: 100 mg - Labs Labs: 04/10/17 11:12 04/10/17 11:12 PT 14.9 SECONDS (9.7-12.2) H 04/10/17 11:12 INR 1.3 04/10/17 11:12 APTT 33 SECONDS (21-34) D 04/07/17 17:12 - Additional Findings Additional findings: Constitutional Appears: No Acute Distress - Head Exam Head Exam: ATRAUMATIC, NORMAL INSPECTION, NORMOCEPHALIC - Eye Exam Eye Exam: Normal appearance - ENT Exam ENT Exam: Mucous Membranes Moist - Respiratory Exam Respiratory Exam: Clear to Ausculation Bilateral, NORMAL BREATHING PATTERN - Cardiovascular Exam Cardiovascular Exam: RRR, +S1, +S2 - GI/Abdominal Exam GI & Abdominal Exam: Soft. absent: Tenderness - Extremities Exam Extremities Exam: Absent: Pedal Edema - Neurological Exam Neurological Exam: Alert, Awake, Oriented x3 - Psychiatric Exam Psychiatric exam: Normal Affect, Normal Mood - Skin Skin Exam: Normal Color, Warm Assessment and Plan - Assessment and Plan (Free Text) Assessment: 56 year old male with PMHx of CHF (EF<20%), [place], CAD, HTN, and ETOH abuse admitted for SOB 2/2 to CHF exacerbation. Plan: CHF exacerbation Admit to telemetry Patient with history of systolic CHF, off meds for 1 week Pro BNP on admission 4930 (Prior admissions: 3580, 3310, 3580) Pro BNP (04/07/17): 6340 || Pro BNP (04/09/17): 3040 CXR (04/06/17): cardiomegaly, no obvious infiltrate (f/u offical read) EKG (04/06/17): NSR, 79 BPM, right axis deviation ECHO (08/25/16): EF <25%, LV moderately dilated, global hypokinesis of LV, moderate pulm HTN Quantiferon negative on previous admission (03/14/17) ECHO ordered showed EF between 15-20%. Plan for Cath per Cardio, cardio awaiting BNP/Trop to determine disposition, if patient stays then possible cath friday 04/13 Cardio Consult (Dr. Chavez) - Recs appreciated Cont. the following medications: Lasix 40 mg IVP BID Coreg 6.25 mg PO BID Lisinopril 2.5 mg PO daily Aldactone 25 mg PO daily Crestor 5 HS Robitussin for cough PRN I/O's Daily weights Low Sodium Diet Pedal edema (Resolved) Likely secondary to CHF exacerbation. SCDs contraindicated US negative for DVT Hx of [place] Patient with hx of [place] in 2011. SIXTO on admission negative. EKG on admission- sinus rhythm 103 bpm, LBBB. Also seen on EKG from 07/18/16. 3rd EKG had occasional PVC's Troponins NEGATIVE x 3 Peripheral Vascular Disease Lower Ext Arterial Duplex Scan showed Valvular incompetence of right popliteal and posterior tibial veins and Left peroneal veins. NO DVT B/L. ASA 81 mg PO daily Coreg 6.25 mg PO BID Lisinopril 2.5 mg PO daily Crestor 5 PO HS CAD (coronary artery disease) Patient with hx of [place] in 2011. SIXTO on admission negative. EKG on admission- sinus rhythm 103 bpm, LBBB. Also seen on EKG from 07/18/16. ASA 81 mg PO daily Coreg 6.25 mg PO BID Crestor 5 PO HS HTN (hypertension) Initially hypotensive in ED Lisinopril 2.5 mg PO daily Aldactone 25 mg PO daily Coreg 6.250 mg PO BID (HOLD until UDS negative for cocaine) Lasix 40 mg IVP BID Monitor Alcohol abuse Alcohol level 143 Folic Acid 1 mg PO daily Thiamine 100 mg PO daily MV 1 tab PO daily [facility] protocol Clonidine 0.1mg PO Q4H PRN withdrawal symptoms Ativan 1mg IV Q4H PRN Seizure precautions Fall precautions 04/06/17 UDS negative except Alcohol Leukopenia WBC 3.7 on presentation HIV NEGATIVE Elevated INR believed 2/2 liver damage from chronic alcoholism INR 1.4 Macrocytic anemia MCV 100.3 2/2 long-term alcohol abuse B12 an Folate Low HDL Start Lovaza Proteinuria UA: 1+ protein Continue home zestril 2.5mg PO Daily Prophylactic measure Heparin 5000 SC Q8H Pepcid 20 mg PO BID SCDs contraindicated due to lower extremity edema Dispo: Patient refused AICD on admission. I have been reinforcing the need for AICD on every visit. Patient understands risk associated with not getting an AICD including . Patient stated that he will cont. to think about it, but he is afraid of surgery. Deweylevon Shaquille- PGY1 <Ander Hinojosa - Last Filed: 04/11/17 14:40> Objective - Vital Signs/Intake and Output Vital Signs (last 24 hours): Temp Pulse Resp BP Pulse Ox 98.1 F 74 17 116/76 95 04/11/17 07:05 04/11/17 12:03 04/11/17 07:05 04/11/17 12:03 04/11/17 07:05 Intake and Output: 04/11/17 04/11/17 06:59 18:59 Intake Total 300 Balance 300 - Medications Medications: Current Medications Aspirin (Ecotrin) 81 mg PO DAILY [facility] Last Admin: 04/11/17 10:36 Dose: 81 mg Carvedilol (Coreg) 6.25 mg PO BID [facility] Last Admin: 04/11/17 10:36 Dose: 6.25 mg Famotidine (Pepcid) 20 mg PO BID [facility] Last Admin: 04/11/17 10:35 Dose: 20 mg Folic Acid (Folic Acid) 1 mg PO DAILY [facility] Last Admin: 04/11/17 10:37 Dose: 1 mg Furosemide (Lasix) 40 mg IVP BID [facility] Last Admin: 04/11/17 10:34 Dose: 40 mg Guaifenesin (Robitussin) 100 mg PO Q4H PRN PRN Reason: Cough Last Admin: 04/08/17 17:42 Dose: 100 mg Lisinopril (Zestril) 2.5 mg PO DAILY [facility] Last Admin: 04/11/17 12:01 Dose: 2.5 mg Lorazepam (Ativan) 1 mg PO Q4H PRN PRN Reason: Symptoms of alcohol withdrawl Multivitamins (Hexavitamin) 1 tab PO DAILY [facility] Last Admin: 04/11/17 10:36 Dose: 1 tab Tqeba-5-Dbdw Ethyl Esters (Lovaza) 1 gm PO BID [facility] Last Admin: 04/11/17 10:35 Dose: 1 gm Rosuvastatin Calcium (Crestor) 5 mg PO HS [facility] Last Admin: 04/10/17 22:23 Dose: 5 mg Spironolactone (Aldactone) 25 mg PO DAILY [facility] Last Admin: 04/11/17 10:36 Dose: 25 mg Thiamine HCl (Vitamin B1 Tab) 100 mg PO DAILY [facility] Last Admin: 04/11/17 10:37 Dose: 100 mg - Labs Labs: 04/11/17 11:44 04/11/17 11:44 PT 14.9 SECONDS (9.7-12.2) H 04/10/17 11:12 INR 1.3 04/10/17 11:12 APTT 33 SECONDS (21-34) D 04/07/17 17:12 Attending/Attestation - Attestation I have personally seen and examined this patient.: Yes I have fully participated in the care of the patient.: Yes I have reviewed all pertinent clinical information, including history, physical exam and plan: Yes Notes (Text): Patient was seen and examined sitting comfortable on bed.No chest pain,no sob Going for Cath on Thursday I agree with the residents documentation of the assessment and the plan"
[2017-04-11] MEDS: Omega-3-Acid Ethyl Esters 1 GM Cap PO SCH ×2 (10:35→18:00)
[2017-04-11] MEDS: Multiple Vitamins Tab PO SCH (10:36)
[2017-04-11 11:51] LABS: BASO % 1.1 % (0.0-2.0); EOS # 0.2 K/uL (0.0-0.7); EOS % 4.9 % (0.0-4.0); HEMATOCRIT 35.4 % (35.0-51.0); LYMPH % 24.4 % (20.0-40.0); MEAN CELL VOLUME 97.2 fL (80.0-94.0); MEAN CORPUSCULAR HEMOGLOBIN 32.2 pg (27.0-31.0); MEAN CORPUSCULAR HGB CONC 33.1 g/dL (33.0-37.0); MEAN PLATELET VOLUME 8.2 fL (7.2-11.7); MONO # 0.7 K/uL (0.0-0.8); MONO % 17.7 % (0.0-10.0); NRBC % 0.1 % (0.0-2.0); RED CELL DISTRIBUTION WIDTH 16.2 % (11.5-14.5); WHITE BLOOD COUNT 4.2 K/uL (4.8-10.8)
[2017-04-11 12:05] LABS: ALKALINE PHOSPHATASE 77 U/L (38-126); ALT/SGPT 28 U/L (21-72); AST/SGOT 29 U/L (17-59); BILIRUBIN,TOTAL 0.5 mg/dL (0.2-1.3); BLOOD UREA NITROGEN 20 mg/dL (9-20); CALCIUM 8.8 mg/dl (8.6-10.4); CARBON DIOXIDE 27 mmol/L (22-30); CHLORIDE 97 mmol/L (98-107); GFR AFRICAN-AMERICAN > 60; GLUCOSE,RANDOM 97 mg/dL (75-110); MAGNESIUM 1.4 mg/dL (1.6-2.3); PHOSPHOROUS 4.2 mg/dL (2.5-4.5); SODIUM 133 mmol/L (132-148); TOTAL PROTEIN 9.2 g/dL (6.3-8.3)
[2017-04-11 12:08] LABS: ALB/GLOB RATIO 0.7 (1.0-2.1)
[2017-04-11] MEDS: Magnesium Sulfate 1 gm in D5W 1 GM/100 ML BAG IVPB SCH ×2 (15:07→18:00)
[2017-04-11 15:30] LABS: TROPONIN I 0.04 ng/mL (0.00-0.120)
[2017-04-11 21:26] LABS: TROPONIN I 0.035 ng/mL (0.00-0.120)
--- NOTE | 2017-04-11 22:03 | CP.PCM.PN ---
Subjective - Date & Time of Evaluation Date of Evaluation: 04/11/17 Time of Evaluation: 22:02 - Subjective Subjective: Swelling and SOB improving BNP down to 915 today still SOB with ambulation Objective - Vital Signs/Intake and Output Vital Signs (last 24 hours): Temp Pulse Resp BP Pulse Ox 97.9 F 65 20 103/59 L 98 04/11/17 15:10 04/11/17 18:00 04/11/17 15:10 04/11/17 15:10 04/11/17 15:10 Intake and Output: 04/11/17 04/12/17 18:59 06:59 Intake Total 400 Balance 400 - Medications Medications: Current Medications Aspirin (Ecotrin) 81 mg PO DAILY [facility] Last Admin: 04/11/17 10:36 Dose: 81 mg Carvedilol (Coreg) 6.25 mg PO BID [facility] Last Admin: 04/11/17 18:00 Dose: 6.25 mg Famotidine (Pepcid) 20 mg PO BID [facility] Last Admin: 04/11/17 18:00 Dose: 20 mg Folic Acid (Folic Acid) 1 mg PO DAILY [facility] Last Admin: 04/11/17 10:37 Dose: 1 mg Furosemide (Lasix) 40 mg IVP BID [facility] Last Admin: 04/11/17 10:34 Dose: 40 mg Guaifenesin (Robitussin) 100 mg PO Q4H PRN PRN Reason: Cough Last Admin: 04/08/17 17:42 Dose: 100 mg Ketorolac Tromethamine (Toradol) 10 mg PO Q6 PRN PRN Reason: Pain, moderate (4-7) Last Admin: 04/11/17 15:06 Dose: 10 mg Lisinopril (Zestril) 2.5 mg PO DAILY [facility] Last Admin: 04/11/17 12:01 Dose: 2.5 mg Lorazepam (Ativan) 1 mg PO Q4H PRN PRN Reason: Symptoms of alcohol withdrawl Multivitamins (Hexavitamin) 1 tab PO DAILY [facility] Last Admin: 04/11/17 10:36 Dose: 1 tab Oqxcf-1-Gojb Ethyl Esters (Lovaza) 1 gm PO BID [facility] Last Admin: 04/11/17 18:00 Dose: 1 gm Rosuvastatin Calcium (Crestor) 5 mg PO HS [facility] Last Admin: 04/10/17 22:23 Dose: 5 mg Spironolactone (Aldactone) 25 mg PO DAILY [facility] Last Admin: 04/11/17 10:36 Dose: 25 mg Thiamine HCl (Vitamin B1 Tab) 100 mg PO DAILY [facility] Last Admin: 04/11/17 10:37 Dose: 100 mg - Labs Labs: 04/11/17 11:44 04/11/17 11:44 PT 14.9 SECONDS (9.7-12.2) H 04/10/17 11:12 INR 1.3 04/10/17 11:12 APTT 33 SECONDS (21-34) D 04/07/17 17:12 - Constitutional Appears: Well - Head Exam Head Exam: ATRAUMATIC, NORMAL INSPECTION, NORMOCEPHALIC - Eye Exam Eye Exam: EOMI, Normal appearance, PERRL Pupil Exam: NORMAL ACCOMODATION, PERRL - ENT Exam ENT Exam: Mucous Membranes Moist, Normal Exam - Neck Exam Neck Exam: Full ROM, Normal Inspection. absent: Lymphadenopathy - Respiratory Exam Respiratory Exam: Decreased Breath Sounds, Rales, NORMAL BREATHING PATTERN - Cardiovascular Exam Cardiovascular Exam: REGULAR RHYTHM, +S1, +S2, Murmur - GI/Abdominal Exam GI & Abdominal Exam: Soft, Normal Bowel Sounds. absent: Tenderness - Extremities Exam Extremities Exam: Full ROM, Normal Capillary Refill, Normal Inspection, Pedal Edema. absent: Joint Swelling - Back Exam Back Exam: NORMAL INSPECTION - Neurological Exam Neurological Exam: Alert, Awake, CN II-XII Intact, Normal Gait, Oriented x3 - Psychiatric Exam Psychiatric exam: Normal Affect, Normal Mood - Skin Skin Exam: Dry, Intact, Normal Color, Warm Assessment and Plan (1) CHF (congestive heart failure) Status: Acute (2) CAD (coronary artery disease) Status: Acute (3) CHF exacerbation Status: Acute (4) Chest discomfort Status: Acute (5) Chest pain Status: Acute (6) Pedal edema Status: Acute (7) HTN (hypertension) Status: Chronic
[2017-04-12] MEDS ORDERED: Alum-Mag Hydrox-Simethicone Susp (30 mL) PO ONE (00:26)
--- NOTE | 2017-04-12 02:36 | CP.PCM.PN ---
"<Rhonda Corbin - Last Filed: 04/12/17 02:33> Subjective - Date & Time of Evaluation Date of Evaluation: 04/12/17 Time of Evaluation: 02:33 - Subjective Subjective: Patient has been seen and examined. Patient states he had one non-bloody vomiting episode and one watery bowel movement. He also complains of mild abdominal pain. He denies any fever, chills, chest pain, sob, or urinary symptoms. Objective - Vital Signs/Intake and Output Vital Signs (last 24 hours): Temp Pulse Resp BP Pulse Ox 97.6 F 72 20 112/80 99 04/12/17 00:12 04/12/17 00:12 04/12/17 00:12 04/12/17 00:12 04/12/17 00:12 Intake and Output: 04/11/17 04/12/17 18:59 06:59 Intake Total 400 Balance 400 - Medications Medications: Current Medications Aspirin (Ecotrin) 81 mg PO DAILY [facility] Last Admin: 04/11/17 10:36 Dose: 81 mg Carvedilol (Coreg) 6.25 mg PO BID [facility] Last Admin: 04/11/17 18:00 Dose: 6.25 mg Famotidine (Pepcid) 20 mg PO BID [facility] Last Admin: 04/11/17 18:00 Dose: 20 mg Folic Acid (Folic Acid) 1 mg PO DAILY [facility] Last Admin: 04/11/17 10:37 Dose: 1 mg Furosemide (Lasix) 40 mg IVP BID [facility] Last Admin: 04/11/17 10:34 Dose: 40 mg Guaifenesin (Robitussin) 100 mg PO Q4H PRN PRN Reason: Cough Last Admin: 04/08/17 17:42 Dose: 100 mg Ketorolac Tromethamine (Toradol) 10 mg PO Q6 PRN PRN Reason: Pain, moderate (4-7) Last Admin: 04/11/17 15:06 Dose: 10 mg Lisinopril (Zestril) 2.5 mg PO DAILY [facility] Last Admin: 04/11/17 12:01 Dose: 2.5 mg Lorazepam (Ativan) 1 mg PO Q4H PRN PRN Reason: Symptoms of alcohol withdrawl Multivitamins (Hexavitamin) 1 tab PO DAILY [facility] Last Admin: 04/11/17 10:36 Dose: 1 tab Ldddy-4-Uits Ethyl Esters (Lovaza) 1 gm PO BID [facility] Last Admin: 04/11/17 18:00 Dose: 1 gm Rosuvastatin Calcium (Crestor) 5 mg PO HS [facility] Last Admin: 04/11/17 22:38 Dose: 5 mg Spironolactone (Aldactone) 25 mg PO DAILY [facility] Last Admin: 04/11/17 10:36 Dose: 25 mg Thiamine HCl (Vitamin B1 Tab) 100 mg PO DAILY [facility] Last Admin: 04/11/17 10:37 Dose: 100 mg - Labs Labs: 04/11/17 11:44 04/11/17 11:44 PT 14.9 SECONDS (9.7-12.2) H 04/10/17 11:12 INR 1.3 04/10/17 11:12 APTT 33 SECONDS (21-34) D 04/07/17 17:12 - Additional Findings Additional findings: Constitutional Appears: No Acute Distress - Head Exam Head Exam: ATRAUMATIC, NORMAL INSPECTION, NORMOCEPHALIC - Eye Exam Eye Exam: Normal appearance - ENT Exam ENT Exam: Mucous Membranes Moist - Respiratory Exam Respiratory Exam: Clear to Ausculation Bilateral, NORMAL BREATHING PATTERN - Cardiovascular Exam Cardiovascular Exam: RRR, +S1, +S2 - GI/Abdominal Exam GI & Abdominal Exam: Soft, Tenderness (RUQ) absent: Rebound, Guarding - Extremities Exam Extremities Exam: Absent: Pedal Edema - Neurological Exam Neurological Exam: Alert, Awake, Oriented x3 - Psychiatric Exam Psychiatric exam: Normal Affect, Normal Mood - Skin Skin Exam: Normal Color, Warm Assessment and Plan - Assessment and Plan (Free Text) Assessment: 56 year old male with PMHx of CHF (EF<20%), OH, CAD, HTN, and ETOH abuse admitted for SOB 2 to CHF exacerbation. Plan: CHF exacerbation Admit to telemetry Patient with history of systolic CHF, off meds for 1 week Pro BNP on admission 4930 (Prior admissions: 3580, 3310, 3580) Pro BNP (04/07/17): 6340 || Pro BNP (04/09/17): 3040 CXR (04/06/17): cardiomegaly, no obvious infiltrate (f/u offical read) EKG (04/06/17): NSR, 79 BPM, right axis deviation ECHO (08/25/16): EF <25%, LV moderately dilated, global hypokinesis of LV, moderate pulm HTN Quantiferon negative on previous admission (03/14/17) ECHO ordered showed EF between 15-20%. Plan for Cath per Cardio, cardio awaiting BNP/Trop to determine disposition, if patient stays then possible cath friday 04/13 Cardio Consult (Dr. Chavez) - Recs appreciated Cont. the following medications: Lasix 40 mg IVP BID Coreg 6.25 mg PO BID Lisinopril 2.5 mg PO daily Aldactone 25 mg PO daily Crestor 5 HS Robitussin for cough PRN I/O's Daily weights Low Sodium Diet Abdominal Pain Patient had mild RUQ tenderness with vomiting and watery bowel movement. Patient said he has had this pain before and it is resolved with Maalox Gave Maalox Consider RUQ if pain persist F/U AM LFT's Pedal edema (Resolved) Likely secondary to CHF exacerbation. SCDs contraindicated US negative for DVT Hx of OH Patient with hx of OH in 2011. SIXTO on admission negative. EKG on admission- sinus rhythm 103 bpm, LBBB. Also seen on EKG from 07/18/16. 3rd EKG had occasional PVC's Troponins NEGATIVE x 3 Peripheral Vascular Disease Lower Ext Arterial Duplex Scan showed Valvular incompetence of right popliteal and posterior tibial veins and Left peroneal veins. NO DVT B/L. ASA 81 mg PO daily Coreg 6.25 mg PO BID Lisinopril 2.5 mg PO daily Crestor 5 PO HS CAD (coronary artery disease) Patient with hx of OH in 2011. SIXTO on admission negative. EKG on admission- sinus rhythm 103 bpm, LBBB. Also seen on EKG from 07/18/16. ASA 81 mg PO daily Coreg 6.25 mg PO BID Crestor 5 PO HS HTN (hypertension) Initially hypotensive in ED Lisinopril 2.5 mg PO daily Aldactone 25 mg PO daily Coreg 6.250 mg PO BID (HOLD until UDS negative for cocaine) Lasix 40 mg IVP BID Monitor Alcohol abuse Alcohol level 143 Folic Acid 1 mg PO daily Thiamine 100 mg PO daily MV 1 tab PO daily CIWA protocol Clonidine 0.1mg PO Q4H PRN withdrawal symptoms Ativan 1mg IV Q4H PRN Seizure precautions Fall precautions 04/06/17 UDS negative except Alcohol Leukopenia WBC 3.7 on presentation HIV NEGATIVE Elevated INR believed 2/2 liver damage from chronic alcoholism INR 1.4 Macrocytic anemia MCV 100.3 2/2 long-term alcohol abuse B12 an Folate Low HDL Start Lovaza Proteinuria UA: 1+ protein Continue home zestril 2.5mg PO Daily Prophylactic measure Heparin 5000 SC Q8H Pepcid 20 mg PO BID SCDs contraindicated due to lower extremity edema Dispo: Patient refused AICD on admission. I have been reinforcing the need for AICD on every visit. Patient understands risk associated with not getting an AICD including . Patient stated that he will cont. to think about it, but he is afraid of surgery. Rhonda Corbin- PGY1 <Angela Schmitt V - Last Filed: 04/12/17 15:12> Objective - Vital Signs/Intake and Output Vital Signs (last 24 hours): Temp Pulse Resp BP Pulse Ox 98.3 F 68 20 120/82 98 04/12/17 09:39 04/12/17 12:30 04/12/17 09:39 04/12/17 11:30 04/12/17 09:39 Intake and Output: 04/12/17 04/12/17 06:59 18:59 Intake Total 150 400 Output Total 600 Balance 150 -200 - Medications Medications: Current Medications Aspirin (Ecotrin) 81 mg PO DAILY [facility] Last Admin: 04/12/17 10:09 Dose: 81 mg Carvedilol (Coreg) 6.25 mg PO BID [facility] Last Admin: 04/12/17 10:00 Dose: 6.25 mg Famotidine (Pepcid) 20 mg PO BID [facility] Last Admin: 04/12/17 10:09 Dose: 20 mg Folic Acid (Folic Acid) 1 mg PO DAILY [facility] Last Admin: 04/12/17 10:10 Dose: 1 mg Furosemide (Lasix) 40 mg IVP BID [facility] Last Admin: 04/12/17 10:00 Dose: 40 mg Guaifenesin (Robitussin) 100 mg PO Q4H PRN PRN Reason: Cough Last Admin: 04/08/17 17:42 Dose: 100 mg Ketorolac Tromethamine (Toradol) 10 mg PO Q6 PRN PRN Reason: Pain, moderate (4-7) Last Admin: 04/11/17 15:06 Dose: 10 mg Lisinopril (Zestril) 2.5 mg PO DAILY [facility] Last Admin: 04/12/17 11:30 Dose: 2.5 mg Lorazepam (Ativan) 1 mg PO Q4H PRN PRN Reason: Symptoms of alcohol withdrawl Multivitamins (Hexavitamin) 1 tab PO DAILY [facility] Last Admin: 04/12/17 10:09 Dose: 1 tab [id number]-[id number] Ethyl Esters (Lovaza) 1 gm PO BID [facility] Last Admin: 04/12/17 10:09 Dose: 1 gm Rosuvastatin Calcium (Crestor) 5 mg PO HS [facility] Last Admin: 04/11/17 22:38 Dose: 5 mg Spironolactone (Aldactone) 25 mg PO DAILY [facility] Last Admin: 04/12/17 10:00 Dose: 25 mg Thiamine HCl (Vitamin B1 Tab) 100 mg PO DAILY [facility] Last Admin: 04/12/17 10:10 Dose: 100 mg - Labs Labs: 04/12/17 11:33 04/12/17 11:33 PT 14.9 SECONDS (9.7-12.2) H 04/10/17 11:12 INR 1.3 04/10/17 11:12 APTT 33 SECONDS (21-34) D 04/07/17 17:12 Attending/Attestation - Attestation I have personally seen and examined this patient.: Yes I have fully participated in the care of the patient.: Yes I have reviewed all pertinent clinical information, including history, physical exam and plan: Yes Notes (Text): Patient seen, examined and case discussed with day-time resident. Patient seen at bedside. Patient denied acute complaints, expect for dyspnea on exertion on ambulation. Abdominal pain resolved. Patient reports swelling in the legs has resolved alot. Weights reflect: 148lbs to 128lbs Patient refused Per cardiology, recommending for cardiac cath in light of worsening EF. Patient scheduled for inpatient cardiac cath for tomorrow. Assessment/Plan 1) Acute systolic CHF exacerbation * Admit to telemetry * Patient with history of systolic CHF, off meds for 1 week * Pro BNP on admission 4930 (Prior admissions: 3580, 3310, 3580) * CXR (04/06/17): cardiomegaly, no obvious infiltrate * EKG (04/06/17): NSR, 79 BPM, right axis deviation * ECHO (08/25/16): EF <25%, LV moderately dilated, global hypokinesis of LV, moderate pulm HTN * Quantiferon negative on previous admission (03/14/17) * ECHO ordered: EF: 15-20% systolic * Cardio Consult (Dr. Chavez) on board * Cont. the following medications: * Lasix 40 mg IVP BID * Coreg 6.25 mg PO BID * Lisinopril 2.5 mg PO daily * Aldactone 25 mg PO daily * Crestor 5 HS * Robitussin for cough PRN * Aspirin 81mg PO daily * I/O's * Daily weights-->improved 148 to 128lbs * Low Sodium Diet 2) Pedal edema * Likely secondary to CHF exacerbation. * SCDs contraindicated * US negative for DVT * Improved 3) Hx of OH * Patient with hx of OH in 2011. * SIXTO on admission negative. * EKG on admission- sinus rhythm 103 bpm, LBBB. Also seen on EKG from 07/18/16. 3rd EKG had occasional PVC's * Troponins NEGATIVE x 3 * ASA 81 mg PO daily * Coreg 6.25 mg PO BID * Lisinopril 2.5 mg PO daily * Crestor 5 PO HS 4) CAD (coronary artery disease) * Patient with hx of OH in 2011. * SIXTO on admission negative. * EKG on admission- sinus rhythm 103 bpm, LBBB. Also seen on EKG from 07/18/16. * ASA 81 mg PO daily * Coreg 6.25 mg PO BID * Crestor 5MG PO HS 5) HTN (hypertension) Initially hypotensive in ED * Lisinopril 2.5 mg PO daily * Aldactone 25 mg PO daily * Coreg 6.250 mg PO BID (HOLD until UDS negative for cocaine) * Lasix 40 mg IVP BID * Monitor 6) Alcohol abuse * Alcohol level 143 * Folic Acid 1 mg PO daily * Thiamine 100 mg PO daily * MV 1 tab PO daily * CIWA protocol * Clonidine 0.1mg PO Q4H PRN withdrawal symptoms * Ativan 1mg IV Q4H PRN * Seizure precautions * Fall precautions * 04/06/17 UDS negative except Alcohol 7) Leukopenia * WBC 3.7 on presentation * HIV NEGATIVE * History of alcoholism * Neutrophil >2.0 8) Elevated INR * believed 2/2 liver damage from chronic alcoholism * INR 1.4 9) Macrocytic anemia * MCV 100.3 * 2/2 long-term alcohol abuse * B12 an Folate 10) Proteinuria * UA: 1+ protein * Continue home zestril 2.5mg PO Daily 11) Prophylactic measure * Heparin 5000 SC Q8H * Pepcid 20 mg PO BID * SCDs contraindicated due to lower extremity edema Dispo: Patient refused AICD. Patient for inpatient cardiac cath."
[2017-04-12] MEDS: Multiple Vitamins Tab PO SCH (10:09)
[2017-04-12] MEDS: Omega-3-Acid Ethyl Esters 1 GM Cap PO SCH ×2 (10:09→18:38)
[2017-04-12 11:46] LABS: BASO % 0.9 % (0.0-2.0); EOS # 0.2 K/uL (0.0-0.7); EOS % 4.8 % (0.0-4.0); HEMATOCRIT 38.1 % (35.0-51.0); LYMPH # 0.9 K/uL (1.0-4.3); LYMPH % 21.4 % (20.0-40.0); MEAN CELL VOLUME 96.5 fL (80.0-94.0); MEAN CORPUSCULAR HEMOGLOBIN 31.9 pg (27.0-31.0); MEAN PLATELET VOLUME 8.3 fL (7.2-11.7); MONO # 0.8 K/uL (0.0-0.8); MONO % 17.8 % (0.0-10.0); RED CELL DISTRIBUTION WIDTH 16.4 % (11.5-14.5); WHITE BLOOD COUNT 4.3 K/uL (4.8-10.8)
[2017-04-12 12:29] LABS: ALB/GLOB RATIO 0.8 (1.0-2.1); ALKALINE PHOSPHATASE 77 U/L (38-126); ALT/SGPT 22 U/L (21-72); AST/SGOT 39 U/L (17-59); BILIRUBIN,TOTAL 0.9 mg/dL (0.2-1.3); BLOOD UREA NITROGEN 31 mg/dL (9-20); CALCIUM 9.1 mg/dl (8.6-10.4); CARBON DIOXIDE 25 mmol/L (22-30); CHLORIDE 96 mmol/L (98-107); GFR AFRICAN-AMERICAN > 60; GLUCOSE,RANDOM 92 mg/dL (75-110); POTASSIUM 4.3 mmol/L (3.6-5.2); SODIUM 132 mmol/L (132-148); TOTAL PROTEIN 8.8 g/dL (6.3-8.3)
--- NOTE | 2017-04-13 00:53 | CP.PCM.PN ---
Subjective - Date & Time of Evaluation Date of Evaluation: 04/12/17 Time of Evaluation: 23:00 - Subjective Subjective: episode of emesis and diarhea TnI borderline BNP improving SOB / edema improving Objective - Vital Signs/Intake and Output Vital Signs (last 24 hours): Temp Pulse Resp BP Pulse Ox 97.8 F 75 20 95/62 L 98 04/12/17 18:07 04/12/17 22:48 04/12/17 18:07 04/12/17 18:07 04/12/17 18:07 Intake and Output: 04/12/17 04/13/17 18:59 06:59 Intake Total 400 400 Output Total 600 Balance -200 400 - Medications Medications: Current Medications Aspirin (Ecotrin) 81 mg PO DAILY [facility] Last Admin: 04/12/17 10:09 Dose: 81 mg Carvedilol (Coreg) 6.25 mg PO BID [facility] Last Admin: 04/12/17 18:08 Dose: Not Given Famotidine (Pepcid) 20 mg PO BID [facility] Last Admin: 04/12/17 18:38 Dose: 20 mg Folic Acid (Folic Acid) 1 mg PO DAILY [facility] Last Admin: 04/12/17 10:10 Dose: 1 mg Furosemide (Lasix) 40 mg IVP BID [facility] Last Admin: 04/12/17 18:08 Dose: Not Given Guaifenesin (Robitussin) 100 mg PO Q4H PRN PRN Reason: Cough Last Admin: 04/08/17 17:42 Dose: 100 mg Ketorolac Tromethamine (Toradol) 10 mg PO Q6 PRN PRN Reason: Pain, moderate (4-7) Last Admin: 04/11/17 15:06 Dose: 10 mg Lisinopril (Zestril) 2.5 mg PO DAILY [facility] Last Admin: 04/12/17 11:30 Dose: 2.5 mg Lorazepam (Ativan) 1 mg PO Q4H PRN PRN Reason: Symptoms of alcohol withdrawl Multivitamins (Hexavitamin) 1 tab PO DAILY [facility] Last Admin: 04/12/17 10:09 Dose: 1 tab Ncqsb-3-Szty Ethyl Esters (Lovaza) 1 gm PO BID [facility] Last Admin: 04/12/17 18:38 Dose: 1 gm Rosuvastatin Calcium (Crestor) 5 mg PO HS [facility] Last Admin: 04/12/17 21:37 Dose: 5 mg Spironolactone (Aldactone) 25 mg PO DAILY [facility] Last Admin: 04/12/17 10:00 Dose: 25 mg Thiamine HCl (Vitamin B1 Tab) 100 mg PO DAILY [facility] Last Admin: 04/12/17 10:10 Dose: 100 mg - Labs Labs: 04/12/17 11:33 04/12/17 11:33 PT 14.9 SECONDS (9.7-12.2) H 04/10/17 11:12 INR 1.3 04/10/17 11:12 APTT 33 SECONDS (21-34) D 04/07/17 17:12 - Constitutional Appears: Well - Head Exam Head Exam: ATRAUMATIC, NORMAL INSPECTION, NORMOCEPHALIC - Eye Exam Eye Exam: EOMI, Normal appearance, PERRL Pupil Exam: NORMAL ACCOMODATION, PERRL - ENT Exam ENT Exam: Mucous Membranes Moist, Normal Exam - Neck Exam Neck Exam: Full ROM, Normal Inspection. absent: Lymphadenopathy - Respiratory Exam Respiratory Exam: Rales, NORMAL BREATHING PATTERN - Cardiovascular Exam Cardiovascular Exam: REGULAR RHYTHM, +S1, +S2, Murmur - GI/Abdominal Exam GI & Abdominal Exam: Soft, Normal Bowel Sounds. absent: Tenderness - Extremities Exam Extremities Exam: Full ROM, Normal Capillary Refill, Normal Inspection. absent : Joint Swelling, Pedal Edema - Back Exam Back Exam: NORMAL INSPECTION - Neurological Exam Neurological Exam: Alert, Awake, CN II-XII Intact, Normal Gait, Oriented x3 - Psychiatric Exam Psychiatric exam: Normal Affect, Normal Mood - Skin Skin Exam: Dry, Intact, Normal Color, Warm Assessment and Plan (1) CHF (congestive heart failure) Assessment & Plan: plan for CHCx in am NPO p mn cont current RAAS modulators and diuretic therapy cont BB Status: Acute (2) CAD (coronary artery disease) Status: Acute (3) CHF exacerbation Status: Acute (4) Chest discomfort Status: Acute (5) Chest pain Status: Acute (6) Pedal edema Status: Acute (7) HTN (hypertension) Status: Chronic
[2017-04-13 07:34] LABS: BASO # 0.1 K/uL (0.0-0.2); BASO % 1.3 % (0.0-2.0); EOS # 0.2 K/uL (0.0-0.7); EOS % 5.3 % (0.0-4.0); HEMATOCRIT 36.7 % (35.0-51.0); LYMPH # 1.2 K/uL (1.0-4.3); LYMPH % 30.7 % (20.0-40.0); MEAN CELL VOLUME 96.5 fL (80.0-94.0); MEAN CORPUSCULAR HEMOGLOBIN 31.5 pg (27.0-31.0); MEAN CORPUSCULAR HGB CONC 32.7 g/dL (33.0-37.0); MEAN PLATELET VOLUME 8.4 fL (7.2-11.7); MONO # 0.9 K/uL (0.0-0.8); MONO % 21.5 % (0.0-10.0); NRBC % 0.2 % (0.0-2.0); PLATELET COUNT 287 K/uL (130-400); RED CELL DISTRIBUTION WIDTH 16.2 % (11.5-14.5); WHITE BLOOD COUNT 4.1 K/uL (4.8-10.8)
[2017-04-13 08:12] LABS: ALB/GLOB RATIO 0.8 (1.0-2.1); ALKALINE PHOSPHATASE 71 U/L (38-126); ALT/SGPT 24 U/L (21-72); AST/SGOT 39 U/L (17-59); BILIRUBIN,TOTAL 0.8 mg/dL (0.2-1.3); BLOOD UREA NITROGEN 30 mg/dL (9-20); CALCIUM 9.1 mg/dl (8.6-10.4); CARBON DIOXIDE 24 mmol/L (22-30); CHLORIDE 99 mmol/L (98-107); GFR AFRICAN-AMERICAN > 60; GLUCOSE,RANDOM 84 mg/dL (75-110); MAGNESIUM 1.3 mg/dL (1.6-2.3); SODIUM 134 mmol/L (132-148); TOTAL PROTEIN 8.4 g/dL (6.3-8.3)
[2017-04-13 08:48] LABS: BASOPHIL 2 % (0-2); EOSINOPHIL 5 % (0-4); NEUTROPHIL 45 % (50-75); TOTAL CELLS COUNTED 100
--- NOTE | 2017-04-13 09:51 | CP.PCM.PN ---
Subjective - Date & Time of Evaluation Date of Evaluation: 04/13/17 Time of Evaluation: 09:51 - Subjective Subjective: s/p CHCx showing non-obstructive CAD Objective - Vital Signs/Intake and Output Vital Signs (last 24 hours): Temp Pulse Resp BP Pulse Ox 98.4 F 72 20 105/71 95 04/13/17 07:49 04/13/17 07:49 04/13/17 07:49 04/13/17 07:49 04/13/17 07:49 Intake and Output: 04/13/17 04/13/17 06:59 18:59 Intake Total 400 Output Total 1400 Balance -1000 - Medications Medications: Current Medications Aspirin (Ecotrin) 81 mg PO DAILY [facility] Last Admin: 04/12/17 10:09 Dose: 81 mg Carvedilol (Coreg) 6.25 mg PO BID [facility] Last Admin: 04/12/17 18:08 Dose: Not Given Famotidine (Pepcid) 20 mg PO BID [facility] Last Admin: 04/12/17 18:38 Dose: 20 mg Folic Acid (Folic Acid) 1 mg PO DAILY [facility] Last Admin: 04/12/17 10:10 Dose: 1 mg Furosemide (Lasix) 40 mg IVP BID [facility] Last Admin: 04/12/17 18:08 Dose: Not Given Guaifenesin (Robitussin) 100 mg PO Q4H PRN PRN Reason: Cough Last Admin: 04/08/17 17:42 Dose: 100 mg Ketorolac Tromethamine (Toradol) 10 mg PO Q6 PRN PRN Reason: Pain, moderate (4-7) Last Admin: 04/11/17 15:06 Dose: 10 mg Lisinopril (Zestril) 2.5 mg PO DAILY [facility] Last Admin: 04/12/17 11:30 Dose: 2.5 mg Lorazepam (Ativan) 1 mg PO Q4H PRN PRN Reason: Symptoms of alcohol withdrawl Multivitamins (Hexavitamin) 1 tab PO DAILY [facility] Last Admin: 04/12/17 10:09 Dose: 1 tab Ptvco-0-Pgkp Ethyl Esters (Lovaza) 1 gm PO BID [facility] Last Admin: 04/12/17 18:38 Dose: 1 gm Rosuvastatin Calcium (Crestor) 5 mg PO HS [facility] Last Admin: 04/12/17 21:37 Dose: 5 mg Spironolactone (Aldactone) 25 mg PO DAILY [facility] Last Admin: 04/12/17 10:00 Dose: 25 mg Thiamine HCl (Vitamin B1 Tab) 100 mg PO DAILY [facility] Last Admin: 04/12/17 10:10 Dose: 100 mg - Labs Labs: 04/13/17 07:15 04/13/17 07:15 PT 14.9 SECONDS (9.7-12.2) H 04/10/17 11:12 INR 1.3 04/10/17 11:12 APTT 33 SECONDS (21-34) D 04/07/17 17:12 - Constitutional Appears: Well - Head Exam Head Exam: ATRAUMATIC, NORMAL INSPECTION, NORMOCEPHALIC - Eye Exam Eye Exam: EOMI, Normal appearance, PERRL Pupil Exam: NORMAL ACCOMODATION, PERRL - ENT Exam ENT Exam: Mucous Membranes Moist, Normal Exam - Neck Exam Neck Exam: Full ROM, Normal Inspection. absent: Lymphadenopathy - Respiratory Exam Respiratory Exam: Clear to Ausculation Bilateral, Rales, NORMAL BREATHING PATTERN - Cardiovascular Exam Cardiovascular Exam: REGULAR RHYTHM, +S1, +S2, Murmur - GI/Abdominal Exam GI & Abdominal Exam: Soft, Normal Bowel Sounds. absent: Tenderness - Extremities Exam Extremities Exam: Full ROM, Normal Capillary Refill, Normal Inspection. absent : Joint Swelling, Pedal Edema - Back Exam Back Exam: NORMAL INSPECTION - Neurological Exam Neurological Exam: Alert, Awake, CN II-XII Intact, Normal Gait, Oriented x3 - Psychiatric Exam Psychiatric exam: Normal Affect, Normal Mood - Skin Skin Exam: Dry, Intact, Normal Color, Warm Assessment and Plan (1) CHF (congestive heart failure) Status: Acute (2) CAD (coronary artery disease) Status: Acute (3) CHF exacerbation Status: Acute (4) Chest discomfort Status: Acute (5) Chest pain Status: Acute (6) Pedal edema Status: Acute (7) HTN (hypertension) Status: Chronic
--- NOTE | 2017-04-13 09:59 | CP.PCM.PN ---
Subjective - Date & Time of Evaluation Date of Evaluation: 04/13/17 Time of Evaluation: 09:58 - Subjective Subjective: Progress note for Dr. Baldwin Patient seen and examined at bedside. No acute events overnight. Patient states he is aware he is getting assessed in the lab clerk today by Dr. Chavez. Patient states he was told he needs a defibrillator. Patient denies any chest pain, shortness of breath, wheezing, abdominal pain, diarrhea, constipation. Objective - Vital Signs/Intake and Output Vital Signs (last 24 hours): Temp Pulse Resp BP Pulse Ox 98.4 F 72 20 105/71 95 04/13/17 07:49 04/13/17 07:49 04/13/17 07:49 04/13/17 07:49 04/13/17 07:49 Intake and Output: 04/13/17 04/13/17 06:59 18:59 Intake Total 400 Output Total 1400 Balance -1000 - Medications Medications: Current Medications Aspirin (Ecotrin) 81 mg PO DAILY [facility] Last Admin: 04/12/17 10:09 Dose: 81 mg Carvedilol (Coreg) 6.25 mg PO BID [facility] Last Admin: 04/12/17 18:08 Dose: Not Given Famotidine (Pepcid) 20 mg PO BID [facility] Last Admin: 04/12/17 18:38 Dose: 20 mg Folic Acid (Folic Acid) 1 mg PO DAILY [facility] Last Admin: 04/12/17 10:10 Dose: 1 mg Furosemide (Lasix) 40 mg IVP BID [facility] Last Admin: 04/12/17 18:08 Dose: Not Given Guaifenesin (Robitussin) 100 mg PO Q4H PRN PRN Reason: Cough Last Admin: 04/08/17 17:42 Dose: 100 mg Ketorolac Tromethamine (Toradol) 10 mg PO Q6 PRN PRN Reason: Pain, moderate (4-7) Last Admin: 04/11/17 15:06 Dose: 10 mg Lisinopril (Zestril) 2.5 mg PO DAILY [facility] Last Admin: 04/12/17 11:30 Dose: 2.5 mg Lorazepam (Ativan) 1 mg PO Q4H PRN PRN Reason: Symptoms of alcohol withdrawl Multivitamins (Hexavitamin) 1 tab PO DAILY [facility] Last Admin: 04/12/17 10:09 Dose: 1 tab Sztci-3-[id number] Ethyl Esters (Lovaza) 1 gm PO BID [facility] Last Admin: 04/12/17 18:38 Dose: 1 gm Rosuvastatin Calcium (Crestor) 5 mg PO HS [facility] Last Admin: 04/12/17 21:37 Dose: 5 mg Spironolactone (Aldactone) 25 mg PO DAILY [facility] Last Admin: 04/12/17 10:00 Dose: 25 mg Thiamine HCl (Vitamin B1 Tab) 100 mg PO DAILY [facility] Last Admin: 04/12/17 10:10 Dose: 100 mg - Labs Labs: 04/13/17 07:15 04/13/17 07:15 PT 14.9 SECONDS (9.7-12.2) H 04/10/17 11:12 INR 1.3 04/10/17 11:12 APTT 33 SECONDS (21-34) D 04/07/17 17:12 - Constitutional Appears: Non-toxic - Head Exam Head Exam: NORMAL INSPECTION - Eye Exam Eye Exam: EOMI, Normal appearance - ENT Exam ENT Exam: Mucous Membranes Moist - Neck Exam Neck Exam: Full ROM - Respiratory Exam Respiratory Exam: absent: Accessory Muscle Use - Cardiovascular Exam Cardiovascular Exam: +S1, +S2 - GI/Abdominal Exam GI & Abdominal Exam: Soft. absent: Tenderness - Extremities Exam Extremities Exam: Full ROM - Back Exam Back Exam: Full ROM, NORMAL INSPECTION - Neurological Exam Neurological Exam: Alert, Awake - Psychiatric Exam Psychiatric exam: Normal Affect, Normal Mood - Skin Skin Exam: Dry, Normal Color Assessment and Plan - Assessment and Plan (Free Text) Assessment: Assessment: 56 year old male with PMHx of CHF (EF<20%), [place], CAD, HTN, and ETOH abuse admitted for SOB 2/2 to CHF exacerbation. Plan: CHF exacerbation Admitted to telemetry =. Patient with history of systolic CHF, off meds for 1 week 04/05 BNP 4930 04/07 BNP 6340 04/09 BNP 3040 04/11 BNP 915 trp .0400, .0350, 0.0460 CXR (04/06/17): cardiomegaly, no obvious infiltrate (f/u offical read) EKG (04/06/17): NSR, 79 BPM, right axis deviation ECHO (08/25/16): EF <25%, LV moderately dilated, global hypokinesis of LV, moderate pulm HTN Quantiferon negative on previous admission (03/14/17) ECHO ordered showed EF between 15-20%. Cath friday 04/13 Cardio Consult (Dr. Chavez) - Recs appreciated Cont. the following medications: Lasix 40 mg IVP BID Coreg 6.25 mg PO BID Lisinopril 2.5 mg PO daily Aldactone 25 mg PO daily Crestor 5 HS Robitussin for cough PRN I/O's Daily weights Low Sodium Diet Abdominal Pain Patient had mild RUQ tenderness with vomiting and watery bowel movement. Patient said he has had this pain before and it is resolved with Maalox Gave Maalox Consider RUQ if pain persist F/U AM LFT's Pedal edema (Resolved) Likely secondary to CHF exacerbation. SCDs contraindicated US negative for DVT Hx of [place] Patient with hx of [place] in 2011. SIXTO on admission negative. EKG on admission- sinus rhythm 103 bpm, LBBB. Also seen on EKG from 07/18/16. 3rd EKG had occasional PVC's Troponins NEGATIVE x 3 Peripheral Vascular Disease Lower Ext Arterial Duplex Scan showed Valvular incompetence of right popliteal and posterior tibial veins and Left peroneal veins. NO DVT B/L. ASA 81 mg PO daily Coreg 6.25 mg PO BID Lisinopril 2.5 mg PO daily Crestor 5 PO HS CAD (coronary artery disease) Patient with hx of [place] in 2011. SIXTO on admission negative. EKG on admission- sinus rhythm 103 bpm, LBBB. Also seen on EKG from 07/18/16. ASA 81 mg PO daily Coreg 6.25 mg PO BID Crestor 5 PO HS HTN (hypertension) Initially hypotensive in ED Lisinopril 2.5 mg PO daily Aldactone 25 mg PO daily Coreg 6.250 mg PO BID (HOLD until UDS negative for cocaine) Lasix 40 mg IVP BID Monitor Hypomagnesemia 04/13 Mg 1.3, repleted Alcohol abuse Alcohol level 143 Folic Acid 1 mg PO daily Thiamine 100 mg PO daily MV 1 tab PO daily CIWA protocol Clonidine 0.1mg PO Q4H PRN withdrawal symptoms Ativan 1mg IV Q4H PRN Seizure precautions Fall precautions 04/06/17 UDS negative except Alcohol Leukopenia WBC 3.7 on presentation HIV NEGATIVE Elevated INR believed 2/2 liver damage from chronic alcoholism INR 1.4 Macrocytic anemia MCV 100.3 2/2 long-term alcohol abuse B12 an Folate Low HDL Start Lovaza Proteinuria UA: 1+ protein Continue home zestril 2.5mg PO Daily Prophylactic measure Heparin 5000 SC Q8H Pepcid 20 mg PO BID SCDs contraindicated due to lower extremity edema Dispo: Patient refused AICD on admission. I have been reinforcing the need for AICD on every visit. Patient understands risk associated with not getting an AICD including . Patient stated that he will continue to think about it, but he is afraid of surgery.
[2017-04-13] MEDS: Multiple Vitamins Tab PO SCH (10:41)
[2017-04-13] MEDS: Omega-3-Acid Ethyl Esters 1 GM Cap PO SCH ×2 (10:41→17:45)
[2017-04-13] MEDS ORDERED: Magnesium Sulfate 1 gm in D5W 1 GM/100 ML BAG IVPB ONE (11:10)
[2017-04-13] MEDS: Magnesium Sulfate 1 gm in D5W 1 GM/100 ML BAG IVPB SCH ×2 (12:11→17:44)
--- NOTE | 2017-04-13 12:15 | VASCLAB ---
STUDY DESCRIPTION: HISTORY: Assess NARDA PRIORS: None. TECHNIQUE: Pulse volume recording waveforms and segmental pressures of bilateral lower extremities at multiple levels were obtained. Ankle Brachial Indices (ABIs) were calculated. Report prepared by SIMEON Cuadra, RVT RIGHT LOWER EXTREMITY: * Brachial artery: Pressure - 112 mmHg. * High thigh: Pressure - 122 mmHg: Ratio - 1.09: PVR waveform - Pulsatile * Low thigh: Pressure - 135 mmHg: Ratio - 1.21 PVR waveform: Pulsatile * Calf: Pressure - 127 mmHg: Ratio - 1.13 PVR waveform: Pulsatile * Posterior tibial Artery: Pressure - 122 mmHg: Ratio - 1.09 PVR waveform: Pulsatile * Dorsalis pedis Artery: Pressure - 118 mmHg: Ratio - 1.05 PVR waveform: Pulsatile * Great toe: Pressure - mmHg: Ratio - PVR waveform: Ankle brachial index (NARDA): 1.09 LEFT LOWER EXTREMITY: * Brachial artery: Pressure - 109 mmHg. * High thigh: Pressure - 127 mmHg: Ratio - 1.13: PVR waveform - Pulsatile * Low thigh: Pressure - 123 mmHg: Ratio - 1.10 PVR waveform: Pulsatile * Calf: Pressure - 138 mmHg: Ratio - 1.23 PVR waveform: Pulsatile * Posterior tibial Artery: Pressure - 133 mmHg: Ratio - 1.19 PVR waveform: Pulsatile * Dorsalis pedis Artery: Pressure - 134 mmHg: Ratio - 1.20 PVR waveform: Pulsatile * Great toe: Pressure - mmHg: Ratio - PVR waveform: Ankle brachial index (NARDA): 1.20 OTHER FINDINGS: Right: Left: IMPRESSION: Right: There was no evidence of hemodynamically significant arterial insufficiency in the right lower extremity. Left: There was no evidence of hemodynamically significant arterial insufficiency in the left lower extremity.
[2017-04-13] MEDS ORDERED: Midazolam 2 MG/2 ML VIAL ONE (14:27)
[2017-04-13] MEDS ORDERED: Iodixanol 320 MG/ML 200 ML BOTTLE IV ONE (14:28)
[2017-04-13 14:47] LABS: ARTERIAL BLOOD HGB O2 SAT 92.9 % (95.0-98.0); CARBOXYHEMOGLOBIN 2.3 % (0.5-1.5); DRAW SITE PA; HHB 3.3 % (0.0-5.0); METHEMOGLOBIN 1.6 % (0.0-3.0)
[2017-04-13 14:53] LABS: DRAW SITE PA; VENOUS BLOOD GAS BASE EXCESS -1.1 mmol/L (0.0-2.0); VENOUS BLOOD GAS PCO2 48 mmHg (40-60); VENOUS BLOOD PH 7.33 (7.32-7.43)
[2017-04-13 15:01] LABS: DRAW SITE RA; VENOUS BLOOD GAS BASE EXCESS -2.4 mmol/L (0.0-2.0); VENOUS BLOOD GAS PCO2 42 mmHg (40-60); VENOUS BLOOD PH 7.35 (7.32-7.43)
--- NOTE | 2017-04-13 17:59 | CARD ---
APPROVED REPORT EKG Measurement Heart [id number] <Conclusion> Normal sinus rhythm Left atrial enlargement Rightward axis Left bundle branch block Abnormal ECG
--- NOTE | 2017-04-13 20:02 | CARDCATH ---
PROCEDURE DATE: 04/13/2017 INDICATION: Mr. Mckeon is a 56-year-old -Prydeinig male who presented to [facility] with complaints of worsening shortness of breath and acute systolic heart failure. He had an echocardiogram about six months ago at which time, the patient had ejection fraction about 35% to 40%. Repeat echocardiogram on this admission shows that ejection fraction had gone significantly down to 10% to 15%. Therefore he was brought to the shipyard laborer for further evaluation of underlying CAD and worsening of his EF. PROCEDURES PERFORMED: Complete heart catheterization with selective left and right coronary angiogram, hemodynamics and saturations for the right heart catheterization, 6-Syrian right femoral arterial access, 7-Syrian right femoral venous access, Angio-Seal closure device for hemostasis of the arterial access. TECHNIQUES OF PROCEDURE: After obtaining informed consent, patient was brought to the cardiac cath suite in post-absorptive nonsedating state. Patient was prepped and draped in the usual sterile fashion, 2% lidocaine was used for infiltration of anesthesia. Using modified Seldinger technique, a 6-Syrian sheath was introduced into the right femoral artery and 7-Syrian sheath was introduced into the right femora vein. Subsequently, under fluoroscopic guidance, with the balloon inflated, Marion-Julio catheter was advanced serially through the IVC into the RA, RV, PA and wedge position. Hemodynamics along with saturations were obtained. RIGHT HEART CATH FINDINGS: RA pressure 11/7/7 with mean arterial pressure of 7 mmHg, RV pressure 43/2/11 with RVEDP of 11 mmHg, PA pressure is 45/17/28 with mean PA pressure of 28, pulmonary capillary wedge pressure is 14/18/13 with mean wedge of 13. LV pressure is 97/5/17 with LVEDP of 17 mmHg. Using the peak equation, cardiac outflow was calculated to be 4.15 liters per minute, and cardiac index was 2.3 liters per minute per square meter area. CORONARY ANATOMY: Left main large-sized vessel bifurcates into left anterior descending and left circumflex coronary artery. LAD is a large-sized vessel which gives off one medium diagonal and two small diagonal branches. Left circumflex runs in the AV groove and gives off a small obtuse marginal branch. Right coronary artery gives right PDA and PLV branches with mild nonobstructive disease. IMPRESSION: 1. Left ventricular ejection fraction estimated 10% to 15%. 2. Nonischemic dilated cardiomyopathy, mildly reduced cardiac index, normal filling pressures. RECOMMENDATIONS: Continue aggressive medical management, guideline-directed therapy for nonischemic dilated cardiomyopathy, consider Bi-V ICD. Derek Chavez MD
[2017-04-14 08:44] VITALS: O2SAT 97
[2017-04-14 09:09] LABS: BASO # 0.1 K/uL (0.0-0.2); BASO % 1.4 % (0.0-2.0); EOS # 0.2 K/uL (0.0-0.7); EOS % 4.3 % (0.0-4.0); HEMATOCRIT 37.2 % (35.0-51.0); LYMPH # 1.1 K/uL (1.0-4.3); LYMPH % 22.4 % (20.0-40.0); MEAN CELL VOLUME 96.8 fL (80.0-94.0); MEAN CORPUSCULAR HEMOGLOBIN 31.6 pg (27.0-31.0); MEAN CORPUSCULAR HGB CONC 32.7 g/dL (33.0-37.0); MEAN PLATELET VOLUME 8.3 fL (7.2-11.7); MONO # 0.8 K/uL (0.0-0.8); MONO % 15.9 % (0.0-10.0); RED CELL DISTRIBUTION WIDTH 16.7 % (11.5-14.5); WHITE BLOOD COUNT 4.8 K/uL (4.8-10.8)
--- NOTE | 2017-04-14 10:09 | CP.PCM.PN ---
Objective - Vital Signs/Intake and Output Vital Signs (last 24 hours): Temp Pulse Resp BP Pulse Ox 97.9 F 60 20 103/60 97 04/14/17 08:43 04/14/17 08:43 04/14/17 08:43 04/14/17 08:43 04/14/17 08:43 Intake and Output: 04/14/17 04/14/17 06:59 18:59 Intake Total 600 Output Total 700 Balance -100 - Medications Medications: Current Medications Aspirin (Ecotrin) 81 mg PO DAILY [facility] Last Admin: 04/13/17 10:41 Dose: 81 mg Carvedilol (Coreg) 6.25 mg PO BID [facility] Last Admin: 04/13/17 19:00 Dose: Not Given Famotidine (Pepcid) 20 mg PO BID [facility] Last Admin: 04/13/17 17:45 Dose: 20 mg Folic Acid (Folic Acid) 1 mg PO DAILY [facility] Last Admin: 04/13/17 10:41 Dose: 1 mg Furosemide (Lasix) 40 mg IVP BID [facility] Last Admin: 04/13/17 19:00 Dose: Not Given Guaifenesin (Robitussin) 100 mg PO Q4H PRN PRN Reason: Cough Last Admin: 04/08/17 17:42 Dose: 100 mg Ketorolac Tromethamine (Toradol) 10 mg PO Q6 PRN PRN Reason: Pain, moderate (4-7) Last Admin: 04/11/17 15:06 Dose: 10 mg Lisinopril (Zestril) 2.5 mg PO DAILY [facility] Last Admin: 04/13/17 10:41 Dose: 2.5 mg Lorazepam (Ativan) 1 mg PO Q4H PRN PRN Reason: Symptoms of alcohol withdrawl Multivitamins (Hexavitamin) 1 tab PO DAILY [facility] Last Admin: 04/13/17 10:41 Dose: 1 tab Jdpbi-3-[id number] Ethyl Esters (Lovaza) 1 gm PO BID [facility] Last Admin: 04/13/17 17:45 Dose: 1 gm Rosuvastatin Calcium (Crestor) 5 mg PO HS [facility] Last Admin: 04/13/17 21:40 Dose: 5 mg Spironolactone (Aldactone) 25 mg PO DAILY [facility] Last Admin: 04/13/17 10:43 Dose: Not Given Thiamine HCl (Vitamin B1 Tab) 100 mg PO DAILY [facility] Last Admin: 04/13/17 10:41 Dose: 100 mg - Labs Labs: 04/14/17 08:57 04/13/17 07:15 PT 14.9 SECONDS (9.7-12.2) H 04/10/17 11:12 INR 1.3 04/10/17 11:12 APTT 33 SECONDS (21-34) D 04/07/17 17:12 Assessment and Plan - Assessment and Plan (Free Text) Assessment: 56 year old male with PMHx of CHF (EF<20%), [place], CAD, HTN, and ETOH abuse admitted for SOB 06/26 to CHF exacerbation. Plan: CHF exacerbation Admitted to telemetry =. Patient with history of systolic CHF, off meds for 1 week 04/05 BNP 4930 04/07 BNP 6340 04/09 BNP 3040 04/11 BNP 915 trp .0400, .0350, 0.0460 CXR (04/06/17): cardiomegaly, no obvious infiltrate (f/u offical read) EKG (04/06/17): NSR, 79 BPM, right axis deviation ECHO (08/25/16): EF <25%, LV moderately dilated, global hypokinesis of LV, moderate pulm HTN Quantiferon negative on previous admission (03/14/17) ECHO ordered showed EF between 15-20%. 04/13 cardiac cath: LVEF estimated to be 10-15%, nonischemic dilated cardiomyopathy, mildly reduced cardiac index, normal filling pressures Cardio Consult (Dr. Chavez) - Recs appreciated Cont. the following medications: Lasix 40 mg IVP BID Coreg 6.25 mg PO BID Lisinopril 2.5 mg PO daily Aldactone 25 mg PO daily Crestor 5 HS Robitussin for cough PRN I/O's Daily weights Low Sodium Diet Abdominal Pain Patient had mild RUQ tenderness with vomiting and watery bowel movement. Patient said he has had this pain before and it is resolved with Maalox Gave Maalox Consider RUQ if pain persist F/U AM LFT's Pedal edema (Resolved) Likely secondary to CHF exacerbation. SCDs contraindicated US negative for DVT Hx of [place] Patient with hx of [place] in 2011. SIXTO on admission negative. EKG on admission- sinus rhythm 103 bpm, LBBB. Also seen on EKG from 2/24/17. 3rd EKG had occasional PVC's Troponins NEGATIVE x 3 Peripheral Vascular Disease Lower Ext Arterial Duplex Scan showed Valvular incompetence of right popliteal and posterior tibial veins and Left peroneal veins. NO DVT B/L. ASA 81 mg PO daily Coreg 6.25 mg PO BID Lisinopril 2.5 mg PO daily Crestor 5 PO HS CAD (coronary artery disease) Patient with hx of [place] in 2011. SIXTO on admission negative. EKG on admission- sinus rhythm 103 bpm, LBBB. Also seen on EKG from 07/18/16. ASA 81 mg PO daily Coreg 6.25 mg PO BID Crestor 5 PO HS HTN (hypertension) Initially hypotensive in ED Lisinopril 2.5 mg PO daily Aldactone 25 mg PO daily Coreg 6.250 mg PO BID (HOLD until UDS negative for cocaine) Lasix 40 mg IVP BID Monitor Hypomagnesemia 04/13 Mg 1.3, repleted Alcohol abuse Alcohol level 143 Folic Acid 1 mg PO daily Thiamine 100 mg PO daily MV 1 tab PO daily CIWA protocol Clonidine 0.1mg PO Q4H PRN withdrawal symptoms Ativan 1mg IV Q4H PRN Seizure precautions Fall precautions 04/06/17 UDS negative except Alcohol Leukopenia WBC 3.7 on presentation HIV NEGATIVE Elevated INR believed 2/2 liver damage from chronic alcoholism INR 1.4 Macrocytic anemia MCV 100.3 2/2 long-term alcohol abuse B12 an Folate Low HDL Start Lovaza Proteinuria UA: 1+ protein Continue home zestril 2.5mg PO Daily Prophylactic measure Heparin 5000 SC Q8H Pepcid 20 mg PO BID SCDs contraindicated due to lower extremity edema Dispo: Patient refused AICD on admission. I have been reinforcing the need for AICD on every visit. Patient understands risk associated with not getting an AICD including . Patient stated that he will continue to think about it, but he is afraid of surgery.
[2017-04-14 10:10] LABS: ALB/GLOB RATIO 0.8 (1.0-2.1); ALKALINE PHOSPHATASE 67 U/L (38-126); ALT/SGPT 23 U/L (21-72); AST/SGOT 32 U/L (17-59); BILIRUBIN,TOTAL 0.8 mg/dL (0.2-1.3); BLOOD UREA NITROGEN 24 mg/dL (9-20); CALCIUM 8.9 mg/dl (8.6-10.4); CARBON DIOXIDE 23 mmol/L (22-30); CHLORIDE 97 mmol/L (98-107); GFR AFRICAN-AMERICAN > 60; GLUCOSE,RANDOM 95 mg/dL (75-110); POTASSIUM 4.4 mmol/L (3.6-5.2); SODIUM 131 mmol/L (132-148); TOTAL PROTEIN 8.7 g/dL (6.3-8.3)
[2017-04-14] MEDS: Omega-3-Acid Ethyl Esters 1 GM Cap PO SCH (10:59)
[2017-04-14] MEDS: Multiple Vitamins Tab PO SCH (10:59)
[2017-04-14] MEDS ORDERED: Metoprolol Succinate 25 mg XL Tab PO SCH (12:30)
[2017-04-14 14:54] VITALS: BP 104/65; PULSE 81; RESP 18; TEMP 97.5
--- NOTE | 2017-04-14 17:59 | CP.PCM.DIS ---
Provider - Provider Date of Admission: 04/06/17 02:08 Attending physician: Angela Schmitt DO Consults: Cardiac consult: Dr. Chavez Time Spent in preparation of Discharge (in minutes): 45 Hospital Course - Lab Results Lab Results: Most Recent Lab Values WBC 4.8 K/uL (4.8-10.8) 04/14/17 08:57 RBC 3.84 Mil/uL (4.40-5.90) L 04/14/17 08:57 Hgb 12.2 g/dL (12.0-18.0) 04/14/17 08:57 Hct 37.2 % (35.0-51.0) 04/14/17 08:57 MCV 96.8 fL (80.0-94.0) H 04/14/17 08:57 MCH 31.6 pg (27.0-31.0) H 04/14/17 08:57 MCHC 32.7 g/dL (33.0-37.0) L 04/14/17 08:57 RDW 16.7 % (11.5-14.5) H 04/14/17 08:57 Plt Count 294 K/uL (130-400) 04/14/17 08:57 MPV 8.3 fL (7.2-11.7) 04/14/17 08:57 Neut % (Auto) 56.0 % (50.0-75.0) 04/14/17 08:57 Lymph % (Auto) 22.4 % (20.0-40.0) 04/14/17 08:57 [place] % (Auto) 15.9 % (0.0-10.0) H 04/14/17 08:57 Eos % (Auto) 4.3 % (0.0-4.0) H 04/14/17 08:57 Baso % (Auto) 1.4 % (0.0-2.0) 04/14/17 08:57 Neut # 2.7 K/uL (1.8-7.0) 04/14/17 08:57 Lymph # 1.1 K/uL (1.0-4.3) 04/14/17 08:57 [place] # 0.8 K/uL (0.0-0.8) 04/14/17 08:57 Eos # 0.2 K/uL (0.0-0.7) 04/14/17 08:57 Baso # 0.1 K/uL (0.0-0.2) 04/14/17 08:57 Neutrophils % (Manual) 45 % (50-75) L 04/13/17 07:15 Lymphocytes % (Manual) 31 % (20-40) 04/13/17 07:15 Monocytes % (Manual) 17 % (0-10) H 04/13/17 07:15 Eosinophils % (Manual) 5 % (0-4) H 04/13/17 07:15 Basophils % (Manual) 2 % (0-2) 04/13/17 07:15 Platelet Estimate Normal (NORMAL) 04/13/17 07:15 RBC Morphology Normal 04/13/17 07:15 ESR 79 mm/hr (0-15) H 04/07/17 17:12 PT 14.9 SECONDS (9.7-12.2) H 04/10/17 11:12 INR 1.3 04/10/17 11:12 APTT 33 SECONDS (21-34) D 04/07/17 17:12 Puncture Site Ra 04/13/17 14:40 pCO2 44 mm/Hg (35-45) 04/13/17 14:40 pO2 44 mm/Hg (30-55) 04/13/17 14:40 HCO3 25.8 mmol/L (21-28) 04/13/17 14:40 ABG pH 7.39 (7.35-7.45) 04/13/17 14:40 ABG Total CO2 28.0 mmol/L (22-28) 04/13/17 14:40 ABG O2 Saturation 96.6 % (95-98) 04/13/17 14:40 ABG Base Excess 1.3 mmol/L (-2.0-3.0) 04/13/17 14:40 ABG Hemoglobin 12.5 g/dL (11.7-17.4) 04/13/17 14:40 ABG Carboxyhemoglobin 2.3 % (0.5-1.5) H 04/13/17 14:40 POC ABG HHb (Measured) 3.3 % (0.0-5.0) 04/13/17 14:40 ABG Methemoglobin 1.6 % (0.0-3.0) 04/13/17 14:40 Sage Test Na 04/13/17 14:40 VBG pH 7.35 (7.32-7.43) 04/13/17 14:40 VBG pCO2 42 mmHg (40-60) 04/13/17 14:40 VBG HCO3 22.5 mmol/L 04/13/17 14:40 VBG Total CO2 35.0 mmol/L (22-28) H 04/07/17 17:00 VBG O2 Sat (Calc) 73.3 % (40-65) H 04/13/17 14:40 VBG Base Excess -2.4 mmol/L (0.0-2.0) L 04/13/17 14:40 VBG Potassium 4.3 mmol/L (3.6-5.2) 04/07/17 17:00 Hgb O2 Saturation 92.9 % (95.0-98.0) L 04/13/17 14:40 Sodium 138.0 mmol/l (132-148) 04/07/17 17:00 Chloride 102.0 mmol/L (98-107) 04/07/17 17:00 Glucose 90 mg/dl (75-110) 04/07/17 17:00 Lactate 1.9 mmol/L (0.7-2.1) 04/07/17 17:00 Blood Gas Comments Vb ra 04/13/17 14:40 Crit Value Called To Dr cordova 04/13/17 14:40 Crit Value Called By Mani clark 04/13/17 14:40 Crit Value Read Back Y 04/13/17 14:40 Blood Gas Notified Time 1500 04/13/17 14:40 Sodium 131 mmol/L (132-148) L 04/14/17 08:57 Potassium 4.4 mmol/L (3.6-5.2) 04/14/17 08:57 Chloride 97 mmol/L (98-107) L 04/14/17 08:57 Carbon Dioxide 23 mmol/L (22-30) 04/14/17 08:57 Anion Gap 15 (10-20) 04/14/17 08:57 BUN 24 mg/dL (9-20) H 04/14/17 08:57 Creatinine 0.9 mg/dL (0.8-1.5) 04/14/17 08:57 Est GFR ( Amer) > 60 04/14/17 08:57 Est GFR (Non-Af Amer) > 60 04/14/17 08:57 POC Glucose (mg/dL) 80 mg/dL (65-110) 04/05/17 23:07 Random Glucose 95 mg/dL (75-110) 04/14/17 08:57 Hemoglobin A1c 5.5 % (4.2-6.5) 04/09/17 08:38 Lactic Acid 1.7 mmol/L (0.7-2.1) 04/07/17 17:12 Calcium 8.9 mg/dl (8.6-10.4) 04/14/17 08:57 Phosphorus 4.2 mg/dL (2.5-4.5) 04/11/17 11:44 Magnesium 1.3 mg/dL (1.6-2.3) L 04/13/17 07:15 Total Bilirubin 0.8 mg/dL (0.2-1.3) 04/14/17 08:57 AST 32 U/L (17-59) 04/14/17 08:57 ALT 23 U/L (21-72) 04/14/17 08:57 Alkaline Phosphatase 67 U/L (38-126) 04/14/17 08:57 Total Creatine Kinase 97 U/L (55-170) 04/12/17 11:33 CK-MB (Mass) 1.46 ng/mL (0.0-3.38) 04/12/17 11:33 Troponin I 0.0460 ng/mL (0.00-0.120) 04/12/17 11:33 Troponin I, Quant 0.0340 ng/mL (0.00-0.120) 04/06/17 11:32 NT-Pro-B Natriuret Pep 915 pg/mL (0-900) H 04/11/17 11:44 Total Protein 8.7 g/dL (6.3-8.3) H 04/14/17 08:57 Albumin 3.8 g/dL (3.5-5.0) 04/14/17 08:57 Globulin 4.8 gm/dL (2.2-3.9) H 04/14/17 08:57 Albumin/Globulin Ratio 0.8 (1.0-2.1) L 04/14/17 08:57 Triglycerides 54 mg/dL (0-149) D 04/09/17 08:38 Cholesterol 97 mg/dL (0-199) 04/09/17 08:38 LDL Cholesterol Direct 64 mg/dL (0-129) 04/09/17 08:38 HDL Cholesterol 26 mg/dL (30-70) L 04/09/17 08:38 Vitamin B12 396 pg/mL (239-931) 04/09/17 08:38 Folate 14.9 ng/mL 04/09/17 08:38 Procalcitonin < 0.05 NG/ML (0.19-0.49) L 04/07/17 17:12 TSH 3rd Generation 2.43 mIU/L (0.46-4.68) 04/09/17 08:38 Plasma Cortisol PM 5.74 ug/dL (1.7-14.1) 04/07/17 17:12 Venous Blood Potassium 4.3 mmol/L (3.6-5.2) 04/07/17 17:00 Urine Color Yellow (YELLOW) 04/05/17 00:00 Urine Clarity Clear (Clear) 04/05/17 00:00 Urine pH 6.0 (5.0-8.0) 04/05/17 00:00 Ur Specific [place] 1.003 (1.003-1.030) 04/05/17 00:00 Urine Protein 1+ mg/dL (NEGATIVE) H 04/05/17 00:00 Urine Glucose (UA) Normal mg/dL (Normal) 04/05/17 00:00 Urine Ketones Negative mg/dL (NEGATIVE) 04/05/17 00:00 Urine Blood Negative (NEGATIVE) 04/05/17 00:00 Urine Nitrate Negative (NEGATIVE) 04/05/17 00:00 Urine Bilirubin Negative (NEGATIVE) 04/05/17 00:00 Urine Urobilinogen 4.0 mg/dL (0.2-1.0) 04/05/17 00:00 Ur Leukocyte Esterase Neg Jose/uL (Negative) 04/05/17 00:00 Urine WBC (Auto) 1 /hpf (0-5) 04/05/17 00:00 Urine Opiates Screen Negative (NEGATIVE) 04/06/17 15:49 Urine Methadone Screen Negative (NEGATIVE) 04/06/17 15:49 Ur Barbiturates Screen Negative (NEGATIVE) 04/06/17 15:49 Ur Phencyclidine Scrn Negative (NEGATIVE) 04/06/17 15:49 Ur Amphetamines Screen Negative (NEGATIVE) 04/06/17 15:49 U Benzodiazepines Scrn Negative (NEGATIVE) 04/06/17 15:49 U Oth Cocaine Metabols Negative (NEGATIVE) 04/06/17 15:49 U Cannabinoids Screen Negative (NEGATIVE) 04/06/17 15:49 Alcohol, Quantitative 163 mg/dl (0-10) H 04/05/17 23:26 Hepatitis A IgM Ab Negative (NEGATIVE) 04/06/17 11:32 Hep Bs Antigen Negative (NEGATIVE) 04/06/17 11:32 Hep B Core IgM Ab Negative (NEGATIVE) 04/06/17 11:32 Hepatitis C Antibody Negative (NEGATIVE) 04/06/17 11:32 HIV 1&2 Antibody Screen Negative (NEGATIVE) 04/06/17 11:32 - Hospital Course Hospital Course: CC: "I feel short of breath" HPI Patient is a 56 year old AA male, with PMHx of CT, HTN, CHF, presents with 3 day history of cough and worsening SOB. Patient history severely limited by patient's lack of cooperation. Patient admits to not taking all his medications for over a week because he ran out. He presented to the ED this evening because his cough was worsening, and he was starting to become short of breath. Patient states the cough is dry, and he has attempted to take cough syrup for but this has not improved the cough. He admits associated bilateral leg swelling that he states "is there all the time." He admits to dyspnea on exertion and is only able to travel 1/2 -1 block before becoming short of breath when he can normally "walk four blocks." He states he is unable to lay flat and admits waking up in the middle of the night gasping for air. He denies chest pain or palpitations. Denies diaphoresis, changes in vision, confusion, fevers, chills, n/v, diarrhea, constipation, abdominal pain, headache, lesions. Denies pain in his legs, which are without redness, weeping, or warmth. Patient admits long history of alcohol abuse. He states his latest use was today when he had "2-3 tallboys" (24oz beers). He denies history of seizures from alcohol withdrawal. Patient states he is aware he has "a weak heart." EMR shows pt has been recommended for defibrillator before, but pt has refused. Hospital Course: Patient was admitted to telemetry for CHF. In the ED, Chest x-ray was done and showed moderate venous congestion with small to moderate right and small left pleural effusion, patchy consolidative changes in the mid to lower lung zones bilaterally, and biapical pleural thickening with upper lobe granulomatous changes. ECHO done on 08/25/16 showed EF <25%, LV moderately dilated, global hypokinesis of LV, moderate pulm HTN. Venous duplex scan of b/l lower extremities was done and showed no evidence of superficial or deep vein thrombosis. ECHO was repeated on 04/07/17 and showed EF 15-20% and dilated cardiomyopathy with severely impaired left ventricular systolic function. Cardio consult was placed and the plans were continue aggressive diuretic therapy and RAAS modulation. B/l lower extremities ultrasound was done and showed no evidence of hemodynamically significant arterial insufficiency. Cardiac catherization showed left ventricular ejection fraction estimated 10-15 % and nonischemic dilated cardiomyopathy with mildly reduced cardiac index and normal filling pressures. There was no change in patients ejection fraction. Patient is to follow up with optometric tech and PMD in one week. Patient should return to ED if symptoms of chest pain, SOB, or edema worsen. Patient is to continue with home medication adjusted by optometric tech and PMD. - Date & Time of H&P Date of H&P: 04/14/17 Time of H&P: 19:44 Discharge Exam - Head Exam Head Exam: NORMAL INSPECTION - Eye Exam Eye Exam: EOMI, Normal appearance - ENT Exam ENT Exam: Mucous Membranes Moist - Respiratory Exam Respiratory Exam: Decreased Breath Sounds, NORMAL BREATHING PATTERN. absent: Accessory Muscle Use - Cardiovascular Exam Cardiovascular Exam: REGULAR RHYTHM, +S1, +S2 - Extremities Exam Additional comments: capillary refill less than 2 seconds bilaterally. no hematoma at site of dressing. no bruits. dressings c/d/i. no breakthrough bleeding - Back Exam Back exam: FULL ROM - Neurological Exam Neurological exam: Alert - Skin Skin Exam: Dry, Normal Color Discharge Plan - Discharge Medications Prescriptions: Metoprolol Succinate [Toprol XL] 25 mg PO DAILY 30 Days tab - Follow Up Plan Condition: FAIR Disposition: HOME/ ROUTINE Instructions: Metoprolol (By mouth), Heart Failure (DC), Heart Healthy Diet (DC ), Alcohol Intoxication (DC), Abuse of Alcohol (DC), Heart Catheterization (DC) Additional Instructions: Patient to follow up with optometric tech in 1 week Patient to follow up with primary care doctor in 1 week return to ED if symptoms of chest pain, shortness of breath, edema worsen. continue with current home medication to be adjusted by optometric tech and primary care doctor discontinue Coreg Take Toprolol XL as directed Referrals: Derek Chavez MD [Staff Provider] -
--- NOTE | 2017-04-14 19:25 | CP.PCM.PN ---
Subjective - Date & Time of Evaluation Date of Evaluation: 04/14/17 Time of Evaluation: 16:00 - Subjective Subjective: s/p CHCx - NIDCMP pressures normal Objective - Vital Signs/Intake and Output Vital Signs (last 24 hours): Temp Pulse Resp BP Pulse Ox 97.5 F L 81 18 104/65 97 04/14/17 14:15 04/14/17 14:15 04/14/17 14:15 04/14/17 14:15 04/14/17 08:43 Intake and Output: 04/14/17 04/15/17 18:59 06:59 Intake Total 400 Balance 400 - Labs Labs: 04/14/17 08:57 04/14/17 08:57 PT 14.9 SECONDS (9.7-12.2) H 04/10/17 11:12 INR 1.3 04/10/17 11:12 APTT 33 SECONDS (21-34) D 04/07/17 17:12 - Constitutional Appears: Well - Head Exam Head Exam: ATRAUMATIC, NORMAL INSPECTION, NORMOCEPHALIC - Eye Exam Eye Exam: EOMI, Normal appearance, PERRL Pupil Exam: NORMAL ACCOMODATION, PERRL - ENT Exam ENT Exam: Mucous Membranes Moist, Normal Exam - Neck Exam Neck Exam: Full ROM, Normal Inspection. absent: Lymphadenopathy - Respiratory Exam Respiratory Exam: Clear to Ausculation Bilateral, NORMAL BREATHING PATTERN - Cardiovascular Exam Cardiovascular Exam: REGULAR RHYTHM, +S1, +S2. absent: Murmur - GI/Abdominal Exam GI & Abdominal Exam: Soft, Normal Bowel Sounds. absent: Tenderness - Extremities Exam Extremities Exam: Full ROM, Normal Capillary Refill, Normal Inspection. absent : Joint Swelling, Pedal Edema - Back Exam Back Exam: NORMAL INSPECTION - Neurological Exam Neurological Exam: Alert, Awake, CN II-XII Intact, Normal Gait, Oriented x3 - Psychiatric Exam Psychiatric exam: Normal Affect, Normal Mood - Skin Skin Exam: Dry, Intact, Normal Color, Warm Assessment and Plan (1) CHF (congestive heart failure) Assessment & Plan: non-ischemic CMP with EF of 20% will need biv-icd eval EP consult as outpt Status: Acute (2) CAD (coronary artery disease) Assessment & Plan: non-ischemic cont GDMT for CAD Status: Acute (3) CHF exacerbation Status: Acute (4) Chest discomfort Status: Acute (5) Chest pain Status: Acute (6) Pedal edema Status: Acute (7) HTN (hypertension) Status: Chronic
--- NOTE | 2017-04-15 13:19 | PCM.HF ---
Heart Failure Core Measure - Heart Failure Ejection Fraction: Less Than 40 % BUZZ Inhibitor Prescribed: Yes Contraindication/Reason for not providing: BUZZ Beta-Marissa Prescribed: Metoprolol Succinate Angiotensin II Receptor Marissa Prescribed: No Contraindication/Reason for not providing: BUZZ AnticoagulationTherapy for Atrial Fibrillation/Atrialflutter: No Contraindication/Reason for not providing: NO HX OF AFIB Aldosterone Antagonist Prescribed: No Contraindication/Reason for not providing: NOT RECOMMEND BY CARDIO Hydralazine Nitrate Prescribed: No Contraindication/Reason for not providing: BP IS LOW Implantable Cardioverter Defibrillator Therapy: No Contraindication/Reason for not providing: PATIENT REFUSED Cardiac Resynchronization Therapy Prescribed: No Contraindication/Reason for not providing: PATIENT REFUSED - Follow up Will be discharged to: Home Follow Up Date (must be within 7 days from discharge): 04/20/17 Follow Up Time: 09:00
== END 2017-04-14 14:20 | disposition home or self-care (01) | DRG 124 ==
LOC: C.ER 22:52 → C.5S 04-06 02:08 → C.6T 04-08 22:22
PROVIDERS: ADMIT Family Medicine; ATTEND Hospitalist
PROC: 4A023N8 Measurement of Cardiac Sampling and Pressure, Bilateral, Percutaneous Approach (ICD-10-PCS; principal; 2017-04-13)
PROC: B2111ZZ Fluoroscopy of Multiple Coronary Arteries using Low Osmolar Contrast (ICD-10-PCS; 2017-04-13)
DX: I11.0 Hypertensive heart disease with heart failure (principal); I42.0 Dilated cardiomyopathy; I27.20 Pulmonary hypertension, unspecified; D53.9 Nutritional anemia, unspecified; F10.229 Alcohol dependence with intoxication, unspecified; I25.2 Old myocardial infarction; I50.23 Acute on chronic systolic (congestive) heart failure; Y90.6 Blood alcohol level of 120-199 mg/100 ml; Z59.0 Homelessness; Z87.891 Personal history of nicotine dependence; I25.10 Atherosclerotic heart disease of native coronary artery without angina pectoris; R80.9 Proteinuria, unspecified; Z91.14 Patient's other noncompliance with medication regimen; R07.9 Chest pain, unspecified; R11.2 Nausea with vomiting, unspecified; R19.7 Diarrhea, unspecified; K21.9 Gastro-esophageal reflux disease without esophagitis; D72.819 Decreased white blood cell count, unspecified; I44.7 Left bundle-branch block, unspecified; K76.9 Liver disease, unspecified; Z82.49 Family history of ischemic heart disease and other diseases of the circulatory system

== ENCOUNTER 2017-07-21 00:44 | Inpatient (IN) | payer OTHER ==
--- NOTE | 2017-07-21 01:23 | C.PDOC ---
History Of Present Illness 56yo male with history of CAD, SC in 2012, hypertension, presents to ER with complaints of substernal chest pain, described as a pressure like sensation occurring 1.5 hours prior to arrival. Patient states he has been compliant with his cardiac medication; of note patient is a daily smoker. He states the pain lasted 35 minutes and he called EMS who then gave him Aspirin and 1 Sublingual Nitro after which his pain went from a 10/10 to a 4/10 dull pain. He also reports shortness of breath due to pain. he denies any radiation of pain, diaphoresis and states the pain is not pleuritic in nature. He has no other complaints. Time Seen by Provider: 07/21/17 01:21 Chief Complaint (Nursing): Chest Pain History Per: Patient History/Exam Limitations: no limitations Onset/Duration Of Symptoms: Hrs Current Symptoms Are (Timing): Still Present Quality: "Pain" Associated Symptoms: denies: Diaphoresis Past Medical History Reviewed: Historical Data, Nursing Documentation, Vital Signs Vital Signs: Last Vital Signs Temp 97.5 F L 07/21/17 01:04 Pulse 78 07/21/17 01:04 Resp 18 07/21/17 01:04 BP 120/95 H 07/21/17 01:04 Pulse Ox 96 07/21/17 01:53 - Medical History PMH: CAD, CHF, HTN Denies: Chronic Kidney Disease Surgical History: No Surg Hx - [facility] Procedures FLUOROSCOPY OF MULT COR ART USING L OSM CONTRAST (04/06/17) MEASURE CARDIAC SAMPL & PRESSURE, BILATERAL, PERC (04/06/17) Family History: States: Unknown Family Hx - Social History Hx Alcohol Use: Yes Hx Substance Use: No - Immunization History Hx Tetanus Toxoid Vaccination: No Hx Influenza Vaccination: No Hx Pneumococcal Vaccination: No Review Of Systems Except As Marked, All Systems Reviewed And Found Negative. Constitutional: Negative for: Sweats Cardiovascular: Positive for: Chest Pain Respiratory: Positive for: Shortness of Breath Physical Exam - Physical Exam Appears: Non-toxic, No Acute Distress Skin: Normal Color, Warm, Dry Head: Atraumatic, Normacephalic Eye(s): bilateral: Normal Inspection Nose: Normal Oral Mucosa: Moist Neck: Normal ROM, Supple Chest: Symmetrical Cardiovascular: Rhythm Regular, No Murmur Respiratory: Normal Breath Sounds, No Wheezing Gastrointestinal/Abdominal: Normal Exam, Soft, No Tenderness Extremity: Normal ROM, Pedal Edema (2+ pitting edema bilateral lower extremity starting from knees), No Deformity Neurological/Psych: Oriented x3, Normal Speech, Normal Cognition ED Course And Treatment - Laboratory Results Result Diagrams: 07/21/17 01:40 07/21/17 01:40 ECG: Interpreted By Me, Viewed By Me ECG Rhythm: Sinus Rhythm Interpretation Of ECG: LVH by voltage. Right axis deviation. Rate From EC O2 Sat by Pulse Oximetry: 96 (RA) Pulse Ox Interpretation: Normal Medical Decision Making Medical Decision Making: Impression: ACS, possible mild CHF Plan: -- Labs -- CXR -- Nitro 0.4mg SL Patient to be admitted for further evaluation. Disposition - Disposition Disposition: HOSPITALIZED Disposition Time: 04:10 Condition: FAIR Forms: [facility] (Burkinan) - Clinical Impression Clinical Impression: Chest pain, CHF (congestive heart failure) - Scribe Statement The provider has reviewed the documentation as recorded by the Scribe (Marleny Ennis) Provider Attestation: All medical record entries made by the Scribe were at my direction and personally dictated by me. I have reviewed the chart and agree that the record accurately reflects my personal performance of the history, physical exam, medical decision making, and the department course for this patient. I have also personally directed, reviewed, and agree with the discharge instructions and disposition.
[2017-07-21 01:45] LABS: EOS % 0.8 % (0.0-4.0); HEMOGLOBIN 9.3 g/dL (12.0-18.0); LYMPH # 0.9 K/uL (1.0-4.3); LYMPH % 26.3 % (20.0-40.0); MEAN CORPUSCULAR HEMOGLOBIN 25.2 pg (27.0-31.0); MEAN CORPUSCULAR HGB CONC 32.2 g/dL (33.0-37.0); MEAN PLATELET VOLUME 7.9 fL (7.2-11.7); MONO # 0.3 K/uL (0.0-0.8); MONO % 8.4 % (0.0-10.0); NEUT # 2.2 K/uL (1.8-7.0); NEUT % 63.5 % (50.0-75.0); RBC 3.71 Mil/uL (4.40-5.90); RED CELL DISTRIBUTION WIDTH 20.3 % (11.5-14.5); WHITE BLOOD COUNT 3.5 K/uL (4.8-10.8)
[2017-07-21 01:58] LABS: ALB/GLOB RATIO 0.6 (1.0-2.1); ALBUMIN 3.2 g/dL (3.5-5.0); ALT/SGPT 30 U/L (21-72); AST/SGOT 51 U/L (17-59); BLOOD UREA NITROGEN 10 mg/dL (9-20); CALCIUM 8.6 mg/dl (8.6-10.4); GFR AFRICAN-AMERICAN > 60; GFR NON-AFRICAN AMERICAN > 60
[2017-07-21 01:59] LABS: PROTHROMBIN TIME 19.8 SECONDS (9.7-12.2)
[2017-07-21 02:00] LABS: INR 1.7
[2017-07-21 02:09] LABS: B-TYPE NATRIURETIC PEPTIDE 5390 pg/mL (0-900)
[2017-07-21] MEDS ORDERED: Iodixanol 320 MG/ML 100 ML BOTTLE IV ONE (03:27)
[2017-07-21] MEDS ORDERED: Nitroglycerin 2% Ointment Foilpak UD TOP STA (04:12)
[2017-07-21] MEDS ORDERED: Nitroglycerin 2% Ointment Foilpak UD TOP ONE (04:25)
--- NOTE | 2017-07-21 04:33 | CT ---
EXAM: CT Angiography Chest With Intravenous Contrast CLINICAL HISTORY: 56 years old, male; Pain; Chest pain; Prior surgery; Surgery type: Cardiac cath; Additional info: R/O pe TECHNIQUE: Axial computed tomographic angiography images of the chest with intravenous contrast using pulmonary embolism protocol. All CT scans at this facility use one or more dose reduction techniques, viz.: automated exposure control; ma/kV adjustment per patient size (including targeted exams where dose is matched to indication; i.e. head); or iterative reconstruction technique. MIP reconstructed images were created and reviewed. Coronal and sagittal reformatted images were created and reviewed. CONTRAST: 100 mL of [id number] administered intravenously. COMPARISON: No relevant prior studies available. FINDINGS: Limitations: Streak artifact - mild. Motion artifact - mild. Pulmonary arteries: No definite pulmonary embolism. Aorta: No aneurysm. No dissection. Inferior vena cava: Retrograde filling of IVC and hepatic veins. Lungs: Mild paraseptal and centrilobular emphysematous changes. Minimal mosaic pattern of lung parenchyma. Minimal interlobular septal thickening. Mild peripheral atelectasis/scarring. Scattered mild patchy airspace disease within right lower lobe. Few pulmonary nodules, up to 0.5 cm. Pleural space: Moderate RIGHT pleural effusion. No pneumothorax. Heart: Moderate cardiomegaly. No significant pericardial effusion. Mediastinum: Possible small hiatal hernia. Bones/joints: T6 congenital anomaly. No acute fracture. Soft tissues: Minimal gynecomastia. Lymph nodes: No pathologically enlarged lymph nodes. IMPRESSION: 1. No definite CT evidence of pulmonary embolism. 2. Possible early interstitial edema. Clinical correlation is needed. 3. Patchy airspace disease right lower lobe. DDX: Pneumonia, asymmetric edema. 4. Pulmonary nodules. For low-risk patients, no follow-up is necessary. For high-risk patients (smoking history or other known risk factors) an optional CT at 12 months could be performed. 5. Incidental/non-acute findings are described above.
[2017-07-21 05:12] LABS: URINE BILIRUBIN NEGATIVE (NEGATIVE); URINE BLOOD NEGATIVE (NEGATIVE); URINE CLARITY Clear (Clear); URINE COLOR Yellow (YELLOW); URINE GLUCOSE (UA) NORMAL (Normal); URINE LEUKOCYTE ESTERASE NEG Leu/uL (Negative); URINE NITRATE NEGATIVE (NEGATIVE); URINE PROTEIN 1+ mg/dL (NEGATIVE)
[2017-07-21 05:28] LABS: BARBITURATES, UR NEGATIVE (NEGATIVE); BENZODIAZEPINES, UR NEGATIVE (NEGATIVE); OPIATES, UR NEGATIVE (NEGATIVE); PHENCYCLIDINE, UR NEGATIVE (NEGATIVE)
[2017-07-21] MEDS ORDERED: Alum-Mag Hydrox-Simethicone Susp (30 mL) PO ONE (06:36)
[2017-07-21] MEDS ORDERED: Alum-Mag Hydrox-Simethicone Susp (30 mL) ONE (06:39)
[2017-07-21] MEDS ORDERED: Albuterol HFA 90 mcg/actuation (8 g) IH PRN (08:12)
--- NOTE | 2017-07-21 09:12 | RAD ---
PROCEDURE: CHEST RADIOGRAPH, 1 VIEW HISTORY: Chest pain COMPARISON: 04/05/2017 FINDINGS: LUNGS: The lungs are well inflated. There is consolidation in the right lower lobe. PLEURA: No pneumothorax, suspect small right pleural effusion. CARDIOVASCULAR: There is severe cardiomegaly. OSSEOUS STRUCTURES: No significant abnormalities. VISUALIZED UPPER ABDOMEN: Normal. OTHER FINDINGS: None. IMPRESSION: No change in right lower lobe consolidation. Suspect small right pleural effusion. Persistent severe cardiomegaly.
[2017-07-21] MEDS: Enoxaparin 40 mg Syringe SC SCH (11:51)
[2017-07-21] MEDS: Metoprolol Succinate 25 mg XL Tab PO SCH (11:51)
[2017-07-21 12:46] LABS: AMYLASE 60 U/L (30-110); LIPASE 191 U/L (23-300)
[2017-07-21 12:59] LABS: CK-MB 0.95 ng/mL (0.0-3.38)
[2017-07-21 13:34] LABS: IRON 19 ug/dL (49-181)
[2017-07-21 13:44] LABS: % IRON SATURATION 5 (20-55); TOTAL IRON BINDING CAPACITY 359 ug/dL (250-450)
[2017-07-21 18:18] LABS: CK-MB 0.72 ng/mL (0.0-3.38); TROPONIN I 0.02 ng/mL (0.00-0.120)
--- NOTE | 2017-07-21 23:18 | CP.PCM.HP ---
History of Present Illness - History of Present Illness History of Present Illness: CC: chest pain HPI: 56yo AA male with history of CHF ,CAD, [place] in 2012, hypertension, hyperlipidemia presents to ER with complaints of substernal chest pain, described as a pressure like sensation occurring 1.5 hours prior to arrival non radiating , not associated with diaphoressi, pt admits having some cough and nasal congestion, however pt is a poor historian, he denies any fever, chils, rigors, apparently denies any substance abuse, he is unccoperatibve and sklleping during the exam. Patient states he has been compliant with his cardiac medication; of note patient is a daily smoker. He states the pain lasted 35 minutes and he called EMS who then gave him Aspirin and 1 Sublingual Nitro after which his pain went from a 10/10 to a 4/10 dull pain. He also reports shortness of breath due to pain. he denies any radiation of pain, diaphoresis and states the pain is not pleuritic in nature. He has no other complaints. Present on Admission - Present on Admission Any Indicators Present on Admission: Yes Review of Systems - Review of Systems Systems not reviewed;Unavailable: Acuity of Condition - Constitutional Constitutional: Fatigue, Lethargy, Malaise, Weakness - EENT Eyes: absent: As Per HPI, Blind Spots, Blurred Vision, Change in Vision, Decreased Night Vision, Diplopia, Discharge, Dry Eye, Exophthalmos, Floaters, Irritation, Itchy Eyes, Loss of Peripheral Vision, Pain, Photophobia, Requires Corrective Lenses, Sees Flashes, Spots in Vision, Tunnel Vision, Other Visual Disturbances, Loss of Vision, Other Nose/Mouth/Throat: Nasal Congestion - Cardiovascular Cardiovascular: Chest Pain, Dyspnea, Leg Edema - Respiratory Respiratory: Cough, Chest Congestion Past Patient History - Infectious Disease Hx of Infectious Diseases: None - Past Medical History & Family History Past Medical History?: Yes - Past Social History Smoking Status: Light Smoker < 10 Cigarettes Daily - CARDIAC Hx Congestive Heart Failure: Yes Hx Hypertension: Yes - PULMONARY Hx Respiratory Disorders: No - NEUROLOGICAL Hx Neurological Disorder: No - HEENT Hx HEENT Problems: No - RENAL Hx Chronic Kidney Disease: No - ENDOCRINE/METABOLIC Hx Endocrine Disorders: No - HEMATOLOGICAL/ONCOLOGICAL Hx Blood Disorders: No - INTEGUMENTARY Hx Dermatological Problems: No - MUSCULOSKELETAL/RHEUMATOLOGICAL Hx Falls: No - GASTROINTESTINAL Hx Gastrointestinal Disorders: No - GENITOURINARY/GYNECOLOGICAL Hx Genitourinary Disorders: No - PSYCHIATRIC Hx Substance Use: No - SURGICAL HISTORY Hx Surgeries: No Other/Comment: PT REFUSED CARDIAC STENT - ANESTHESIA Hx Anesthesia: No Meds Allergies/Adverse Reactions: Allergies Allergy/AdvReac Type Severity Reaction Status Date / Time No Known Allergies Allergy Verified 07/21/17 01:11 Physical Exam - Constitutional Appears: No Acute Distress Additional comments: pt sleeping but arousable - Eye Exam Eye Exam: EOMI, Normal appearance, PERRL Pupil Exam: NORMAL ACCOMODATION, PERRL - ENT Exam ENT Exam: Mucous Membranes Moist, Normal Exam - Respiratory Exam Respiratory Exam: Decreased Breath Sounds, Rales - Cardiovascular Exam Cardiovascular Exam: REGULAR RHYTHM, +S1, +S2 - GI/Abdominal Exam GI & Abdominal Exam: Normal Bowel Sounds, Soft. absent: Tenderness - Extremities Exam Extremities exam: Positive for: pedal edema Additional comments: 1+ pitting - Skin Additional comments: poor hygeine dry skin scaly Results - Vital Signs Recent Vital Signs: Last Vital Signs Temp 98.4 F 07/21/17 18:00 Pulse 67 07/21/17 18:00 Resp 20 07/21/17 18:00 BP 103/66 07/21/17 18:00 Pulse Ox 95 07/21/17 18:00 - Labs Result Diagrams: 07/21/17 01:40 07/21/17 01:40 Labs: Laboratory Results - last 24 hr 07/21/17 07/21/17 07/21/17 01:40 01:40 01:40 WBC 3.5 L RBC 3.71 L Hgb 9.3 L D Hct 28.9 L MCV 78.0 L D MCH 25.2 L MCHC 32.2 L RDW 20.3 H Plt Count 240 MPV 7.9 Neut % (Auto) 63.5 Lymph % (Auto) 26.3 [place] % (Auto) 8.4 Eos % (Auto) 0.8 Baso % (Auto) 1.0 Neut # (Auto) 2.2 Lymph # (Auto) 0.9 L [place] # (Auto) 0.3 Eos # (Auto) 0.0 Baso # (Auto) 0.0 PT 19.8 H INR 1.7 APTT 36 H D-Dimer, Quantitative 1200 H Sodium 138 Potassium 3.8 Chloride 103 Carbon Dioxide 23 Anion Gap 17 BUN 10 Creatinine 0.6 L Est GFR ( Amer) > 60 Est GFR (Non-Af Amer) > 60 Random Glucose 70 L Calcium 8.6 Iron TIBC % Saturation Total Bilirubin 1.1 AST 51 ALT 30 Alkaline Phosphatase 99 Total Creatine Kinase CK-MB (Mass) Troponin I 0.0220 NT-Pro-B Natriuret Pep 5390 H Total Protein 8.1 Albumin 3.2 L Globulin 4.9 H Albumin/Globulin Ratio 0.6 L Amylase Lipase Urine Color Urine Clarity Urine pH Ur Specific [place] Urine Protein Urine Glucose (UA) Urine Ketones Urine Blood Urine Nitrate Urine Bilirubin Urine Urobilinogen Ur Leukocyte Esterase Urine WBC (Auto) Urine RBC (Auto) Hyaline Casts Urine Opiates Screen Urine Methadone Screen Ur Barbiturates Screen Ur Phencyclidine Scrn Ur Amphetamines Screen U Benzodiazepines Scrn U Oth Cocaine Metabols U Cannabinoids Screen 07/21/17 07/21/17 07/21/17 05:06 05:06 12:28 WBC RBC Hgb Hct MCV MCH MCHC RDW Plt Count MPV Neut % (Auto) Lymph % (Auto) [place] % (Auto) Eos % (Auto) Baso % (Auto) Neut # (Auto) Lymph # (Auto) [place] # (Auto) Eos # (Auto) Baso # (Auto) PT INR APTT D-Dimer, Quantitative Sodium Potassium Chloride Carbon Dioxide Anion Gap BUN Creatinine Est GFR ( Amer) Est GFR (Non-Af Amer) Random Glucose Calcium Iron TIBC % Saturation Total Bilirubin AST ALT Alkaline Phosphatase Total Creatine Kinase 113 CK-MB (Mass) 0.95 Troponin I < 0.0120 NT-Pro-B Natriuret Pep Total Protein Albumin Globulin Albumin/Globulin Ratio Amylase 60 Lipase 191 Urine Color Yellow Urine Clarity Clear Urine pH 6.0 Ur Specific [place] 1.026 Urine Protein 1+ H Urine Glucose (UA) Normal Urine Ketones Negative Urine Blood Negative Urine Nitrate Negative Urine Bilirubin Negative Urine Urobilinogen 4.0 Ur Leukocyte Esterase Neg Urine WBC (Auto) < 1 Urine RBC (Auto) 1 Hyaline Casts 3-5 H Urine Opiates Screen Negative Urine Methadone Screen Negative Ur Barbiturates Screen Negative Ur Phencyclidine Scrn Negative Ur Amphetamines Screen Negative U Benzodiazepines Scrn Negative U Oth Cocaine Metabols Negative U Cannabinoids Screen Negative 07/21/17 07/21/17 12:28 17:47 WBC RBC Hgb Hct MCV MCH MCHC RDW Plt Count MPV Neut % (Auto) Lymph % (Auto) [place] % (Auto) Eos % (Auto) Baso % (Auto) Neut # (Auto) Lymph # (Auto) [place] # (Auto) Eos # (Auto) Baso # (Auto) PT INR APTT D-Dimer, Quantitative Sodium Potassium Chloride Carbon Dioxide Anion Gap BUN Creatinine Est GFR ( Amer) Est GFR (Non-Af Amer) Random Glucose Calcium Iron 19 L TIBC 359 % Saturation 5 L Total Bilirubin AST ALT Alkaline Phosphatase Total Creatine Kinase 102 CK-MB (Mass) 0.72 Troponin I 0.0200 NT-Pro-B Natriuret Pep Total Protein Albumin Globulin Albumin/Globulin Ratio Amylase Lipase Urine Color Urine Clarity Urine pH Ur Specific [place] Urine Protein Urine Glucose (UA) Urine Ketones Urine Blood Urine Nitrate Urine Bilirubin Urine Urobilinogen Ur Leukocyte Esterase Urine WBC (Auto) Urine RBC (Auto) Hyaline Casts Urine Opiates Screen Urine Methadone Screen Ur Barbiturates Screen Ur Phencyclidine Scrn Ur Amphetamines Screen U Benzodiazepines Scrn U Oth Cocaine Metabols U Cannabinoids Screen Assessment & Plan (1) CHF (congestive heart failure) Status: Acute (2) Chest pain Assessment and Plan: rule out DE/ CHF Echocardiogram'cardiology eval Status: Acute (3) HTN (hypertension) Status: Chronic
--- NOTE | 2017-07-21 23:59 | CON ---
DATE: REASON FOR CONSULTATION: Chest pain and shortness of breath. HISTORY OF PRESENT ILLNESS: The patient is 56 years old -[place] male who has a history of nonischemic cardiomyopathy, most recent cardiac catheterization was at [facility] in March last year in which the left ventricular ejection fraction was estimated to be between 10 to 15%. The patient presents because of shortness of breath, leg swelling and chest pain. The patient stated that he ran out of his medications. He denies any dizziness or syncope. SOCIAL HISTORY: The patient is a smoker. MEDICATIONS: Aldactone 25 mg once a day, aspirin 81 mg a day, Lasix 40 mg p.o. once a day, Lovenox 40 mg subcutaneously once a day, Toprol-XL 25 mg once a day, albuterol inhaler q. 6 hours, thiamine 100 mg once a day, Zestril 2.5 mg once a day, Zofran 4 mg intravenously q. 6 hours p.r.n. REVIEW OF SYSTEMS: No fever or chills. No nausea or vomiting. No dizziness or syncope. PHYSICAL EXAMINATION: GENERAL: The patient is a middle-aged male who does not appear to be in any distress. VITAL SIGNS: Blood pressure 114/72, heart rate 90, temperature 97.5 and respirations 18. HEENT: Normocephalic. NECK: Jugular venous distension is noted. CHEST: Diminished breath sounds on the right base. HEART: S1 and S2 regular. ABDOMEN: Soft. EXTREMITIES: 1+ pitting edema. DIAGNOSTIC DATA: Chest x-ray revealed right lower lobe consolidation, suspect small right pleural effusion. Chest CT scan with PE protocol, evidence of pulmonary embolus, possible interstitial edema. Patchy airspace disease in the right lower lobe. Differential diagnoses pneumonia/asymmetric edema. Pulmonary nodules. EKG revealed sinus rhythm at the rate of 77, right axis deviation, nonspecific intraventricular conduction delay. LABORATORY DATA: Urine drug screen is negative. SMA-7 was within normal limits except for glucose of 70 and creatinine 0.6. ProBNP is 5390. D-dimer is 1200. Hemoglobin and hematocrit 9.3 and 28.9, white count 3.5 and platelet count 240,000. ASSESSMENT: 1. Exacerbation of congestive heart failure. 2. Consider right lower lobe pneumonia. 3. Anemia. 4. Ethyl alcohol abuse. 5. Hypertension. RECOMMENDATIONS: Continue Aldactone 25 mg once a day, aspirin 81 mg once a day, change Lasix to 40 mg intravenously daily. Continue subcutaneous Lovenox 40 mg once a day, Toprol-XL 25 mg once a day, Zestril at 2.5 mg once a day, thiamine 100 mg once a day. The patient is not a suitable candidate for full anticoagulation therapy could be because of poor compliance as well as ETOH abuse. Kalen Lao MD
[2017-07-22 07:38] LABS: MEAN CELL VOLUME 77.5 fL (80.0-94.0); MEAN CORPUSCULAR HEMOGLOBIN 25.4 pg (27.0-31.0); MEAN CORPUSCULAR HGB CONC 32.7 g/dL (33.0-37.0); MEAN PLATELET VOLUME 8.1 fL (7.2-11.7); RBC 3.55 Mil/uL (4.40-5.90); RED CELL DISTRIBUTION WIDTH 20.7 % (11.5-14.5); WHITE BLOOD COUNT 3.7 K/uL (4.8-10.8)
[2017-07-22 07:48] LABS: BLOOD UREA NITROGEN 15 mg/dL (9-20); CALCIUM 8.4 mg/dl (8.6-10.4); GFR AFRICAN-AMERICAN > 60; GFR NON-AFRICAN AMERICAN > 60; MAGNESIUM 1.3 mg/dL (1.6-2.3)
--- NOTE | 2017-07-22 07:53 | CARD ---
APPROVED REPORT EKG Measurement Heart [id number] HI [id number] <Conclusion> Normal sinus rhythm Possible Left atrial enlargement Right axis deviation Nonspecific intraventricular block Abnormal ECG
--- NOTE | 2017-07-22 07:54 | CARD ---
APPROVED REPORT EKG Measurement Heart [id number] <Conclusion> Normal sinus rhythm Possible Left atrial enlargement Right axis deviation Nonspecific intraventricular block Abnormal ECG
[2017-07-22] MEDS: Budesonide 0.5 mg/2 ml Inhal Susp UD INH SCH (07:55)
[2017-07-22] MEDS: Enoxaparin 40 mg Syringe SC SCH (10:43)
[2017-07-22] MEDS: Metoprolol Succinate 25 mg XL Tab PO SCH (10:44)
[2017-07-22] MEDS: Magnesium Sulfate 1 gm in D5W 1 GM/100 ML BAG IVPB SCH ×2 (15:08→15:58)
--- NOTE | 2017-07-22 19:30 | PN ---
SUBJECTIVE: The patient is still mildly short of breath. He denies any chest pain. PHYSICAL EXAMINATION: VITAL SIGNS: Blood pressure 120/79, heart rate 63, temperature 98.2, respirations 20. HEENT: Pale conjunctiva. CHEST: Bibasilar rhonchi. HEART: S1 and S2, regular. EXTREMITIES: 2+ pitting edema. LABORATORY DATA: Today's hemoglobin and hematocrit are 9 and 27.5, white count 3.7, platelet count 161,000. Today, SMA-7 is within normal limits. Magnesium is still low at 1.3, calcium is 8.1. ASSESSMENT AND PLAN: 1. Dilated cardiomyopathy. 2. Hypomagnesemia. 3. EtOH abuse. RECOMMENDATIONS: Continue current Aldactone, aspirin, IV Lasix, Toprol-XL, and Zestril. Start magnesium replacement ____. Kalen Lao MD
--- NOTE | 2017-07-22 23:56 | CP.PCM.PN ---
Subjective - Date & Time of Evaluation Date of Evaluation: 07/22/17 Time of Evaluation: 18:00 - Subjective Subjective: PT SEEN AND EXAMINED, STILL SOB, COUGHING Objective - Vital Signs/Intake and Output Vital Signs (last 24 hours): Temp Pulse Resp BP Pulse Ox 97.6 F 70 20 109/79 98 07/22/17 15:30 07/22/17 15:30 07/22/17 15:30 07/22/17 15:30 07/22/17 15:30 Intake and Output: 07/22/17 07/23/17 18:59 06:59 Intake Total 400 Balance 400 - Medications Medications: Current Medications Albuterol (Ventolin Hfa 90 Mcg/Actuation (8 G)) 90 puff IH Q6 PRN PRN Reason: Shortness of Breath Aspirin (Ecotrin) 81 mg PO DAILY [facility] Last Admin: 07/22/17 10:44 Dose: 81 mg Budesonide (Pulmicort Respules) 0.5 mg INH RQ12 [facility] Last Admin: 07/22/17 07:55 Dose: 0.5 mg Enoxaparin Sodium (Lovenox) 40 mg SC DAILY [facility] Last Admin: 07/22/17 10:43 Dose: 40 mg Furosemide (Lasix) 40 mg IVP DAILY [facility] Last Admin: 07/22/17 10:41 Dose: 40 mg Lisinopril (Zestril) 2.5 mg PO DAILY [facility] Last Admin: 07/22/17 10:44 Dose: 2.5 mg Magnesium Chloride (Slow-Mag) 64 mg PO DAILY [facility] Metoprolol Succinate (Toprol Xl) 25 mg PO DAILY [facility] Last Admin: 07/22/17 10:44 Dose: 25 mg Ondansetron HCl (Zofran Inj) 4 mg IVP Q6H PRN PRN Reason: Nausea/Vomiting Last Admin: 07/21/17 10:50 Dose: 4 mg Spironolactone (Aldactone) 25 mg PO DAILY [facility] Last Admin: 07/22/17 10:44 Dose: 25 mg Thiamine HCl (Vitamin B1 Tab) 100 mg PO DAILY [facility] Last Admin: 07/22/17 10:44 Dose: 100 mg - Labs Labs: 07/22/17 07:03 07/22/17 07:03 PT 19.8 SECONDS (9.7-12.2) H 07/21/17 01:40 INR 1.7 07/21/17 01:40 APTT 36 SECONDS (21-34) H 07/21/17 01:40 Assessment and Plan (1) CHF (congestive heart failure) Status: Acute (2) Chest pain Status: Acute (3) HTN (hypertension) Status: Chronic
[2017-07-23] MEDS: Budesonide 0.5 mg/2 ml Inhal Susp UD INH SCH ×2 (07:23→20:30)
[2017-07-23] MEDS: Magnesium Chloride 64 mg ER Tab PO SCH (09:34)
[2017-07-23] MEDS: Enoxaparin 40 mg Syringe SC SCH (09:34)
[2017-07-23] MEDS: Metoprolol Succinate 25 mg XL Tab PO SCH (09:35)
[2017-07-23] MEDS: Ferric Sodium Gluconat Complex 62.5 mg/5 ml Vial IVPB SCH (17:31)
--- NOTE | 2017-07-23 22:04 | PN ---
DATE: SUBJECTIVE: The patient denies any chest pain. Shortness of breath has improved. PHYSICAL EXAMINATION: VITAL SIGNS: Blood pressure 105/54, heart rate 68, temperature 97, respirations 18. HEENT: Pale conjunctivae. CHEST: Bilateral rhonchi. HEART: S1 and S2, regular. EXTREMITIES: No edema. LABORATORY DATA: Today's hemoglobin and hematocrit 9 and 27.5, white count is 3.7, platelet count 151,000. Today's SMA-7 is within normal limits. ASSESSMENT AND PLAN: 1. Dilated cardiomyopathy. 2. Very poor noncompliance. The patient has not taken any medications for many months according to him. 3. EtOH abuse. RECOMMENDATIONS: Continue Aldactone, aspirin, IV Lasix, subcutaneous Lovenox, slow magnesium, Zestril, and vitamin K. The patient is not a suitable candidate for IV placement or long-term anticoagulation because of extreme noncompliance. The patient is not willing to call anymore his primary physician and one was the last time he saw him. Kalen Lao MD
--- NOTE | 2017-07-23 22:59 | CP.PCM.PN ---
Subjective - Date & Time of Evaluation Date of Evaluation: 07/23/17 Time of Evaluation: 19:45 - Subjective Subjective: Pt seen and examined today Objective - Vital Signs/Intake and Output Vital Signs (last 24 hours): Temp Pulse Resp BP Pulse Ox 97 F L 68 18 104/54 L 95 07/23/17 16:00 07/23/17 16:00 07/23/17 16:00 07/23/17 16:00 07/23/17 16:00 - Medications Medications: Current Medications Albuterol (Ventolin Hfa 90 Mcg/Actuation (8 G)) 90 puff IH Q6 PRN PRN Reason: Shortness of Breath Aspirin (Ecotrin) 81 mg PO DAILY [facility] Last Admin: 07/23/17 09:33 Dose: 81 mg Budesonide (Pulmicort Respules) 0.5 mg INH RQ12 [facility] Last Admin: 07/23/17 20:30 Dose: 0.5 mg Enoxaparin Sodium (Lovenox) 40 mg SC DAILY [facility] Last Admin: 07/23/17 09:34 Dose: 40 mg Ferric Sodium Gluconate Complex (Ferrlecit) 125 mg IVPB DAILY [facility] Stop: 07/31/17 15:46 Last Admin: 07/23/17 17:31 Dose: 125 mg Furosemide (Lasix) 40 mg IVP DAILY [facility] Last Admin: 07/23/17 09:34 Dose: 40 mg Lisinopril (Zestril) 2.5 mg PO DAILY [facility] Last Admin: 07/23/17 09:35 Dose: 2.5 mg Magnesium Chloride (Slow-Mag) 64 mg PO DAILY [facility] Last Admin: 07/23/17 09:34 Dose: 64 mg Metoprolol Succinate (Toprol Xl) 25 mg PO DAILY [facility] Last Admin: 07/23/17 09:35 Dose: 25 mg Ondansetron HCl (Zofran Inj) 4 mg IVP Q6H PRN PRN Reason: Nausea/Vomiting Last Admin: 07/21/17 10:50 Dose: 4 mg Spironolactone (Aldactone) 25 mg PO DAILY [facility] Last Admin: 07/23/17 09:33 Dose: 25 mg Thiamine HCl (Vitamin B1 Tab) 100 mg PO DAILY [facility] Last Admin: 07/23/17 09:35 Dose: 100 mg - Labs Labs: 07/22/17 07:03 07/22/17 07:03 PT 19.8 SECONDS (9.7-12.2) H 07/21/17 01:40 INR 1.7 07/21/17 01:40 APTT 36 SECONDS (21-34) H 07/21/17 01:40 Assessment and Plan (1) CHF (congestive heart failure) Status: Acute (2) Chest pain Status: Acute (3) HTN (hypertension) Status: Chronic
[2017-07-24] MEDS: Budesonide 0.5 mg/2 ml Inhal Susp UD INH SCH ×2 (07:40→20:13)
[2017-07-24] MEDS: Enoxaparin 40 mg Syringe SC SCH (10:45)
[2017-07-24] MEDS: Ferric Sodium Gluconat Complex 62.5 mg/5 ml Vial IVPB SCH (10:45)
[2017-07-24] MEDS: Metoprolol Succinate 25 mg XL Tab PO SCH (10:46)
[2017-07-24] MEDS: Magnesium Chloride 64 mg ER Tab PO SCH (11:14)
--- NOTE | 2017-07-24 21:33 | PN ---
DATE: SUBJECTIVE: The patient is feeling hungry. He thinks he is getting enough diet portion. He denies any chest pain or shortness of breath. PHYSICAL EXAMINATION: VITAL SIGNS: Blood pressure 115/64, heart rate 61, temperature 97.9, and respirations 20. HEENT: Pale conjunctiva. CHEST: Bilateral rhonchi. HEART: S1 and S2, regular. EXTREMITIES: No edema. LABORATORY DATA: SMA-7: Sodium normal limit. Magnesium 1.3, calcium is 8.3. ASSESSMENT: 1. Dilated cardiomyopathy. 2. Hypomagnesemia. 3. Chronic obstructive lung disease. RECOMMENDATIONS: Continue Aldactone 25 mg once a day, aspirin 81 mg once daily, Lasix 40 mg intravenously once a day, Lovenox 40 mg subcutaneous once a day, Slow-Mag at 64 mg daily, Toprol-XL 25 mg once a day, Zestril 2.5 mg once a day. I requested for the patient. Kalen Lao MD
--- NOTE | 2017-07-24 23:08 | CP.PCM.PN ---
Subjective - Date & Time of Evaluation Date of Evaluation: 07/24/17 Time of Evaluation: 18:00 - Subjective Subjective: Patient seen and examined today, he is having less cough, less short of breath, pt is for medical management, diuretics intake out put Objective - Vital Signs/Intake and Output Vital Signs (last 24 hours): Temp Pulse Resp BP Pulse Ox 98.2 F 61 20 110/75 98 07/24/17 15:05 07/24/17 16:44 07/24/17 15:05 07/24/17 15:05 07/24/17 15:05 Intake and Output: 07/24/17 07/25/17 18:59 06:59 Intake Total 600 Output Total 1900 Balance -1300 - Medications Medications: Current Medications Albuterol (Ventolin Hfa 90 Mcg/Actuation (8 G)) 90 puff IH Q6 PRN PRN Reason: Shortness of Breath Aspirin (Ecotrin) 81 mg PO DAILY [facility] Last Admin: 07/24/17 10:44 Dose: 81 mg Budesonide (Pulmicort Respules) 0.5 mg INH RQ12 [facility] Last Admin: 07/24/17 20:13 Dose: 0.5 mg Enoxaparin Sodium (Lovenox) 40 mg SC DAILY [facility] Last Admin: 07/24/17 10:45 Dose: 40 mg Ferric Sodium Gluconate Complex (Ferrlecit) 125 mg IVPB DAILY [facility] Stop: 07/31/17 15:46 Last Admin: 07/24/17 10:45 Dose: 125 mg Furosemide (Lasix) 40 mg IVP DAILY [facility] Last Admin: 07/24/17 10:45 Dose: 40 mg Lisinopril (Zestril) 2.5 mg PO DAILY [facility] Last Admin: 07/24/17 11:14 Dose: 2.5 mg Magnesium Chloride (Slow-Mag) 64 mg PO DAILY [facility] Last Admin: 07/24/17 11:14 Dose: 64 mg Metoprolol Succinate (Toprol Xl) 25 mg PO DAILY [facility] Last Admin: 07/24/17 10:46 Dose: 25 mg Ondansetron HCl (Zofran Inj) 4 mg IVP Q6H PRN PRN Reason: Nausea/Vomiting Last Admin: 07/21/17 10:50 Dose: 4 mg Spironolactone (Aldactone) 25 mg PO DAILY [facility] Last Admin: 07/24/17 10:44 Dose: 25 mg Thiamine HCl (Vitamin B1 Tab) 100 mg PO DAILY [facility] Last Admin: 07/24/17 10:46 Dose: 100 mg - Labs Labs: 07/22/17 07:03 07/22/17 07:03 PT 19.8 SECONDS (9.7-12.2) H 07/21/17 01:40 INR 1.7 07/21/17 01:40 APTT 36 SECONDS (21-34) H 07/21/17 01:40 - Constitutional Appears: No Acute Distress - Head Exam Head Exam: ATRAUMATIC, NORMAL INSPECTION, NORMOCEPHALIC - Eye Exam Eye Exam: EOMI, Normal appearance, PERRL Pupil Exam: NORMAL ACCOMODATION, PERRL - Respiratory Exam Respiratory Exam: Decreased Breath Sounds, Rales, Rhonchi - Cardiovascular Exam Cardiovascular Exam: REGULAR RHYTHM, +S1, +S2. absent: Murmur - GI/Abdominal Exam GI & Abdominal Exam: Soft, Normal Bowel Sounds. absent: Tenderness Assessment and Plan (1) CHF (congestive heart failure) Status: Acute (2) Chest pain Status: Acute (3) HTN (hypertension) Status: Chronic
[2017-07-25 01:50] VITALS: O2SAT 100
[2017-07-25 07:12] LABS: BLOOD UREA NITROGEN 14 mg/dL (9-20); CALCIUM 9.2 mg/dl (8.6-10.4); GFR AFRICAN-AMERICAN > 60; GFR NON-AFRICAN AMERICAN > 60; MAGNESIUM 1.2 mg/dL (1.6-2.3)
[2017-07-25] MEDS: Budesonide 0.5 mg/2 ml Inhal Susp UD INH SCH ×2 (07:23→19:40)
[2017-07-25] MEDS: Magnesium Chloride 64 mg ER Tab PO SCH (10:48)
[2017-07-25] MEDS: Metoprolol Succinate 25 mg XL Tab PO SCH (10:49)
[2017-07-25] MEDS: Enoxaparin 40 mg Syringe SC SCH (10:50)
[2017-07-25] MEDS: Ferric Sodium Gluconat Complex 62.5 mg/5 ml Vial IVPB SCH (10:51)
[2017-07-25] MEDS: Magnesium Sulfate 1 gm in D5W 1 GM/100 ML BAG IVPB SCH ×4 (14:49→18:20)
--- NOTE | 2017-07-25 16:16 | CP.PCM.PN ---
Subjective - Date & Time of Evaluation Date of Evaluation: 07/25/17 Time of Evaluation: 16:16 - Subjective Subjective: PATIENT ADMITTED FOR CHEST PAIN AAOX3 DENIES CHEST PAIN OR SOB NAUSEA OR VOMITING NO SIGN OF DISTRESS NOTED Objective - Vital Signs/Intake and Output Vital Signs (last 24 hours): Temp Pulse Resp BP Pulse Ox 97.9 F 80 20 121/76 100 07/25/17 08:53 07/25/17 08:53 07/25/17 08:53 07/25/17 10:50 07/25/17 08:53 Intake and Output: 07/25/17 07/25/17 06:59 18:59 Output Total 400 Balance -400 - Medications Medications: Current Medications Albuterol (Ventolin Hfa 90 Mcg/Actuation (8 G)) 90 puff IH Q6 PRN PRN Reason: Shortness of Breath Aspirin (Ecotrin) 81 mg PO DAILY [facility] Last Admin: 07/25/17 10:48 Dose: 81 mg Budesonide (Pulmicort Respules) 0.5 mg INH RQ12 [facility] Last Admin: 07/25/17 07:23 Dose: 0.5 mg Enoxaparin Sodium (Lovenox) 40 mg SC DAILY [facility] Last Admin: 07/25/17 10:50 Dose: Not Given Ferric Sodium Gluconate Complex (Ferrlecit) 125 mg IVPB DAILY [facility] Stop: 07/31/17 15:46 Last Admin: 07/25/17 10:51 Dose: 125 mg Furosemide (Lasix) 40 mg IVP DAILY [facility] Last Admin: 07/25/17 10:50 Dose: 40 mg Magnesium Sulfate/Dextrose (Magnesium Sulfate 1 Gm/100 Ml D5w) 1 gm in 100 mls @ 100 mls/hr IVPB Q1H [facility] Stop: 07/25/17 18:59 Last Admin: 07/25/17 16:06 Dose: 100 mls/hr Lisinopril (Zestril) 2.5 mg PO DAILY [facility] Last Admin: 07/25/17 10:48 Dose: 2.5 mg Magnesium Chloride (Slow-Mag) 64 mg PO DAILY [facility] Last Admin: 07/25/17 10:48 Dose: 64 mg Metoprolol Succinate (Toprol Xl) 25 mg PO DAILY [facility] Last Admin: 07/25/17 10:49 Dose: 25 mg Ondansetron HCl (Zofran Inj) 4 mg IVP Q6H PRN PRN Reason: Nausea/Vomiting Last Admin: 07/21/17 10:50 Dose: 4 mg Spironolactone (Aldactone) 25 mg PO DAILY [facility] Last Admin: 07/25/17 10:49 Dose: 25 mg Thiamine HCl (Vitamin B1 Tab) 100 mg PO DAILY [facility] Last Admin: 07/25/17 10:52 Dose: 100 mg - Labs Labs: 07/22/17 07:03 07/25/17 06:43 PT 19.8 SECONDS (9.7-12.2) H 07/21/17 01:40 INR 1.7 07/21/17 01:40 APTT 36 SECONDS (21-34) H 07/21/17 01:40 Assessment and Plan - Assessment and Plan (Free Text) Assessment: PATIENT SEEN AND EXAMINED TNI X 3 IS NEGATIVE DISCUSS WITH DR TINAJERO AND DR VALENCIA WHO CLEAR PATIENT FOR DC FOLLOW UP WITH DR GELLER IN 1-2 WEEKS AT HIS OFFICE ---CALL FOR APPOINTMENT FOLLOW UP WITH DR TINAJERO IN HIS OFFICE --CALL FOR APPOITMENT CONTINUE ALL YOUR HOME MEDICATION ORDER SLOW MAG PO DAILY FOR 15 DAYS ACTIVITY TOLERATED CALL DR GELLER OR GOT TO THE EMERGENCY ROOM IF SYMPTOMS RETURN OR WORSENING DISCUSS WITH PATIENT WHO AGREE AND VERBALIZED UNDERSTANDING
[2017-07-25 17:00] VITALS: BP 115/66; PULSE 55; RESP 18; TEMP 98
--- NOTE | 2017-07-25 17:49 | CP.PCM.PN ---
Subjective - Date & Time of Evaluation Date of Evaluation: 07/25/17 Time of Evaluation: 19:00 - Subjective Subjective: pt seen and examined Objective - Vital Signs/Intake and Output Vital Signs (last 24 hours): Temp Pulse Resp BP Pulse Ox 98 F 55 L 18 115/66 100 07/25/17 15:58 07/25/17 15:58 07/25/17 15:58 07/25/17 15:58 07/25/17 15:58 Intake and Output: 07/25/17 07/25/17 06:59 18:59 Output Total 400 Balance -400 - Medications Medications: Current Medications Albuterol (Ventolin Hfa 90 Mcg/Actuation (8 G)) 90 puff IH Q6 PRN PRN Reason: Shortness of Breath Aspirin (Ecotrin) 81 mg PO DAILY [facility] Last Admin: 07/25/17 10:48 Dose: 81 mg Budesonide (Pulmicort Respules) 0.5 mg INH RQ12 [facility] Last Admin: 07/25/17 07:23 Dose: 0.5 mg Enoxaparin Sodium (Lovenox) 40 mg SC DAILY [facility] Last Admin: 07/25/17 10:50 Dose: Not Given Ferric Sodium Gluconate Complex (Ferrlecit) 125 mg IVPB DAILY [facility] Stop: 07/31/17 15:46 Last Admin: 07/25/17 10:51 Dose: 125 mg Furosemide (Lasix) 40 mg IVP DAILY [facility] Last Admin: 07/25/17 10:50 Dose: 40 mg Magnesium Sulfate/Dextrose (Magnesium Sulfate 1 Gm/100 Ml D5w) 1 gm in 100 mls @ 100 mls/hr IVPB Q1H [facility] Stop: 07/25/17 18:59 Last Admin: 07/25/17 17:28 Dose: 100 mls/hr Lisinopril (Zestril) 2.5 mg PO DAILY [facility] Last Admin: 07/25/17 10:48 Dose: 2.5 mg Magnesium Chloride (Slow-Mag) 64 mg PO DAILY [facility] Last Admin: 07/25/17 10:48 Dose: 64 mg Metoprolol Succinate (Toprol Xl) 25 mg PO DAILY [facility] Last Admin: 07/25/17 10:49 Dose: 25 mg Ondansetron HCl (Zofran Inj) 4 mg IVP Q6H PRN PRN Reason: Nausea/Vomiting Last Admin: 07/21/17 10:50 Dose: 4 mg Spironolactone (Aldactone) 25 mg PO DAILY [facility] Last Admin: 07/25/17 10:49 Dose: 25 mg Thiamine HCl (Vitamin B1 Tab) 100 mg PO DAILY [facility] Last Admin: 07/25/17 10:52 Dose: 100 mg - Labs Labs: 07/22/17 07:03 07/25/17 06:43 PT 19.8 SECONDS (9.7-12.2) H 07/21/17 01:40 INR 1.7 07/21/17 01:40 APTT 36 SECONDS (21-34) H 07/21/17 01:40 Assessment and Plan (1) CHF (congestive heart failure) Status: Acute (2) Chest pain Status: Acute (3) HTN (hypertension) Status: Chronic
--- NOTE | 2017-07-25 21:22 | PN ---
DATE: SUBJECTIVE: The patient denies shortness of breath. PHYSICAL EXAMINATION VITAL SIGNS: Blood pressure 121/76, heart rate 80, temperature 97.9, respirations 20. HEENT: Normocephalic. CHEST: Bilateral rhonchi. HEART: S1 and S2 regular. EXTREMITIES: No edema. ASSESSMENT: 1. Dilated cardiomyopathy. 2. Hypomagnesemia. 3. Ethanol alcohol abuse. RECOMMENDATIONS: Case was discussed with Dr. Luis Enrique Peres. Continue Aldactone, aspirin, IV Lasix, Slow-Mag, Toprol-XL, and Vistaril. The patient is not a suitable candidate for ICD placement. Kalen Lao MD
--- NOTE | 2017-07-26 23:02 | CP.PCM.DIS ---
Provider - Provider Date of Admission: 07/21/17 02:51 Attending physician: Luis Enrique Peres MD Time Spent in preparation of Discharge (in minutes): 56 Diagnosis - Discharge Diagnosis (1) CHF (congestive heart failure) Status: Acute (2) Chest pain Status: Acute (3) HTN (hypertension) Status: Chronic Hospital Course - Lab Results Lab Results: Most Recent Lab Values WBC 3.7 K/uL (4.8-10.8) L 07/22/17 07:03 RBC 3.55 Mil/uL (4.40-5.90) L 07/22/17 07:03 Hgb 9.0 g/dL (12.0-18.0) L 07/22/17 07:03 Hct 27.5 % (35.0-51.0) L 07/22/17 07:03 MCV 77.5 fL (80.0-94.0) L 07/22/17 07:03 MCH 25.4 pg (27.0-31.0) L 07/22/17 07:03 MCHC 32.7 g/dL (33.0-37.0) L 07/22/17 07:03 RDW 20.7 % (11.5-14.5) H 07/22/17 07:03 Plt Count 251 K/uL (130-400) 07/22/17 07:03 MPV 8.1 fL (7.2-11.7) 07/22/17 07:03 Neut % (Auto) 63.5 % (50.0-75.0) 07/21/17 01:40 Lymph % (Auto) 26.3 % (20.0-40.0) 07/21/17 01:40 Catron % (Auto) 8.4 % (0.0-10.0) 07/21/17 01:40 Eos % (Auto) 0.8 % (0.0-4.0) 07/21/17 01:40 Baso % (Auto) 1.0 % (0.0-2.0) 07/21/17 01:40 Neut # (Auto) 2.2 K/uL (1.8-7.0) 07/21/17 01:40 Lymph # (Auto) 0.9 K/uL (1.0-4.3) L 07/21/17 01:40 Catron # (Auto) 0.3 K/uL (0.0-0.8) 07/21/17 01:40 Eos # (Auto) 0.0 K/uL (0.0-0.7) 07/21/17 01:40 Baso # (Auto) 0.0 K/uL (0.0-0.2) 07/21/17 01:40 PT 19.8 SECONDS (9.7-12.2) H 07/21/17 01:40 INR 1.7 07/21/17 01:40 APTT 36 SECONDS (21-34) H 07/21/17 01:40 D-Dimer, Quantitative 1200 ng/mlDDU (0-243) H 07/21/17 01:40 Sodium 136 mmol/L (132-148) 07/25/17 06:43 Potassium 4.3 mmol/L (3.6-5.2) 07/25/17 06:43 Chloride 99 mmol/L (98-107) 07/25/17 06:43 Carbon Dioxide 29 mmol/L (22-30) 07/25/17 06:43 Anion Gap 12 (10-20) 07/25/17 06:43 BUN 14 mg/dL (9-20) 07/25/17 06:43 Creatinine 0.8 mg/dL (0.8-1.5) 07/25/17 06:43 Est GFR ( Amer) > 60 07/25/17 06:43 Est GFR (Non-Af Amer) > 60 07/25/17 06:43 Random Glucose 87 mg/dL (75-110) 07/25/17 06:43 Calcium 9.2 mg/dl (8.6-10.4) 07/25/17 06:43 Magnesium 1.2 mg/dL (1.6-2.3) L 07/25/17 06:43 Iron 19 ug/dL (49-181) L 07/21/17 12:28 TIBC 359 ug/dL (250-450) 07/21/17 12:28 % Saturation 5 (20-55) L 07/21/17 12:28 Total Bilirubin 1.1 mg/dL (0.2-1.3) 07/21/17 01:40 AST 51 U/L (17-59) 07/21/17 01:40 ALT 30 U/L (21-72) 07/21/17 01:40 Alkaline Phosphatase 99 U/L (38-126) 07/21/17 01:40 Total Creatine Kinase 102 U/L (55-170) 07/21/17 17:47 CK-MB (Mass) 0.72 ng/mL (0.0-3.38) 07/21/17 17:47 Troponin I 0.0200 ng/mL (0.00-0.120) 07/21/17 17:47 NT-Pro-B Natriuret Pep 5390 pg/mL (0-900) H 07/21/17 01:40 Total Protein 8.1 g/dL (6.3-8.3) 07/21/17 01:40 Albumin 3.2 g/dL (3.5-5.0) L 07/21/17 01:40 Globulin 4.9 gm/dL (2.2-3.9) H 07/21/17 01:40 Albumin/Globulin Ratio 0.6 (1.0-2.1) L 07/21/17 01:40 Amylase 60 U/L (30-110) 07/21/17 12:28 Lipase 191 U/L (23-300) 07/21/17 12:28 Urine Color Yellow (YELLOW) 07/21/17 05:06 Urine Clarity Clear (Clear) 07/21/17 05:06 Urine pH 6.0 (5.0-8.0) 07/21/17 05:06 Ur Specific Crowell 1.026 (1.003-1.030) 07/21/17 05:06 Urine Protein 1+ mg/dL (NEGATIVE) H 07/21/17 05:06 Urine Glucose (UA) Normal mg/dL (Normal) 07/21/17 05:06 Urine Ketones Negative mg/dL (NEGATIVE) 07/21/17 05:06 Urine Blood Negative (NEGATIVE) 07/21/17 05:06 Urine Nitrate Negative (NEGATIVE) 07/21/17 05:06 Urine Bilirubin Negative (NEGATIVE) 07/21/17 05:06 Urine Urobilinogen 4.0 mg/dL (0.2-1.0) 07/21/17 05:06 Ur Leukocyte Esterase Neg Jose/uL (Negative) 07/21/17 05:06 Urine WBC (Auto) < 1 /hpf (0-5) 07/21/17 05:06 Urine RBC (Auto) 1 /hpf (0-3) 07/21/17 05:06 Hyaline Casts 3-5 /lpf (0-2) H 07/21/17 05:06 Urine Opiates Screen Negative (NEGATIVE) 07/21/17 05:06 Urine Methadone Screen Negative (NEGATIVE) 07/21/17 05:06 Ur Barbiturates Screen Negative (NEGATIVE) 07/21/17 05:06 Ur Phencyclidine Scrn Negative (NEGATIVE) 07/21/17 05:06 Ur Amphetamines Screen Negative (NEGATIVE) 07/21/17 05:06 U Benzodiazepines Scrn Negative (NEGATIVE) 07/21/17 05:06 U Oth Cocaine Metabols Negative (NEGATIVE) 07/21/17 05:06 U Cannabinoids Screen Negative (NEGATIVE) 07/21/17 05:06 - Hospital Course Hospital Course: PT IS FOR DISCHRGE LESS SHORT OF BREATH NOT A CANDIDATE FOR ANTICOAGULATION AND AICD PT IS ALCOHOLIC AND NON COMPLIANT TO MEDICATIONS Discharge Exam - Head Exam Head Exam: ATRAUMATIC, NORMAL INSPECTION, NORMOCEPHALIC - Eye Exam Eye Exam: EOMI, Normal appearance, PERRL Pupil Exam: NORMAL ACCOMODATION, PERRL - ENT Exam ENT Exam: Mucous Membranes Moist - Respiratory Exam Respiratory Exam: Decreased Breath Sounds, Rales - Cardiovascular Exam Cardiovascular Exam: REGULAR RHYTHM, +S1, +S2 - GI/Abdominal Exam GI & Abdominal Exam: Normal Bowel Sounds Discharge Plan - Discharge Medications Prescriptions: Calcium/Chloride/Magnesium [Slow-Mag] 64 mg PO DAILY 15 Days ect - Follow Up Plan Condition: FAIR Disposition: HOME/ ROUTINE Additional Instructions: FOLLOW UP WITH DR PERES IN 1-2 WEEKS AT HIS OFFICE ---CALL FOR APPOINTMENT FOLLOW UP WITH DR TINAJERO IN HIS OFFICE --CALL FOR APPOITMENT CONTINUE ALL YOUR HOME MEDICATION ORDER NEW PRESCRIPTION GIVEN SLOW MAG PO DAILY FOR 15 DAYS ACTIVITY TOLERATED CALL DR PERES OR GOT TO THE EMERGENCY ROOM IF SYMPTOMS RETURN OR WORSENING Referrals: Kalen Tinajero MD [Staff Provider] - Luis Enrique Peres MD [Emergency Provider] -
== END 2017-07-25 20:00 | disposition home or self-care (01) | DRG 127 ==
LOC: C.ER 00:44 → C.9E 02:51 → C.6T 17:29
PROVIDERS: ADMIT Internal Medicine; ATTEND Internal Medicine
DX: I11.0 Hypertensive heart disease with heart failure (principal); E83.42 Hypomagnesemia; I42.0 Dilated cardiomyopathy; J44.9 Chronic obstructive pulmonary disease, unspecified; D64.9 Anemia, unspecified; F10.20 Alcohol dependence, uncomplicated; I50.9 Heart failure, unspecified; E78.5 Hyperlipidemia, unspecified; F17.200 Nicotine dependence, unspecified, uncomplicated; I25.10 Atherosclerotic heart disease of native coronary artery without angina pectoris; Z91.19 Patient's noncompliance with other medical treatment and regimen; Z91.14 Patient's other noncompliance with medication regimen; I25.2 Old myocardial infarction

== ENCOUNTER 2017-08-14 01:37 | Emergency (ER) | payer OTHER ==
[2017-08-14 01:45] VITALS: BMI 18.6
--- NOTE | 2017-08-14 02:02 | C.PDOC ---
History Of Present Illness 56yo male with history of CAD, ID in 2012, hypertension, presents to ER with complaints of chest palpitations and shortness of breath for 30 minutes, occurring 1 hour prior to arrival. Patient states he also felt light headed and as if he would pass out. Patient states he currently does not have palpitations but still feels short of breath. He denies any chest pain at this time. Patient reports he is compliant with all of his medications; of note patient is a daily smoker and drinker and admits to drinking 2 beers earlier today. He currently offers no other medical complaints. Time Seen by Provider: 08/14/17 02:00 Chief Complaint (Nursing): Palpitations History Per: Patient History/Exam Limitations: no limitations Onset/Duration Of Symptoms: Hrs Current Symptoms Are (Timing): Better Quality: Tightness Past Medical History Reviewed: Historical Data, Nursing Documentation, Vital Signs Vital Signs: Last Vital Signs Temp 97.5 F L 08/14/17 04:30 Pulse 70 08/14/17 04:30 Resp 14 08/14/17 04:30 BP 120/80 08/14/17 04:30 Pulse Ox 97 08/14/17 04:30 - Medical History PMH: CAD, CHF, HTN Denies: Chronic Kidney Disease Surgical History: No Surg Hx - [facility] Procedures FLUOROSCOPY OF MULT COR ART USING L OSM CONTRAST (04/06/17) MEASURE CARDIAC SAMPL & PRESSURE, BILATERAL, PERC (04/06/17) Family History: States: CAD - Social History Hx Alcohol Use: Yes (Drinks 2 cans of beer/day) Hx Substance Use: No - Immunization History Hx Tetanus Toxoid Vaccination: No Hx Influenza Vaccination: No Hx Pneumococcal Vaccination: No Review Of Systems Except As Marked, All Systems Reviewed And Found Negative. Cardiovascular: Negative for: Chest Pain, Palpitations Respiratory: Positive for: Shortness of Breath Physical Exam - Physical Exam Appears: Non-toxic Skin: Normal Color, Warm, Dry Head: Atraumatic, Normacephalic Eye(s): bilateral: Normal Inspection, PERRL, EOMI Oral Mucosa: Moist Neck: Normal ROM, Supple Chest: Symmetrical, No Tenderness Cardiovascular: Rhythm Regular, JVD Respiratory: Decreased Breath Sounds (diminished right sided breath sounds) Gastrointestinal/Abdominal: Bowel Sounds, Soft, No Tenderness Extremity: Pedal Edema (trace bilateral pedal edema), No Deformity Pulses: Left Dorsalis Pedis: Normal, Right Dorsalis Pedis: Normal Neurological/Psych: Oriented x3, Normal Speech, Normal Cognition ED Course And Treatment - Laboratory Results Result Diagrams: 08/14/17 02:05 08/14/17 02:05 ECG: Interpreted By Me, Viewed By Me ECG Rhythm: Sinus Rhythm, L BBB ECG Interpretation: No Changes From Prior (EKG reviewed from 07/21/17) Interpretation Of ECG: Biatrial enlargements. No acute ischemic changes O2 Sat by Pulse Oximetry: 97 (RA) Pulse Ox Interpretation: Normal Medical Decision Making Medical Decision Making: Impression: Shortness of breath, CHF exacerbation Plan: -- CXR -- EKG -- Labs -- UDS Time: 245 Labs reviewed, with elevated DDimer levels. CTA Chest ordered. Time: 428 CTA Chest FINDINGS: Pulmonary arteries: Unremarkable. No pulmonary embolism. Aorta: No acute findings. No thoracic aortic aneurysm. Inferior vena cava: There is early filling of the IVC. Lungs: Mild centrilobular and paraseptal emphysematous changes are present. Scattered foci of linear atelectasis or scarring bilaterally. Improved aeration of the right lower lobe with decreased airspace disease. Mild groundglass opacity in the right lower lobe. Pleural space: There is a small right pleural fluid collection present. No pneumothorax. Heart: The heart is moderately enlarged, unchanged. No pericardial effusion. Bones/joints: T6 congenital anomaly, unchanged. Partial fusion of the right 9th and 10th ribs laterally probably congenital. No acute fracture. No dislocation. Lymph nodes: No enlarged lymph nodes. IMPRESSION: No pulmonary embolism. Stable moderate cardiomegaly with early filling of the IVC. Improved aeration of the right lower lobe with mild persistent groundglass opacity Disposition - Disposition Referrals: [facility] [Outside] Disposition: HOME/ ROUTINE Disposition Time: 06:07 Condition: FAIR Instructions: Shortness of Breath (Dyspnea) Forms: [facility] (Malay) Print Language: GERMAN - Clinical Impression Clinical Impression: Palpitations - Scribe Statement The provider has reviewed the documentation as recorded by the Scribe (Marleny Ennis) Provider Attestation: All medical record entries made by the Scribe were at my direction and personally dictated by me. I have reviewed the chart and agree that the record accurately reflects my personal performance of the history, physical exam, medical decision making, and the department course for this patient. I have also personally directed, reviewed, and agree with the discharge instructions and disposition.
[2017-08-14 02:22] LABS: BASO # 0.1 K/uL (0.0-0.2); BASO % 1.7 % (0.0-2.0); EOS # 0.2 K/uL (0.0-0.7); EOS % 4.8 % (0.0-4.0); HEMOGLOBIN 12.1 g/dL (12.0-18.0); LYMPH # 1.1 K/uL (1.0-4.3); LYMPH % 29.1 % (20.0-40.0); MEAN CORPUSCULAR HEMOGLOBIN 25.9 pg (27.0-31.0); MEAN CORPUSCULAR HGB CONC 32.7 g/dL (33.0-37.0); MEAN PLATELET VOLUME 8.6 fL (7.2-11.7); MONO # 0.4 K/uL (0.0-0.8); MONO % 10.9 % (0.0-10.0); NEUT # 1.9 K/uL (1.8-7.0); NEUT % 53.5 % (50.0-75.0); NRBC % 0.3 % (0.0-2.0); RBC 4.66 Mil/uL (4.40-5.90); RED CELL DISTRIBUTION WIDTH 25.1 % (11.5-14.5); WHITE BLOOD COUNT 3.6 K/uL (4.8-10.8)
[2017-08-14 02:42] LABS: ALB/GLOB RATIO 0.7 (1.0-2.1); ALBUMIN 3.9 g/dL (3.5-5.0); ALT/SGPT 28 U/L (21-72); AST/SGOT 36 U/L (17-59); B-TYPE NATRIURETIC PEPTIDE 3880 pg/mL (0-900); BLOOD UREA NITROGEN 12 mg/dL (9-20); CALCIUM 8.7 mg/dl (8.6-10.4); GFR AFRICAN-AMERICAN > 60; GFR NON-AFRICAN AMERICAN > 60
[2017-08-14 02:47] LABS: BARBITURATES, UR NEGATIVE (NEGATIVE); BENZODIAZEPINES, UR NEGATIVE (NEGATIVE); OPIATES, UR NEGATIVE (NEGATIVE); PHENCYCLIDINE, UR NEGATIVE (NEGATIVE)
[2017-08-14] MEDS ORDERED: Iodixanol 320 MG/ML 100 ML BOTTLE IV ONE (03:03)
--- NOTE | 2017-08-14 04:28 | CT ---
EXAM: CT Angiography Chest With Intravenous Contrast CLINICAL HISTORY: 56 years old, male; Pain; Chest pain; Patient HX: 218 images sent; Additional info: SOB TECHNIQUE: Axial computed tomographic angiography images of the chest with intravenous contrast using pulmonary embolism protocol. All CT scans at this facility use one or more dose reduction techniques, viz.: automated exposure control; ma/kV adjustment per patient size (including targeted exams where dose is matched to indication; i.e. head); or iterative reconstruction technique. MIP reconstructed images were created and reviewed. Coronal and sagittal reformatted images were created and reviewed. CONTRAST: 100 mL of administered intravenously. COMPARISON: CT - ANGIO CHEST PE PROTOCOL 2017-07-21 03:53 FINDINGS: Pulmonary arteries: Unremarkable. No pulmonary embolism. Aorta: No acute findings. No thoracic aortic aneurysm. Inferior vena cava: There is early filling of the IVC. Lungs: Mild centrilobular and paraseptal emphysematous changes are present. Scattered foci of linear atelectasis or scarring bilaterally. Improved aeration of the right lower lobe with decreased airspace disease. Mild groundglass opacity in the right lower lobe. Pleural space: There is a small right pleural fluid collection present. No pneumothorax. Heart: The heart is moderately enlarged, unchanged. No pericardial effusion. Bones/joints: T6 congenital anomaly, unchanged. Partial fusion of the right 9th and 10th ribs laterally probably congenital. No acute fracture. No dislocation. Lymph nodes: No enlarged lymph nodes. IMPRESSION: No pulmonary embolism. Stable moderate cardiomegaly with early filling of the IVC. Improved aeration of the right lower lobe with mild persistent groundglass opacity.
[2017-08-14 04:30] VITALS: O2SAT 97
[2017-08-14 05:49] VITALS: BP 120/80; PULSE 70; RESP 14; TEMP 97.5
--- NOTE | 2017-08-14 08:25 | RAD ---
PROCEDURE: CHEST RADIOGRAPH, 1 VIEW HISTORY: chest pain COMPARISON: CT scan from earlier on the same day. FINDINGS: LUNGS: Clear. PLEURA: No pneumothorax or pleural fluid seen. CARDIOVASCULAR: Enlarged heart. OSSEOUS STRUCTURES: Degenerative changes. VISUALIZED UPPER ABDOMEN: Limited visualization. OTHER FINDINGS: None. IMPRESSION: No focal airspace opacity.
--- NOTE | 2017-08-14 10:32 | CARD ---
APPROVED REPORT EKG Measurement Heart [id number] <Conclusion> Normal sinus rhythm Biatrial enlargement Left axis deviation Left bundle branch block Abnormal ECG
== END 2017-08-14 05:54 | disposition home or self-care (01) ==
LOC: C.ER 01:37
DX: R00.2 Palpitations (principal); I25.10 Atherosclerotic heart disease of native coronary artery without angina pectoris; I10 Essential (primary) hypertension
CPT/HCPCS: 71045; 71275; 80053; 80324; 80345; 80346; 80349; 80353; 80358; 80361; 83880; 83992; 84484; 85025; 85378; 93005; 99284; Q9967

== ENCOUNTER 2017-08-17 01:54 | Inpatient (IN) | payer OTHER ==
[2017-08-17 03:23] LABS: BASO # 0.1 K/uL (0.0-0.2); EOS # 0.1 K/uL (0.0-0.7); EOS % 1.4 % (0.0-4.0); HEMOGLOBIN 11.4 g/dL (12.0-18.0); LYMPH # 2.4 K/uL (1.0-4.3); LYMPH % 56.6 % (20.0-40.0); MEAN CELL VOLUME 79.2 fL (80.0-94.0); MEAN CORPUSCULAR HEMOGLOBIN 25.3 pg (27.0-31.0); MEAN CORPUSCULAR HGB CONC 31.9 g/dL (33.0-37.0); MEAN PLATELET VOLUME 8.4 fL (7.2-11.7); MONO # 0.2 K/uL (0.0-0.8); NEUT # 1.5 K/uL (1.8-7.0); NRBC % 0.1 % (0.0-2.0); RBC 4.49 Mil/uL (4.40-5.90); RED CELL DISTRIBUTION WIDTH 24.7 % (11.5-14.5); WHITE BLOOD COUNT 4.2 K/uL (4.8-10.8)
[2017-08-17 03:31] LABS: ALB/GLOB RATIO 0.7 (1.0-2.1); ALBUMIN 3.8 g/dL (3.5-5.0); ALT/SGPT < 6 U/L (21-72); AST/SGOT 53 U/L (17-59); BLOOD UREA NITROGEN 14 mg/dL (9-20); CALCIUM 8.8 mg/dl (8.6-10.4); GFR AFRICAN-AMERICAN > 60; GFR NON-AFRICAN AMERICAN > 60
--- NOTE | 2017-08-17 03:46 | C.PDOC ---
Chief Complaint (Nursing): Chest Pain Past Medical History Vital Signs: Last Vital Signs Temp 98.1 F 08/17/17 05:00 Pulse 88 08/17/17 05:00 Resp 18 08/17/17 05:00 BP 139/83 08/17/17 05:00 Pulse Ox 99 08/17/17 05:00 - Medical History PMH: CAD, CHF, HTN Denies: Chronic Kidney Disease - [facility] Procedures FLUOROSCOPY OF MULT COR ART USING L OSM CONTRAST (04/06/17) MEASURE CARDIAC SAMPL & PRESSURE, BILATERAL, PERC (04/06/17) Family History: States: Unknown Family Hx, CAD - Social History Hx Alcohol Use: Yes (Drinks 2 cans of beer/day) Hx Substance Use: No - Immunization History Hx Tetanus Toxoid Vaccination: No Hx Influenza Vaccination: No Hx Pneumococcal Vaccination: No ED Course And Treatment - Laboratory Results Result Diagrams: 08/17/17 03:13 08/17/17 03:13 ECG: Interpreted By Me, Viewed By Me ECG Rhythm: Sinus Rhythm ECG Interpretation: Abnormal Interpretation Of ECG: NSR, LAD, poss. LAE, poor R wave progression of chest leads, CLBBB. no acute chnge from old tracings. Rate From EC O2 Sat by Pulse Oximetry: 98 - Other Rad chest x-ray X-Ray: Viewed By Me, Read By Radiologist Interpretation: FINDINGS: Lungs: No consolidation. Pleural space: No pleural effusion. No pneumothorax. Heart: Moderate cardiomegaly. Mediastinum: Apparent mild prominence of central pulmonary vasculature. Bones/joints: No acute fracture. IMPRESSION: 1. Possible mild pulmonary vascular congestion. Clinical correlation is needed. 2. Incidental/non-acute findings are described above. Thank you for allowing us to participate in the care of your patient. Dictated and Authenticated by: Alcides Bella MD. 08/17/2017 4:54 AM Eastern Time ([place] & [place]) Disposition Discussed With : Luis Enrique Peres Doctor Will See Patient In The: Hospital Counseled Patient/Family Regarding: Diagnosis - Disposition Disposition: HOSPITALIZED Disposition Time: 05:08 Condition: STABLE Forms: [facility] (Indonesian) - Clinical Impression Clinical Impression: Chest pain
--- NOTE | 2017-08-17 04:55 | RAD ---
EXAM: XR Chest, 2 Views CLINICAL HISTORY: 56 years old, male; Pain; Chest pain TECHNIQUE: Frontal and lateral views of the chest. COMPARISON: CR - CHEST ONE VIEW 2017-04-05 23:53 FINDINGS: Lungs: No consolidation. Pleural space: No pleural effusion. No pneumothorax. Heart: Moderate cardiomegaly. Mediastinum: Apparent mild prominence of central pulmonary vasculature. Bones/joints: No acute fracture. IMPRESSION: 1. Possible mild pulmonary vascular congestion. Clinical correlation is needed. 2. Incidental/non-acute findings are described above.
[2017-08-17] MEDS ORDERED: Albuterol HFA 90 mcg/actuation (8 g) IH PRN (05:09)
[2017-08-17 09:38] LABS: CK-MB 2.05 ng/mL (0.0-3.38); TROPONIN I 0.041 ng/mL (0.00-0.120)
[2017-08-17] MEDS ORDERED: Enoxaparin 30 mg Syringe SC SCH (10:00)
[2017-08-17] MEDS: Metoprolol Succinate 25 mg XL Tab PO SCH (10:58)
[2017-08-17] MEDS: Magnesium Chloride 64 mg ER Tab PO SCH (10:59)
--- NOTE | 2017-08-17 13:26 | CP.PCM.HP ---
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 Present on Admission - Present on Admission Any Indicators Present on Admission: Yes Review of Systems - Review of Systems Systems not reviewed;Unavailable: Acuity of Condition - Constitutional Constitutional: Fatigue, Lethargy, Malaise - EENT Eyes: absent: As Per HPI, Blind Spots, Blurred Vision, Change in Vision, Decreased Night Vision, Diplopia, Discharge, Dry Eye, Exophthalmos, Floaters, Irritation, Itchy Eyes, Loss of Peripheral Vision, Pain, Photophobia, Requires Corrective Lenses, Sees Flashes, Spots in Vision, Tunnel Vision, Other Visual Disturbances, Loss of Vision, Other Ears: absent: As Per HPI, Decreased Hearing, Ear Discharge, Ear Pain, Tinnitus, Abnormal Hearing, Disequilibrium, Dizziness, Other Nose/Mouth/Throat: Nasal Congestion - Cardiovascular Cardiovascular: Chest Pain, Dyspnea - Respiratory Respiratory: Cough, Dyspnea, Chest Congestion - Gastrointestinal Gastrointestinal: absent: As Per HPI, Abdominal Pain, Belching, Bloating, Change in Bowel Habits, Change in Stool Character, Coffee Ground Emesis, Constipation, Cramping, Diarrhea, Dyspepsia, Dysphagia, Early Satiety, Excessive Flatus, Fecal Incontinence, Heartburn, Hematemesis, Hematochezia, Loose Stools, Melena, Nausea, Odynophagia, Temesmus, Vomiting, Other - Psychiatric Psychiatric: Anxiety, Confusion - Endocrine Endocrine: Fatigue Past Patient History - Infectious Disease Hx of Infectious Diseases: None - Past Medical History & Family History Past Medical History?: Yes - Past Social History Smoking Status: Current Some Days Smoker - CARDIAC Hx Congestive Heart Failure: Yes Hx Hypertension: Yes - PULMONARY Hx Respiratory Disorders: No - NEUROLOGICAL Hx Neurological Disorder: No - HEENT Hx HEENT Problems: No - RENAL Hx Chronic Kidney Disease: No - ENDOCRINE/METABOLIC Hx Endocrine Disorders: No - HEMATOLOGICAL/ONCOLOGICAL Hx Blood Disorders: No - INTEGUMENTARY Hx Dermatological Problems: No - MUSCULOSKELETAL/RHEUMATOLOGICAL Hx Falls: No (denies) - GASTROINTESTINAL Hx Gastrointestinal Disorders: No - GENITOURINARY/GYNECOLOGICAL Hx Genitourinary Disorders: No - PSYCHIATRIC Hx Substance Use: No - SURGICAL HISTORY Hx Surgeries: No Other/Comment: no further information given - ANESTHESIA Hx Anesthesia: No Hx Anesthesia Reactions: No Hx Malignant Hyperthermia: No Has any member of the family had a problem w/ anesthesia?: No Meds Allergies/Adverse Reactions: Allergies Allergy/AdvReac Type Severity Reaction Status Date / Time No Known Allergies Allergy Verified 08/17/17 02:16 Physical Exam - Constitutional Appears: No Acute Distress - Eye Exam Eye Exam: EOMI, Normal appearance, PERRL Pupil Exam: NORMAL ACCOMODATION, PERRL - Neck Exam Additional comments: positive JVD - Respiratory Exam Respiratory Exam: Decreased Breath Sounds, Rales, Rhonchi - Cardiovascular Exam Cardiovascular Exam: REGULAR RHYTHM, +S1, +S2, +S4 - GI/Abdominal Exam GI & Abdominal Exam: Normal Bowel Sounds, Soft. absent: Tenderness - Rectal Exam Rectal Exam: Deferred Results - Vital Signs Recent Vital Signs: Last Vital Signs Temp 97.5 F L 08/17/17 08:04 Pulse 91 H 08/17/17 08:04 Resp 20 08/17/17 08:04 BP 124/63 08/17/17 10:58 Pulse Ox 97 08/17/17 08:04 - Labs Result Diagrams: 08/17/17 03:13 08/18/17 07:41 Labs: Laboratory Results - last 24 hr 08/17/17 08/17/17 08/17/17 03:13 03:13 09:09 WBC 4.2 L RBC 4.49 Hgb 11.4 L Hct 35.6 MCV 79.2 L MCH 25.3 L MCHC 31.9 L RDW 24.7 H Plt Count 225 MPV 8.4 Neut % (Auto) 35.0 L Lymph % (Auto) 56.6 H Butts % (Auto) 5.0 Eos % (Auto) 1.4 Baso % (Auto) 2.0 Neut # (Auto) 1.5 L Lymph # (Auto) 2.4 Butts # (Auto) 0.2 Eos # (Auto) 0.1 Baso # (Auto) 0.1 Sodium 142 Potassium 5.1 Chloride 105 Carbon Dioxide 26 Anion Gap 16 BUN 14 Creatinine 0.8 Est GFR ( Amer) > 60 Est GFR (Non-Af Amer) > 60 Random Glucose 98 Calcium 8.8 Total Bilirubin 1.3 AST 53 ALT < 6 L D Alkaline Phosphatase 100 Total Creatine Kinase 218 H CK-MB (Mass) 2.05 Troponin I 0.0420 0.0410 Total Protein 9.2 H Albumin 3.8 Globulin 5.4 H Albumin/Globulin Ratio 0.7 L Assessment & Plan (1) Chest pain Status: Acute (2) Alcohol abuse Status: Acute (3) CHF (congestive heart failure) Assessment and Plan: ACUTE ON CHRONIC MONITOR PT DAILY BODY WEIGHT INTAKE/ OUT PUT Status: Acute
[2017-08-17 15:46] LABS: CK-MB 1.82 ng/mL (0.0-3.38); TROPONIN I 0.07 ng/mL (0.00-0.120)
[2017-08-17] MEDS: Budesonide 0.5 mg/2 ml Inhal Susp UD INH SCH (19:18)
--- NOTE | 2017-08-17 22:14 | CON ---
DATE: HISTORY OF PRESENT ILLNESS: The patient is a 56 years old male who has history of nonischemic cardiomyopathy, history of hypertension, and continued ETOH abuse and extreme noncompliance with medications. He presented because of dizziness. The patient denies any syncope. The patient is also experiencing dyspnea on exertion. He denies any substernal chest pain. SOCIAL HISTORY: The patient is a light smoker but he is heavy EtOH abuser. CURRENT MEDICATIONS: Aldactone 25 mg once a day, aspirin 81 mg once daily, Lasix 40 mg p.o. once a day, Lovenox 40 mg subcutaneously once a day, Slow-Mag 1 tablet daily, Toprol XL 25 mg daily, albuterol inhaler, Zestril 2.5 mg daily. REVIEW OF SYSTEMS: No nausea or vomiting. No fever or chills. No syncopal episode but the patient presents with dizzy spell. PHYSICAL EXAMINATION: GENERAL: The patient is a middle-aged male who does not appear to be in acute distress. VITAL SIGNS: Blood pressure 123/74, heart rate 91, temperature 97.5, respirations 20. HEENT: Normocephalic. NECK: No JVD. CHEST: Clear. HEART: S1 and S2 regular. S3 gallop is noted. ABDOMEN: Soft. EXTREMITIES: 1+ pitting edema. LABORATORY DATA: Hemoglobin and hematocrit of 11.4 and 35.6, white count 4.2, platelet count 125,000. SMA-7: Sodium 140, potassium 5.1, chloride 105, CO2 of 26, glucose 98, BUN 14, creatinine 0.8. Two sets of troponins are negative. Chest x-ray revealed cardiomegaly with mild CHF. EKG revealed sinus rhythm, left bundle branch block, left atrial enlargement. Echocardiographic study performed in January of last year was consistent with dilated cardiomyopathy with severely impaired ejection fraction which was estimated between 15% and 20%. Mild to moderate pulmonary hypertension. Cardiac catheterization performed by Dr. Chavez in March of last year revealed nonischemic cardiomyopathy with ischemic ejection fraction in the range of 10% to 15%. ASSESSMENT: 1. Dilated cardiomyopathy, nonischemic. 2. Dizzy spell on admission. 3. Rule out malignant ventricular arrhythmia. 4. Hypertension. 5. Ethanol abuse. RECOMMENDATIONS: Continue current thiamine 100 mg once a day, Zestril 2.5 mg once a day, Slow-Mag at 64 mg once a day, aspirin 81 once a day, Lasix 40 mg p.o. once a day, subcutaneous Lovenox 40 mg once a day, Toprol-XL 25 mg once a day, Aldactone 25 mg once a day. Electrophysiology consult will be requested from Dr. Felix to evaluate the patient's need for ICD or ICE/biventricular pacemaker. Kalen Lao MD
--- NOTE | 2017-08-17 22:51 | CP.PCM.CON ---
History of Present Illness - History of Present Illness History of Present Illness: Chart and imaging reviewed Patient was interviewed and examined at bedside admitted with dyspnea and dizziness Denied syncope palpitations Past medical history significant for systemic hypertension dilated cardiomyopathy 'heart attack in 2012; details unavailable\ Past surgery: Medications; reviewed Occasional smoking and alcohol use Exam No distress Afebrile Pulse 80 irregular Normal venous pressures PMI displaced Soft heart sounds No murmurs Clear lungs 1+ bilateral pitting edema DP ++=++ Alert oriented x 3; no defecit EKG: sinus IVCD/atypical LBBB Past Patient History - Infectious Disease Hx of Infectious Diseases: None - Past Medical History & Family History Past Medical History?: Yes - Past Social History Smoking Status: Current Some Days Smoker - CARDIAC Hx Congestive Heart Failure: Yes Hx Hypertension: Yes - PULMONARY Hx Respiratory Disorders: No - NEUROLOGICAL Hx Neurological Disorder: No - HEENT Hx HEENT Problems: No - RENAL Hx Chronic Kidney Disease: No - ENDOCRINE/METABOLIC Hx Endocrine Disorders: No - HEMATOLOGICAL/ONCOLOGICAL Hx Blood Disorders: No - INTEGUMENTARY Hx Dermatological Problems: No - MUSCULOSKELETAL/RHEUMATOLOGICAL Hx Falls: No (denies) - GASTROINTESTINAL Hx Gastrointestinal Disorders: No - GENITOURINARY/GYNECOLOGICAL Hx Genitourinary Disorders: No - PSYCHIATRIC Hx Substance Use: No - SURGICAL HISTORY Hx Surgeries: No Other/Comment: no further information given - ANESTHESIA Hx Anesthesia: No Hx Anesthesia Reactions: No Hx Malignant Hyperthermia: No Has any member of the family had a problem w/ anesthesia?: No Meds Allergies/Adverse Reactions: Allergies Allergy/AdvReac Type Severity Reaction Status Date / Time No Known Allergies Allergy Verified 08/17/17 02:16 - Medications Medications: Current Medications Albuterol (Ventolin Hfa 90 Mcg/Actuation (8 G)) 90 puff IH Q6 PRN PRN Reason: Shortness of Breath Aspirin (Ecotrin) 81 mg PO DAILY [facility] Last Admin: 08/17/17 10:58 Dose: 81 mg Budesonide (Pulmicort Respules) 0.5 mg INH RQ12 [facility] Last Admin: 08/17/17 19:18 Dose: Not Given Enoxaparin Sodium (Lovenox) 40 mg SC DAILY [facility] Furosemide (Lasix) 60 mg IVP Q12 [facility] Last Admin: 08/17/17 21:25 Dose: 60 mg Lisinopril (Zestril) 2.5 mg PO DAILY [facility] Last Admin: 08/17/17 10:59 Dose: 2.5 mg Magnesium Chloride (Slow-Mag) 64 mg PO DAILY [facility] Last Admin: 08/17/17 10:59 Dose: 64 mg Metoprolol Succinate (Toprol Xl) 25 mg PO DAILY [facility] Last Admin: 08/17/17 10:58 Dose: 25 mg Pneumococcal Polyvalent Vaccine (Pneumovax 23 Vaccine) 0.5 ml IM .ONCE ONE Stop: 08/19/17 10:01 Spironolactone (Aldactone) 25 mg PO DAILY [facility] Last Admin: 08/17/17 10:58 Dose: 25 mg Thiamine HCl (Vitamin B1 Tab) 100 mg PO DAILY [facility] Last Admin: 08/17/17 10:59 Dose: 100 mg Results - Vital Signs Recent Vital Signs: Last Vital Signs Temp 97.4 F L 08/17/17 15:54 Pulse 68 08/17/17 15:54 Resp 20 08/17/17 15:54 BP 118/79 08/17/17 21:25 Pulse Ox 98 08/17/17 15:54 - Labs Result Diagrams: 08/17/17 03:13 08/17/17 03:13 Labs: Laboratory Results - last 24 hr 08/17/17 08/17/17 08/17/17 03:13 03:13 09:09 WBC 4.2 L RBC 4.49 Hgb 11.4 L Hct 35.6 MCV 79.2 L MCH 25.3 L MCHC 31.9 L RDW 24.7 H Plt Count 225 MPV 8.4 Neut % (Auto) 35.0 L Lymph % (Auto) 56.6 H Woodward % (Auto) 5.0 Eos % (Auto) 1.4 Baso % (Auto) 2.0 Neut # (Auto) 1.5 L Lymph # (Auto) 2.4 Woodward # (Auto) 0.2 Eos # (Auto) 0.1 Baso # (Auto) 0.1 Sodium 142 Potassium 5.1 Chloride 105 Carbon Dioxide 26 Anion Gap 16 BUN 14 Creatinine 0.8 Est GFR ( Amer) > 60 Est GFR (Non-Af Amer) > 60 Random Glucose 98 Calcium 8.8 Total Bilirubin 1.3 AST 53 ALT < 6 L D Alkaline Phosphatase 100 Total Creatine Kinase 218 H CK-MB (Mass) 2.05 Troponin I 0.0420 0.0410 Total Protein 9.2 H Albumin 3.8 Globulin 5.4 H Albumin/Globulin Ratio 0.7 L 08/17/17 15:13 WBC RBC Hgb Hct MCV MCH MCHC RDW Plt Count MPV Neut % (Auto) Lymph % (Auto) Woodward % (Auto) Eos % (Auto) Baso % (Auto) Neut # (Auto) Lymph # (Auto) Woodward # (Auto) Eos # (Auto) Baso # (Auto) Sodium Potassium Chloride Carbon Dioxide Anion Gap BUN Creatinine Est GFR ( Amer) Est GFR (Non-Af Amer) Random Glucose Calcium Total Bilirubin AST ALT Alkaline Phosphatase Total Creatine Kinase 190 H CK-MB (Mass) 1.82 Troponin I 0.0700 Total Protein Albumin Globulin Albumin/Globulin Ratio Assessment & Plan - Assessment and Plan (Free Text) Assessment: Mr. Mckeon has severe dilated long standing cardiomyopathy; would consider cardiac catheterization if coronary disease has not been excluded previously If non ischemic he is a candidate for sudden prophylaxis; in the interim would place a life vest and maximize heart failure medications Plan: as outlined
[2017-08-18 05:40] VITALS: RESP 20
[2017-08-18] MEDS: Budesonide 0.5 mg/2 ml Inhal Susp UD INH SCH ×2 (07:28→19:13)
[2017-08-18 08:26] LABS: BLOOD UREA NITROGEN 16 mg/dL (9-20); CALCIUM 8.7 mg/dl (8.6-10.4); GFR AFRICAN-AMERICAN > 60; GFR NON-AFRICAN AMERICAN > 60
[2017-08-18] MEDS: Magnesium Chloride 64 mg ER Tab PO SCH (09:04)
[2017-08-18] MEDS: Metoprolol Succinate 25 mg XL Tab PO SCH (09:04)
[2017-08-18] MEDS: Enoxaparin 40 mg Syringe SC SCH (09:10)
--- NOTE | 2017-08-18 16:39 | PN ---
DATE: SUBJECTIVE: The patient denies any chest pain. Shortness of breath has improved. PHYSICAL EXAMINATION VITAL SIGNS: Blood pressure 115/68, pulse rate 70, temperature 98.1, respiratory rate 20. HEENT: Normocephalic. CHEST: Clear. HEART: S1 and S2 regular. ABDOMEN: Soft. EXTREMITIES: No edema. LABORATORY DATA: Today's SMA-7 is within normal limits. ASSESSMENT: 1. Dilated nonischemic cardiomyopathy. 2. Ethanol abuse. 3. Dizziness on admission on presentation. CONDITION: This case was discussed with paid search manager biometrics consultant . The patient will be maintained on Aldactone 25 mg once a day, aspirin 81 mg twice daily, Lasix 60 mg intravenous twice a day, Lovenox 40 mg subcutaneous once a day, Slow-Mag at 64 mg daily, Toprol XL 25 mg once a day, Zestril 2.5 mg once a day, and Thiamine 100 mg once a day. The patient will have lipase place today and we will follow with Dr. Felix and after discharge. Decision of on ICU will be made after followup echocardiographic study if needed as an outpatient. Kalen Lao MD
--- NOTE | 2017-08-18 17:31 | CP.PCM.PN ---
Subjective - Date & Time of Evaluation Date of Evaluation: 08/18/17 Time of Evaluation: 10:00 - Subjective Subjective: PT SEEN AND EXAMINED, CARDIOLOGY CONSULTED, PT HAS severe dilated long standing cardiomyopathy; would consider cardiac catheterization if coronary disease has not been excluded previously If non ischemic he is a candidate for sudden prophylaxis; in the interim would place a life vest and maximize heart failure medications Objective - Vital Signs/Intake and Output Vital Signs (last 24 hours): Temp Pulse Resp BP Pulse Ox 98 F 66 20 114/68 99 08/18/17 15:35 08/18/17 15:35 08/18/17 15:35 08/18/17 15:35 08/18/17 15:35 Intake and Output: 08/18/17 08/18/17 06:59 18:59 Intake Total 480 Output Total 500 Balance -500 480 - Medications Medications: Current Medications Albuterol (Ventolin Hfa 90 Mcg/Actuation (8 G)) 1 puff IH RQ6 PRN PRN Reason: Shortness of Breath Aspirin (Ecotrin) 81 mg PO DAILY [facility] Last Admin: 08/18/17 09:03 Dose: 81 mg Budesonide (Pulmicort Respules) 0.5 mg INH RQ12 [facility] Last Admin: 08/18/17 07:28 Dose: 0.5 mg Enoxaparin Sodium (Lovenox) 40 mg SC DAILY [facility] Last Admin: 08/18/17 09:10 Dose: Not Given Furosemide (Lasix) 60 mg IVP Q12 [facility] Last Admin: 08/18/17 09:04 Dose: 60 mg Lisinopril (Zestril) 2.5 mg PO DAILY [facility] Last Admin: 08/18/17 09:04 Dose: 2.5 mg Magnesium Chloride (Slow-Mag) 64 mg PO DAILY [facility] Last Admin: 08/18/17 09:04 Dose: 64 mg Metoprolol Succinate (Toprol Xl) 25 mg PO DAILY [facility] Last Admin: 08/18/17 09:04 Dose: 25 mg Pneumococcal Polyvalent Vaccine (Pneumovax 23 Vaccine) 0.5 ml IM .ONCE ONE Stop: 08/19/17 10:01 Spironolactone (Aldactone) 25 mg PO DAILY [facility] Last Admin: 08/18/17 09:03 Dose: 25 mg Thiamine HCl (Vitamin B1 Tab) 100 mg PO DAILY [facility] Last Admin: 08/18/17 09:12 Dose: 100 mg - Labs Labs: 08/17/17 03:13 08/18/17 07:41 Assessment and Plan (1) Chest pain Status: Acute (2) Alcohol abuse Status: Acute (3) CHF (congestive heart failure) Status: Acute
[2017-08-18] MEDS ORDERED: Albuterol HFA 90 mcg/actuation (8 g) IH PRN (20:00)
[2017-08-19] MEDS: Budesonide 0.5 mg/2 ml Inhal Susp UD INH SCH ×2 (08:04→19:53)
[2017-08-19] MEDS: Metoprolol Succinate 25 mg XL Tab PO SCH (09:50)
[2017-08-19] MEDS: Enoxaparin 40 mg Syringe SC SCH (09:51)
[2017-08-19] MEDS: Magnesium Chloride 64 mg ER Tab PO SCH (09:54)
[2017-08-19] MEDS ORDERED: Pneumococcal 23-Valent Vaccine IM ONE (10:00)
[2017-08-19 11:20] LABS: BLOOD UREA NITROGEN 17 mg/dL (9-20); CALCIUM 8.8 mg/dl (8.6-10.4); GFR AFRICAN-AMERICAN > 60; GFR NON-AFRICAN AMERICAN > 60
--- NOTE | 2017-08-19 15:35 | PN ---
DATE: SUBJECTIVE: The patient denies any chest pain. Shortness of breath has improved. No dizziness. PHYSICAL EXAMINATION: VITAL SIGNS: Blood pressure 120/80, heart rate is 66, temperature 97.3, respirations 20. HEENT: Normocephalic. CHEST: Clear. HEART: S1 and S2, regular. ABDOMEN: Soft. EXTREMITIES: No edema. LABORATORY DATA: Today's SMA-7 is within normal limits except for glucose of 111, and chloride 296. ASSESSMENT: 1. Dilated nonischemic cardiomyopathy. 2. Ethanol abuse. 3. Hypertension. RECOMMENDATIONS: Continue Aldactone 25 mg once a day, aspirin 81 mg once a day, Lasix 60 mg intravenous twice a day, Lovenox 40 mg subcutaneous once a day, Slow-Mag at 64 mg daily, Toprol XL 25 mg once a day, and Thiamine 100 mg once a day. Awaiting a vest placement. Kalen Lao MD
--- NOTE | 2017-08-19 23:19 | CP.PCM.PN ---
Subjective - Date & Time of Evaluation Date of Evaluation: 08/19/17 Time of Evaluation: 18:35 - Subjective Subjective: Pt seen and examined today, pt is on arrythmia vest, pt is feeling well, afebrile, less hort of breath Objective - Vital Signs/Intake and Output Vital Signs (last 24 hours): Temp Pulse Resp BP Pulse Ox 97.4 F L 60 20 109/65 95 08/19/17 17:05 08/19/17 17:30 08/19/17 17:05 08/19/17 21:43 08/19/17 17:05 - Medications Medications: Current Medications Albuterol (Ventolin Hfa 90 Mcg/Actuation (8 G)) 1 puff IH RQ6 PRN PRN Reason: Shortness of Breath Aspirin (Ecotrin) 81 mg PO DAILY [facility] Last Admin: 08/19/17 09:50 Dose: 81 mg Budesonide (Pulmicort Respules) 0.5 mg INH RQ12 [facility] Last Admin: 08/19/17 19:53 Dose: 0.5 mg Enoxaparin Sodium (Lovenox) 40 mg SC DAILY [facility] Last Admin: 08/19/17 09:51 Dose: 40 mg Furosemide (Lasix) 60 mg IVP Q12 [facility] Last Admin: 08/19/17 21:43 Dose: 60 mg Lisinopril (Zestril) 2.5 mg PO DAILY [facility] Last Admin: 08/19/17 09:55 Dose: 2.5 mg Magnesium Chloride (Slow-Mag) 64 mg PO DAILY [facility] Last Admin: 08/19/17 09:54 Dose: 64 mg Metoprolol Succinate (Toprol Xl) 25 mg PO DAILY [facility] Last Admin: 08/19/17 09:50 Dose: 25 mg Spironolactone (Aldactone) 25 mg PO DAILY [facility] Last Admin: 08/19/17 09:48 Dose: 25 mg Thiamine HCl (Vitamin B1 Tab) 100 mg PO DAILY [facility] Last Admin: 08/19/17 09:50 Dose: 100 mg - Labs Labs: 08/17/17 03:13 08/19/17 10:38 - Constitutional Appears: No Acute Distress - Head Exam Head Exam: ATRAUMATIC, NORMAL INSPECTION, NORMOCEPHALIC - Eye Exam Eye Exam: EOMI, Normal appearance, PERRL Pupil Exam: NORMAL ACCOMODATION, PERRL - Respiratory Exam Respiratory Exam: Decreased Breath Sounds, Rales, NORMAL BREATHING PATTERN - Cardiovascular Exam Cardiovascular Exam: Irregular Rhythm, +S1, +S2. absent: Murmur Assessment and Plan (1) Chest pain Status: Acute (2) Alcohol abuse Status: Acute (3) CHF (congestive heart failure) Status: Acute
--- NOTE | 2017-08-19 23:36 | CARD ---
APPROVED REPORT EKG Measurement Heart [id number] <Conclusion> Normal sinus rhythm Left atrial enlargement Left axis deviation Nonspecific intraventricular block Possible Lateral infarct, age undetermined Abnormal ECG
[2017-08-20] MEDS: Budesonide 0.5 mg/2 ml Inhal Susp UD INH SCH ×2 (07:09→19:39)
[2017-08-20] MEDS: Metoprolol Succinate 25 mg XL Tab PO SCH (09:40)
[2017-08-20] MEDS: Magnesium Chloride 64 mg ER Tab PO SCH (09:40)
[2017-08-20] MEDS: Enoxaparin 40 mg Syringe SC SCH (09:41)
[2017-08-20 11:23] VITALS: TEMP 98.1; O2SAT 97
[2017-08-20] MEDS ORDERED: Influenza Vaccine 60 mcg/0.5 mL SYR (4YR UP) IM ONE (12:00)
--- NOTE | 2017-08-20 14:52 | PCM.HF ---
Heart Failure Core Measure - Heart Failure Ejection Fraction: Less Than 40 % BUZZ Inhibitor Prescribed: Yes Beta-Marissa Prescribed: Metoprolol Succinate Angiotensin II Receptor Marissa Prescribed: No Contraindication/Reason for not providing: on buzz AnticoagulationTherapy for Atrial Fibrillation/Atrialflutter: No Contraindication/Reason for not providing: no hx of a fib Aldosterone Antagonist Prescribed: Yes Hydralazine Nitrate Prescribed: No Contraindication/Reason for not providing: jimmy low Implantable Cardioverter Defibrillator Therapy: No Contraindication/Reason for not providing: life vest trail cierra as per EP Cardiac Resynchronization Therapy Prescribed: No Contraindication/Reason for not providing: life vest trail for now as per EP - Follow up Will be discharged to: Home Follow Up Date (must be within 7 days from discharge): 08/24/17 Follow Up Time: 09:00
--- NOTE | 2017-08-20 14:52 | CP.PCM.PN ---
Subjective - Date & Time of Evaluation Date of Evaluation: 08/20/17 Time of Evaluation: 11:35 - Subjective Subjective: Patient seen today denies any chest pain, dizziness, palpitations, sob improved No overnight events reported on monitor s/p vest placed for low EF Objective - Vital Signs/Intake and Output Vital Signs (last 24 hours): Temp Pulse Resp BP Pulse Ox 98.1 F 61 20 110/69 97 08/20/17 08:15 08/20/17 08:15 08/20/17 08:15 08/20/17 09:41 08/20/17 08:15 - Medications Medications: Current Medications Albuterol (Ventolin Hfa 90 Mcg/Actuation (8 G)) 1 puff IH RQ6 PRN PRN Reason: Shortness of Breath Aspirin (Ecotrin) 81 mg PO DAILY [facility] Last Admin: 08/20/17 09:40 Dose: 81 mg Budesonide (Pulmicort Respules) 0.5 mg INH RQ12 [facility] Last Admin: 08/20/17 07:09 Dose: 0.5 mg Enoxaparin Sodium (Lovenox) 40 mg SC DAILY [facility] Last Admin: 08/20/17 09:41 Dose: 40 mg Furosemide (Lasix) 60 mg IVP Q12 [facility] Last Admin: 08/20/17 09:41 Dose: 60 mg Lisinopril (Zestril) 2.5 mg PO DAILY [facility] Last Admin: 08/20/17 09:39 Dose: 2.5 mg Magnesium Chloride (Slow-Mag) 64 mg PO DAILY [facility] Last Admin: 08/20/17 09:40 Dose: 64 mg Metoprolol Succinate (Toprol Xl) 25 mg PO DAILY [facility] Last Admin: 08/20/17 09:40 Dose: 25 mg Spironolactone (Aldactone) 25 mg PO DAILY [facility] Last Admin: 08/20/17 09:40 Dose: 25 mg Thiamine HCl (Vitamin B1 Tab) 100 mg PO DAILY [facility] Last Admin: 08/19/17 09:50 Dose: 100 mg - Labs Labs: 08/17/17 03:13 08/19/17 10:38 - Constitutional Appears: Well, No Acute Distress - Respiratory Exam Respiratory Exam: Clear to Ausculation Bilateral, NORMAL BREATHING PATTERN - Cardiovascular Exam Cardiovascular Exam: REGULAR RHYTHM, +S1, +S2 - Neurological Exam Neurological Exam: Alert, Awake, Oriented x3 Assessment and Plan - Assessment and Plan (Free Text) Assessment: A/P 56 yr old female with pmhx of CAD, CHF, HTN, EF 10-20% ADMITTED WITH CHEST PAIN TROPONIN X 3 - NEGATIVE Dr. Lao on cardiology consult, recommended Dr. Russo consult for low EF Patient clinically improved with diuresis life vest placed for low EF D/W Dr. Peres stable for discharge home today and f/u with Dr. Peres and Dr. Russo office Discharge plan discussed with patient who understands and agrees with plan ALL RX GIVEN to patient
[2017-08-20 16:33] VITALS: BP 98/68; PULSE 60
--- NOTE | 2017-08-20 19:01 | PN ---
DATE: SUBJECTIVE: The patient denies chest pain. He had the delivered yesterday and the patient received all the instructions necessary. PHYSICAL EXAMINATION: VITAL SIGNS: Blood pressure 110/69, heart rate 61, temperature 98.1, respirations 20. HEENT: Normocephalic. CHEST: Bilateral rhonchi. HEART: S1 and S2 regular. EXTREMITIES: No edema. ASSESSMENT: 1. Nonischemic cardiomyopathy. 2. History of dizziness on admission. 3. Ethanol abuse. 4. Hypertension. RECOMMENDATIONS: Continue Aldactone 25 mg once a day, aspirin 81 mg once a day, Lasix 20 mg intravenously twice a day, Slow-Mag 64 mg once a day, Toprol XL 25 mg daily, Zestril 2.5 mg once a day, Thiamine 100 mg once a day. The patient would be followed up by Dr. Russo, senior outside sales representative for a followup echocardiographic study as an outpatient prior to considering ICD placement and will follow in the clinic by his primary digital account supervisor, Dr. Venkat Allen. Kalen Lao MD
--- NOTE | 2017-08-20 20:28 | CP.PCM.PN ---
Subjective - Date & Time of Evaluation Date of Evaluation: 08/18/17 Time of Evaluation: 18:00 - Subjective Subjective: Seen and examined at bedside No events Feels Ok Exam Afebrile Normal venous pressures Clear lungs 1+ edema Telemetry: reviewed Benign Labs reviewed Objective - Vital Signs/Intake and Output Vital Signs (last 24 hours): Temp Pulse Resp BP Pulse Ox 98.1 F 60 20 98/68 L 97 08/20/17 15:32 08/20/17 15:32 08/20/17 15:32 08/20/17 15:32 08/20/17 15:32 - Medications Medications: Current Medications Albuterol (Ventolin Hfa 90 Mcg/Actuation (8 G)) 1 puff IH RQ6 PRN PRN Reason: Shortness of Breath Aspirin (Ecotrin) 81 mg PO DAILY [facility] Last Admin: 08/20/17 09:40 Dose: 81 mg Budesonide (Pulmicort Respules) 0.5 mg INH RQ12 [facility] Last Admin: 08/20/17 19:39 Dose: 0.5 mg Enoxaparin Sodium (Lovenox) 40 mg SC DAILY [facility] Last Admin: 08/20/17 09:41 Dose: 40 mg Furosemide (Lasix) 60 mg IVP Q12 [facility] Last Admin: 08/20/17 09:41 Dose: 60 mg Lisinopril (Zestril) 2.5 mg PO DAILY [facility] Last Admin: 08/20/17 09:39 Dose: 2.5 mg Magnesium Chloride (Slow-Mag) 64 mg PO DAILY [facility] Last Admin: 08/20/17 09:40 Dose: 64 mg Metoprolol Succinate (Toprol Xl) 25 mg PO DAILY [facility] Last Admin: 08/20/17 09:40 Dose: 25 mg Spironolactone (Aldactone) 25 mg PO DAILY [facility] Last Admin: 08/20/17 09:40 Dose: 25 mg Thiamine HCl (Vitamin B1 Tab) 100 mg PO DAILY [facility] Last Admin: 08/19/17 09:50 Dose: 100 mg - Labs Labs: 08/17/17 03:13 08/19/17 10:38 Assessment and Plan - Assessment and Plan (Free Text) Assessment: Mr. Mckeon has severe dilated long standing cardiomyopathy; would consider cardiac catheterization if coronary disease has not been excluded previously If non ischemic he is a candidate for sudden prophylaxis; in the interim would place a life vest and maximize heart failure medications No interval change Life vest pending ramon CALDWE[place] dr Plan: as outlined
--- NOTE | 2017-08-20 22:57 | CP.PCM.DIS ---
Provider - Provider Date of Admission: 08/18/17 14:59 Attending physician: Luis Enrique Peres MD Time Spent in preparation of Discharge (in minutes): 45 Diagnosis - Discharge Diagnosis (1) Chest pain Status: Acute (2) Alcohol abuse Status: Acute (3) CHF (congestive heart failure) Status: Acute Hospital Course - Lab Results Lab Results: Most Recent Lab Values WBC 4.2 K/uL (4.8-10.8) L 08/17/17 03:13 RBC 4.49 Mil/uL (4.40-5.90) 08/17/17 03:13 Hgb 11.4 g/dL (12.0-18.0) L 08/17/17 03:13 Hct 35.6 % (35.0-51.0) 08/17/17 03:13 MCV 79.2 fL (80.0-94.0) L 08/17/17 03:13 MCH 25.3 pg (27.0-31.0) L 08/17/17 03:13 MCHC 31.9 g/dL (33.0-37.0) L 08/17/17 03:13 RDW 24.7 % (11.5-14.5) H 08/17/17 03:13 Plt Count 225 K/uL (130-400) 08/17/17 03:13 MPV 8.4 fL (7.2-11.7) 08/17/17 03:13 Neut % (Auto) 35.0 % (50.0-75.0) L 08/17/17 03:13 Lymph % (Auto) 56.6 % (20.0-40.0) H 08/17/17 03:13 [place] % (Auto) 5.0 % (0.0-10.0) 08/17/17 03:13 Eos % (Auto) 1.4 % (0.0-4.0) 08/17/17 03:13 Baso % (Auto) 2.0 % (0.0-2.0) 08/17/17 03:13 Neut # (Auto) 1.5 K/uL (1.8-7.0) L 08/17/17 03:13 Lymph # (Auto) 2.4 K/uL (1.0-4.3) 08/17/17 03:13 [place] # (Auto) 0.2 K/uL (0.0-0.8) 08/17/17 03:13 Eos # (Auto) 0.1 K/uL (0.0-0.7) 08/17/17 03:13 Baso # (Auto) 0.1 K/uL (0.0-0.2) 08/17/17 03:13 Sodium 137 mmol/L (132-148) 08/19/17 10:38 Potassium 3.6 mmol/L (3.6-5.2) 08/19/17 10:38 Chloride 96 mmol/L (98-107) L 08/19/17 10:38 Carbon Dioxide 29 mmol/L (22-30) 08/19/17 10:38 Anion Gap 16 (10-20) 08/19/17 10:38 BUN 17 mg/dL (9-20) 08/19/17 10:38 Creatinine 0.9 mg/dL (0.8-1.5) 08/19/17 10:38 Est GFR ( Amer) > 60 08/19/17 10:38 Est GFR (Non-Af Amer) > 60 08/19/17 10:38 Random Glucose 111 mg/dL (75-110) H 08/19/17 10:38 Calcium 8.8 mg/dl (8.6-10.4) 08/19/17 10:38 Total Bilirubin 1.3 mg/dL (0.2-1.3) 08/17/17 03:13 AST 53 U/L (17-59) 08/17/17 03:13 ALT < 6 U/L (21-72) L D 08/17/17 03:13 Alkaline Phosphatase 100 U/L (38-126) 08/17/17 03:13 Total Creatine Kinase 190 U/L (55-170) H 08/17/17 15:13 CK-MB (Mass) 1.82 ng/mL (0.0-3.38) 08/17/17 15:13 Troponin I 0.0700 ng/mL (0.00-0.120) 08/17/17 15:13 Total Protein 9.2 g/dL (6.3-8.3) H 08/17/17 03:13 Albumin 3.8 g/dL (3.5-5.0) 08/17/17 03:13 Globulin 5.4 gm/dL (2.2-3.9) H 08/17/17 03:13 Albumin/Globulin Ratio 0.7 (1.0-2.1) L 08/17/17 03:13 - Hospital Course Hospital Course: A/P 56 yr old female with pmhx of CAD, CHF, HTN, EF 10-20% ADMITTED WITH CHEST PAIN TROPONIN X 3 - NEGATIVE Dr. Lao on cardiology consult, recommended Dr. Russo consult for low EF Patient clinically improved with diuresis life vest placed for low EF Pt is stable for discharge home today and f/u with Dr. Peres and Dr. Russo office Discharge plan discussed with patient who understands and agrees with plan ALL RX GIVEN to patient Discharge Exam - Head Exam Head Exam: ATRAUMATIC, NORMAL INSPECTION, NORMOCEPHALIC Discharge Plan - Discharge Medications Prescriptions: Spironolactone [Aldactone] 25 mg PO DAILY #30 tab Furosemide [Lasix] 40 mg PO BID #60 tablet Calcium/Chloride/Magnesium [Slow-Mag] 64 mg PO DAILY #30 ect Metoprolol Succinate [Toprol XL] 25 mg PO DAILY #30 tab Lisinopril [Zestril] 2.5 mg PO DAILY #30 tab - Follow Up Plan Condition: STABLE Disposition: HOME/ ROUTINE Instructions: Heart Healthy Diet, Smoking: Not Just Harmful to Your Lungs and Heart, Heart Failure, Adult (DC), Chest Pain (DC), Quitting Smoking, Furosemide , Lisinopril, Magnesium Chloride, Metoprolol, Spironolactone Additional Instructions: Please follow up with Dr. Peres office in 1 week Please follow up with Dr. Russo office in 2-4 weeks Continue medication as per med. rec. Referrals: Vish Russo MD [Staff Provider] - Luis Enrique Peres MD [Staff Provider] -
== END 2017-08-20 22:02 | disposition home or self-care (01) | DRG 143 ==
LOC: C.ER 01:54 → C.6T 05:09 → C.9E 05:09 → UNDOADMOB 05:09 → OBSVTOIN 08-18 14:59
PROVIDERS: ADMIT Internal Medicine; ATTEND Internal Medicine
DX: R07.9 Chest pain, unspecified (principal); I50.9 Heart failure, unspecified; I11.0 Hypertensive heart disease with heart failure; I42.0 Dilated cardiomyopathy; F10.10 Alcohol abuse, uncomplicated; I25.10 Atherosclerotic heart disease of native coronary artery without angina pectoris; E78.5 Hyperlipidemia, unspecified; Z91.11 Patient's noncompliance with dietary regimen; Z91.14 Patient's other noncompliance with medication regimen; F17.200 Nicotine dependence, unspecified, uncomplicated; Z79.01 Long term (current) use of anticoagulants; Z79.82 Long term (current) use of aspirin; Z79.899 Other long term (current) drug therapy; I44.7 Left bundle-branch block, unspecified; I27.20 Pulmonary hypertension, unspecified; I25.2 Old myocardial infarction; R42 Dizziness and giddiness

== ENCOUNTER 2017-08-31 01:41 | Observation (INO) | payer OTHER ==
[2017-08-31] MEDS ORDERED: Aspirin 325 mg EC Tablets PO STA (02:35)
--- NOTE | 2017-08-31 02:35 | C.PDOC ---
History Of Present Illness 56 year old male presents to the ED complaining of chest pain and mild shortness of breath, onset tonight. No fever, chills, nausea, or vomiting. Patient recently admitted for similar complaint, and found to have low ejection fraction of 10-20%. On arrival patient is wearing a life vest however was not hooked up to a battery. Time Seen by Provider: 08/31/17 02:34 Chief Complaint (Nursing): Chest Pain History Per: Patient History/Exam Limitations: no limitations Onset/Duration Of Symptoms: Hrs Current Symptoms Are (Timing): Still Present Severity: Moderate Pain Scale Rating Of: 5 Quality: "Pain" Associated Symptoms: Dyspnea Exacerbating Factors: None Alleviating Factors: None Recent travel outside of the [place]: No Additional History Per: EMS Past Medical History Reviewed: Historical Data, Nursing Documentation, Vital Signs Vital Signs: Last Vital Signs Temp 97.6 F 08/31/17 01:55 Pulse 92 H 08/31/17 02:37 Resp 18 08/31/17 01:55 BP 132/81 08/31/17 02:37 Pulse Ox 98 08/31/17 03:13 - Medical History PMH: CAD, CHF, HTN Denies: Chronic Kidney Disease Surgical History: No Surg Hx - [facility] Procedures FLUOROSCOPY OF MULT COR ART USING L OSM CONTRAST (04/06/17) MEASURE CARDIAC SAMPL & PRESSURE, BILATERAL, PERC (04/06/17) Family History: States: Unknown Family Hx, CAD - Social History Hx Alcohol Use: Yes Hx Substance Use: No - Immunization History Hx Tetanus Toxoid Vaccination: No Hx Influenza Vaccination: No Hx Pneumococcal Vaccination: No Review Of Systems Constitutional: Negative for: Fever, Chills, Sweats Cardiovascular: Positive for: Chest Pain Respiratory: Positive for: Shortness of Breath Gastrointestinal: Negative for: Nausea, Vomiting, Abdominal Pain Genitourinary: Negative for: Dysuria Musculoskeletal: Negative for: Back Pain Skin: Negative for: Rash Neurological: Negative for: Weakness Psych: Negative for: Anxiety Physical Exam - Physical Exam Appears: Non-toxic, No Acute Distress Skin: Warm, Dry Head: Normacephalic Eye(s): bilateral: Normal Inspection Oral Mucosa: Moist Neck: Trachea Midline, Supple Chest: Symmetrical, No Tenderness Cardiovascular: Rhythm Regular Respiratory: No Rales, Rhonchi (scattered at the bases), No Wheezing Gastrointestinal/Abdominal: Soft, No Tenderness, No Distention Back: No CVA Tenderness Extremity: Normal ROM Extremity: Bilateral: Atraumatic, Normal Color And Temperature, Normal ROM Pulses: Left Dorsalis Pedis: Normal, Right Dorsalis Pedis: Normal Neurological/Psych: Oriented x3 Gait: Steady ED Course And Treatment - Laboratory Results Result Diagrams: 08/31/17 02:58 08/31/17 02:58 O2 Sat by Pulse Oximetry: 98 (RA) Pulse Ox Interpretation: Normal Progress Note: Ordered labs, EKG, and chest x-ray. Patient given Aspirin 325 mg PO. Disposition Discussed With Dr.: Luis Enrique Peres Comment: accepted the pt on his service and took over the care at 4:13AM Doctor Will See Patient In The: Hospital Counseled Patient/Family Regarding: Studies Performed, Diagnosis - Disposition Disposition: HOSPITALIZED Disposition Time: 02:35 Condition: FAIR Forms: [facility] ([place]) - Clinical Impression Clinical Impression: CHF (congestive heart failure), Chest pain - Scribe Statement The provider has reviewed the documentation as recorded by the Scribe (Isatu Slater) Provider Attestation: All medical record entries made by the Scribe were at my direction and personally dictated by me. I have reviewed the chart and agree that the record accurately reflects my personal performance of the history, physical exam, medical decision making, and the department course for this patient. I have also personally directed, reviewed, and agree with the discharge instructions and disposition. Decision To Admit - Pt Status Changed To: Hospital Disposition Of: Observation - . Bed Request Type: Telemetry Admitting Physician: Luis Enrique Peres Patient Diagnosis: CHF (congestive heart failure), Chest pain
[2017-08-31 03:03] LABS: URINE BILIRUBIN NEGATIVE (NEGATIVE); URINE BLOOD 1+ (NEGATIVE); URINE CLARITY Clear (Clear); URINE COLOR Colorless (YELLOW); URINE GLUCOSE (UA) NORMAL (Normal); URINE LEUKOCYTE ESTERASE NEG Leu/uL (Negative); URINE PROTEIN NEGATIVE (NEGATIVE); URINE UROBILINOGEN NORMAL mg/dL (0.2-1.0)
[2017-08-31 03:08] LABS: HEMOGLOBIN 12.1 g/dL (12.0-18.0); MEAN CELL VOLUME 78.7 fL (80.0-94.0); MEAN CORPUSCULAR HEMOGLOBIN 25.9 pg (27.0-31.0); MEAN CORPUSCULAR HGB CONC 32.9 g/dL (33.0-37.0); MEAN PLATELET VOLUME 7.9 fL (7.2-11.7); MONO # 0.2 K/uL (0.0-0.8); NRBC % 0.1 % (0.0-2.0); RBC 4.69 Mil/uL (4.40-5.90); WHITE BLOOD COUNT 3.8 K/uL (4.8-10.8)
[2017-08-31 03:12] LABS: INR 1.1
[2017-08-31 03:20] LABS: ALB/GLOB RATIO 0.7 (1.0-2.1); ALBUMIN 3.9 g/dL (3.5-5.0); ALT/SGPT 21 U/L (21-72); AST/SGOT 39 U/L (17-59); BLOOD UREA NITROGEN 20 mg/dL (9-20); CALCIUM 9.4 mg/dl (8.6-10.4); GFR AFRICAN-AMERICAN > 60; GFR NON-AFRICAN AMERICAN > 60
[2017-08-31 03:58] LABS: EOS # 0.2 K/uL (0.0-0.7); NEUT # 1.5 K/uL (1.8-7.0)
[2017-08-31 04:03] LABS: B-TYPE NATRIURETIC PEPTIDE 932 pg/mL (0-900)
[2017-08-31] MEDS ORDERED: Albuterol HFA 90 mcg/actuation (8 g) IH PRN (04:38)
--- NOTE | 2017-08-31 08:30 | RAD ---
Chest x-ray single frontal view History: Chest pain. Comparison: 08/17/2017 Findings: Mild venous congestion. Question minimal patchy bibasilar airspace opacities. Question trace left pleural effusion. Cardiomegaly. Upper lobe granulomatous changes. Degenerative changes spine and shoulders. Impression: Mild venous congestion. Question minimal patchy bibasilar airspace opacities. Question trace left pleural effusion. Cardiomegaly. Upper lobe granulomatous changes. Right hilar prominence. Small nodular density at the right lung base laterally may represent prominent vessel on end.
[2017-08-31] MEDS ORDERED: Enoxaparin 30 mg Syringe SC SCH (10:00)
[2017-08-31 10:43] LABS: CK-MB 2.87 ng/mL (0.0-3.38); TROPONIN I 0.029 ng/mL (0.00-0.120)
[2017-08-31] MEDS: Magnesium Chloride 64 mg ER Tab PO SCH (10:45)
[2017-08-31] MEDS: Metoprolol Succinate 25 mg XL Tab PO SCH (10:46)
[2017-08-31] MEDS: Budesonide 0.5 mg/2 ml Inhal Susp UD INH SCH ×2 (10:48→20:09)
[2017-08-31 16:31] LABS: CK-MB 2.07 ng/mL (0.0-3.38); TROPONIN I 0.021 ng/mL (0.00-0.120)
--- NOTE | 2017-08-31 21:39 | CP.PCM.HP ---
History of Present Illness - History of Present Illness History of Present Illness: CC: chest pain, shortness of breath HPI History Of Present Illness 56 year old male with h/o non ischemic dilated cardiomyopathy, alco=holism, subsbatnce abuse, HTn, Hyperlipidemia, complaint with his meds, has been taking bis medications and was given arrythmia vest on his last visit presents to the ED complaining of chest pain and mild shortness of breath, onset tonight. No fever, chills, nausea, or vomiting. Patient recently admitted for similar complaint, and found to have low ejection fraction of 10-20%. On arrival patient is wearing a life vest however was not hooked up to a battery Present on Admission - Present on Admission Any Indicators Present on Admission: Yes Review of Systems - Review of Systems Systems not reviewed;Unavailable: Acuity of Condition - Constitutional Constitutional: Lethargy, Weakness - EENT Eyes: absent: As Per HPI, Blind Spots, Blurred Vision, Change in Vision, Decreased Night Vision, Diplopia, Discharge, Dry Eye, Exophthalmos, Floaters, Irritation, Itchy Eyes, Loss of Peripheral Vision, Pain, Photophobia, Requires Corrective Lenses, Sees Flashes, Spots in Vision, Tunnel Vision, Other Visual Disturbances, Loss of Vision, Other Ears: absent: As Per HPI, Decreased Hearing, Ear Discharge, Ear Pain, Tinnitus, Abnormal Hearing, Disequilibrium, Dizziness, Other Nose/Mouth/Throat: absent: As Per HPI, Epistaxis, Nasal Congestion, Nasal Discharge, Nasal Obstruction, Nasal Trauma, Nose Pain, Post Nasal Drip, Sinus Pain, Sinus Pressure, Bleeding Gums, Change in Voice, Dental Pain, Dry Mouth, Dysphagia, Halitosis, Hoarsness, Lip Swelling, Mouth Lesions, Mouth Pain, Odynophagia, Sore Throat, Throat Swelling, Tongue Swelling, Facial Pain, Neck Pain, Neck Mass, Other - Cardiovascular Cardiovascular: Chest Pain, Dyspnea on Exertion, Pedal Edema - Respiratory Respiratory: Dyspnea, Chest Congestion - Genitourinary Genitourinary: absent: As Per HPI, Change in Urinary Stream, Difficulty Urinating, Dysuria, Flank Pain, Hematuria, Pyuria, Nocturia, Urinary Incontinence, Urinary Frequency, Urinary Hesitance, Urinary Urgency, Voiding Freq/Small Amts, Freq UTI, Hx Renal/Bladder Calculi, Hx /Renal Surgery, Bladder Distension, Other - Musculoskeletal Musculoskeletal: absent: As Per HPI, Abnormal Gait, Arthralgias, Atrophy, Back Pain, Deformity, Joint Swelling, Limited Range of Motion, Loss of Height, Muscle Cramps, Muscle Weakness, Myalgias, Neck Pain, Numbness, Radiating Pain into Limb, Stiffness, Tingling, Other Past Patient History - Infectious Disease Hx of Infectious Diseases: None - Past Medical History & Family History Past Medical History?: Yes - Past Social History Smoking Status: Former Smoker - CARDIAC Hx Congestive Heart Failure: Yes Hx Hypertension: Yes - PULMONARY Hx Respiratory Disorders: No - NEUROLOGICAL Hx Neurological Disorder: No - HEENT Hx HEENT Problems: No - RENAL Hx Chronic Kidney Disease: No - ENDOCRINE/METABOLIC Hx Endocrine Disorders: No - HEMATOLOGICAL/ONCOLOGICAL Hx Blood Disorders: No - INTEGUMENTARY Hx Dermatological Problems: No - MUSCULOSKELETAL/RHEUMATOLOGICAL Hx Falls: No - GASTROINTESTINAL Hx Gastrointestinal Disorders: No - GENITOURINARY/GYNECOLOGICAL Hx Genitourinary Disorders: No - PSYCHIATRIC Hx Substance Use: No - SURGICAL HISTORY Hx Surgeries: No Other/Comment: no further information given - ANESTHESIA Hx Anesthesia: No Hx Anesthesia Reactions: No Hx Malignant Hyperthermia: No Meds Home Medications: Home Medication List Medication Instructions Recorded Confirmed Type Albuterol HFA [Ventolin HFA 90 0.09 mg IH Q6 PRN #1 inhaler 09/01/17 Rx mcg/actuation (8 g)] Aspirin [Ecotrin] 81 mg PO DAILY 30 Days tabec 09/01/17 Rx Budesonide [Pulmicort Respules] 0.5 mg INH RQ12 #60 neb 09/01/17 Rx Calcium/Chloride/Magnesium 64 mg PO DAILY 30 Days ect 09/01/17 Rx [Slow-Mag] Furosemide [Lasix] 40 mg PO BID 30 Days tablet 09/01/17 Rx Lisinopril [Zestril] 2.5 mg PO DAILY 30 Days tab 09/01/17 Rx Metoprolol Succinate [Toprol XL] 25 mg PO DAILY 30 Days tab 09/01/17 Rx Spironolactone [Aldactone] 25 mg PO DAILY 30 Days tab 09/01/17 Rx Thiamine [Vitamin B1 Tab] 100 mg PO DAILY 30 Days tab 09/01/17 Rx Allergies/Adverse Reactions: Allergies Allergy/AdvReac Type Severity Reaction Status Date / Time No Known Allergies Allergy Verified 08/31/17 02:03 Physical Exam - Constitutional Appears: In Acute Distress, Chronically Ill - Eye Exam Eye Exam: EOMI, Normal appearance, PERRL Pupil Exam: NORMAL ACCOMODATION, PERRL - Respiratory Exam Respiratory Exam: Decreased Breath Sounds, Rales - Cardiovascular Exam Cardiovascular Exam: Irregular Rhythm, +S1, +S2 Additional comments: s3 positive - GI/Abdominal Exam GI & Abdominal Exam: Normal Bowel Sounds, Soft. absent: Tenderness - Rectal Exam Rectal Exam: Deferred Results - Vital Signs Recent Vital Signs: Last Vital Signs Temp 97.8 F 08/31/17 20:24 Pulse 83 08/31/17 20:33 Resp 21 08/31/17 20:24 BP 114/80 08/31/17 20:24 Pulse Ox 100 08/31/17 20:24 - Labs Result Diagrams: 08/31/17 02:58 08/31/17 02:58 Labs: Laboratory Results - last 24 hr 08/31/17 08/31/17 08/31/17 02:58 02:58 02:58 WBC 3.8 L RBC 4.69 Hgb 12.1 Hct 36.9 MCV 78.7 L MCH 25.9 L MCHC 32.9 L RDW 25.0 H Plt Count 235 MPV 7.9 Neut % (Auto) 38.0 L Lymph % (Auto) 51.0 H [place] % (Auto) 4.0 Eos % (Auto) 6.0 H Baso % (Auto) 1.0 Neut # (Auto) 1.5 L Lymph # (Auto) 2.0 [place] # (Auto) 0.2 Eos # (Auto) 0.2 Baso # (Auto) 0.0 PT 12.0 INR 1.1 APTT 33 Sodium Potassium Chloride Carbon Dioxide Anion Gap BUN Creatinine Est GFR ( Amer) Est GFR (Non-Af Amer) Random Glucose Calcium Total Bilirubin AST ALT Alkaline Phosphatase Total Creatine Kinase CK-MB (Mass) Troponin I NT-Pro-B Natriuret Pep Total Protein Albumin Globulin Albumin/Globulin Ratio Urine Color Colorless Urine Clarity Clear Urine pH 6.0 Ur Specific [place] 1.004 Urine Protein Negative Urine Glucose (UA) Normal Urine Ketones Negative Urine Blood 1+ H Urine Nitrate Negative Urine Bilirubin Negative Urine Urobilinogen Normal Ur Leukocyte Esterase Neg Urine WBC (Auto) < 1 Urine RBC (Auto) < 1 08/31/17 08/31/1718 02:58 09:38 15:58 WBC RBC Hgb Hct MCV MCH MCHC RDW Plt Count MPV Neut % (Auto) Lymph % (Auto) [place] % (Auto) Eos % (Auto) Baso % (Auto) Neut # (Auto) Lymph # (Auto) [place] # (Auto) Eos # (Auto) Baso # (Auto) PT INR APTT Sodium 136 Potassium 4.6 Chloride 99 Carbon Dioxide 27 Anion Gap 15 BUN 20 Creatinine 0.9 Est GFR ( Amer) > 60 Est GFR (Non-Af Amer) > 60 Random Glucose 82 Calcium 9.4 Total Bilirubin 0.7 AST 39 ALT 21 D Alkaline Phosphatase 89 Total Creatine Kinase 203 H 211 H CK-MB (Mass) 2.87 2.07 Troponin I 0.0300 0.0290 0.0210 NT-Pro-B Natriuret Pep 932 H Total Protein 9.1 H Albumin 3.9 Globulin 5.2 H Albumin/Globulin Ratio 0.7 L Urine Color Urine Clarity Urine pH Ur Specific [place] Urine Protein Urine Glucose (UA) Urine Ketones Urine Blood Urine Nitrate Urine Bilirubin Urine Urobilinogen Ur Leukocyte Esterase Urine WBC (Auto) Urine RBC (Auto) Assessment & Plan (1) Cardiomyopathy Status: Acute (2) Alcohol abuse Status: Acute (3) CAD (coronary artery disease) Status: Acute (4) CHF exacerbation Status: Acute (5) Chest pain Status: Acute
[2017-09-01 06:53] LABS: CK-MB 1.58 ng/mL (0.0-3.38)
[2017-09-01 06:54] LABS: TROPONIN I 0.033 ng/mL (0.00-0.120)
[2017-09-01] MEDS: Budesonide 0.5 mg/2 ml Inhal Susp UD INH SCH (07:53)
[2017-09-01 08:22] VITALS: RESP 16; O2SAT 97
[2017-09-01] MEDS ORDERED: Enoxaparin 40 mg Syringe SC SCH (10:30)
[2017-09-01] MEDS: Magnesium Chloride 64 mg ER Tab PO SCH (10:51)
[2017-09-01] MEDS: Metoprolol Succinate 25 mg XL Tab PO SCH (10:53)
[2017-09-01 13:09] VITALS: BP 108/79
--- NOTE | 2017-09-01 13:27 | CP.PCM.PN ---
Subjective - Date & Time of Evaluation Date of Evaluation: 09/01/17 Time of Evaluation: 13:26 - Subjective Subjective: PATIENT WAS ADMITTED FOR CHEST PAIN AAOX3; DENIES CHEST PAIN OR SOB NO SIGN OF DISTRESS NOTED Objective - Vital Signs/Intake and Output Vital Signs (last 24 hours): Temp Pulse Resp BP Pulse Ox 97.6 F 75 16 108/79 97 09/01/17 08:21 09/01/17 08:21 09/01/17 08:21 09/01/17 13:09 09/01/17 08:21 Intake and Output: 09/01/17 09/01/17 06:59 18:59 Intake Total 160 Output Total 1500 Balance -1340 - Medications Medications: Current Medications Albuterol (Ventolin Hfa 90 Mcg/Actuation (8 G)) 90 puff IH Q6 PRN PRN Reason: Shortness of Breath Aspirin (Ecotrin) 81 mg PO DAILY [facility] Last Admin: 09/01/17 10:53 Dose: 81 mg Budesonide (Pulmicort Respules) 0.5 mg INH RQ12 [facility] Last Admin: 09/01/17 07:53 Dose: 0.5 mg Enoxaparin Sodium (Lovenox) 40 mg SC DAILY [facility] Last Admin: 09/01/17 10:53 Dose: Not Given Furosemide (Lasix) 60 mg IVP Q12 [facility] Last Admin: 09/01/17 13:09 Dose: 60 mg Lisinopril (Zestril) 2.5 mg PO DAILY [facility] Last Admin: 09/01/17 10:52 Dose: 2.5 mg Magnesium Chloride (Slow-Mag) 64 mg PO DAILY [facility] Last Admin: 09/01/17 10:51 Dose: 64 mg Metoprolol Succinate (Toprol Xl) 25 mg PO DAILY [facility] Last Admin: 09/01/17 10:53 Dose: 25 mg Spironolactone (Aldactone) 25 mg PO DAILY [facility] Last Admin: 09/01/17 10:52 Dose: 25 mg Thiamine HCl (Vitamin B1 Tab) 100 mg PO DAILY [facility] Last Admin: 09/01/17 10:52 Dose: 100 mg - Labs Labs: 08/31/17 02:58 08/31/17 02:58 PT 12.0 SECONDS (9.7-12.2) 08/31/17 02:58 INR 1.1 08/31/17 02:58 APTT 33 SECONDS (21-34) 08/31/17 02:58 Assessment and Plan - Assessment and Plan (Free Text) Assessment: PATIENT SEEN AND EXAMINED AT THE BEDSIDE LUNG SOUND CLEAR TNI X3 NEG LIFEVEST ON AND THE BATTERY IS HALF FULL AND A [employer] ATTENDANT WILL BE AT HIS HOUSE TODAY FOR A ENVIRONMENTAL TECHNOLOGY PROFESSOR REPLACE DISCUSS WITH DR GELLER WHO CLEAR PATIENT FOR DC FOLLOW UP WITH DR GELLER AT HIS OFFICE 1-2 WEEK ---CALL FOR APPOINTMENT FOLLOW UP WITH DR KNIGHT AT HIS OFFICE ---CALL FOR APPOINTMENT CONTINUE ALL YOUR HOME MEDICATION LIFEVEST PLACED DUE TO LOW EF ALL TROPONIN NEG STABLE TO DC HOME TODAY ACTIVITY TOLERATED CALL DR GELLER OR GO TO THE EMERGENCY ROOM IF SYMPTOMS RETURN OR WORSENING DISCUSS WITH PATIENT WHO AGREE AND VERBALIZED UNDERSTANDING
--- NOTE | 2017-09-01 14:16 | PCM.HF ---
Heart Failure Core Measure - Heart Failure Ejection Fraction: Less Than 40 % BUZZ Inhibitor Prescribed: Yes Beta-Marissa Prescribed: Metoprolol Succinate Angiotensin II Receptor Marissa Prescribed: No Contraindication/Reason for not providing: BUZZ AnticoagulationTherapy for Atrial Fibrillation/Atrialflutter: No Contraindication/Reason for not providing: NO HX OF AFIB Aldosterone Antagonist Prescribed: Yes Hydralazine Nitrate Prescribed: No Contraindication/Reason for not providing: EF LOW Implantable Cardioverter Defibrillator Therapy: No Contraindication/Reason for not providing: LIFE VEST Contraindication/Reason for not providing: LIFE VEST - Follow up Will be discharged to: Home Follow Up Date (must be within 7 days from discharge): 09/07/17 Follow Up Time: 09:00
--- NOTE | 2017-09-01 17:18 | CARD ---
APPROVED REPORT EKG Measurement Heart [id number] <Conclusion> Normal sinus rhythm Biatrial enlargement Left axis deviation Left bundle branch block Abnormal ECG
[2017-09-01 18:46] VITALS: PULSE 74; TEMP 97.5
--- NOTE | 2017-09-01 22:54 | CP.PCM.DIS ---
Provider - Provider Date of Admission: 08/31/17 04:12 Attending physician: Luis Enrique Peres MD Time Spent in preparation of Discharge (in minutes): 45 Hospital Course - Lab Results Lab Results: Most Recent Lab Values WBC 3.8 K/uL (4.8-10.8) L 08/31/17 02:58 RBC 4.69 Mil/uL (4.40-5.90) 08/31/17 02:58 Hgb 12.1 g/dL (12.0-18.0) 08/31/17 02:58 Hct 36.9 % (35.0-51.0) 08/31/17 02:58 MCV 78.7 fL (80.0-94.0) L 08/31/17 02:58 MCH 25.9 pg (27.0-31.0) L 08/31/17 02:58 MCHC 32.9 g/dL (33.0-37.0) L 08/31/17 02:58 RDW 25.0 % (11.5-14.5) H 08/31/17 02:58 Plt Count 235 K/uL (130-400) 08/31/17 02:58 MPV 7.9 fL (7.2-11.7) 08/31/17 02:58 Neut % (Auto) 38.0 % (50.0-75.0) L 08/31/17 02:58 Lymph % (Auto) 51.0 % (20.0-40.0) H 08/31/17 02:58 [place] % (Auto) 4.0 % (0.0-10.0) 08/31/17 02:58 Eos % (Auto) 6.0 % (0.0-4.0) H 08/31/17 02:58 Baso % (Auto) 1.0 % (0.0-2.0) 08/31/17 02:58 Neut # (Auto) 1.5 K/uL (1.8-7.0) L 08/31/17 02:58 Lymph # (Auto) 2.0 K/uL (1.0-4.3) 08/31/17 02:58 [place] # (Auto) 0.2 K/uL (0.0-0.8) 08/31/17 02:58 Eos # (Auto) 0.2 K/uL (0.0-0.7) 08/31/17 02:58 Baso # (Auto) 0.0 K/uL (0.0-0.2) 08/31/17 02:58 PT 12.0 SECONDS (9.7-12.2) 08/31/17 02:58 INR 1.1 08/31/17 02:58 APTT 33 SECONDS (21-34) 08/31/17 02:58 Sodium 136 mmol/L (132-148) 08/31/17 02:58 Potassium 4.6 mmol/L (3.6-5.2) 08/31/17 02:58 Chloride 99 mmol/L (98-107) 08/31/17 02:58 Carbon Dioxide 27 mmol/L (22-30) 08/31/17 02:58 Anion Gap 15 (10-20) 08/31/17 02:58 BUN 20 mg/dL (9-20) 08/31/17 02:58 Creatinine 0.9 mg/dL (0.8-1.5) 08/31/17 02:58 Est GFR ( Amer) > 60 08/31/17 02:58 Est GFR (Non-Af Amer) > 60 08/31/17 02:58 POC Glucose (mg/dL) 83 mg/dL (65-110) 09/01/17 12:28 Random Glucose 82 mg/dL (75-110) 08/31/17 02:58 Calcium 9.4 mg/dl (8.6-10.4) 08/31/17 02:58 Total Bilirubin 0.7 mg/dL (0.2-1.3) 08/31/17 02:58 AST 39 U/L (17-59) 08/31/17 02:58 ALT 21 U/L (21-72) D 08/31/17 02:58 Alkaline Phosphatase 89 U/L (38-126) 08/31/17 02:58 Total Creatine Kinase 194 U/L (55-170) H 09/01/17 06:22 CK-MB (Mass) 1.58 ng/mL (0.0-3.38) 09/01/17 06:22 Troponin I 0.0330 ng/mL (0.00-0.120) 09/01/17 06:22 NT-Pro-B Natriuret Pep 932 pg/mL (0-900) H 08/31/17 02:58 Total Protein 9.1 g/dL (6.3-8.3) H 08/31/17 02:58 Albumin 3.9 g/dL (3.5-5.0) 08/31/17 02:58 Globulin 5.2 gm/dL (2.2-3.9) H 08/31/17 02:58 Albumin/Globulin Ratio 0.7 (1.0-2.1) L 08/31/17 02:58 Urine Color Colorless (YELLOW) 08/31/17 02:58 Urine Clarity Clear (Clear) 08/31/17 02:58 Urine pH 6.0 (5.0-8.0) 08/31/17 02:58 Ur Specific [place] 1.004 (1.003-1.030) 08/31/17 02:58 Urine Protein Negative mg/dL (NEGATIVE) 08/31/17 02:58 Urine Glucose (UA) Normal mg/dL (Normal) 08/31/17 02:58 Urine Ketones Negative mg/dL (NEGATIVE) 08/31/17 02:58 Urine Blood 1+ (NEGATIVE) H 08/31/17 02:58 Urine Nitrate Negative (NEGATIVE) 08/31/17 02:58 Urine Bilirubin Negative (NEGATIVE) 08/31/17 02:58 Urine Urobilinogen Normal mg/dL (0.2-1.0) 08/31/17 02:58 Ur Leukocyte Esterase Neg Jose/uL (Negative) 08/31/17 02:58 Urine WBC (Auto) < 1 /hpf (0-5) 08/31/17 02:58 Urine RBC (Auto) < 1 /hpf (0-3) 08/31/17 02:58 - Hospital Course Hospital Course: PATIENT SEEN AND EXAMINED AT THE BEDSIDE LUNG SOUND CLEAR TNI X3 NEG LIFEVEST (arrythmia vest) ON AND THE BATTERY IS HALF FULL AND A [employer] CONTINUOUS CRUSHER OPERATOR WILL BE AT HIS HOUSE TODAY FOR A EDUCATIONAL TECHNOLOGY SPECIALIST REPLACE CLEAR PATIENT FOR DC FOLLOW UP WITH me in OFFICE 1-2 WEEK ---CALL FOR APPOINTMENT FOLLOW UP WITH DR KNIGHT AT HIS OFFICE ---CALL FOR APPOINTMENT CONTINUE ALL YOUR HOME MEDICATION LIFEVEST PLACED DUE TO LOW EF ALL TROPONIN NEG STABLE TO DC HOME TODAY ACTIVITY TOLERATED \GO TO THE EMERGENCY ROOM IF SYMPTOMS RETURN OR WORSENING DISCUSS WITH PATIENT WHO AGREE AND VERBALIZED UNDERSTANDING Discharge Exam - Head Exam Head Exam: NORMAL INSPECTION - Eye Exam Eye Exam: EOMI, Normal appearance - ENT Exam ENT Exam: Mucous Membranes Moist - Respiratory Exam Respiratory Exam: Decreased Breath Sounds, Rales - Cardiovascular Exam Cardiovascular Exam: Irregular Rhythm, +S1, +S2 Additional comments: s3 positive Discharge Plan - Discharge Medications Prescriptions: Spironolactone [Aldactone] 25 mg PO DAILY 30 Days tab Aspirin [Ecotrin] 81 mg PO DAILY 30 Days tabec Furosemide [Lasix] 40 mg PO BID 30 Days tablet Budesonide [Pulmicort Respules] 0.5 mg INH RQ12 #60 neb Calcium/Chloride/Magnesium [Slow-Mag] 64 mg PO DAILY 30 Days ect Metoprolol Succinate [Toprol XL] 25 mg PO DAILY 30 Days tab Albuterol HFA [Ventolin HFA 90 mcg/actuation (8 g)] 0.09 mg IH Q6 PRN #1 inhaler PRN Reason: Shortness Of Breath Thiamine [Vitamin B1 Tab] 100 mg PO DAILY 30 Days tab Lisinopril [Zestril] 2.5 mg PO DAILY 30 Days tab - Follow Up Plan Condition: GOOD Disposition: HOME/ ROUTINE Instructions: High Blood Pressure in Adults, Heart Failure, Adult (DC), Coronary Heart Disease (DC), Albuterol, Aspirin, Furosemide, Lisinopril, Magnesium Chloride, Metoprolol, Spironolactone, Thiamine, Budesonide (Oral Inhalation) Additional Instructions: FOLLOW UP WITH DR PERES AT HIS OFFICE 1-2 WEEK ---CALL FOR APPOINTMENT FOLLOW UP WITH DR KNIGHT AT HIS OFFICE ---CALL FOR APPOINTMENT CONTINUE ALL YOUR HOME MEDICATION LIFEVEST PLACED DUE TO LOW EF ALL TROPONIN NEG STABLE TO DC HOME TODAY ACTIVITY TOLERATED CALL DR PERES OR GO TO THE EMERGENCY ROOM IF SYMPTOMS RETURN OR WORSENING Referrals: Vish Knight MD [Staff Provider] - Luis Enrique Peres MD [Staff Provider] -
== END 2017-09-01 16:15 | disposition home or self-care (01) ==
LOC: C.ER 01:41 → C.9I 04:12 → C.9E 04:12 → UNDODISOB 09-01 16:49
PROVIDERS: ADMIT Internal Medicine; ATTEND Internal Medicine
DX: I11.0 Hypertensive heart disease with heart failure (principal); I50.9 Heart failure, unspecified; I25.10 Atherosclerotic heart disease of native coronary artery without angina pectoris; I42.0 Dilated cardiomyopathy; E78.5 Hyperlipidemia, unspecified; F19.11 Other psychoactive substance abuse, in remission; Z87.891 Personal history of nicotine dependence; Z79.82 Long term (current) use of aspirin; Z79.51 Long term (current) use of inhaled steroids; F10.10 Alcohol abuse, uncomplicated
CPT/HCPCS: 71045; 80053; 81001; 82948; 83880; 84484; 85025; 85610; 85730; 87081; 93005; 94640; 96374; 99285; G0378; J1940

== ENCOUNTER 2017-09-04 23:54 | Observation (INO) | payer OTHER ==
--- NOTE | 2017-09-05 00:05 | C.PDOC ---
History Of Present Illness Pt states he had some chest discomfort about 2 hours ago and then while drinking a beer had a syncopal episode, at [facility]. Witnessed by his friend. Pt has a history of low ejection fraction and was supposed to be wearing a life vest. Pt was recently admitted for chest pain. Time Seen by Provider: 09/05/17 00:05 Chief Complaint (Nursing): Chest Pain History Per: Patient History/Exam Limitations: no limitations Onset/Duration Of Symptoms: Hrs Current Symptoms Are (Timing): Still Present Context: Other Severity: Moderate Pain Scale Rating Of: 4 Quality: Dull Associated Symptoms: denies: Nausea, Dyspnea Modifying Factors: None Exacerbating Factors: None Alleviating Factors: None Recent travel outside of the [place]: No Additional History Per: Patient Past Medical History Reviewed: Historical Data, Nursing Documentation, Vital Signs Vital Signs: Last Vital Signs Temp 97.5 F L 09/04/17 23:58 Pulse 74 09/05/17 01:13 Resp 16 09/05/17 01:13 BP 102/71 09/05/17 01:13 Pulse Ox 98 09/05/17 01:22 - Medical History PMH: CAD, CHF, HTN, Hyperlipidemia Denies: Chronic Kidney Disease - [facility] Procedures FLUOROSCOPY OF MULT COR ART USING L OSM CONTRAST (04/06/17) MEASURE CARDIAC SAMPL & PRESSURE, BILATERAL, PERC (04/06/17) Family History: States: CAD - Social History Hx Alcohol Use: Yes Hx Substance Use: No - Immunization History Hx Tetanus Toxoid Vaccination: No Hx Influenza Vaccination: No Hx Pneumococcal Vaccination: No Review Of Systems Constitutional: Negative for: Fever, Chills Eyes: Negative for: Vision Change ENT: Negative for: Throat Pain Cardiovascular: Negative for: Chest Pain, Palpitations Respiratory: Positive for: Shortness of Breath Gastrointestinal: Negative for: Nausea, Vomiting, Abdominal Pain Genitourinary: Negative for: Dysuria Musculoskeletal: Negative for: Back Pain Skin: Negative for: Rash Neurological: Positive for: Other (syncope) Psych: Negative for: Anxiety Physical Exam - Physical Exam Appears: No Acute Distress Skin: Warm, Dry Head: Normacephalic Eye(s): bilateral: Normal Inspection Oral Mucosa: Moist Neck: Trachea Midline, Supple Chest: Symmetrical Cardiovascular: Rhythm Regular Respiratory: No Rales, No Rhonchi, No Wheezing Gastrointestinal/Abdominal: Soft, No Tenderness, No Distention, No Guarding, No Rebound Back: No CVA Tenderness Extremity: Normal ROM Extremity: Bilateral: Atraumatic, No Pedal Edema, Normal Color And Temperature Pulses: Left Dorsalis Pedis: Normal, Right Dorsalis Pedis: Normal Neurological/Psych: Oriented x3, Normal Speech, Normal Cognition Gait: Unable To Assess ED Course And Treatment - Laboratory Results Result Diagrams: 09/05/17 00:27 09/05/17 00:27 ECG: Interpreted By Me, Viewed By Me ECG Rhythm: Sinus Rhythm (81), L BBB, Nonspecific Changes O2 Sat by Pulse Oximetry: 98 Pulse Ox Interpretation: Normal - Radiology CXR: Interpreted by Me, Viewed By Me Disposition Discussed With : Luis Enrique Peres Comment: accepted the pt on his service and took over the care at1:20 AM Doctor Will See Patient In The: Hospital Counseled Patient/Family Regarding: Studies Performed, Diagnosis - Disposition Disposition: HOSPITALIZED Disposition Time: 00:05 Condition: FAIR Forms: [facility] (Portuguese) - POA Present On Arrival: None - Clinical Impression Clinical Impression: Chest pain, Syncope, Alcohol intoxication Decision To Admit - Pt Status Changed To: Hospital Disposition Of: Observation - . Bed Request Type: Telemetry Admitting Physician: Luis Enrique Peres Patient Diagnosis: Chest pain, Syncope, Alcohol intoxication
[2017-09-05] MEDS ORDERED: Aspirin 325 mg EC Tablets PO STA (00:06)
[2017-09-05] MEDS ORDERED: Aspirin 325 mg EC Tablets PO ONE (00:24)
[2017-09-05 00:35] LABS: WHITE BLOOD COUNT 3.9 K/uL (4.8-10.8)
[2017-09-05 00:39] LABS: INR 1.1; PROTHROMBIN TIME 12.1 SECONDS (9.7-12.2)
[2017-09-05 00:43] LABS: HEMOGLOBIN 12.7 g/dL (12.0-18.0); MEAN CELL VOLUME 79.1 fL (80.0-94.0); MEAN CORPUSCULAR HEMOGLOBIN 26.5 pg (27.0-31.0); MEAN CORPUSCULAR HGB CONC 33.5 g/dL (33.0-37.0); MEAN PLATELET VOLUME 8.8 fL (7.2-11.7); PLATELET COUNT 213 K/uL (130-400); RBC 4.79 Mil/uL (4.40-5.90); RED CELL DISTRIBUTION WIDTH 25.6 % (11.5-14.5)
[2017-09-05 00:52] LABS: ALB/GLOB RATIO 0.7 (1.0-2.1); ALBUMIN 4.1 g/dL (3.5-5.0); ALT/SGPT 11 U/L (21-72); AST/SGOT 53 U/L (17-59); BLOOD UREA NITROGEN 29 mg/dL (9-20); CALCIUM 9.1 mg/dl (8.6-10.4); GFR AFRICAN-AMERICAN > 60; GFR NON-AFRICAN AMERICAN > 60
[2017-09-05 00:53] LABS: BARBITURATES, UR NEGATIVE (NEGATIVE); BENZODIAZEPINES, UR NEGATIVE (NEGATIVE); OPIATES, UR NEGATIVE (NEGATIVE); PHENCYCLIDINE, UR NEGATIVE (NEGATIVE)
--- NOTE | 2017-09-05 01:00 | CT ---
EXAM: CT Head Without Intravenous Contrast CLINICAL HISTORY: 56 years old, male; Pain; Headache; Additional info: Syncope TECHNIQUE: Axial computed tomography images of the head/brain without intravenous contrast. All CT scans at this facility use one or more dose reduction techniques, viz.: automated exposure control; ma/kV adjustment per patient size (including targeted exams where dose is matched to indication; i.e. head); or iterative reconstruction technique. Coronal and sagittal reformatted images were created and reviewed. COMPARISON: No relevant prior studies available. FINDINGS: Brain: There is mild diffuse cerebral atrophy present, consistent with this patient's age. Hypodensity in the subcortical white matter of the left anterior frontal lobe could be secondary to chronic ischemia. Inflammatory process is not excluded. No hemorrhage. Ventricles: Unremarkable. No ventriculomegaly. Bones/joints: Unremarkable. No acute fracture. Soft tissues: Unremarkable. Sinuses: Unremarkable as visualized. No acute sinusitis. Mastoid air cells: Unremarkable as visualized. No mastoid effusion. IMPRESSION: No evidence of an acute intracranial abnormality. Left frontal subcortical hypodensity could be secondary to chronic ischemia. Inflammatory process not excluded.
[2017-09-05 01:01] LABS: B-TYPE NATRIURETIC PEPTIDE 700 pg/mL (0-900)
[2017-09-05 03:48] LABS: BLASTS 1 % (0-0); EOSINOPHIL 5 % (0-4); LYMPHOCYTE 28 % (20-40); MONOCYTE 7 % (0-10); NEUTROPHIL 40 % (50-75); REACTIVE LYMPHOCYTES 19 % (0-0); TOTAL CELLS COUNTED 100
[2017-09-05 03:49] LABS: PLATELET ESTIMATE NORMAL (NORMAL)
[2017-09-05 03:50] LABS: ANISOCYTOSIS SLIGHT; HYPOCHROMIC SLIGHT; MICROCYTOSIS SLIGHT; OVALOCYTES SLIGHT; POIKILOCYTOSIS SLIGHT; SCHISTOCYTES SLIGHT; TARGET CELLS SLIGHT; TEARDROP CELLS SLIGHT
[2017-09-05 08:54] LABS: CK-MB 3.65 ng/mL (0.0-3.38); TROPONIN I 0.041 ng/mL (0.00-0.120)
[2017-09-05] MEDS ORDERED: Enoxaparin 40 mg Syringe SC SCH (10:00)
[2017-09-05] MEDS ORDERED: Metoprolol Succinate 25 mg XL Tab PO SCH (10:00)
--- NOTE | 2017-09-05 12:03 | RAD ---
PROCEDURE: CHEST RADIOGRAPH, 1 VIEW HISTORY: chest pain COMPARISON: Comparison is made to 08/31/2017 FINDINGS: LUNGS: No evidence of new infiltrate or consolidation in the lungs. Slight pulmonary vascular congestion is noted. PLEURA: No pneumothorax or pleural fluid seen. CARDIOVASCULAR: The cardiac silhouette is enlarged OSSEOUS STRUCTURES: No significant abnormalities. VISUALIZED UPPER ABDOMEN: Normal. OTHER FINDINGS: None. IMPRESSION: Cardiomegaly and slight pulmonary vascular congestion improved compared to the previous exam.
--- NOTE | 2017-09-05 16:10 | CP.PCM.PN ---
Subjective - Date & Time of Evaluation Date of Evaluation: 09/05/17 Time of Evaluation: 16:09 - Subjective Subjective: PT SEEN AND CLEARED FOR D/C BY DR. GELLER. F/U IN THE OFFICE IN 1 WEEK. NO NEW RX; PT HAS MEDS AT HOME. NONCOMPLIANT; ETOH USE ENCOURAGED TO BE DECREASED OR STOPPED. NO FURTHER ORDERS. Objective - Vital Signs/Intake and Output Vital Signs (last 24 hours): Temp Pulse Resp BP Pulse Ox 97.3 F L 71 18 116/81 95 09/05/17 07:05 09/05/17 13:10 09/05/17 07:05 09/05/17 13:10 09/05/17 07:05 Intake and Output: 09/05/17 09/05/17 06:59 18:59 Intake Total 860 Output Total 700 Balance 160 - Medications Medications: Current Medications Aspirin (Ecotrin) 81 mg PO DAILY [facility] Last Admin: 09/05/17 09:54 Dose: 81 mg Chlordiazepoxide (Librium) 25 mg PO Q4 PRN PRN Reason: Agitation Last Admin: 09/05/17 03:35 Dose: 25 mg Enoxaparin Sodium (Lovenox) 40 mg SC DAILY [facility] Last Admin: 09/05/17 09:55 Dose: Not Given Famotidine (Pepcid) 40 mg PO DAILY [facility] Last Admin: 09/05/17 09:55 Dose: 40 mg Furosemide (Lasix) 40 mg PO DAILY [facility] Last Admin: 09/05/17 09:54 Dose: Not Given Lisinopril (Zestril) 5 mg PO DAILY [facility] Last Admin: 09/05/17 09:56 Dose: Not Given Metoprolol Succinate (Toprol Xl) 25 mg PO DAILY [facility] Last Admin: 09/05/17 09:56 Dose: Not Given Rosuvastatin Calcium (Crestor) 2.5 mg PO [facility] Thiamine HCl (Vitamin B1 Tab) 100 mg PO DAILY [facility] Last Admin: 09/05/17 09:56 Dose: 100 mg - Labs Labs: 09/05/17 00:27 09/05/17 00:27 PT 12.1 SECONDS (9.7-12.2) 09/05/17 00:27 INR 1.1 09/05/17 00:27 APTT 33 SECONDS (21-34) 09/05/17 00:27
[2017-09-05 16:29] VITALS: BP 120/78; PULSE 77; RESP 20; TEMP 97.8; O2SAT 96
[2017-09-05] MEDS ORDERED: Rosuvastatin Calcium 2.5 mg Tab PO SCH (22:00)
--- NOTE | 2017-09-05 23:03 | CP.PCM.HP ---
History of Present Illness - History of Present Illness History of Present Illness: CC: chest pain History Of Present Illness Pt states he had some chest discomfort about 2 hours ago and then while drinking a beer had a syncopal episode, at [facility]. Witnessed by his friend. Pt has a history of low ejection fraction and was supposed to be wearing a life vest. Pt was recently admitted for chest pain. Past Patient History - Infectious Disease Hx of Infectious Diseases: None - Past Medical History & Family History Past Medical History?: Yes - Past Social History Smoking Status: Light Smoker < 10 Cigarettes Daily - CARDIAC Hx Congestive Heart Failure: Yes Hx Hypertension: Yes - PULMONARY Hx Respiratory Disorders: No - NEUROLOGICAL Hx Neurological Disorder: No - HEENT Hx HEENT Problems: No - RENAL Hx Chronic Kidney Disease: No - ENDOCRINE/METABOLIC Hx Endocrine Disorders: No - HEMATOLOGICAL/ONCOLOGICAL Hx Blood Disorders: No - INTEGUMENTARY Hx Dermatological Problems: No - MUSCULOSKELETAL/RHEUMATOLOGICAL Hx Falls: Yes - GASTROINTESTINAL Hx Gastrointestinal Disorders: No - GENITOURINARY/GYNECOLOGICAL Hx Genitourinary Disorders: No - PSYCHIATRIC Hx Substance Use: No - SURGICAL HISTORY Hx Surgeries: No Other/Comment: no further information given,. no additional information given - ANESTHESIA Hx Anesthesia: No Hx Anesthesia Reactions: No Hx Malignant Hyperthermia: No Meds Home Medications: Home Medication List Medication Instructions Recorded Confirmed Type Aspirin [Ecotrin] 81 mg PO DAILY tabec 09/05/17 Rx Furosemide [Lasix] 40 mg PO DAILY tab 09/05/17 Rx Lisinopril [Zestril] 5 mg PO DAILY tab 09/05/17 Rx Metoprolol Succinate [Toprol XL] 25 mg PO DAILY tab 09/05/17 Rx Allergies/Adverse Reactions: Allergies Allergy/AdvReac Type Severity Reaction Status Date / Time No Known Allergies Allergy Verified 08/31/17 02:03 Results - Vital Signs Recent Vital Signs: Last Vital Signs Temp 97.8 F 09/05/17 15:05 Pulse 77 09/05/17 15:05 Resp 20 09/05/17 15:05 BP 120/78 09/05/17 15:05 Pulse Ox 96 09/05/17 15:05 - Labs Result Diagrams: 09/05/17 00:27 09/05/17 00:27 Labs: Laboratory Results - last 24 hr 09/05/17 09/05/17 09/05/17 00:14 00:27 00:27 WBC 3.9 L RBC 4.79 Hgb 12.7 Hct 37.9 MCV 79.1 L MCH 26.5 L MCHC 33.5 RDW 25.6 H Plt Count 213 MPV 8.8 Neutrophils % (Manual) 40 L Lymphocytes % (Manual) 28 Reactive Lymphs % 19 H Monocytes % (Manual) 7 Eosinophils % (Manual) 5 H Blast Cells % 1 H Platelet Estimate Normal Hypochromasia (manual) Slight Poikilocytosis (manual Slight Anisocytosis (manual) Slight Microcytosis (manual) Slight Target Cells Slight Tear Drop Cells Slight Ovalocytes Slight Schistocytes Slight PT 12.1 INR 1.1 APTT 33 Sodium Potassium Chloride Carbon Dioxide Anion Gap BUN Creatinine Est GFR ( Amer) Est GFR (Non-Af Amer) POC Glucose (mg/dL) 86 Random Glucose Calcium Total Bilirubin AST ALT Alkaline Phosphatase Total Creatine Kinase CK-MB (Mass) Troponin I NT-Pro-B Natriuret Pep Total Protein Albumin Globulin Albumin/Globulin Ratio Urine Opiates Screen Urine Methadone Screen Ur Barbiturates Screen Ur Phencyclidine Scrn Ur Amphetamines Screen U Benzodiazepines Scrn U Oth Cocaine Metabols U Cannabinoids Screen Alcohol, Quantitative Blood Type Antibody Screen 09/05/17 09/05/17 09/05/17 00:27 00:27 00:33 WBC RBC Hgb Hct MCV MCH MCHC RDW Plt Count MPV Neutrophils % (Manual) Lymphocytes % (Manual) Reactive Lymphs % Monocytes % (Manual) Eosinophils % (Manual) Blast Cells % Platelet Estimate Hypochromasia (manual) Poikilocytosis (manual Anisocytosis (manual) Microcytosis (manual) Target Cells Tear Drop Cells Ovalocytes Schistocytes PT INR APTT Sodium 136 Potassium 4.6 Chloride 100 Carbon Dioxide 22 Anion Gap 19 BUN 29 H Creatinine 1.1 Est GFR ( Amer) > 60 Est GFR (Non-Af Amer) > 60 POC Glucose (mg/dL) Random Glucose 77 Calcium 9.1 Total Bilirubin 0.5 AST 53 ALT 11 L D Alkaline Phosphatase 94 Total Creatine Kinase CK-MB (Mass) Troponin I 0.0450 NT-Pro-B Natriuret Pep 700 Total Protein 9.9 H Albumin 4.1 Globulin 5.8 H Albumin/Globulin Ratio 0.7 L Urine Opiates Screen Negative Urine Methadone Screen Negative Ur Barbiturates Screen Negative Ur Phencyclidine Scrn Negative Ur Amphetamines Screen Negative U Benzodiazepines Scrn Negative U Oth Cocaine Metabols Negative U Cannabinoids Screen Negative Alcohol, Quantitative 278 H Blood Type A POSITIVE Antibody Screen Negative 09/05/17 09/05/17 07:55 12:56 WBC RBC Hgb Hct MCV MCH MCHC RDW Plt Count MPV Neutrophils % (Manual) Lymphocytes % (Manual) Reactive Lymphs % Monocytes % (Manual) Eosinophils % (Manual) Blast Cells % Platelet Estimate Hypochromasia (manual) Poikilocytosis (manual Anisocytosis (manual) Microcytosis (manual) Target Cells Tear Drop Cells Ovalocytes Schistocytes PT INR APTT Sodium Potassium Chloride Carbon Dioxide Anion Gap BUN Creatinine Est GFR ( Amer) Est GFR (Non-Af Amer) POC Glucose (mg/dL) Random Glucose Calcium Total Bilirubin AST ALT Alkaline Phosphatase Total Creatine Kinase 396 H CK-MB (Mass) 3.65 H Troponin I 0.0410 0.0280 NT-Pro-B Natriuret Pep Total Protein Albumin Globulin Albumin/Globulin Ratio Urine Opiates Screen Urine Methadone Screen Ur Barbiturates Screen Ur Phencyclidine Scrn Ur Amphetamines Screen U Benzodiazepines Scrn U Oth Cocaine Metabols U Cannabinoids Screen Alcohol, Quantitative Blood Type Antibody Screen
== END 2017-09-05 17:15 | disposition home or self-care (01) ==
LOC: C.ER 23:54 → C.9E 09-05 01:17 → C.5S 09-05 02:29
PROVIDERS: ADMIT Internal Medicine; ATTEND Internal Medicine
DX: F10.129 Alcohol abuse with intoxication, unspecified (principal); I50.9 Heart failure, unspecified; I11.0 Hypertensive heart disease with heart failure; I25.10 Atherosclerotic heart disease of native coronary artery without angina pectoris; E78.5 Hyperlipidemia, unspecified; Z82.49 Family history of ischemic heart disease and other diseases of the circulatory system; I44.7 Left bundle-branch block, unspecified; F17.210 Nicotine dependence, cigarettes, uncomplicated; Z79.82 Long term (current) use of aspirin; Z91.19 Patient's noncompliance with other medical treatment and regimen
CPT/HCPCS: 70450; 71045; 80053; 80320; 80324; 80345; 80346; 80349; 80353; 80358; 80361; 82948; 83880; 83992; 84484; 85025; 85610; 85730; 86850; 86900; 99285; G0378

== ENCOUNTER 2017-09-06 23:52 | Emergency (ER) | payer OTHER ==
[2017-09-07 00:13] VITALS: TEMP 97.9
--- NOTE | 2017-09-07 01:22 | C.PDOC ---
History Of Present Illness 56 year old male with h/o of cardiomyopathy and low EF 10-15% presents to the ED c/o pain to the left chest, pain is non radiating which started 2 hours ago. Patient was seen in the ED few times before with same presentation. Patient was last seen at [facility] on 09/06 and patient refused admission there. Patient denies SOB, nausea, vomit, diarrhea, diaphoresis, dizziness. Time Seen by Provider: 09/07/17 00:21 Chief Complaint (Nursing): Chest Pain History Per: Patient History/Exam Limitations: no limitations Onset/Duration Of Symptoms: Days Current Symptoms Are (Timing): Still Present Quality: "Pain" Alleviating Factors: None Recent travel outside of the [place]: No Additional History Per: Patient Past Medical History Reviewed: Historical Data, Nursing Documentation, Vital Signs Vital Signs: Last Vital Signs Temp 97.9 F 09/07/17 00:05 Pulse 79 09/07/17 00:05 Resp 20 09/07/17 00:05 BP 124/79 09/07/17 00:05 Pulse Ox 100 09/07/17 03:26 - Medical History PMH: CAD, CHF, HTN, Hyperlipidemia Denies: Chronic Kidney Disease Surgical History: No Surg Hx - [facility] Procedures FLUOROSCOPY OF MULT COR ART USING L OSM CONTRAST (04/06/17) MEASURE CARDIAC SAMPL & PRESSURE, BILATERAL, PERC (04/06/17) Family History: States: Unknown Family Hx, CAD - Social History Hx Alcohol Use: Yes Hx Substance Use: No - Immunization History Hx Tetanus Toxoid Vaccination: No Hx Influenza Vaccination: No Hx Pneumococcal Vaccination: No Review Of Systems Constitutional: Negative for: Fever, Chills Cardiovascular: Positive for: Chest Pain. Negative for: Palpitations Respiratory: Negative for: Cough, Shortness of Breath Gastrointestinal: Negative for: Abdominal Pain Skin: Negative for: Rash Neurological: Negative for: Headache, Dizziness Physical Exam - Physical Exam Appears: Non-toxic, No Acute Distress, Other (AOB) Skin: Normal Color, Warm, Dry Head: Atraumatic, Normacephalic Eye(s): bilateral: Normal Inspection Nose: No Discharge Oral Mucosa: Moist Neck: Normal ROM, Supple Chest: Symmetrical Cardiovascular: Rhythm Regular, No Murmur Respiratory: Normal Breath Sounds, No Rales, No Rhonchi, No Wheezing Gastrointestinal/Abdominal: Soft, No Tenderness, No Guarding, No Rebound Extremity: Normal ROM, No Tenderness, No Swelling Neurological/Psych: Oriented x3 Gait: Steady ED Course And Treatment - Laboratory Results Result Diagrams: 09/07/17 01:24 09/07/17 01:24 ECG Rhythm: Sinus Rhythm (at 72), L BBB, Nonspecific Changes (LVH) ECG Interpretation: No Changes From Prior O2 Sat by Pulse Oximetry: 100 (ON RA) Pulse Ox Interpretation: Normal Progress Note: Plan: - EKG. - Labs. - Tylenol 650 mg PO. Patient is currently sleeping comfortably in the ED. Labs were reviewed and troponin was negative. Based on pt extensive cardisc h/o and poor EF, pt was advised to be placed on tele obs for further evaluation but pt refused to be admitted, he understands the risks of doing so which may lead to cardiac arrest and . AMA form signed by pt who expressed understanding of these risks. Pt strongly advised to follwo up with PMD in the office today. Return precautions were also discussed Reevaluation Time: 03:32 Reassessment Condition: Improved Against Medical Advice - AMA Patient Left Against Medical Advice: The patient declines admission to the hospital and wishes to leave the Emergency Department. This action is against my medical advice. This decision was made with informed refusal. The patient was told that admission to the hospital is necessary. Explanation of the reasons why were discussed. The risks of leaving were explained to the patient and include, but are not limited to, worsening of known or currently unknown conditions, permanent disability and from undiagnosed or untreated conditions. The patient has the capacity to make this informed decision and understands my explanation of the current medical problem and risks of leaving. The patient voluntarily accepts these risks and signed an AMA form documenting our conversation. The patient was given the opportunity to ask questions and reconsider. The patient was encouraged to return to the Emergency Department at any time for further care. Disposition - Disposition Referrals: Luis Enrique Peres MD [Staff Provider] - Disposition: AGAINST MEDICAL ADVICE Disposition Time: 03:23 Condition: GOOD Additional Instructions: Please follw up with Dr Luis Enrique Peres today Return to ER if worse Instructions: Chest Pain (DC) Forms: [facility] [employer] (Austrian) - Clinical Impression Clinical Impression: Chest pain - PA / SYSTEMS ADMINISTRATION ANALYST / Resident Statement /DO has reviewed & agrees with the documentation as recorded. - Scribe Statement The provider has reviewed the documentation as recorded by the Scribe Aki Griffin All medical record entries made by the Scribe were at my direction and personally dictated by me. I have reviewed the chart and agree that the record accurately reflects my personal performance of the history, physical exam, medical decision making, and the department course for this patient. I have also personally directed, reviewed, and agree with the discharge instructions and disposition.
[2017-09-07 02:10] LABS: ALB/GLOB RATIO 0.8 (1.0-2.1); ALBUMIN 4.1 g/dL (3.5-5.0); ALT/SGPT 15 U/L (21-72); AST/SGOT 46 U/L (17-59); BLOOD UREA NITROGEN 23 mg/dL (9-20); CALCIUM 9.2 mg/dl (8.6-10.4); GFR AFRICAN-AMERICAN > 60; GFR NON-AFRICAN AMERICAN > 60
[2017-09-07 02:15] LABS: BASO % 1.4 % (0.0-2.0); EOS # 0.2 K/uL (0.0-0.7); EOS % 7.3 % (0.0-4.0); HEMOGLOBIN 12.9 g/dL (12.0-18.0); LYMPH # 0.9 K/uL (1.0-4.3); LYMPH % 31.7 % (20.0-40.0); MEAN CELL VOLUME 78.6 fL (80.0-94.0); MEAN CORPUSCULAR HEMOGLOBIN 26.2 pg (27.0-31.0); MEAN CORPUSCULAR HGB CONC 33.3 g/dL (33.0-37.0); MEAN PLATELET VOLUME 8.8 fL (7.2-11.7); MONO # 0.5 K/uL (0.0-0.8); MONO % 15.3 % (0.0-10.0); NEUT # 1.3 K/uL (1.8-7.0); NEUT % 44.3 % (50.0-75.0); NRBC % 0.3 % (0.0-2.0); RBC 4.92 Mil/uL (4.40-5.90); RED CELL DISTRIBUTION WIDTH 25.8 % (11.5-14.5)
[2017-09-07 05:31] VITALS: BP 97/62; PULSE 89; RESP 19; O2SAT 96
--- NOTE | 2017-09-08 12:35 | CARD ---
APPROVED REPORT EKG Measurement Heart [id number] <Conclusion> Normal sinus rhythm Possible Left atrial enlargement Left bundle branch block Abnormal ECG
== END 2017-09-07 05:46 | disposition left against medical advice (07) ==
LOC: C.ER 23:52
DX: R07.9 Chest pain, unspecified (principal); I11.0 Hypertensive heart disease with heart failure; I50.9 Heart failure, unspecified; F17.210 Nicotine dependence, cigarettes, uncomplicated

== ENCOUNTER 2017-09-10 20:36 | Observation (INO) | payer OTHER ==
--- NOTE | 2017-09-10 20:47 | C.PDOC ---
History Of Present Illness 56 y/o male presents to the ER complaining of chest pain. Patient describes the pain as pressure-like and rates the pain 4/10. Patient reports that there is no radiation of the pain. He notes that he had similar episodes of chest pain over the past few weeks. Patient denies having nausea and vomiting. Of note, patient is wearing life vest but he does not have batteries for the device. Time Seen by Provider: 09/10/17 20:47 Chief Complaint (Nursing): Chest Pain History Per: Patient History/Exam Limitations: no limitations Onset/Duration Of Symptoms: Hrs Current Symptoms Are (Timing): Still Present Severity: Moderate Pain Scale Rating Of: 4 Quality: Dull, Pressure Modifying Factors: None Exacerbating Factors: None Alleviating Factors: None Recent travel outside of the [place]: No Additional History Per: Patient Past Medical History Reviewed: Historical Data, Nursing Documentation, Vital Signs Vital Signs: Last Vital Signs Temp 97.6 F 09/10/17 20:39 Pulse 66 09/10/17 20:39 Resp 18 09/10/17 20:39 BP 114/77 09/10/17 20:39 Pulse Ox 99 09/10/17 21:31 - Medical History PMH: CAD, CHF, HTN, Hyperlipidemia Denies: Chronic Kidney Disease Surgical History: No Surg Hx - [facility] Procedures FLUOROSCOPY OF MULT COR ART USING L OSM CONTRAST (04/06/17) MEASURE CARDIAC SAMPL & PRESSURE, BILATERAL, PERC (04/06/17) Family History: States: CAD - Social History Hx Alcohol Use: Yes Hx Substance Use: No - Immunization History Hx Tetanus Toxoid Vaccination: No Hx Influenza Vaccination: No Hx Pneumococcal Vaccination: No Review Of Systems Constitutional: Negative for: Fever, Chills Cardiovascular: Positive for: Chest Pain Respiratory: Negative for: Cough, Shortness of Breath Gastrointestinal: Negative for: Nausea, Vomiting, Abdominal Pain Genitourinary: Negative for: Dysuria Musculoskeletal: Negative for: Back Pain Skin: Negative for: Rash Neurological: Negative for: Weakness Psych: Negative for: Anxiety Physical Exam - Physical Exam Appears: Non-toxic, No Acute Distress, Other (awake, alert, oriented) Skin: Warm, Dry Head: Normacephalic Eye(s): bilateral: Normal Inspection Oral Mucosa: Moist Neck: Supple Chest: Symmetrical Cardiovascular: Rhythm Regular Respiratory: No Rales, Rhonchi (some scattered rhonchi), No Wheezing Gastrointestinal/Abdominal: Soft, No Tenderness Back: No CVA Tenderness Extremity: Normal ROM Extremity: Bilateral: Atraumatic Pulses: Left Dorsalis Pedis: Normal, Right Dorsalis Pedis: Normal Neurological/Psych: Oriented x3 Gait: Steady ED Course And Treatment - Laboratory Results Result Diagrams: 09/10/17 21:59 09/10/17 22:35 ECG: Interpreted By Me, Viewed By Me ECG Rhythm: Sinus Rhythm (69), L BBB, Nonspecific Changes (unchanged from ) O2 Sat by Pulse Oximetry: 99 (RA) Pulse Ox Interpretation: Normal Progress Note: Labs, UA, EKG, and CXR ordered. Disposition Discussed With Dr.: Luis Enrique Peres Comment: accepted the pt on his service and took over the care at 11:10PM Doctor Will See Patient In The: Hospital Counseled Patient/Family Regarding: Studies Performed, Diagnosis - Disposition Disposition: HOSPITALIZED Disposition Time: 20:47 Condition: FAIR Forms: [facility] (Danish) - POA Present On Arrival: None - Clinical Impression Clinical Impression: Chest pain - Scribe Statement The provider has reviewed the documentation as recorded by the Scribe Francie Casas Provider Attestation: All medical record entries made by the Scribe were at my direction and personally dictated by me. I have reviewed the chart and agree that the record accurately reflects my personal performance of the history, physical exam, medical decision making, and the department course for this patient. I have also personally directed, reviewed, and agree with the discharge instructions and disposition. Decision To Admit - Pt Status Changed To: Hospital Disposition Of: Observation - . Bed Request Type: Telemetry Admitting Physician: Luis Enrique Peres Patient Diagnosis: Chest pain
[2017-09-10] MEDS ORDERED: Aspirin 325 mg EC Tablets PO STA (20:48)
[2017-09-10] MEDS ORDERED: Aspirin 325 mg EC Tablets PO ONE (21:57)
[2017-09-10 22:03] LABS: URINE BILIRUBIN NEGATIVE (NEGATIVE); URINE BLOOD NEGATIVE (NEGATIVE); URINE CLARITY Clear (Clear); URINE COLOR Straw (YELLOW); URINE GLUCOSE (UA) NORMAL (Normal); URINE LEUKOCYTE ESTERASE NEG Leu/uL (Negative); URINE PROTEIN NEGATIVE (NEGATIVE); URINE UROBILINOGEN NORMAL mg/dL (0.2-1.0)
[2017-09-10 22:04] LABS: BASO % 1.1 % (0.0-2.0); EOS # 0.4 K/uL (0.0-0.7); EOS % 9.9 % (0.0-4.0); HEMOGLOBIN 13.6 g/dL (12.0-18.0); LYMPH # 0.8 K/uL (1.0-4.3); LYMPH % 19.9 % (20.0-40.0); MEAN CELL VOLUME 79.9 fL (80.0-94.0); MEAN CORPUSCULAR HEMOGLOBIN 26.4 pg (27.0-31.0); MEAN PLATELET VOLUME 7.8 fL (7.2-11.7); MONO # 0.5 K/uL (0.0-0.8); NEUT # 2.3 K/uL (1.8-7.0); NEUT % 56.1 % (50.0-75.0); NRBC % 0.1 % (0.0-2.0); RBC 5.16 Mil/uL (4.40-5.90); RED CELL DISTRIBUTION WIDTH 25.8 % (11.5-14.5)
[2017-09-10 23:04] LABS: B-TYPE NATRIURETIC PEPTIDE 718 pg/mL (0-900)
[2017-09-10 23:05] LABS: ALB/GLOB RATIO 0.8 (1.0-2.1); ALBUMIN 4.2 g/dL (3.5-5.0); ALT/SGPT 20 U/L (21-72); AST/SGOT 49 U/L (17-59); BLOOD UREA NITROGEN 22 mg/dL (9-20); GFR AFRICAN-AMERICAN > 60; GFR NON-AFRICAN AMERICAN > 60
[2017-09-10 23:31] LABS: INR 1.3; PROTHROMBIN TIME 14.1 SECONDS (9.7-12.2)
--- NOTE | 2017-09-11 07:27 | RAD ---
Chest x-ray single frontal view History: Chest pain. Comparison: 08/31/2017 Findings: Hyperinflation suggestive for COPD and or emphysematous changes. Diffuse increased interstitial lung markings. Right hilar prominence. Cardiomegaly. Small nodular density at the right costophrenic angle may represent confluence of shadows with ribs and vessels. Degenerative changes in the spine and shoulders. Impression: Hyperinflation suggestive for COPD and or emphysematous changes. Diffuse increased interstitial lung markings. Right hilar prominence. Cardiomegaly. Small nodular density at the right costophrenic angle may represent confluence of shadows with ribs and vessels.
[2017-09-11 09:56] LABS: HEMOGLOBIN 12.6 g/dL (12.0-18.0); MEAN CELL VOLUME 78.7 fL (80.0-94.0); MEAN CORPUSCULAR HEMOGLOBIN 25.9 pg (27.0-31.0); MEAN CORPUSCULAR HGB CONC 32.9 g/dL (33.0-37.0); RBC 4.86 Mil/uL (4.40-5.90); RED CELL DISTRIBUTION WIDTH 25.4 % (11.5-14.5); WHITE BLOOD COUNT 3.2 K/uL (4.8-10.8)
[2017-09-11 10:23] LABS: BLOOD UREA NITROGEN 23 mg/dL (9-20); CALCIUM 9.1 mg/dl (8.6-10.4); GFR AFRICAN-AMERICAN > 60; GFR NON-AFRICAN AMERICAN > 60
[2017-09-11 10:33] LABS: CK-MB 3.36 ng/mL (0.0-3.38)
[2017-09-11] MEDS: Metoprolol Succinate 25 mg XL Tab PO SCH (10:59)
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
[2017-09-11 17:10] LABS: CK-MB 2.32 ng/mL (0.0-3.38); TROPONIN I 0.013 ng/mL (0.00-0.120)
--- NOTE | 2017-09-11 23:22 | CP.PCM.HP ---
History of Present Illness - History of Present Illness History of Present Illness: CC: chest pain HPI: 56 y/o male presents to the ER complaining of chest pain. Patient describes the pain as pressure-like and rates the pain 4/10. Patient reports that there is no radiation of the pain. He notes that he had similar episodes of chest pain over the past few weeks. Patient denies having nausea and vomiting. Of note, patient is wearing life vest but he does not have batteries for the device Past Patient History - Infectious Disease Hx of Infectious Diseases: None - Past Medical History & Family History Past Medical History?: Yes - Past Social History Smoking Status: Light Smoker < 10 Cigarettes Daily - CARDIAC Hx Congestive Heart Failure: Yes Hx Hypertension: Yes - PULMONARY Hx Respiratory Disorders: No - NEUROLOGICAL Hx Neurological Disorder: No - HEENT Hx HEENT Problems: No - RENAL Hx Chronic Kidney Disease: No - ENDOCRINE/METABOLIC Hx Endocrine Disorders: No - HEMATOLOGICAL/ONCOLOGICAL Hx Blood Disorders: No - INTEGUMENTARY Hx Dermatological Problems: No - MUSCULOSKELETAL/RHEUMATOLOGICAL Hx Falls: Yes Other/Comment: Left rotator cuff tear - GASTROINTESTINAL Hx Gastrointestinal Disorders: No - GENITOURINARY/GYNECOLOGICAL Hx Genitourinary Disorders: No - PSYCHIATRIC Hx Substance Use: No - SURGICAL HISTORY Hx Surgeries: No - ANESTHESIA Hx Anesthesia: No Hx Anesthesia Reactions: No Hx Malignant Hyperthermia: No Meds Allergies/Adverse Reactions: Allergies Allergy/AdvReac Type Severity Reaction Status Date / Time No Known Allergies Allergy Verified 09/10/17 20:39 Results - Vital Signs Recent Vital Signs: Last Vital Signs Temp 97.8 F 09/11/17 15:50 Pulse 78 09/11/17 16:00 Resp 20 09/11/17 15:50 BP 100/60 09/11/17 15:50 Pulse Ox 95 09/11/17 15:50 - Labs Result Diagrams: 09/11/17 09:52 09/11/17 09:52 Labs: Laboratory Results - last 24 hr 09/10/17 09/11/17 09/11/17 23:20 09:52 09:52 WBC 3.2 L RBC 4.86 Hgb 12.6 Hct 38.2 MCV 78.7 L MCH 25.9 L MCHC 32.9 L RDW 25.4 H Plt Count 182 MPV 8.0 PT 14.1 H INR 1.3 APTT 32 Sodium 137 Potassium 4.8 Chloride 103 Carbon Dioxide 22 Anion Gap 17 BUN 23 H Creatinine 1.0 Est GFR ( Amer) > 60 Est GFR (Non-Af Amer) > 60 POC Glucose (mg/dL) Random Glucose 90 Calcium 9.1 Total Creatine Kinase 310 H CK-MB (Mass) 3.36 Troponin I 0.0200 09/11/17 09/11/17 11:09 16:40 WBC RBC Hgb Hct MCV MCH MCHC RDW Plt Count MPV PT INR APTT Sodium Potassium Chloride Carbon Dioxide Anion Gap BUN Creatinine Est GFR ( Amer) Est GFR (Non-Af Amer) POC Glucose (mg/dL) 123 H Random Glucose Calcium Total Creatine Kinase 295 H CK-MB (Mass) 2.32 Troponin I 0.0130
[2017-09-12 10:02] VITALS: RESP 18; O2SAT 100
[2017-09-12] MEDS: Metoprolol Succinate 25 mg XL Tab PO SCH (10:12)
[2017-09-12 10:28] VITALS: BP 87/53; TEMP 97.8
[2017-09-12 13:08] VITALS: PULSE 61
--- NOTE | 2017-09-12 15:44 | PCM.HF ---
Heart Failure Core Measure - Heart Failure Ejection Fraction: Less Than 40 % BUZZ Inhibitor Prescribed: Yes Beta-Marissa Prescribed: Metoprolol Succinate Angiotensin II Receptor Marissa Prescribed: No Contraindication/Reason for not providing: ON BUZZ AnticoagulationTherapy for Atrial Fibrillation/Atrialflutter: No Contraindication/Reason for not providing: NO HX OF A FIB Aldosterone Antagonist Prescribed: Yes Hydralazine Nitrate Prescribed: No Contraindication/Reason for not providing: BP RUNNING LOW 90,S - 100 Implantable Cardioverter Defibrillator Therapy: No Contraindication/Reason for not providing: VEST THERAPY PER DR. KNIGHT Cardiac Resynchronization Therapy Prescribed: No Contraindication/Reason for not providing: ON VEST THERAPY - Follow up Will be discharged to: Home Follow Up Date (must be within 7 days from discharge): 09/16/17 Follow Up Time: 09:00
--- NOTE | 2017-09-12 15:44 | CP.PCM.PN ---
Subjective - Date & Time of Evaluation Date of Evaluation: 09/12/17 Time of Evaluation: 11:35 - Subjective Subjective: Patietn seen today, sob and leg swelling improved No overnigh t events reported by RN Objective - Vital Signs/Intake and Output Vital Signs (last 24 hours): Temp Pulse Resp BP Pulse Ox 97.8 F 61 18 87/53 L 100 09/12/17 07:30 09/12/17 12:00 09/12/17 07:30 09/12/17 10:11 09/12/17 07:30 Intake and Output: 09/12/17 09/12/17 06:59 18:59 Intake Total 300 Balance 300 - Medications Medications: Current Medications Aspirin (Ecotrin) 81 mg PO DAILY [facility] Last Admin: 09/12/17 09:53 Dose: 81 mg Furosemide (Lasix) 40 mg PO DAILY [facility] Last Admin: 09/12/17 10:11 Dose: Not Given Heparin Sodium (Porcine) (Heparin) 5,000 units SC Q12 [facility] Last Admin: 09/12/17 09:55 Dose: Not Given Lisinopril (Zestril) 5 mg PO DAILY [facility] Last Admin: 09/12/17 10:12 Dose: Not Given Metoprolol Succinate (Toprol Xl) 25 mg PO DAILY [facility] Last Admin: 09/12/17 10:12 Dose: Not Given - Labs Labs: 09/11/17 09:52 09/11/17 09:52 PT 14.1 SECONDS (9.7-12.2) H 09/10/17 23:20 INR 1.3 09/10/17 23:20 APTT 32 SECONDS (21-34) 09/10/17 23:20 Assessment and Plan - Assessment and Plan (Free Text) Assessment: A/P 56yr old male with pmhx of CAD, CHF, HTN, Hyperlipidemia, 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 Peres today, stable for discharge home today and f/u with Dr. Peres, office an dDr. Karan office in 1 week
--- NOTE | 2017-09-12 18:09 | CP.PCM.DIS ---
Provider - Provider Date of Admission: 09/10/17 23:07 Attending physician: Luis Enrique Peres MD Primary care physician: Non [facility] Provider Hospital Course - Lab Results Lab Results: Most Recent Lab Values WBC 3.2 K/uL (4.8-10.8) L 09/11/17 09:52 RBC 4.86 Mil/uL (4.40-5.90) 09/11/17 09:52 Hgb 12.6 g/dL (12.0-18.0) 09/11/17 09:52 Hct 38.2 % (35.0-51.0) 09/11/17 09:52 MCV 78.7 fL (80.0-94.0) L 09/11/17 09:52 MCH 25.9 pg (27.0-31.0) L 09/11/17 09:52 MCHC 32.9 g/dL (33.0-37.0) L 09/11/17 09:52 RDW 25.4 % (11.5-14.5) H 09/11/17 09:52 Plt Count 182 K/uL (130-400) 09/11/17 09:52 MPV 8.0 fL (7.2-11.7) 09/11/17 09:52 Neut % (Auto) 56.1 % (50.0-75.0) 09/10/17 21:59 Lymph % (Auto) 19.9 % (20.0-40.0) L 09/10/17 21:59 [place] % (Auto) 13.0 % (0.0-10.0) H 09/10/17 21:59 Eos % (Auto) 9.9 % (0.0-4.0) H 09/10/17 21:59 Baso % (Auto) 1.1 % (0.0-2.0) 09/10/17 21:59 Neut # (Auto) 2.3 K/uL (1.8-7.0) 09/10/17 21:59 Lymph # (Auto) 0.8 K/uL (1.0-4.3) L 09/10/17 21:59 [place] # (Auto) 0.5 K/uL (0.0-0.8) 09/10/17 21:59 Eos # (Auto) 0.4 K/uL (0.0-0.7) 09/10/17 21:59 Baso # (Auto) 0.0 K/uL (0.0-0.2) 09/10/17 21:59 PT 14.1 SECONDS (9.7-12.2) H 09/10/17 23:20 INR 1.3 09/10/17 23:20 APTT 32 SECONDS (21-34) 09/10/17 23:20 Sodium 137 mmol/L (132-148) 09/11/17 09:52 Potassium 4.8 mmol/L (3.6-5.2) 09/11/17 09:52 Chloride 103 mmol/L (98-107) 09/11/17 09:52 Carbon Dioxide 22 mmol/L (22-30) 09/11/17 09:52 Anion Gap 17 (10-20) 09/11/17 09:52 BUN 23 mg/dL (9-20) H 09/11/17 09:52 Creatinine 1.0 mg/dL (0.8-1.5) 09/11/17 09:52 Est GFR ( Amer) > 60 09/11/17 09:52 Est GFR (Non-Af Amer) > 60 09/11/17 09:52 POC Glucose (mg/dL) 123 mg/dL (65-110) H 09/11/17 11:09 Random Glucose 90 mg/dL (75-110) 09/11/17 09:52 Calcium 9.1 mg/dl (8.6-10.4) 09/11/17 09:52 Total Bilirubin 0.8 mg/dL (0.2-1.3) 09/10/17 22:35 AST 49 U/L (17-59) 09/10/17 22:35 ALT 20 U/L (21-72) L D 09/10/17 22:35 Alkaline Phosphatase 78 U/L (38-126) 09/10/17 22:35 Total Creatine Kinase 295 U/L (55-170) H 09/11/17 16:40 CK-MB (Mass) 2.32 ng/mL (0.0-3.38) 09/11/17 16:40 Troponin I 0.0130 ng/mL (0.00-0.120) 09/11/17 16:40 NT-Pro-B Natriuret Pep 718 pg/mL (0-900) 09/10/17 22:35 Total Protein 9.8 g/dL (6.3-8.3) H 09/10/17 22:35 Albumin 4.2 g/dL (3.5-5.0) 09/10/17 22:35 Globulin 5.5 gm/dL (2.2-3.9) H 09/10/17 22:35 Albumin/Globulin Ratio 0.8 (1.0-2.1) L 09/10/17 22:35 Urine Color Straw (YELLOW) 09/10/17 21:50 Urine Clarity Clear (Clear) 09/10/17 21:50 Urine pH 5.0 (5.0-8.0) 09/10/17 21:50 Ur Specific [place] 1.004 (1.003-1.030) 09/10/17 21:50 Urine Protein Negative mg/dL (NEGATIVE) 09/10/17 21:50 Urine Glucose (UA) Normal mg/dL (Normal) 09/10/17 21:50 Urine Ketones Negative mg/dL (NEGATIVE) 09/10/17 21:50 Urine Blood Negative (NEGATIVE) 09/10/17 21:50 Urine Nitrate Negative (NEGATIVE) 09/10/17 21:50 Urine Bilirubin Negative (NEGATIVE) 09/10/17 21:50 Urine Urobilinogen Normal mg/dL (0.2-1.0) 09/10/17 21:50 Ur Leukocyte Esterase Neg Jose/uL (Negative) 09/10/17 21:50 Urine WBC (Auto) < 1 /hpf (0-5) 09/10/17 21:50 Urine RBC (Auto) < 1 /hpf (0-3) 09/10/17 21:50 - Hospital Course Hospital Course: A/P 56yr old male with pmhx of CAD, CHF, HTN, Hyperlipidemia, 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 Ameen office in 1 week Discharge Plan - Follow Up Plan Condition: FAIR Disposition: HOME/ ROUTINE Instructions: Angina (DC), Chest Pain (DC), Coronary Heart Disease (DC) Additional Instructions: Please f/u with Dr. Peres office in 1 week Please f/u with Dr. Russo office in 1 week- f/u visit for low EF continue medication as per med. rec. Referrals: Non [facility] Provider, [Primary Care Provider] -
== END 2017-09-12 16:44 | disposition home or self-care (01) ==
LOC: C.ER 20:36 → SUPCPDRO 20:36 → C.9E 23:07 → C.5S 09-11 00:14
PROVIDERS: ADMIT Internal Medicine; ATTEND Internal Medicine
DX: R07.9 Chest pain, unspecified (principal); I11.0 Hypertensive heart disease with heart failure; I50.9 Heart failure, unspecified; I42.9 Cardiomyopathy, unspecified; I25.10 Atherosclerotic heart disease of native coronary artery without angina pectoris; E78.5 Hyperlipidemia, unspecified
CPT/HCPCS: 36415; 71045; 80048; 80053; 81001; 82948; 83880; 84484; 85025; 85027; 85610; 85730; 99285; G0378; J1644

== ENCOUNTER 2017-09-14 00:38 | Emergency (ER) | payer OTHER ==
[2017-09-14 01:21] VITALS: RESP 16; O2SAT 99
[2017-09-14 02:13] LABS: HEMOGLOBIN 12.4 g/dL (12.0-18.0); RBC 4.72 Mil/uL (4.40-5.90)
[2017-09-14 02:34] LABS: BASO % 0.3 % (0.0-2.0); EOS # 0.1 K/uL (0.0-0.7); EOS % 1.6 % (0.0-4.0); LYMPH # 3.6 K/uL (1.0-4.3); LYMPH % 84.5 % (20.0-40.0); MEAN CELL VOLUME 78.9 fL (80.0-94.0); MEAN CORPUSCULAR HEMOGLOBIN 26.4 pg (27.0-31.0); MEAN CORPUSCULAR HGB CONC 33.4 g/dL (33.0-37.0); MEAN PLATELET VOLUME 9.1 fL (7.2-11.7); MONO # 0.1 K/uL (0.0-0.8); MONO % 2.4 % (0.0-10.0); NEUT # 0.5 K/uL (1.8-7.0); NEUT % 11.2 % (50.0-75.0); NRBC % 2.3 % (0.0-2.0); PLATELET COUNT 159 K/uL (130-400); RED CELL DISTRIBUTION WIDTH 25.9 % (11.5-14.5); WHITE BLOOD COUNT 4.3 K/uL (4.8-10.8)
[2017-09-14 02:38] LABS: ALB/GLOB RATIO 0.7 (1.0-2.1); ALT/SGPT 12 U/L (21-72); AST/SGOT 56 U/L (17-59); BLOOD UREA NITROGEN 30 mg/dL (9-20); GFR AFRICAN-AMERICAN > 60; GFR NON-AFRICAN AMERICAN > 60
[2017-09-14 03:17] LABS: BASOPHIL 1 % (0-2); EOSINOPHIL 3 % (0-4); LYMPHOCYTE 56 % (20-40); MONOCYTE 13 % (0-10); NEUTROPHIL 26 % (50-75); PLATELET ESTIMATE NORMAL (NORMAL); REACTIVE LYMPHOCYTES 1 % (0-0); TOTAL CELLS COUNTED 100
[2017-09-14 03:18] LABS: ANISOCYTOSIS MODERATE; HYPOCHROMIC MODERATE; MICROCYTOSIS SLIGHT
[2017-09-14 03:19] LABS: POLYCHROMIC SLIGHT; TARGET CELLS MODERATE
--- NOTE | 2017-09-14 03:37 | C.PDOC ---
History Of Present Illness 56yo male with history of CAD, low ejection fraction, presents to ED with complaint of chest pain. Patient has had multiple prior visits with similar complaints and was admitted to this facility on 09/10/17 and discharged on and instructed to follow up with his PMD and shredded filler hopper feeder. Patient has been noncompliant with his medications and follow up. Patient also uses a life vest but states he has no batteries which was discussed with him when admitted. He denies any shortness of breath, palpitations, diaphoresis. He has no other medical complaints. Time Seen by Provider: 09/14/17 01:45 Chief Complaint (Nursing): Chest Pain History Per: Patient History/Exam Limitations: no limitations Onset/Duration Of Symptoms: Persistent Current Symptoms Are (Timing): Still Present Past Medical History Reviewed: Historical Data, Nursing Documentation, Vital Signs Vital Signs: Last Vital Signs Temp 97.7 F 09/14/17 03:37 Pulse 80 09/14/17 03:37 Resp 16 09/14/17 03:37 BP 100/57 L 09/14/17 03:37 Pulse Ox 99 09/14/17 05:33 - Medical History PMH: CAD, CHF, HTN, Hyperlipidemia Denies: Chronic Kidney Disease - [facility] Procedures FLUOROSCOPY OF MULT COR ART USING L OSM CONTRAST (04/06/17) MEASURE CARDIAC SAMPL & PRESSURE, BILATERAL, PERC (04/06/17) Family History: States: Unknown Family Hx, CAD - Social History Hx Alcohol Use: Yes Hx Substance Use: No - Immunization History Hx Tetanus Toxoid Vaccination: No Hx Influenza Vaccination: Yes Hx Pneumococcal Vaccination: No Review Of Systems Except As Marked, All Systems Reviewed And Found Negative. Constitutional: Negative for: Sweats Cardiovascular: Positive for: Chest Pain. Negative for: Palpitations Respiratory: Negative for: Shortness of Breath Physical Exam - Physical Exam Appears: Non-toxic, No Acute Distress Skin: Normal Color, Warm, Dry, No Diaphoretic Head: Atraumatic, Normacephalic Eye(s): bilateral: Normal Inspection Oral Mucosa: Moist Neck: Normal ROM, Supple Chest: Symmetrical Cardiovascular: Rhythm Regular Respiratory: Normal Breath Sounds, No Wheezing Gastrointestinal/Abdominal: Normal Exam, No Tenderness Neurological/Psych: Oriented x3 Gait: Steady ED Course And Treatment - Laboratory Results Result Diagrams: 09/14/17 02:10 09/14/17 02:10 ECG: Interpreted By Me, Viewed By Me O2 Sat by Pulse Oximetry: 99 (RA) Pulse Ox Interpretation: Normal Progress Note: Patient sleeping easy in ER but arousable. EKG shows LBBB which is unchanged from prior. Labs reviewed and within normal limits; troponin levels within normal limits. Patient remains stable in ER and is stable for discharge home with instruction to follow up with PMD and shredded filler hopper feeder as scheduled upon discharge from last admission. Disposition Counseled Patient/Family Regarding: Diagnosis, Need For Followup, Rx Given - Disposition Disposition: HOME/ ROUTINE Disposition Time: 03:34 Condition: STABLE Additional Instructions: Please follow up with Dr Dudley as instructed on last discharge Continue current meds Return to ER if worse Forms: [employer] (Austrian) - Clinical Impression Clinical Impression: Chest pain, CAD (coronary artery disease) - PA / INVENTORY CONTROL CLERK / Resident Statement MD/DO has reviewed & agrees with the documentation as recorded. - Scribe Statement The provider has reviewed the documentation as recorded by the Scribe (Marleny Ennis) Provider Attestation: All medical record entries made by the Scribe were at my direction and personally dictated by me. I have reviewed the chart and agree that the record accurately reflects my personal performance of the history, physical exam, medical decision making, and the department course for this patient. I have also personally directed, reviewed, and agree with the discharge instructions and disposition.
[2017-09-14 03:38] VITALS: BP 100/57; PULSE 80; TEMP 97.7
--- NOTE | 2017-09-15 22:00 | CARD ---
APPROVED REPORT EKG Measurement Heart [id number] 186P72 [id number] <Conclusion> Normal sinus rhythm Left atrial enlargement Left axis deviation Left bundle branch block Abnormal ECG
== END 2017-09-14 04:00 | disposition home or self-care (01) ==
LOC: C.ER 00:38
DX: I25.10 Atherosclerotic heart disease of native coronary artery without angina pectoris (principal); R07.9 Chest pain, unspecified; E78.5 Hyperlipidemia, unspecified; I10 Essential (primary) hypertension; I50.9 Heart failure, unspecified

== ENCOUNTER 2017-09-15 00:27 | Emergency (ER) | payer OTHER ==
--- NOTE | 2017-09-15 00:55 | C.PDOC ---
History Of Present Illness 56 year old male is brought to the ED by EMS c/o not feeling well. Patient states he needs a place to stay and spend the night. Patient has been to the ED multiple time with the same presentation. Patient is supposed to wear a life vest but is right now because he does not remember where the batteries are. Patient denies CP, SOB, palpitations, SI/HI, hallucinations. Time Seen by Provider: 09/15/17 00:55 Chief Complaint (Nursing): Medical Clearance History Per: Patient, EMS History/Exam Limitations: no limitations Onset/Duration Of Symptoms: Days Current Symptoms Are (Timing): Still Present Reports Recently: Seen In ED Recent travel outside of the [place]: No Additional History Per: Patient Past Medical History Reviewed: Historical Data, Nursing Documentation, Vital Signs Vital Signs: Last Vital Signs Temp 98.2 F 09/15/17 04:41 Pulse 77 09/15/17 04:41 Resp 19 09/15/17 04:41 BP 102/66 09/15/17 04:41 Pulse Ox 98 09/15/17 04:41 - Medical History PMH: CAD, CHF, HTN, Hyperlipidemia Denies: Chronic Kidney Disease Surgical History: No Surg Hx - [facility] Procedures FLUOROSCOPY OF MULT COR ART USING L OSM CONTRAST (04/06/17) MEASURE CARDIAC SAMPL & PRESSURE, BILATERAL, PERC (04/06/17) Family History: States: CAD - Social History Hx Alcohol Use: Yes Hx Substance Use: No - Immunization History Hx Tetanus Toxoid Vaccination: No Hx Influenza Vaccination: Yes Hx Pneumococcal Vaccination: No Review Of Systems Constitutional: Negative for: Fever, Chills Cardiovascular: Negative for: Chest Pain Respiratory: Negative for: Shortness of Breath Gastrointestinal: Negative for: Abdominal Pain Skin: Negative for: Rash Neurological: Negative for: Weakness, Numbness Physical Exam - Physical Exam Appears: Non-toxic, No Acute Distress Skin: Warm, Dry Head: Normacephalic Eye(s): bilateral: Normal Inspection Nose: No Discharge Oral Mucosa: Moist Neck: Normal ROM, Supple Chest: Symmetrical Cardiovascular: Rhythm Regular, No Murmur Respiratory: No Rales, No Rhonchi, No Wheezing Gastrointestinal/Abdominal: Soft, No Tenderness, No Guarding, No Rebound Extremity: No Tenderness, No Swelling Extremity: Bilateral: Normal Color And Temperature, Normal ROM Neurological/Psych: Oriented x3 Gait: Steady ED Course And Treatment - Laboratory Results Result Diagrams: 09/15/17 01:34 09/15/17 01:34 ECG: Interpreted By Me, Viewed By Me ECG Rhythm: Sinus Rhythm (70), L BBB, Nonspecific Changes (unchanged from previous) O2 Sat by Pulse Oximetry: 99 (ON RA) Pulse Ox Interpretation: Normal Progress Note: Plan: - EKG. - Labs. - CXR. - Aspirin 325 mg PO. - UA Reevaluation Time: 05:31 Reassessment Condition: Improved Disposition Counseled Patient/Family Regarding: Studies Performed, Diagnosis, Need For Followup - Disposition Referrals: Luis Enrique Peres MD [Staff Provider] - Disposition: HOME/ ROUTINE Disposition Time: 00:55 Condition: FAIR Instructions: Alcohol Abuse and Alcoholism (DC) Forms: [employer] (Swedish) - Clinical Impression Clinical Impression: Medical assessment, Alcohol intoxication - Scribe Statement The provider has reviewed the documentation as recorded by the Scribe Aki Griffin All medical record entries made by the Scribe were at my direction and personally dictated by me. I have reviewed the chart and agree that the record accurately reflects my personal performance of the history, physical exam, medical decision making, and the department course for this patient. I have also personally directed, reviewed, and agree with the discharge instructions and disposition.
[2017-09-15] MEDS ORDERED: Aspirin 325 mg EC Tablets PO STA (01:06)
[2017-09-15] MEDS ORDERED: Aspirin 325 mg EC Tablets PO ONE (01:22)
[2017-09-15 01:44] LABS: INR 1.1; PROTHROMBIN TIME 12.3 SECONDS (9.7-12.2)
[2017-09-15 01:45] LABS: HEMOGLOBIN 12.1 g/dL (12.0-18.0); MEAN CELL VOLUME 78.8 fL (80.0-94.0); MEAN CORPUSCULAR HEMOGLOBIN 25.8 pg (27.0-31.0); MEAN CORPUSCULAR HGB CONC 32.7 g/dL (33.0-37.0); MEAN PLATELET VOLUME 8.9 fL (7.2-11.7); PLATELET COUNT 166 K/uL (130-400); RED CELL DISTRIBUTION WIDTH 25.8 % (11.5-14.5); WHITE BLOOD COUNT 3.8 K/uL (4.8-10.8)
[2017-09-15 01:56] LABS: URINE BILIRUBIN NEGATIVE (NEGATIVE); URINE BLOOD NEGATIVE (NEGATIVE); URINE CLARITY Clear (Clear); URINE COLOR Colorless (YELLOW); URINE GLUCOSE (UA) NORMAL (Normal); URINE LEUKOCYTE ESTERASE NEG Leu/uL (Negative); URINE PROTEIN NEGATIVE (NEGATIVE); URINE UROBILINOGEN NORMAL mg/dL (0.2-1.0)
[2017-09-15 02:10] LABS: BARBITURATES, UR NEGATIVE (NEGATIVE); BENZODIAZEPINES, UR NEGATIVE (NEGATIVE); OPIATES, UR NEGATIVE (NEGATIVE); PHENCYCLIDINE, UR NEGATIVE (NEGATIVE)
[2017-09-15 02:30] LABS: ALB/GLOB RATIO 0.8 (1.0-2.1); ALT/SGPT 22 U/L (21-72); AST/SGOT 52 U/L (17-59); BLOOD UREA NITROGEN 23 mg/dL (9-20); CALCIUM 8.8 mg/dl (8.6-10.4); GFR AFRICAN-AMERICAN > 60; GFR NON-AFRICAN AMERICAN > 60
[2017-09-15 02:42] LABS: EOSINOPHIL 15 % (0-4); LYMPHOCYTE 46 % (20-40); MONOCYTE 9 % (0-10); NEUTROPHIL 30 % (50-75); PLATELET ESTIMATE NORMAL (NORMAL); TOTAL CELLS COUNTED 100
[2017-09-15 02:43] LABS: ANISOCYTOSIS MODERATE; HYPOCHROMIC SLIGHT; TARGET CELLS SLIGHT
[2017-09-15 02:44] LABS: MICROCYTOSIS SLIGHT; OVALOCYTES SLIGHT; ROULEAUX FORMATION MODERATE
[2017-09-15 04:42] VITALS: TEMP 98.2
[2017-09-15 05:42] VITALS: BP 109/62; PULSE 66; RESP 16; O2SAT 98
--- NOTE | 2017-09-15 07:48 | RAD ---
HISTORY: chest pain COMPARISON: Chest x-rays 09/10/2017, 09/05/2017, and 08/31/2017 TECHNIQUE: Chest one view . FINDINGS: LUNGS: No focal consolidation is seen. PLEURA: No pleural effusion is identified. CARDIOVASCULAR: Heart size is enlarged Stable OSSEOUS STRUCTURES: Mild hypertrophic degenerative changes noted of the bilateral acromioclavicular joints. VISUALIZED UPPER ABDOMEN: Unremarkable. OTHER FINDINGS: None. IMPRESSION: Stable cardiomegaly. No focal consolidation is seen.
--- NOTE | 2017-09-17 00:06 | CARD ---
APPROVED REPORT EKG Measurement Heart [id number] [place] 186P65 [id number] <Conclusion> Normal sinus rhythm Left atrial enlargement Left bundle branch block Abnormal ECG
== END 2017-09-15 05:42 | disposition home or self-care (01) ==
LOC: C.ER 00:27
DX: F10.129 Alcohol abuse with intoxication, unspecified (principal); I10 Essential (primary) hypertension; I50.9 Heart failure, unspecified; I25.10 Atherosclerotic heart disease of native coronary artery without angina pectoris; E78.5 Hyperlipidemia, unspecified

== ENCOUNTER 2017-09-22 02:37 | Emergency (ER) | payer OTHER ==
[2017-09-22 02:38] VITALS: BMI 22.4
--- NOTE | 2017-09-22 02:58 | C.PDOC ---
History Of Present Illness Patient presents to the ER stating he was drinking and passed out tonight. Patient is currently speaking in complete sentences; denies chest pain, palpitations, or SOB. Time Seen by Provider: 09/22/17 02:57 Chief Complaint (Nursing): Substance Abuse History Per: Patient History/Exam Limitations: no limitations Onset/Duration Of Symptoms: Hrs Current Symptoms Are (Timing): Still Present Suicide/Self Injury Attempted (Context): None Modifying Factor(s): Alcohol Severity: None Pain Scale Rating Of: 0 Associated Symptoms: denies: Depression, Suicidal Thoughts Involuntary Hold By: None Recent travel outside of the [place]: No Past Medical History Reviewed: Historical Data, Nursing Documentation, Vital Signs Vital Signs: Last Vital Signs Temp 97.9 F 09/22/17 05:26 Pulse 64 09/22/17 05:26 Resp 16 09/22/17 05:26 BP 103/71 09/22/17 05:26 Pulse Ox 98 09/22/17 05:26 - Medical History PMH: CAD, CHF, HTN, Hyperlipidemia - [facility] Procedures FLUOROSCOPY OF MULT COR ART USING L OSM CONTRAST (04/06/17) MEASURE CARDIAC SAMPL & PRESSURE, BILATERAL, PERC (04/06/17) Family History: States: CAD - Social History Hx Alcohol Use: Yes Hx Substance Use: No - Immunization History Hx Tetanus Toxoid Vaccination: No Hx Influenza Vaccination: Yes Hx Pneumococcal Vaccination: No Review Of Systems Constitutional: Positive for: Other ("passed out"). Negative for: Fever, Chills Cardiovascular: Negative for: Chest Pain Respiratory: Negative for: Shortness of Breath Gastrointestinal: Negative for: Nausea, Vomiting Physical Exam - Physical Exam Appears: Non-toxic, Other (ETOH on breath, no sign of injury) Skin: Warm, Dry Head: Normacephalic Eye(s): bilateral: Normal Inspection Oral Mucosa: Moist Chest: Symmetrical, No Tenderness Cardiovascular: Rhythm Regular Respiratory: No Rales, No Rhonchi, No Wheezing Gastrointestinal/Abdominal: Soft, No Tenderness Neurological/Psych: Oriented x3 ED Course And Treatment - Laboratory Results Result Diagrams: 09/22/17 03:11 09/22/17 04:00 ECG: Interpreted By Me, Viewed By Me ECG Rhythm: Sinus Rhythm (60), Nonspecific Changes (unchanged from previous) O2 Sat by Pulse Oximetry: 97 (Room air) Pulse Ox Interpretation: Normal - Radiology CXR: Interpreted by Me, Viewed By Me CXR Interpretation: No: Infiltrates, Fracture, Pnemothorax Progress Note: EKG, blood work, CXR, and urinalysis ordered. Reevaluation Time: 06:08 Reassessment Condition: Improved Disposition Counseled Patient/Family Regarding: Studies Performed, Diagnosis, Need For Followup - Disposition Referrals: Luis Enrique Peres MD [Staff Provider] - Disposition: HOME/ ROUTINE Disposition Time: 06:08 Condition: FAIR Instructions: Alcohol Abuse and Alcoholism (DC) Forms: [employer] (Northern Irish) - Clinical Impression Clinical Impression: Alcohol intoxication - Scribe Statement The provider has reviewed the documentation as recorded by the Scribe Norm Rey All medical record entries made by the Scribe were at my direction and personally dictated by me. I have reviewed the chart and agree that the record accurately reflects my personal performance of the history, physical exam, medical decision making, and the department course for this patient. I have also personally directed, reviewed, and agree with the discharge instructions and disposition.
[2017-09-22 03:16] LABS: NRBC % 0.1 % (0.0-2.0)
[2017-09-22 03:22] LABS: INR 1.1; PROTHROMBIN TIME 12.2 SECONDS (9.7-12.2)
[2017-09-22 03:28] LABS: BASO # 0.1 K/uL (0.0-0.2); BASO % 2.4 % (0.0-2.0); EOS # 0.3 K/uL (0.0-0.7); EOS % 6.7 % (0.0-4.0); HEMOGLOBIN 13.1 g/dL (12.0-18.0); LYMPH # 1.5 K/uL (1.0-4.3); LYMPH % 37.9 % (20.0-40.0); MEAN CELL VOLUME 80.1 fL (80.0-94.0); MEAN CORPUSCULAR HEMOGLOBIN 27.2 pg (27.0-31.0); MEAN CORPUSCULAR HGB CONC 33.9 g/dL (33.0-37.0); MEAN PLATELET VOLUME 8.1 fL (7.2-11.7); MONO # 0.4 K/uL (0.0-0.8); MONO % 9.9 % (0.0-10.0); NEUT # 1.7 K/uL (1.8-7.0); NEUT % 43.1 % (50.0-75.0); RBC 4.82 Mil/uL (4.40-5.90); RED CELL DISTRIBUTION WIDTH 26.2 % (11.5-14.5); WHITE BLOOD COUNT 3.9 K/uL (4.8-10.8)
[2017-09-22 04:23] LABS: B-TYPE NATRIURETIC PEPTIDE 1320 pg/mL (0-900)
[2017-09-22 04:28] LABS: ALB/GLOB RATIO 0.7 (1.0-2.1); ALBUMIN 3.9 g/dL (3.5-5.0); ALT/SGPT 16 U/L (21-72); AST/SGOT 70 U/L (17-59); BLOOD UREA NITROGEN 20 mg/dL (9-20); CALCIUM 9.1 mg/dl (8.6-10.4); GFR AFRICAN-AMERICAN > 60; GFR NON-AFRICAN AMERICAN > 60
[2017-09-22 05:26] VITALS: BP 103/71; PULSE 64; RESP 16; TEMP 97.9
[2017-09-22 06:09] VITALS: O2SAT 97
--- NOTE | 2017-09-22 10:07 | RAD ---
HISTORY: chest pain COMPARISON: Chest x-rays 09/15/2017, 09/10/2017, and 09/05/2017. TECHNIQUE: Chest one view . FINDINGS: LUNGS: No focal consolidation is seen. PLEURA: No pleural effusion is identified. CARDIOVASCULAR: Heart size is within normal limits. OSSEOUS STRUCTURES: There are left 9th and 10th mildly displaced lateral rib fractures that demonstrate mild callus formation. VISUALIZED UPPER ABDOMEN: Unremarkable. OTHER FINDINGS: None. IMPRESSION: No focal consolidation is seen.There are left 9th and 10th mildly displaced lateral rib fractures that demonstrate mild callus formation. Findings discussed with Dr. Borjas of the emergency department at 10:05 a.m. on 09/22/2017.
--- NOTE | 2017-09-22 18:53 | CARD ---
APPROVED REPORT EKG Measurement Heart [id number] [place] 180P74 [id number] <Conclusion> Normal sinus rhythm Left atrial enlargement Left axis deviation Nonspecific intraventricular block Abnormal ECG
== END 2017-09-22 06:34 | disposition home or self-care (01) ==
LOC: C.ER 02:37
DX: F10.129 Alcohol abuse with intoxication, unspecified (principal); Y90.6 Blood alcohol level of 120-199 mg/100 ml

== ENCOUNTER 2017-09-22 20:52 | Emergency (ER) | payer OTHER ==
[2017-09-22 20:53] VITALS: BMI 22.4
[2017-09-22] MEDS ORDERED: Aspirin 325 mg EC Tablets PO STA (21:07)
--- NOTE | 2017-09-22 21:07 | C.PDOC ---
History Of Present Illness Patient presents to ED with c/o reproducible left chest wall pain developed 2 hours DOPEMAN was drinking outside liquor store. Patient was seen yesterday at ED for same and had negative work up. Patient has cardiomegaly with low injection fracture, is supposed to wear life vest but is not compliant. No other complaints at this time. Time Seen by Provider: 09/22/17 21:06 Chief Complaint (Nursing): Chest Pain History Per: Patient History/Exam Limitations: no limitations Onset/Duration Of Symptoms: Days Current Symptoms Are (Timing): Still Present Severity: None Pain Scale Rating Of: 0 Quality: Dull Associated Symptoms: denies: Nausea, Dyspnea, Diaphoresis Modifying Factors: None Exacerbating Factors: None Alleviating Factors: None Recent travel outside of the [place]: No Additional History Per: Patient Past Medical History Reviewed: Historical Data, Nursing Documentation, Vital Signs Vital Signs: Last Vital Signs Temp 98.2 F 09/23/17 01:47 Pulse 74 09/23/17 01:47 Resp 22 09/23/17 01:47 BP 100/69 09/23/17 01:47 Pulse Ox 98 09/23/17 01:47 - Medical History PMH: CAD, CHF, HTN, Hyperlipidemia Surgical History: No Surg Hx - [facility] Procedures FLUOROSCOPY OF MULT COR ART USING L OSM CONTRAST (04/06/17) MEASURE CARDIAC SAMPL & PRESSURE, BILATERAL, PERC (04/06/17) Family History: States: CAD - Social History Hx Alcohol Use: Yes Hx Substance Use: No - Immunization History Hx Tetanus Toxoid Vaccination: No Hx Influenza Vaccination: No Hx Pneumococcal Vaccination: No Review Of Systems Constitutional: Negative for: Fever, Chills Cardiovascular: Positive for: Chest Pain Respiratory: Negative for: Cough, Shortness of Breath Gastrointestinal: Negative for: Nausea, Vomiting Skin: Negative for: Rash Physical Exam - Physical Exam Appears: Non-toxic, No Acute Distress, Other (Strong ETOH odor) Skin: Warm, Dry, No Rash Head: Normacephalic Eye(s): bilateral: PERRL, EOMI Oral Mucosa: Moist Neck: Supple Cardiovascular: Rhythm Regular Respiratory: Normal Breath Sounds, No Rales, No Rhonchi, No Wheezing Gastrointestinal/Abdominal: Soft, No Tenderness, No Guarding, No Rebound Extremity: No Pedal Edema, Capillary Refill (<2 seconds), No Deformity Neurological/Psych: Oriented x3, Normal Speech, Normal Cognition ED Course And Treatment - Laboratory Results Result Diagrams: 09/22/17 21:46 09/22/17 21:46 ECG: Interpreted By Me, Viewed By Me ECG Rhythm: Sinus Rhythm (80), L BBB, Nonspecific Changes (unchanged from yesterday) O2 Sat by Pulse Oximetry: 100 (RA) Pulse Ox Interpretation: Normal - Radiology CXR: Interpreted by Me, Viewed By Me CXR Interpretation: No: Infiltrates, Fracture, Pnemothorax Reevaluation Time: 05:17 Reassessment Condition: Improved Disposition Counseled Patient/Family Regarding: Studies Performed, Diagnosis, Need For Followup - Disposition Referrals: Luis Enrique Peres MD [Staff Provider] - Disposition: HOME/ ROUTINE Disposition Time: 21:07 Condition: FAIR Instructions: Alcohol Abuse and Alcoholism (DC) Forms: [employer] (Macedonian) - Clinical Impression Clinical Impression: Alcohol intoxication, Alcohol abuse - Scribe Statement The provider has reviewed the documentation as recorded by the Scribe Adolfo Estrada All medical record entries made by the Scribe were at my direction and personally dictated by me. I have reviewed the chart and agree that the record accurately reflects my personal performance of the history, physical exam, medical decision making, and the department course for this patient. I have also personally directed, reviewed, and agree with the discharge instructions and disposition.
[2017-09-22] MEDS ORDERED: Aspirin 325 mg EC Tablets PO ONE (21:35)
[2017-09-22 21:50] LABS: HEMOGLOBIN 13.9 g/dL (12.0-18.0); MEAN CORPUSCULAR HGB CONC 33.8 g/dL (33.0-37.0)
[2017-09-22 21:52] LABS: URINE BILIRUBIN NEGATIVE (NEGATIVE); URINE CLARITY Clear (Clear); URINE COLOR Straw (YELLOW); URINE GLUCOSE (UA) NORMAL (Normal); URINE LEUKOCYTE ESTERASE NEG Leu/uL (Negative); URINE PROTEIN NEGATIVE (NEGATIVE); URINE UROBILINOGEN NORMAL mg/dL (0.2-1.0)
[2017-09-22 21:55] LABS: MEAN CELL VOLUME 80.1 fL (80.0-94.0); MEAN CORPUSCULAR HEMOGLOBIN 27.1 pg (27.0-31.0); MEAN PLATELET VOLUME 7.4 fL (7.2-11.7); PLATELET COUNT 204 K/uL (130-400); RBC 5.12 Mil/uL (4.40-5.90); RED CELL DISTRIBUTION WIDTH 26.1 % (11.5-14.5); WHITE BLOOD COUNT 4.1 K/uL (4.8-10.8)
[2017-09-22 21:56] LABS: INR 1.1; PROTHROMBIN TIME 12.6 SECONDS (9.7-12.2)
[2017-09-22 22:05] LABS: ALBUMIN 4.6 g/dL (3.5-5.0); ALT/SGPT 26 U/L (21-72); AST/SGOT 89 U/L (17-59); BLOOD UREA NITROGEN 19 mg/dL (9-20); CALCIUM 9.7 mg/dl (8.6-10.4); GFR AFRICAN-AMERICAN > 60; GFR NON-AFRICAN AMERICAN > 60
[2017-09-22 22:06] LABS: URINE BLOOD NEGATIVE (NEGATIVE)
[2017-09-22 22:12] LABS: ALB/GLOB RATIO 0.7 (1.0-2.1)
[2017-09-22 22:13] LABS: B-TYPE NATRIURETIC PEPTIDE 1110 pg/mL (0-900)
[2017-09-22 22:19] LABS: BASOPHIL 1 % (0-2); EOSINOPHIL 1 % (0-4); LYMPHOCYTE 58 % (20-40); MICROCYTOSIS SLIGHT; MONOCYTE 14 % (0-10); NEUTROPHIL 23 % (50-75); OVALOCYTES SLIGHT; PLATELET ESTIMATE NORMAL (NORMAL); REACTIVE LYMPHOCYTES 3 % (0-0); TARGET CELLS SLIGHT; TOTAL CELLS COUNTED 100
[2017-09-22 22:20] LABS: LARGE PLATELETS PRESENT; TEARDROP CELLS SLIGHT
[2017-09-23 01:49] VITALS: TEMP 98.2
[2017-09-23 05:31] VITALS: BP 116/69; PULSE 70; RESP 18; O2SAT 97
--- NOTE | 2017-09-23 09:19 | RAD ---
PROCEDURE: CHEST RADIOGRAPH, 1 VIEW HISTORY: chest pain COMPARISON: Chest radiograph performed approximately 18 hours prior. FINDINGS: LUNGS: Clear. PLEURA: No pneumothorax or pleural fluid seen. CARDIOVASCULAR: Cardiomediastinal silhouette stably enlarged. OSSEOUS STRUCTURES: Minimally displaced left 9th and 10th rib fractures. Unchanged. VISUALIZED UPPER ABDOMEN: Normal. OTHER FINDINGS: None. IMPRESSION: No active disease.
--- NOTE | 2017-09-23 13:04 | CARD ---
APPROVED REPORT EKG Measurement Heart [id number] [place] 178P63 [id number] <Conclusion> Normal sinus rhythm Possible Left atrial enlargement Left bundle branch block Abnormal ECG
== END 2017-09-23 05:31 | disposition home or self-care (01) ==
LOC: C.ER 20:52
DX: F10.129 Alcohol abuse with intoxication, unspecified (principal); Y90.8 Blood alcohol level of 240 mg/100 ml or more
CPT/HCPCS: 71045; 80053; 80320; 81001; 82948; 83880; 84484; 85025; 85610; 85730; 93005; 96374; 99285; J1940

== ENCOUNTER 2017-09-23 18:07 | Observation (INO) | payer OTHER ==
[2017-09-23 18:08] VITALS: BMI 22.4
[2017-09-23 18:46] LABS: HEMOGLOBIN 11.6 g/dL (12.0-18.0); MEAN CELL VOLUME 79.1 fL (80.0-94.0); MEAN CORPUSCULAR HEMOGLOBIN 26.8 pg (27.0-31.0); MEAN CORPUSCULAR HGB CONC 33.9 g/dL (33.0-37.0); MEAN PLATELET VOLUME 7.9 fL (7.2-11.7); PLATELET COUNT 163 K/uL (130-400); RBC 4.32 Mil/uL (4.40-5.90); WHITE BLOOD COUNT 3.8 K/uL (4.8-10.8)
[2017-09-23 19:02] LABS: ALB/GLOB RATIO 0.8 (1.0-2.1); ALBUMIN 3.8 g/dL (3.5-5.0); ALT/SGPT 24 U/L (21-72); AST/SGOT 70 U/L (17-59); BLOOD UREA NITROGEN 20 mg/dL (9-20); CALCIUM 8.4 mg/dl (8.6-10.4); GFR AFRICAN-AMERICAN > 60; GFR NON-AFRICAN AMERICAN > 60
--- NOTE | 2017-09-23 19:06 | C.PDOC ---
History Of Present Illness 56 year old male, whose PMHx includes CAD, CHF, HTN, and Hyperlipidemia, presents to the ED for evaluation of chest pain, dizziness and syncopal episode which began earlier today. Patient was evaluated in this ED twice yesterday for complaints of chest pain, underwent workup, and was discharged on both occasions. Patient reports history of arrhythmia and was advised he needs a pacemaker, but states he does not have one. This afternoon, patient went to a grocery store and began experiencing chest pain and dizziness while he was leaving. As he was crossing the street with a friend when he had a syncopal episode. Patient admits to drinking earlier today. Patient was found to have high blood pressure during his visits yesterday. Upon ED arrival, patient was found to have low blood pressure (92/64). He denies head injury, nausea, vomiting, extremity numbness/weakness. Time Seen by Provider: 09/23/17 18:19 Chief Complaint (Nursing): Chest Pain History Per: Patient History/Exam Limitations: no limitations Onset/Duration Of Symptoms: Hrs Current Symptoms Are (Timing): Still Present Quality: "Pain" Associated Symptoms: denies: Nausea Additional History Per: Patient Past Medical History Reviewed: Historical Data, Nursing Documentation, Vital Signs Vital Signs: Last Vital Signs Temp 98.8 F 09/23/17 18:11 Pulse 86 09/23/17 18:11 Resp 20 09/23/17 18:11 BP 92/64 L 09/23/17 18:11 Pulse Ox 97 09/23/17 19:12 - Medical History PMH: CAD, CHF, HTN, Hyperlipidemia Denies: Chronic Kidney Disease Surgical History: No Surg Hx - [facility] Procedures FLUOROSCOPY OF MULT COR ART USING L OSM CONTRAST (04/06/17) MEASURE CARDIAC SAMPL & PRESSURE, BILATERAL, PERC (04/06/17) Family History: States: Unknown Family Hx, CAD - Social History Hx Alcohol Use: Yes Hx Substance Use: No - Immunization History Hx Tetanus Toxoid Vaccination: No Hx Influenza Vaccination: No Hx Pneumococcal Vaccination: No Review Of Systems Cardiovascular: Positive for: Chest Pain Gastrointestinal: Negative for: Nausea, Vomiting Neurological: Positive for: Dizziness, Other (sycopal episode ). Negative for: Weakness, Numbness Physical Exam - Physical Exam Appears: Non-toxic, No Acute Distress Skin: Normal Color, Warm, Dry, No Other (signs of injury ) Head: Atraumatic, Normacephalic Eye(s): bilateral: Normal Inspection Oral Mucosa: Moist Neck: Supple Chest: Symmetrical, No Deformity, No Tenderness Cardiovascular: Rhythm Regular, No Murmur Respiratory: Normal Breath Sounds, No Rales, No Rhonchi, No Wheezing Gastrointestinal/Abdominal: Soft, No Tenderness, No Guarding, No Rebound Extremity: Normal ROM, Capillary Refill (less than 2 seconds ) Neurological/Psych: Oriented x3, Normal Speech, Normal Cognition Gait: Steady ED Course And Treatment - Laboratory Results Result Diagrams: 09/23/17 18:40 09/23/17 18:40 Lab Interpretation: No Acute Changes ECG: Interpreted By Me ECG Rhythm: Sinus Rhythm (with PVCs), L BBB ECG Interpretation: No Acute Changes O2 Sat by Pulse Oximetry: 97 (on RA) Pulse Ox Interpretation: Normal Progress Note: Bloodwork, urinalysis, EKG ordered and reviewed. Reevaluation Time: 19:28 Reassessment Condition: Improved (Patient treated with IV fluids in ED) - Physician Consult Information Physician Contacted: Luis Enrique Peres Outcome Of Conversation: Patient to be admitted for chest pain with hypotension and syncope Disposition - Disposition Disposition: HOSPITALIZED Disposition Time: 19:27 Condition: STABLE - POA Present On Arrival: None - Clinical Impression Clinical Impression: Syncope, Chest pain - Scribe Statement The provider has reviewed the documentation as recorded by the Scribe (Yvonne Bowens) Provider Attestation: All medical record entries made by the Scribe were at my direction and personally dictated by me. I have reviewed the chart and agree that the record accurately reflects my personal performance of the history, physical exam, medical decision making, and the department course for this patient. I have also personally directed, reviewed, and agree with the discharge instructions and disposition.
[2017-09-23 19:10] LABS: B-TYPE NATRIURETIC PEPTIDE 837 pg/mL (0-900)
[2017-09-23 19:37] LABS: BASOPHIL 2 % (0-2); EOSINOPHIL 2 % (0-4); HYPOCHROMIC SLIGHT; LYMPHOCYTE 40 % (20-40); MICROCYTOSIS SLIGHT; MONOCYTE 16 % (0-10); NEUTROPHIL 40 % (50-75); OVALOCYTES SLIGHT; PLATELET ESTIMATE NORMAL (NORMAL); TARGET CELLS SLIGHT; TOTAL CELLS COUNTED 100
[2017-09-23 20:32] LABS: URINE BILIRUBIN NEGATIVE (NEGATIVE); URINE CLARITY Clear (Clear); URINE COLOR Yellow (YELLOW); URINE GLUCOSE (UA) NORMAL (Normal); URINE LEUKOCYTE ESTERASE NEG Leu/uL (Negative); URINE PROTEIN NEGATIVE (NEGATIVE)
[2017-09-23 20:36] LABS: BARBITURATES, UR NEGATIVE (NEGATIVE); BENZODIAZEPINES, UR NEGATIVE (NEGATIVE); OPIATES, UR NEGATIVE (NEGATIVE); PHENCYCLIDINE, UR NEGATIVE (NEGATIVE)
[2017-09-23 20:37] LABS: URINE BLOOD TRACE (NEGATIVE)
--- NOTE | 2017-09-23 23:08 | CP.PCM.HP ---
History of Present Illness - History of Present Illness History of Present Illness: CC: weakness History Of Present Illness 56 year old male, well known to me with PMHx includes CAD, End stage dilated cardiomyopathy, CHF, HTN, and Hyperlipidemia, presents to the ED for evaluation of chest pain, dizziness and syncopal episode which began earlier today. Patient is non complaint and alcoholic, today alsi he has been drinking heavily and he is drunk in hospital , he was evaluated in this ED twice yesterday for complaints of chest pain, underwent workup, and was discharged on both occasions. Patient reports history of arrhythmia and was advised he needs a pacemaker, but states he does not have one. This afternoon, patient went to a grocery store and began experiencing chest pain and dizziness while he was leaving. As he was crossing the street with a friend when he had a syncopal episode. Patient admits to drinking earlier today. Patient was found to have high blood pressure during his visits yesterday. Upon ED arrival, patient was found to have low blood pressure (92/64). He denies head injury, nausea, vomiting, extremity numbness/weakness. Present on Admission - Present on Admission Any Indicators Present on Admission: Yes Review of Systems - Review of Systems Systems not reviewed;Unavailable: Acuity of Condition - Constitutional Constitutional: Fatigue, Lethargy, Malaise, Weakness - EENT Eyes: absent: As Per HPI, Blind Spots, Blurred Vision, Change in Vision, Decreased Night Vision, Diplopia, Discharge, Dry Eye, Exophthalmos, Floaters, Irritation, Itchy Eyes, Loss of Peripheral Vision, Pain, Photophobia, Requires Corrective Lenses, Sees Flashes, Spots in Vision, Tunnel Vision, Other Visual Disturbances, Loss of Vision, Other Nose/Mouth/Throat: Nasal Congestion - Cardiovascular Cardiovascular: Chest Pain, Lightheadedness, Palpitations - Respiratory Respiratory: Chest Congestion - Gastrointestinal Gastrointestinal: Abdominal Pain, Nausea - Genitourinary Genitourinary: absent: As Per HPI, Change in Urinary Stream, Difficulty Urinating, Dysuria, Flank Pain, Hematuria, Pyuria, Nocturia, Urinary Incontinence, Urinary Frequency, Urinary Hesitance, Urinary Urgency, Voiding Freq/Small Amts, Freq UTI, Hx Renal/Bladder Calculi, Hx /Renal Surgery, Bladder Distension, Other - Musculoskeletal Musculoskeletal: Abnormal Gait, Muscle Weakness, Myalgias - Integumentary Integumentary: absent: As Per HPI, Acne, Alopecia, Bleeding Lesions, Change in Hair, Change in Nails, Change in Pigmentation, Changing Lesions, Dry Skin, Erythema, Furuncle, Hirsutism, Lesions, New Lesions, Non-Healing Lesions, Photosensitivity, Pruritus, Rash, Skin Pain, Skin Ulcer, Sores, Striae, Swelling , Unusual Bruising, Wounds, Jaundice, Other - Neurological Neurological: Abnormal Gait, Confusion, Weakness - Psychiatric Psychiatric: absent: As Per HPI, Abnormal Sleep Pattern, Anhedonia, Anxiety, Auditory Hallucinations, Behavioral Changes, Change in Appetite, Change in Libido, Confusion, Depression, Difficulty Concentrating, Hallucinations, Homicidal Ideation, Hopelessness, Irritability, Memory Loss, Mood Swings, Panic Attacks, Paranoia, Suicidal Ideation, Visual Hallucinations, Tactile Hallucinations, Other Past Patient History - Infectious Disease Hx of Infectious Diseases: None - Past Medical History & Family History Past Medical History?: Yes - Past Social History Smoking Status: Light Smoker < 10 Cigarettes Daily - CARDIAC Hx Congestive Heart Failure: Yes Hx Hypertension: Yes - PULMONARY Hx Respiratory Disorders: No - NEUROLOGICAL Hx Neurological Disorder: No - HEENT Hx HEENT Problems: No - RENAL Hx Chronic Kidney Disease: No - ENDOCRINE/METABOLIC Hx Endocrine Disorders: No - HEMATOLOGICAL/ONCOLOGICAL Hx Blood Disorders: No - INTEGUMENTARY Hx Dermatological Problems: No - MUSCULOSKELETAL/RHEUMATOLOGICAL Hx Falls: Yes - GASTROINTESTINAL Hx Gastrointestinal Disorders: No - GENITOURINARY/GYNECOLOGICAL Hx Genitourinary Disorders: No - PSYCHIATRIC Hx Substance Use: No - SURGICAL HISTORY Hx Surgeries: No (DENIES) - ANESTHESIA Hx Anesthesia: No Hx Anesthesia Reactions: No Hx Malignant Hyperthermia: No Meds Allergies/Adverse Reactions: Allergies Allergy/AdvReac Type Severity Reaction Status Date / Time No Known Allergies Allergy Verified 09/22/17 21:00 Physical Exam - Constitutional Appears: Toxic, Confused - Head Exam Head Exam: ATRAUMATIC, NORMAL INSPECTION, NORMOCEPHALIC - Eye Exam Eye Exam: EOMI, Normal appearance, PERRL Pupil Exam: NORMAL ACCOMODATION, PERRL - Respiratory Exam Respiratory Exam: Clear to Auscultation Bilateral, NORMAL BREATHING PATTERN - Cardiovascular Exam Cardiovascular Exam: Tachycardia, +S1, +S2 - GI/Abdominal Exam GI & Abdominal Exam: Normal Bowel Sounds, Soft. absent: Tenderness - Rectal Exam Rectal Exam: Deferred - Psychiatric Exam Psychiatric exam: Anxious - Skin Skin Exam: Dry, Intact, Normal Color, Warm Results - Vital Signs Recent Vital Signs: Last Vital Signs Temp 97.3 F L 09/23/17 21:31 Pulse 76 09/23/17 22:27 Resp 20 09/23/17 21:31 BP 118/84 09/23/17 21:31 Pulse Ox 99 09/23/17 21:31 - Labs Result Diagrams: 09/23/17 18:40 09/23/17 18:40 Labs: Laboratory Results - last 24 hr 09/23/17 09/23/17 09/23/17 18:40 18:40 20:15 WBC 3.8 L RBC 4.32 L Hgb 11.6 L D Hct 34.2 L MCV 79.1 L MCH 26.8 L MCHC 33.9 RDW 26.0 H Plt Count 163 MPV 7.9 Neutrophils % (Manual) 40 L Lymphocytes % (Manual) 40 Monocytes % (Manual) 16 H Eosinophils % (Manual) 2 Basophils % (Manual) 2 Differential Comment Cancelled Platelet Estimate Normal Hypochromasia (manual) Slight Microcytosis (manual) Slight Target Cells Slight Ovalocytes Slight Sodium 134 Potassium 4.4 Chloride 98 Carbon Dioxide 22 Anion Gap 20 BUN 20 Creatinine 1.0 Est GFR ( Amer) > 60 Est GFR (Non-Af Amer) > 60 Random Glucose 75 Calcium 8.4 L Total Bilirubin 1.1 AST 70 H D ALT 24 Alkaline Phosphatase 85 Troponin I 0.0330 NT-Pro-B Natriuret Pep 837 Total Protein 8.5 H Albumin 3.8 Globulin 4.7 H Albumin/Globulin Ratio 0.8 L Urine Color Yellow Urine Clarity Clear Urine pH 5.0 Ur Specific [place] 1.006 Urine Protein Negative Urine Glucose (UA) Normal Urine Ketones Negative Urine Blood Trace Urine Nitrate Negative Urine Bilirubin Negative Urine Urobilinogen 2.0 Ur Leukocyte Esterase Neg Urine RBC (Auto) 1 Urine Opiates Screen Urine Methadone Screen Ur Barbiturates Screen Ur Phencyclidine Scrn Ur Amphetamines Screen U Benzodiazepines Scrn U Oth Cocaine Metabols U Cannabinoids Screen Alcohol, Quantitative 235 H 09/23/17 20:15 WBC RBC Hgb Hct MCV MCH MCHC RDW Plt Count MPV Neutrophils % (Manual) Lymphocytes % (Manual) Monocytes % (Manual) Eosinophils % (Manual) Basophils % (Manual) Differential Comment Platelet Estimate Hypochromasia (manual) Microcytosis (manual) Target Cells Ovalocytes Sodium Potassium Chloride Carbon Dioxide Anion Gap BUN Creatinine Est GFR ( Amer) Est GFR (Non-Af Amer) Random Glucose Calcium Total Bilirubin AST ALT Alkaline Phosphatase Troponin I NT-Pro-B Natriuret Pep Total Protein Albumin Globulin Albumin/Globulin Ratio Urine Color Urine Clarity Urine pH Ur Specific [place] Urine Protein Urine Glucose (UA) Urine Ketones Urine Blood Urine Nitrate Urine Bilirubin Urine Urobilinogen Ur Leukocyte Esterase Urine RBC (Auto) Urine Opiates Screen Negative Urine Methadone Screen Negative Ur Barbiturates Screen Negative Ur Phencyclidine Scrn Negative Ur Amphetamines Screen Negative U Benzodiazepines Scrn Negative U Oth Cocaine Metabols Negative U Cannabinoids Screen Negative Alcohol, Quantitative Assessment & Plan (1) Syncope Status: Acute (2) Alcohol abuse Status: Acute (3) Alcohol intoxication Status: Acute (4) CHF (congestive heart failure) Status: Acute (5) HTN (hypertension) Status: Chronic
[2017-09-24 01:01] LABS: CK-MB 7.37 ng/mL (0.0-3.38); TROPONIN I 0.029 ng/mL (0.00-0.120)
--- NOTE | 2017-09-24 07:46 | CP.PCM.PN ---
Subjective - Date & Time of Evaluation Date of Evaluation: 09/24/17 Time of Evaluation: 18:00 - Subjective Subjective: Pt seen and examined, is feeling anxious, is toxic due to alcohol intoxication, on medical management Objective - Vital Signs/Intake and Output Vital Signs (last 24 hours): Temp Pulse Resp BP Pulse Ox 98.1 F 72 20 130/72 100 09/24/17 04:25 09/24/17 04:25 09/24/17 04:25 09/24/17 04:25 09/24/17 00:00 - Medications Medications: Current Medications Aspirin (Aspirin Chewable) 81 mg PO DAILY [facility] Enoxaparin Sodium (Lovenox) 40 mg SC DAILY [facility] Folic Acid (Folic Acid) 1 mg PO DAILY [facility] Furosemide (Lasix) 40 mg IVP DAILY [facility] Gabapentin (Neurontin) 100 mg PO TID [facility] Last Admin: 09/23/17 22:49 Dose: 100 mg Lisinopril (Zestril) 5 mg PO DAILY [facility] Metoprolol Succinate (Toprol Xl) 25 mg PO DAILY [facility] Rosuvastatin Calcium (Crestor) 5 mg PO HS [facility] Thiamine HCl (Vitamin B1 Tab) 100 mg PO DAILY [facility] Last Admin: 09/23/17 22:49 Dose: 100 mg - Labs Labs: 09/23/17 18:40 09/23/17 18:40 - Constitutional Appears: No Acute Distress - Head Exam Head Exam: ATRAUMATIC, NORMAL INSPECTION, NORMOCEPHALIC - Eye Exam Eye Exam: EOMI, Normal appearance, PERRL Pupil Exam: NORMAL ACCOMODATION, PERRL - Respiratory Exam Respiratory Exam: Decreased Breath Sounds, Rales, NORMAL BREATHING PATTERN - Cardiovascular Exam Cardiovascular Exam: REGULAR RHYTHM, +S1, +S2. absent: Murmur - GI/Abdominal Exam GI & Abdominal Exam: Soft, Normal Bowel Sounds. absent: Tenderness Assessment and Plan (1) Syncope Status: Acute (2) Alcohol abuse Status: Acute (3) Alcohol intoxication Assessment & Plan: thiamine detox diuretics folic acid Status: Acute (4) CHF (congestive heart failure) Status: Acute (5) HTN (hypertension) Status: Chronic
[2017-09-24 08:37] LABS: CK-MB 6.38 ng/mL (0.0-3.38); TROPONIN I 0.039 ng/mL (0.00-0.120)
[2017-09-24] MEDS: Metoprolol Succinate 25 mg XL Tab PO SCH (09:28)
[2017-09-24] MEDS: Enoxaparin 40 mg Syringe SC SCH (09:30)
--- NOTE | 2017-09-24 11:52 | CARD ---
APPROVED REPORT EKG Measurement Heart [id number] QT0T0 QTc0 <Conclusion> No QRS complexes found, no ECG analysis possible
--- NOTE | 2017-09-25 00:44 | CON ---
DATE: REASON FOR CONSULTATION: Cardiomyopathy and alcohol intoxication. HISTORY OF PRESENT ILLNESS: The patient is a 56-year-old male who has a history of cardiomyopathy, history of hypertension, hyperlipidemia, and ETOH abuse. The patient was evaluated by cloth cutting inspector in July, and a vest was placed; however, the patient has such a poor compliance, he lost the batteries, and did not use the vest. He presented at this time because of alcohol intoxication. The patient is also continuing to have some chest discomfort. The patient underwent cardiac catheterization in March of last year which revealed ejection fraction estimated in the range of 10% to 15%, nonischemic cardiomyopathy. SOCIAL HISTORY: The patient is a smoker. ETOH abuser. MEDICATIONS: Aspirin 81 mg once a day, Crestor 5 mg once a day, folic acid 1 mg once a day, Lasix 40 mg intravenously once a day, Lovenox 40 mg subcutaneously once a day, gabapentin 100 mg three times daily, Toprol XL 25 mg once a day, thiamine 100 mg once a day, Zestril 5 mg once a day. REVIEW OF SYSTEMS: No fever or chills. No vomiting or diarrhea. PHYSICAL EXAMINATION: GENERAL: The patient is a middle aged male who does not appear to be in any distress. VITAL SIGNS: Blood pressure 130/70, heart rate 74, temperature 97.6, respirations 20. HEENT: Normocephalic. CHEST: Clear. HEART: S1, S2 regular. ABDOMEN: Soft. EXTREMITIES: Trace leg edema. LABORATORY DATA: Hemoglobin and hematocrit 11.6 and 34.2, white count 3.8, platelet count 163,000. SMA-7, sodium 134, potassium 4.4, chloride 98, CO2 of 22, glucose 75, BUN 20, creatinine 1. Three sets of troponins are negative. Urine drug screen is negative. Alcohol level is 235, and in mid-August, alcohol level was 278. Admitting EKG is not available either on the chart or in [employer] database. In the [employer] database, there were flat EKGs, no QRS complexes. Chest x-ray revealed cardiomegaly, no CHF. ASSESSMENT: 1. Alcohol intoxication. 2. Nonischemic cardiomyopathy. 3. Mild anemia. RECOMMENDATIONS: Continue current aspirin, Crestor, folic acid, IV Lasix, subcutaneous Lovenox, Toprol XL, Zestril, and thiamine. Obtain 12-lead EKG. medical approach, re-justified because of the patient's very poor compliance. Kalen Lao MD
[2017-09-25] MEDS: Enoxaparin 40 mg Syringe SC SCH (09:17)
[2017-09-25] MEDS: Metoprolol Succinate 25 mg XL Tab PO SCH (09:18)
--- NOTE | 2017-09-25 13:58 | CP.PCM.PN ---
Subjective - Date & Time of Evaluation Date of Evaluation: 09/25/17 Time of Evaluation: 13:55 - Subjective Subjective: PT SEEN BY DR. TINAJERO AND CLEARED FOR D/C. PER DR. GELLER OK TO D/C. PT IS COMFORTABLE AND OFFERS NO COMPLAINTS. PT TO F/U IN THE OFFICE WITHIN 1 WEEK. ALL HOME MEDICATIONS REFILLED IN THE [facility] AND MEDS TO BED OFFERED SO PT CAN LEAVE WITH THE MEDS ON HAND. PT GAVE ME RX FROM ADMISSION 09/01 WHICH HE STATES HE "FORGOT TO FILL." I HAVE DISCARDED THESE OLD RX AND MEDS RX FILLED. PT VERBALIZES UNDERSTANDING OF D/C PLAN. FOR F/U WITH DR. GELLER AND DR. TINAJERO IN THEIR OFFICES. NO FURTHER ORDERS. -FOLLOW UP WITH DR. GELLER IN THE OFFICE WITHIN 1 WEEK--CALL THE OFFICE TO MAKE YOUR APPOINTMENT. -FOLLOW UP WITH DR. TINAJERO OR YOUR HOSPITALITY AMBASSADOR IN THE OFFICE WITHIN 2-3 WEEKS AND NEEDED--CALL THE OFFICE TO MAKE YOUR APPOINTMENT. -CONTINUE TAKING YOUR HOME MEDICATIONS USUAL. NEW PRESCRIPTIONS FOR ALL OF YOUR MEDICINE HAVE BEEN FILLED BY OUR PHARMACY---MAKE SURE YOU TAKE ALL OF YOUR MEDICINE EXACTLY PRESCRIBED. -FOR FURTHER CONCERNS OR QUESTIONS, CONTACT DR. GELLER. Objective - Vital Signs/Intake and Output Vital Signs (last 24 hours): Temp Pulse Resp BP Pulse Ox 98.5 F 65 16 109/67 97 09/25/17 09:00 09/25/17 13:34 09/25/17 13:34 09/25/17 13:34 09/25/17 13:34 Intake and Output: 09/25/17 09/25/17 06:59 18:59 Intake Total 400 Balance 400 - Medications Medications: Current Medications Aspirin (Aspirin Chewable) 81 mg PO DAILY [facility] Last Admin: 09/25/17 09:17 Dose: 81 mg Enoxaparin Sodium (Lovenox) 40 mg SC DAILY [facility] Last Admin: 09/25/17 09:17 Dose: Not Given Folic Acid (Folic Acid) 1 mg PO DAILY [facility] Last Admin: 09/25/17 09:17 Dose: 1 mg Furosemide (Lasix) 40 mg IVP DAILY [facility] Last Admin: 09/25/17 09:18 Dose: Not Given Gabapentin (Neurontin) 100 mg PO TID [facility] Last Admin: 09/25/17 13:32 Dose: 100 mg Lisinopril (Zestril) 5 mg PO DAILY [facility] Last Admin: 09/25/17 09:18 Dose: Not Given Metoprolol Succinate (Toprol Xl) 25 mg PO DAILY [facility] Last Admin: 09/25/17 09:18 Dose: Not Given Rosuvastatin Calcium (Crestor) 5 mg PO HS [facility] Last Admin: 09/24/17 21:25 Dose: 5 mg Thiamine HCl (Vitamin B1 Tab) 100 mg PO DAILY [facility] Last Admin: 09/25/17 09:30 Dose: 100 mg - Labs Labs: 09/23/17 18:40 09/23/17 18:40
[2017-09-25 15:53] VITALS: BP 106/70; PULSE 63; RESP 20; TEMP 98.1; O2SAT 99
--- NOTE | 2017-09-25 16:41 | CP.PCM.PN ---
Subjective - Date & Time of Evaluation Date of Evaluation: 09/25/17 Time of Evaluation: 17:00 - Subjective Subjective: Pt seen and examined at bedside Objective - Vital Signs/Intake and Output Vital Signs (last 24 hours): Temp Pulse Resp BP Pulse Ox 98.1 F 63 20 106/70 99 09/25/17 15:52 09/25/17 15:52 09/25/17 15:52 09/25/17 15:52 09/25/17 15:52 Intake and Output: 09/25/17 09/25/17 06:59 18:59 Intake Total 400 960 Balance 400 960 - Medications Medications: Current Medications Aspirin (Aspirin Chewable) 81 mg PO DAILY [facility] Last Admin: 09/25/17 09:17 Dose: 81 mg Enoxaparin Sodium (Lovenox) 40 mg SC DAILY [facility] Last Admin: 09/25/17 09:17 Dose: Not Given Folic Acid (Folic Acid) 1 mg PO DAILY [facility] Last Admin: 09/25/17 09:17 Dose: 1 mg Furosemide (Lasix) 40 mg IVP DAILY [facility] Last Admin: 09/25/17 09:18 Dose: Not Given Gabapentin (Neurontin) 100 mg PO TID [facility] Last Admin: 09/25/17 13:32 Dose: 100 mg Lisinopril (Zestril) 5 mg PO DAILY [facility] Last Admin: 09/25/17 09:18 Dose: Not Given Metoprolol Succinate (Toprol Xl) 25 mg PO DAILY [facility] Last Admin: 09/25/17 09:18 Dose: Not Given Rosuvastatin Calcium (Crestor) 5 mg PO HS [facility] Last Admin: 09/24/17 21:25 Dose: 5 mg Thiamine HCl (Vitamin B1 Tab) 100 mg PO DAILY [facility] Last Admin: 09/25/17 09:30 Dose: 100 mg - Labs Labs: 09/23/17 18:40 09/23/17 18:40 Assessment and Plan (1) Syncope Status: Acute (2) Alcohol abuse Status: Acute (3) Alcohol intoxication Status: Acute (4) CHF (congestive heart failure) Status: Acute (5) HTN (hypertension) Status: Chronic
--- NOTE | 2017-09-25 18:08 | PN ---
DATE: SUBJECTIVE: The patient denies any chest pain. PHYSICAL EXAMINATION: VITAL SIGNS: Blood pressure 109/67, heart rate 65, temperature 98.5, respirations 16. HEENT: Normocephalic. CHEST: Minimal rhonchi. HEART: S1, S2 regular. EXTREMITIES: No edema. ASSESSMENT: 1. Nonischemic cardiomyopathy. 2. Status post alcohol intoxication. RECOMMENDATIONS: Continue current aspirin, Crestor, IV Lasix, subcutaneous Lovenox, Toprol-XL, and Zestril. The patient is not a candidate for either a life jacket or ICD placement given his extreme poor compliance. Kalen Lao MD
--- NOTE | 2017-09-25 23:43 | CARD ---
APPROVED REPORT EKG Measurement Heart [id number] AR [id number] [id number] <Conclusion> Normal sinus rhythm Possible Left atrial enlargement Left bundle branch block Abnormal ECG
--- NOTE | 2017-09-26 08:47 | CP.PCM.DIS ---
Provider - Provider Date of Admission: 09/23/17 18:58 Attending physician: Luis Enrique Peres MD Time Spent in preparation of Discharge (in minutes): 45 Diagnosis - Discharge Diagnosis (1) Syncope Status: Acute (2) Alcohol abuse Status: Acute (3) Alcohol intoxication Status: Acute (4) CHF (congestive heart failure) Status: Acute (5) HTN (hypertension) Status: Chronic Hospital Course - Lab Results Lab Results: Most Recent Lab Values WBC 3.8 K/uL (4.8-10.8) L 09/23/17 18:40 RBC 4.32 Mil/uL (4.40-5.90) L 09/23/17 18:40 Hgb 11.6 g/dL (12.0-18.0) L D 09/23/17 18:40 Hct 34.2 % (35.0-51.0) L 09/23/17 18:40 MCV 79.1 fL (80.0-94.0) L 09/23/17 18:40 MCH 26.8 pg (27.0-31.0) L 09/23/17 18:40 MCHC 33.9 g/dL (33.0-37.0) 09/23/17 18:40 RDW 26.0 % (11.5-14.5) H 09/23/17 18:40 Plt Count 163 K/uL (130-400) 09/23/17 18:40 MPV 7.9 fL (7.2-11.7) 09/23/17 18:40 Neutrophils % (Manual) 40 % (50-75) L 09/23/17 18:40 Lymphocytes % (Manual) 40 % (20-40) 09/23/17 18:40 Monocytes % (Manual) 16 % (0-10) H 09/23/17 18:40 Eosinophils % (Manual) 2 % (0-4) 09/23/17 18:40 Basophils % (Manual) 2 % (0-2) 09/23/17 18:40 Differential Comment Cancelled 09/23/17 18:40 Platelet Estimate Normal (NORMAL) 09/23/17 18:40 Hypochromasia (manual) Slight 09/23/17 18:40 Microcytosis (manual) Slight 09/23/17 18:40 Target Cells Slight 09/23/17 18:40 Ovalocytes Slight 09/23/17 18:40 Sodium 134 mmol/L (132-148) 09/23/17 18:40 Potassium 4.4 mmol/L (3.6-5.2) 09/23/17 18:40 Chloride 98 mmol/L (98-107) 09/23/17 18:40 Carbon Dioxide 22 mmol/L (22-30) 09/23/17 18:40 Anion Gap 20 (10-20) 09/23/17 18:40 BUN 20 mg/dL (9-20) 09/23/17 18:40 Creatinine 1.0 mg/dL (0.8-1.5) 09/23/17 18:40 Est GFR ( Amer) > 60 09/23/17 18:40 Est GFR (Non-Af Amer) > 60 09/23/17 18:40 Random Glucose 75 mg/dL (75-110) 09/23/17 18:40 Calcium 8.4 mg/dl (8.6-10.4) L 09/23/17 18:40 Total Bilirubin 1.1 mg/dL (0.2-1.3) 09/23/17 18:40 AST 70 U/L (17-59) H D 09/23/17 18:40 ALT 24 U/L (21-72) 09/23/17 18:40 Alkaline Phosphatase 85 U/L (38-126) 09/23/17 18:40 Total Creatine Kinase 754 U/L (55-170) H 09/24/17 07:53 CK-MB (Mass) 6.38 ng/mL (0.0-3.38) H 09/24/17 07:53 Troponin I 0.0390 ng/mL (0.00-0.120) 09/24/17 07:53 NT-Pro-B Natriuret Pep 837 pg/mL (0-900) 09/23/17 18:40 Total Protein 8.5 g/dL (6.3-8.3) H 09/23/17 18:40 Albumin 3.8 g/dL (3.5-5.0) 09/23/17 18:40 Globulin 4.7 gm/dL (2.2-3.9) H 09/23/17 18:40 Albumin/Globulin Ratio 0.8 (1.0-2.1) L 09/23/17 18:40 Urine Color Yellow (YELLOW) 09/23/17 20:15 Urine Clarity Clear (Clear) 09/23/17 20:15 Urine pH 5.0 (5.0-8.0) 09/23/17 20:15 Ur Specific [place] 1.006 (1.003-1.030) 09/23/17 20:15 Urine Protein Negative mg/dL (NEGATIVE) 09/23/17 20:15 Urine Glucose (UA) Normal mg/dL (Normal) 09/23/17 20:15 Urine Ketones Negative mg/dL (NEGATIVE) 09/23/17 20:15 Urine Blood Trace (NEGATIVE) 09/23/17 20:15 Urine Nitrate Negative (NEGATIVE) 09/23/17 20:15 Urine Bilirubin Negative (NEGATIVE) 09/23/17 20:15 Urine Urobilinogen 2.0 mg/dL (0.2-1.0) 09/23/17 20:15 Ur Leukocyte Esterase Neg Jose/uL (Negative) 09/23/17 20:15 Urine RBC (Auto) 1 /hpf (0-3) 09/23/17 20:15 Urine Opiates Screen Negative (NEGATIVE) 09/23/17 20:15 Urine Methadone Screen Negative (NEGATIVE) 09/23/17 20:15 Ur Barbiturates Screen Negative (NEGATIVE) 09/23/17 20:15 Ur Phencyclidine Scrn Negative (NEGATIVE) 09/23/17 20:15 Ur Amphetamines Screen Negative (NEGATIVE) 09/23/17 20:15 U Benzodiazepines Scrn Negative (NEGATIVE) 09/23/17 20:15 U Oth Cocaine Metabols Negative (NEGATIVE) 09/23/17 20:15 U Cannabinoids Screen Negative (NEGATIVE) 09/23/17 20:15 Alcohol, Quantitative 235 mg/dl (0-10) H 09/23/17 18:40 - Hospital Course Hospital Course: PT SEEN AND EVALUATED, IS STABLE FOR D/C TODAY. PT IS COMFORTABLE AND OFFERS NO COMPLAINTS. PT TO F/U IN THE OFFICE WITHIN 1 WEEK. ALL HOME MEDICATIONS REFILLED IN THE [facility] AND MEDS TO BED OFFERED SO PT CAN LEAVE WITH THE MEDS ON HAND. PT GAVE ME RX FROM ADMISSION 09/01 WHICH HE STATES HE "FORGOT TO FILL." I HAVE DISCARDED THESE OLD RX AND MEDS RX FILLED. PT VERBALIZES UNDERSTANDING OF D/C PLAN. FOR F/U WITH ME AND DR. TINAJERO IN OFFICES. NO FURTHER ORDERS. -FOLLOW UP WITH ME IN THE OFFICE WITHIN 1 WEEK--CALL THE OFFICE TO MAKE YOUR APPOINTMENT. -FOLLOW UP WITH DR. TINAJERO OR YOUR VICE PRESIDENT IN THE OFFICE WITHIN 2-3 WEEKS AND NEEDED--CALL THE OFFICE TO MAKE YOUR APPOINTMENT. -CONTINUE TAKING YOUR HOME MEDICATIONS USUAL. NEW PRESCRIPTIONS FOR ALL OF YOUR MEDICINE HAVE BEEN FILLED BY OUR PHARMACY---MAKE SURE YOU TAKE ALL OF YOUR MEDICINE EXACTLY PRESCRIBED. Discharge Exam - Head Exam Head Exam: ATRAUMATIC, NORMAL INSPECTION, NORMOCEPHALIC - Eye Exam Eye Exam: EOMI, Normal appearance, PERRL Pupil Exam: NORMAL ACCOMODATION, PERRL - ENT Exam ENT Exam: Mucous Membranes Moist - Respiratory Exam Respiratory Exam: Clear to PA & Lateral, NORMAL BREATHING PATTERN - Cardiovascular Exam Cardiovascular Exam: REGULAR RHYTHM, +S1, +S2 - GI/Abdominal Exam GI & Abdominal Exam: Normal Bowel Sounds - Rectal Exam Rectal Exam: Deferred Discharge Plan - Discharge Medications Prescriptions: Aspirin [Aspirin Chewable] 81 mg PO DAILY #30 chew Rosuvastatin Calcium [Crestor] 5 mg PO HS #30 tab Folic Acid 1 mg PO DAILY #30 tab Furosemide [Lasix] 40 mg PO DAILY #30 tab Gabapentin [Neurontin] 100 mg PO TID #90 cap Metoprolol Succinate [Toprol XL] 25 mg PO DAILY #30 tab Thiamine [Vitamin B1 Tab] 100 mg PO DAILY #30 tab Lisinopril [Zestril] 5 mg PO DAILY #30 tab - Follow Up Plan Condition: STABLE Disposition: HOME/ ROUTINE Instructions: Heart Healthy Diet, Chest Pain That Is Not Caused by the Heart ( DC), Heart Failure, Adult (DC), Chest Pain (DC), Syncope (Fainting) (DC) Additional Instructions: -FOLLOW UP WITH DR. PERES IN THE OFFICE WITHIN 1 WEEK--CALL THE OFFICE TO MAKE YOUR APPOINTMENT. -FOLLOW UP WITH DR. TINAJERO OR YOUR VICE PRESIDENT IN THE OFFICE WITHIN 2-3 WEEKS AND NEEDED--CALL THE OFFICE TO MAKE YOUR APPOINTMENT. -CONTINUE TAKING YOUR HOME MEDICATIONS USUAL. NEW PRESCRIPTIONS FOR ALL OF YOUR MEDICINE HAVE BEEN FILLED BY OUR PHARMACY---MAKE SURE YOU TAKE ALL OF YOUR MEDICINE EXACTLY PRESCRIBED. -FOR FURTHER CONCERNS OR QUESTIONS, CONTACT DR. PERES. Referrals: Kalen Tinajero MD [Staff Provider] - Luis Enrique Peres MD [Staff Provider] - 10/02/17 1:00 pm (Appointment made for you , spoke with Lauren)
== END 2017-09-25 17:00 | disposition home or self-care (01) ==
LOC: C.ER 18:07 → C.9E 18:58 → C.6T 20:26
PROVIDERS: ADMIT Internal Medicine; ATTEND Internal Medicine
DX: F10.120 Alcohol abuse with intoxication, uncomplicated (principal); R07.89 Other chest pain; F17.200 Nicotine dependence, unspecified, uncomplicated; I11.0 Hypertensive heart disease with heart failure; I25.10 Atherosclerotic heart disease of native coronary artery without angina pectoris; I42.0 Dilated cardiomyopathy; I50.9 Heart failure, unspecified; E78.5 Hyperlipidemia, unspecified; D64.9 Anemia, unspecified; Y90.7 Blood alcohol level of 200-239 mg/100 ml
CPT/HCPCS: 36415; 80053; 80320; 80324; 80345; 80346; 80349; 80353; 80358; 80361; 81001; 83880; 83992; 84484; 85025; 93005; 96374; 99285; G0378; J1940

== ENCOUNTER 2017-10-04 20:54 | Emergency (ER) | payer OTHER ==
[2017-10-04 20:55] VITALS: BMI 22.4
--- NOTE | 2017-10-04 21:31 | C.PDOC ---
History Of Present Illness 56 year old male presents to the emergency department with poorly described chest pain. Patient states he drank two 24oz beers along with shots and "passed out". Patient states that when he woke up he had vague left-sided chest discomfort. Patient was admitted less than two weeks ago for similar presentation. Patient's past medical history includes arrhythmia, and he was offered a pacemaker which he refused. Patient also has a history of hypertension and alcohol dependency. Chief Complaint (Nursing): Chest Pain Past Medical History Vital Signs: Last Vital Signs Temp 98.7 F 10/05/17 01:21 Pulse 72 10/05/17 01:21 Resp 20 10/05/17 01:21 BP 114/76 10/05/17 01:21 Pulse Ox 98 10/05/17 01:21 - Medical History PMH: CAD, CHF, HTN, Hyperlipidemia Denies: Chronic Kidney Disease - [facility] Procedures FLUOROSCOPY OF MULT COR ART USING L OSM CONTRAST (04/06/17) MEASURE CARDIAC SAMPL & PRESSURE, BILATERAL, PERC (04/06/17) Family History: States: Unknown Family Hx, CAD - Social History Hx Alcohol Use: Yes Hx Substance Use: No - Immunization History Hx Tetanus Toxoid Vaccination: No Hx Influenza Vaccination: No Hx Pneumococcal Vaccination: No Physical Exam - Physical Exam Appears: Non-toxic, No Acute Distress Head: Atraumatic Eye(s): bilateral: PERRL Neck: Normal, No Midline Cervical Tenderness, No Paracervical Tenderness, Supple Chest: Tenderness (left-sided chest wall tenderness to palpation with reproducible pain) Cardiovascular: Rhythm Regular (within normal limits), No Murmur Respiratory: Normal Breath Sounds (CTA) Gastrointestinal/Abdominal: Soft, No Tenderness, No Mass, No Guarding, No Rebound Pulses: Right Brachial: Normal, Left Radial: Normal, Left Dorsalis Pedis: Normal , Right Dorsalis Pedis: Normal Neurological/Psych: Oriented x3, No Normal Speech (slurred), Normal Cranial Nerves, Normal Motor, Normal Sensation ED Course And Treatment - Laboratory Results Result Diagrams: 10/04/17 21:32 10/04/17 21:32 ECG Rhythm: Sinus Rhythm (86bpm), L BBB, Nonspecific Changes Interpretation Of ECG: When compared to EKG from 09-22-17, no acute changes. O2 Sat by Pulse Oximetry: 96 (RA) Pulse Ox Interpretation: Normal Medical Decision Making Medical Decision Making: Plan: EKG Alcohol Serum CMP Troponin CBC CXR One [facility] Urinalysis Impression: It is likely that alcohol abuse lead to syncope. Patient will be monitored and routine labs will be sent including cardiac enzymes. Patient will not likely require admission. Disposition - Disposition Referrals: Alcoholics Anonymous [Outside] Disposition: HOME/ ROUTINE Disposition Time: 04:11 Condition: GOOD Instructions: Alcohol Use - When Is Drinking a Problem? Forms: [employer] (Azeri) Print Language: YEMENI - Clinical Impression Clinical Impression: Chest wall pain, Alcohol abuse - Scribe Statement The provider has reviewed the documentation as recorded by the Scribe (Demetri Sung) Provider Attestation: All medical record entries made by the Scribe were at my direction and personally dictated by me. I have reviewed the chart and agree that the record accurately reflects my personal performance of the history, physical exam, medical decision making, and the department course for this patient. I have also personally directed, reviewed, and agree with the discharge instructions and disposition.
[2017-10-04 21:58] LABS: URINE BILIRUBIN NEGATIVE (NEGATIVE); URINE BLOOD NEGATIVE (NEGATIVE); URINE CLARITY Clear (Clear); URINE COLOR Straw (YELLOW); URINE GLUCOSE (UA) NORMAL (Normal); URINE LEUKOCYTE ESTERASE NEG Leu/uL (Negative); URINE PROTEIN NEGATIVE (NEGATIVE)
[2017-10-04 21:59] LABS: HEMOGLOBIN 12.3 g/dL (12.0-18.0); MEAN CELL VOLUME 83.1 fL (80.0-94.0); MEAN CORPUSCULAR HEMOGLOBIN 27.9 pg (27.0-31.0); MEAN CORPUSCULAR HGB CONC 33.6 g/dL (33.0-37.0); MEAN PLATELET VOLUME 7.5 fL (7.2-11.7); PLATELET COUNT 154 K/uL (130-400); RBC 4.39 Mil/uL (4.40-5.90); RED CELL DISTRIBUTION WIDTH 25.6 % (11.5-14.5); WHITE BLOOD COUNT 4.5 K/uL (4.8-10.8)
[2017-10-04 22:06] LABS: ALB/GLOB RATIO 0.8 (1.0-2.1); ALBUMIN 3.9 g/dL (3.5-5.0); ALT/SGPT < 6 U/L (21-72); AST/SGOT 60 U/L (17-59); BLOOD UREA NITROGEN 15 mg/dL (9-20); CALCIUM 8.5 mg/dl (8.6-10.4); GFR AFRICAN-AMERICAN > 60; GFR NON-AFRICAN AMERICAN > 60
--- NOTE | 2017-10-04 22:55 | C.PDOC ---
Chief Complaint (Nursing): Chest Pain Past Medical History Vital Signs: Last Vital Signs Temp 98 F 10/04/17 21:01 Pulse 70 10/04/17 21:01 Resp 14 10/04/17 21:01 BP 100/60 10/04/17 21:01 Pulse Ox 96 10/04/17 21:01 - Medical History PMH: CAD, CHF, HTN, Hyperlipidemia Denies: Chronic Kidney Disease - [facility] Procedures FLUOROSCOPY OF MULT COR ART USING L OSM CONTRAST (04/06/17) MEASURE CARDIAC SAMPL & PRESSURE, BILATERAL, PERC (04/06/17) Family History: States: Unknown Family Hx, CAD - Social History Hx Alcohol Use: Yes Hx Substance Use: No - Immunization History Hx Tetanus Toxoid Vaccination: No Hx Influenza Vaccination: No Hx Pneumococcal Vaccination: No ED Course And Treatment O2 Sat by Pulse Oximetry: 96 Disposition - Disposition
[2017-10-04 23:05] LABS: BANDS 1 % (0-2); EOSINOPHIL 3 % (0-4); LYMPHOCYTE 16 % (20-40); MONOCYTE 10 % (0-10); NEUTROPHIL 27 % (50-75); PLATELET ESTIMATE NORMAL (NORMAL); REACTIVE LYMPHOCYTES 43 % (0-0); TOTAL CELLS COUNTED 100
[2017-10-04 23:06] LABS: TARGET CELLS MODERATE
[2017-10-05 01:22] VITALS: BP 114/76; PULSE 72; RESP 20; TEMP 98.7
[2017-10-05 04:12] VITALS: O2SAT 96
--- NOTE | 2017-10-05 08:29 | RAD ---
Chest x-ray single frontal view History: Chest pain. Comparison: 09/22/2017 Findings: Mild venous congestion. Mild patchy increased markings at the right lung base with some mild nodularity at the right costophrenic angle. Upper lobe granulomatous changes. Top normal heart size. Degenerative changes in the spine. Tortuous ectatic aorta. Impression: Mild venous congestion. Mild patchy increased markings at the right lung base with some mild nodularity at the right costophrenic angle. Upper lobe granulomatous changes. Top normal heart size. Degenerative changes in the spine. Tortuous ectatic aorta.
--- NOTE | 2017-10-05 12:41 | CARD ---
APPROVED REPORT EKG Measurement Heart [id number] HI 178P73 [id number] <Conclusion> Normal sinus rhythm Biatrial enlargement Left bundle branch block Abnormal ECG
== END 2017-10-05 01:38 | disposition home or self-care (01) ==
LOC: C.ER 20:54
DX: R07.89 Other chest pain (principal); F10.10 Alcohol abuse, uncomplicated; Y90.8 Blood alcohol level of 240 mg/100 ml or more

== ENCOUNTER 2017-10-14 00:14 | Emergency (ER) | payer OTHER ==
[2017-10-14 00:15] VITALS: BMI 22.4
--- NOTE | 2017-10-14 01:01 | C.PDOC ---
History Of Present Illness 56 year old homeless male presents to the emergency department requesting a place to stay. Patient denies chest pain, palpitations, or alcohol use. Patient has not followed up in the clinic for his cardiomyopathy and is not wearing his life vest at the moment. Time Seen by Provider: 10/14/17 01:00 Chief Complaint (Nursing): Medical Clearance History Per: Patient History/Exam Limitations: no limitations Onset/Duration Of Symptoms: Hrs Current Symptoms Are (Timing): Still Present Severity: Moderate Pain Scale Rating Of: 4 Reports Recently: Seen In ED, Treated By A Physician, Hospitalized Recent travel outside of the [place]: No Additional History Per: Patient Past Medical History Reviewed: Historical Data, Nursing Documentation, Vital Signs Vital Signs: Last Vital Signs Temp 98 F 10/14/17 04:04 Pulse 75 10/14/17 04:04 Resp 17 10/14/17 04:04 BP 109/73 10/14/17 04:04 Pulse Ox 99 10/14/17 04:04 - Medical History PMH: CAD, CHF, HTN, Hyperlipidemia Denies: Chronic Kidney Disease Surgical History: No Surg Hx - [facility] Procedures FLUOROSCOPY OF MULT COR ART USING L OSM CONTRAST (04/06/17) MEASURE CARDIAC SAMPL & PRESSURE, BILATERAL, PERC (04/06/17) Family History: States: CAD - Social History Hx Alcohol Use: Yes Hx Substance Use: No - Immunization History Hx Tetanus Toxoid Vaccination: No Hx Influenza Vaccination: No Hx Pneumococcal Vaccination: No Review Of Systems Constitutional: Negative for: Other (alcohol use) Cardiovascular: Negative for: Chest Pain, Palpitations Respiratory: Negative for: Shortness of Breath Gastrointestinal: Negative for: Nausea, Vomiting Genitourinary: Negative for: Hematuria Musculoskeletal: Negative for: Neck Pain Skin: Negative for: Rash Neurological: Negative for: Weakness Psych: Negative for: Anxiety Physical Exam - Physical Exam Appears: Non-toxic, No Acute Distress Skin: Warm, Dry Head: Atraumatic Eye(s): bilateral: Normal Inspection Oral Mucosa: Moist Neck: Supple Chest: Symmetrical Cardiovascular: Rhythm Regular Respiratory: No Rales, No Rhonchi, No Wheezing Gastrointestinal/Abdominal: Soft, No Tenderness, No Guarding, No Rebound Back: Normal Inspection Extremity: Normal ROM Extremity: Bilateral: Atraumatic Pulses: Left Dorsalis Pedis: Normal, Right Dorsalis Pedis: Normal Neurological/Psych: Oriented x3, Normal Speech, Normal Cognition Gait: Steady ED Course And Treatment - Laboratory Results Result Diagrams: 10/14/17 02:12 10/14/17 02:12 ECG: Interpreted By Me, Viewed By Me ECG Rhythm: Sinus Rhythm (70), L BBB, Nonspecific Changes (unchnaged from previous) O2 Sat by Pulse Oximetry: 98 (RA) Pulse Ox Interpretation: Normal Progress Note: Plan: EKG. Alcohol Serum. BNP. CMP. Troponin. CBC. PTT. Prothrombin Time Reevaluation Time: 04:51 Reassessment Condition: Improved Disposition Counseled Patient/Family Regarding: Studies Performed, Diagnosis - Disposition Referrals: [facility] [Outside] Disposition: HOME/ ROUTINE Disposition Time: 01:01 Condition: FAIR Instructions: Alcohol Abuse and Alcoholism (DC) Forms: [employer] (Burkinan) - Clinical Impression Clinical Impression: Alcohol intoxication - Scribe Statement The provider has reviewed the documentation as recorded by the Scribe (Demetri Sung) Provider Attestation: All medical record entries made by the Scribe were at my direction and personally dictated by me. I have reviewed the chart and agree that the record accurately reflects my personal performance of the history, physical exam, medical decision making, and the department course for this patient. I have also personally directed, reviewed, and agree with the discharge instructions and disposition.
[2017-10-14 02:26] LABS: INR 1.1; PROTHROMBIN TIME 12.1 SECONDS (9.7-12.2)
[2017-10-14 02:39] LABS: ALB/GLOB RATIO 0.9 (1.0-2.1); ALBUMIN 4.4 g/dL (3.5-5.0); ALT/SGPT 35 U/L (21-72); AST/SGOT 109 U/L (17-59); BLOOD UREA NITROGEN 16 mg/dL (9-20); CALCIUM 8.7 mg/dl (8.6-10.4); GFR AFRICAN-AMERICAN > 60; GFR NON-AFRICAN AMERICAN > 60
[2017-10-14 02:40] LABS: B-TYPE NATRIURETIC PEPTIDE 1330 pg/mL (0-900)
[2017-10-14 02:43] LABS: BASO # 0.1 K/uL (0.0-0.2); EOS # 0.1 K/uL (0.0-0.7); HEMOGLOBIN 11.9 g/dL (12.0-18.0); MEAN CELL VOLUME 84.7 fL (80.0-94.0); MEAN CORPUSCULAR HEMOGLOBIN 28.5 pg (27.0-31.0); MEAN CORPUSCULAR HGB CONC 33.6 g/dL (33.0-37.0); MEAN PLATELET VOLUME 8.9 fL (7.2-11.7); RBC 4.18 Mil/uL (4.40-5.90); RED CELL DISTRIBUTION WIDTH 24.9 % (11.5-14.5); WHITE BLOOD COUNT 3.9 K/uL (4.8-10.8)
[2017-10-14 03:19] LABS: NRBC % 0.1 % (0.0-2.0)
[2017-10-14 03:22] LABS: LYMPH # 1.7 K/uL (1.0-4.3); MONO # 0.5 K/uL (0.0-0.8); NEUT # 1.6 K/uL (1.8-7.0)
[2017-10-14 05:03] VITALS: BP 116/77; PULSE 66; RESP 20; TEMP 97.7; O2SAT 96
--- NOTE | 2017-10-14 23:03 | CARD ---
APPROVED REPORT EKG Measurement Heart [id number] MA 182P66 [id number] <Conclusion> Normal sinus rhythm Possible Left atrial enlargement Left bundle branch block Abnormal ECG
== END 2017-10-14 05:19 | disposition home or self-care (01) ==
LOC: C.ER 00:14 → SUPCPDRO 00:14 → C.ER 05:19
DX: F10.129 Alcohol abuse with intoxication, unspecified (principal); Z59.0 Homelessness; E78.5 Hyperlipidemia, unspecified; I25.10 Atherosclerotic heart disease of native coronary artery without angina pectoris; I50.9 Heart failure, unspecified; I10 Essential (primary) hypertension

== ENCOUNTER 2017-10-15 22:37 | Emergency (ER) | payer OTHER ==
[2017-10-15 22:37] VITALS: BMI 22.4
--- NOTE | 2017-10-15 23:12 | C.PDOC ---
History Of Present Illness 56 year old male presents to the ED requesting a place to stay. Contrary to triage patient only wants a place to spend the night, patient admits to have been drinking tonight. Patient denies CP, SOB, fever, chills, nausea, vomit, weakness, numbness. Time Seen by Provider: 10/15/17 23:11 Chief Complaint (Nursing): Syncope History Per: Patient History/Exam Limitations: no limitations Onset/Duration Of Symptoms: Days Current Symptoms Are (Timing): Still Present Suicide/Self Injury Attempted (Context): None Modifying Factor(s): Alcohol Associated Symptoms: denies: Depression, Suicidal Thoughts, Suicidal Plan Involuntary Hold By: None Recent travel outside of the [place]: No Additional History Per: Patient Past Medical History Reviewed: Historical Data, Nursing Documentation, Vital Signs Vital Signs: Last Vital Signs Temp 98.2 F 10/16/17 02:29 Pulse 95 H 10/16/17 02:29 Resp 22 10/16/17 02:29 BP 125/81 10/16/17 02:29 Pulse Ox 100 10/16/17 02:33 - Medical History PMH: CAD, CHF, HTN, Hyperlipidemia Denies: Chronic Kidney Disease Surgical History: No Surg Hx - [facility] Procedures FLUOROSCOPY OF MULT COR ART USING L OSM CONTRAST (04/06/17) MEASURE CARDIAC SAMPL & PRESSURE, BILATERAL, PERC (04/06/17) Family History: States: Unknown Family Hx, CAD - Social History Hx Alcohol Use: Yes Hx Substance Use: No - Immunization History Hx Tetanus Toxoid Vaccination: No Hx Influenza Vaccination: No Hx Pneumococcal Vaccination: No Review Of Systems Constitutional: Negative for: Fever, Chills Cardiovascular: Negative for: Chest Pain Respiratory: Negative for: Shortness of Breath Gastrointestinal: Negative for: Nausea, Vomiting Skin: Negative for: Rash Psych: Negative for: Depression, Suicidal ideation Physical Exam - Physical Exam Appears: Non-toxic, No Acute Distress Skin: Warm, Dry Head: Normacephalic Eye(s): bilateral: Normal Inspection Oral Mucosa: Moist Neck: Supple Chest: Symmetrical Cardiovascular: Rhythm Regular Respiratory: No Rales, No Rhonchi, No Wheezing Gastrointestinal/Abdominal: Soft, No Tenderness, No Guarding, No Rebound Back: Normal Inspection Extremity: Normal ROM Extremity: Bilateral: Atraumatic, Normal Color And Temperature Pulses: Left Dorsalis Pedis: Normal, Right Dorsalis Pedis: Normal Neurological/Psych: Oriented x3, Normal Speech, Normal Cognition Gait: Steady ED Course And Treatment ECG: Interpreted By Me, Viewed By Me ECG Rhythm: Sinus Rhythm, L BBB (unchanged from previous ones), Nonspecific Changes O2 Sat by Pulse Oximetry: 100 (ON RA) Pulse Ox Interpretation: Normal Progress Note: 5:03 AM pt is clinically sober., No complaints Reevaluation Time: 05:03 Reassessment Condition: Improved Disposition Counseled Patient/Family Regarding: Studies Performed, Diagnosis, Need For Followup - Disposition Disposition: HOME/ ROUTINE Disposition Time: 23:12 Condition: FAIR Instructions: Alcohol Abuse and Alcoholism (DC) Forms: [employer] (Kazakh) - Clinical Impression Clinical Impression: Alcohol intoxication, Alcohol abuse - Scribe Statement The provider has reviewed the documentation as recorded by the Scribe Aki Griffin All medical record entries made by the Scribe were at my direction and personally dictated by me. I have reviewed the chart and agree that the record accurately reflects my personal performance of the history, physical exam, medical decision making, and the department course for this patient. I have also personally directed, reviewed, and agree with the discharge instructions and disposition.
[2017-10-16 02:30] VITALS: TEMP 98.2
[2017-10-16 05:13] VITALS: BP 97/62; PULSE 71; RESP 19; O2SAT 97
--- NOTE | 2017-10-17 02:43 | CARD ---
APPROVED REPORT EKG Measurement Heart [id number] [place] 176P73 [id number] <Conclusion> Normal sinus rhythm Possible Left atrial enlargement Left bundle branch block Abnormal ECG
== END 2017-10-16 06:05 | disposition home or self-care (01) ==
LOC: C.ER 22:37
DX: F10.129 Alcohol abuse with intoxication, unspecified (principal); E78.5 Hyperlipidemia, unspecified; I50.9 Heart failure, unspecified; I10 Essential (primary) hypertension

== ENCOUNTER 2017-10-24 00:54 | Emergency (ER) | payer OTHER ==
[2017-10-24 00:55] VITALS: BMI 19.0
--- NOTE | 2017-10-24 01:46 | C.PDOC ---
History Of Present Illness 57 year old male presents to the emergency department requesting a bed to sleep in. Patient reports that he has been drinking again, but he denies chest pain, palpitations, or shortness of breath. Time Seen by Provider: 10/24/17 01:44 Chief Complaint (Nursing): Weakness/Neurological Deficit History Per: Patient History/Exam Limitations: no limitations Past Medical History Reviewed: Historical Data, Nursing Documentation, Vital Signs Vital Signs: Last Vital Signs Temp 98.3 F 10/24/17 01:00 Pulse 79 10/24/17 01:00 Resp 16 10/24/17 01:00 BP 96/67 L 10/24/17 01:00 Pulse Ox 100 10/24/17 02:11 - Medical History PMH: CAD, CHF, HTN, Hyperlipidemia Denies: Chronic Kidney Disease Surgical History: No Surg Hx - [facility] Procedures FLUOROSCOPY OF MULT COR ART USING L OSM CONTRAST (04/06/17) MEASURE CARDIAC SAMPL & PRESSURE, BILATERAL, PERC (04/06/17) Family History: States: Unknown Family Hx, CAD - Social History Hx Alcohol Use: Yes Hx Substance Use: No - Immunization History Hx Tetanus Toxoid Vaccination: No Hx Influenza Vaccination: No Hx Pneumococcal Vaccination: No Review Of Systems Cardiovascular: Negative for: Chest Pain, Palpitations Respiratory: Negative for: Shortness of Breath Physical Exam - Physical Exam Appears: Non-toxic, No Acute Distress Skin: Warm, Dry Head: Normacephalic Eye(s): bilateral: Normal Inspection Oral Mucosa: Moist Neck: Trachea Midline, Supple Chest: Symmetrical Cardiovascular: Rhythm Regular, No Murmur Respiratory: No Rales, No Rhonchi, No Wheezing Gastrointestinal/Abdominal: Normal Exam, Soft, No Tenderness, No Distention Back: Normal Inspection Extremity: Normal ROM Extremity: Bilateral: Atraumatic Neurological/Psych: Oriented x3 ED Course And Treatment O2 Sat by Pulse Oximetry: 100 (RA) Pulse Ox Interpretation: Normal Reevaluation Time: 05:21 Reassessment Condition: Improved Disposition Counseled Patient/Family Regarding: Studies Performed, Diagnosis, Need For Followup - Disposition Disposition: HOME/ ROUTINE Disposition Time: 01:44 Condition: FAIR Instructions: Alcohol Abuse and Alcoholism (DC) Forms: [employer] (Uzbek) - Clinical Impression Clinical Impression: Alcohol intoxication - Scribe Statement The provider has reviewed the documentation as recorded by the Scribe (Demetri Sung) Provider Attestation: All medical record entries made by the Scribe were at my direction and personally dictated by me. I have reviewed the chart and agree that the record accurately reflects my personal performance of the history, physical exam, medical decision making, and the department course for this patient. I have also personally directed, reviewed, and agree with the discharge instructions and disposition.
[2017-10-24 05:50] VITALS: BP 123/88; PULSE 74; RESP 20; TEMP 99.4; O2SAT 99
== END 2017-10-24 05:55 | disposition home or self-care (01) ==
LOC: C.ER 00:54
DX: F10.129 Alcohol abuse with intoxication, unspecified (principal); E78.5 Hyperlipidemia, unspecified; I10 Essential (primary) hypertension; I25.10 Atherosclerotic heart disease of native coronary artery without angina pectoris; I50.9 Heart failure, unspecified

== ENCOUNTER 2017-10-26 22:16 | Emergency (ER) | payer OTHER ==
[2017-10-26 22:16] VITALS: BMI 19.0
--- NOTE | 2017-10-26 22:28 | C.PDOC ---
History Of Present Illness Patient states that he has been drinking again and felt weak and tired., Denies any chest pain, or syncopal episode. Is not wearing his life vest, nor has he follow up with any of his specialist for which he had appointments. Speaking in complete sentences. No f/c/n/v Time Seen by Provider: 10/26/17 22:28 Chief Complaint (Nursing): Chest Pain History Per: Patient History/Exam Limitations: no limitations Onset/Duration Of Symptoms: Hrs Current Symptoms Are (Timing): Gone Severity: None Associated Symptoms: Syncope (possible). denies: Nausea, Dyspnea, Diaphoresis Exacerbating Factors: Other (alcohol) Alleviating Factors: None Recent travel outside of the [place]: No Additional History Per: Patient Past Medical History Reviewed: Historical Data, Nursing Documentation, Vital Signs Vital Signs: Last Vital Signs Temp 98.2 F 10/27/17 03:11 Pulse 82 10/27/17 03:11 Resp 18 10/27/17 03:11 BP 96/42 L 10/27/17 03:11 Pulse Ox 96 10/27/17 03:11 - Medical History PMH: CAD, CHF, HTN, Hyperlipidemia Denies: Chronic Kidney Disease - [facility] Procedures FLUOROSCOPY OF MULT COR ART USING L OSM CONTRAST (04/06/17) MEASURE CARDIAC SAMPL & PRESSURE, BILATERAL, PERC (04/06/17) Family History: States: CAD - Social History Hx Alcohol Use: Yes Hx Substance Use: No - Immunization History Hx Tetanus Toxoid Vaccination: No Hx Influenza Vaccination: No Hx Pneumococcal Vaccination: No Review Of Systems Constitutional: Negative for: Fever, Chills Eyes: Negative for: Vision Change Cardiovascular: Negative for: Chest Pain Respiratory: Negative for: Cough, Shortness of Breath Gastrointestinal: Negative for: Nausea, Vomiting, Abdominal Pain Genitourinary: Negative for: Dysuria Musculoskeletal: Negative for: Back Pain Skin: Negative for: Rash Neurological: Negative for: Weakness Psych: Negative for: Anxiety Physical Exam - Physical Exam Appears: Non-toxic Skin: Warm, Dry Head: Normacephalic Eye(s): bilateral: Normal Inspection Oral Mucosa: Moist Neck: Supple Chest: Symmetrical Cardiovascular: Rhythm Regular Respiratory: No Rales, No Rhonchi, No Wheezing Gastrointestinal/Abdominal: Soft, No Tenderness, No Distention Back: Normal Inspection Extremity: Normal ROM Extremity: Bilateral: Atraumatic Pulses: Left Dorsalis Pedis: Normal, Right Dorsalis Pedis: Normal Neurological/Psych: Oriented x3 Gait: Steady ED Course And Treatment - Laboratory Results Result Diagrams: 10/26/17 22:46 10/26/17 22:46 ECG: Interpreted By Me, Viewed By Me ECG Rhythm: Sinus Rhythm (82), L BBB, Nonspecific Changes (unchanged from previous) O2 Sat by Pulse Oximetry: 100 Pulse Ox Interpretation: Normal - Radiology CXR: Interpreted by Me, Viewed By Me CXR Interpretation: Yes: Cardiomegaly, Other (unchanged from 10/04/17). No: Infiltrates, Fracture Progress Note: again spoke at length about the need to stop drinking alcohol, possible detox, but patient states he will think about it., Is aware that he could or suffer permanent damage. Reevaluation Time: 05:05 Reassessment Condition: Improved Disposition Counseled Patient/Family Regarding: Studies Performed, Diagnosis, Need For Followup - Disposition Referrals: Luis Enrique Peres MD [Staff Provider] - Disposition: HOME/ ROUTINE Disposition Time: 22:28 Condition: FAIR Instructions: Alcohol Abuse and Alcoholism (DC) Forms: [employer] (Uruguayan) - Clinical Impression Clinical Impression: Alcohol intoxication, Alcohol abuse
[2017-10-26 22:52] LABS: BASO # 0.2 K/uL (0.0-0.2); BASO % 7.1 % (0.0-2.0); EOS # 0.1 K/uL (0.0-0.7); EOS % 4.3 % (0.0-4.0); HEMOGLOBIN 11.9 g/dL (12.0-18.0); LYMPH # 0.7 K/uL (1.0-4.3); LYMPH % 26.3 % (20.0-40.0); MEAN CELL VOLUME 88.5 fL (80.0-94.0); MEAN CORPUSCULAR HEMOGLOBIN 30.5 pg (27.0-31.0); MEAN CORPUSCULAR HGB CONC 34.4 g/dL (33.0-37.0); MEAN PLATELET VOLUME 8.9 fL (7.2-11.7); MONO # 0.5 K/uL (0.0-0.8); MONO % 15.9 % (0.0-10.0); NEUT # 1.3 K/uL (1.8-7.0); NEUT % 46.4 % (50.0-75.0); NRBC % 0.3 % (0.0-2.0); PLATELET COUNT 119 K/uL (130-400); RED CELL DISTRIBUTION WIDTH 24.3 % (11.5-14.5); WHITE BLOOD COUNT 2.8 K/uL (4.8-10.8)
[2017-10-26 22:58] LABS: INR 1.1; PROTHROMBIN TIME 12.4 SECONDS (9.7-12.2)
[2017-10-26 23:06] LABS: ALB/GLOB RATIO 0.8 (1.0-2.1); ALT/SGPT 31 U/L (21-72); AST/SGOT 105 U/L (17-59); BLOOD UREA NITROGEN 18 mg/dL (9-20); GFR AFRICAN-AMERICAN > 60; GFR NON-AFRICAN AMERICAN > 60
[2017-10-26 23:18] LABS: B-TYPE NATRIURETIC PEPTIDE 1020 pg/mL (0-900)
[2017-10-26 23:20] LABS: BASOPHIL 1 % (0-2); EOSINOPHIL 7 % (0-4); LYMPHOCYTE 43 % (20-40); MONOCYTE 8 % (0-10); NEUTROPHIL 41 % (50-75); TOTAL CELLS COUNTED 100
[2017-10-26 23:21] LABS: ANISOCYTOSIS SLIGHT; HYPOCHROMIC SLIGHT; PLATELET ESTIMATE SLIGHTLY DECREASED (NORMAL); POIKILOCYTOSIS SLIGHT; TARGET CELLS SLIGHT
[2017-10-27 01:21] LABS: URINE BILIRUBIN NEGATIVE (NEGATIVE); URINE BLOOD NEGATIVE (NEGATIVE); URINE CLARITY Clear (Clear); URINE COLOR Straw (YELLOW); URINE GLUCOSE (UA) NORMAL (Normal); URINE LEUKOCYTE ESTERASE NEG Leu/uL (Negative); URINE PROTEIN NEGATIVE (NEGATIVE); URINE UROBILINOGEN NORMAL mg/dL (0.2-1.0)
[2017-10-27 01:22] LABS: BARBITURATES, UR NEGATIVE (NEGATIVE); BENZODIAZEPINES, UR NEGATIVE (NEGATIVE); OPIATES, UR NEGATIVE (NEGATIVE); PHENCYCLIDINE, UR NEGATIVE (NEGATIVE)
[2017-10-27 03:12] VITALS: PULSE 82
[2017-10-27 06:16] VITALS: BP 108/62; RESP 20; TEMP 98; O2SAT 97
--- NOTE | 2017-10-27 09:22 | RAD ---
Chest x-ray single frontal view History: Chest pain. Comparison: 09/15/2017 Findings: Biapical pleural thickening with upper lobe granulomatous changes. Right hilar prominence. Tortuous aorta. Mild cardiomegaly. Mamillated right hemidiaphragm. Degenerative changes in the spine. Impression Biapical pleural thickening with upper lobe granulomatous changes. Right hilar prominence. Tortuous aorta. Mild cardiomegaly. Mamillated right hemidiaphragm.
--- NOTE | 2017-10-27 12:33 | CARD ---
APPROVED REPORT EKG Measurement Heart [id number] [place] 180P79 [id number] <Conclusion> Normal sinus rhythm Biatrial enlargement Left bundle branch block Abnormal ECG
== END 2017-10-27 06:14 | disposition home or self-care (01) ==
LOC: C.ER 22:16
DX: F10.129 Alcohol abuse with intoxication, unspecified (principal); Y90.8 Blood alcohol level of 240 mg/100 ml or more
CPT/HCPCS: 71045; 80053; 80320; 80324; 80345; 80346; 80349; 80353; 80358; 80361; 81001; 82948; 83880; 83992; 84484; 85025; 85610; 85730; 93005; 96374; 99285; J1940

== ENCOUNTER 2017-10-28 22:23 | Emergency (ER) | payer OTHER ==
[2017-10-28 22:24] VITALS: BMI 19.0
--- NOTE | 2017-10-28 22:51 | C.PDOC ---
History Of Present Illness 57 year old male is brought to the ED by EMS after being found intoxicated on the street. Patient admits to drinking alcohol tonight. Patient denies any SI/HI , hallucinations, fever, chills, CP, SOB. Chief Complaint (Nursing): Substance Abuse History Per: Patient, EMS History/Exam Limitations: intoxication Onset/Duration Of Symptoms: Hrs Current Symptoms Are (Timing): Still Present Suicide/Self Injury Attempted (Context): None Modifying Factor(s): Alcohol Associated Symptoms: denies: Depression, Suicidal Thoughts, Suicidal Plan Involuntary Hold By: None Recent travel outside of the [place]: No Additional History Per: Patient, EMS Past Medical History Reviewed: Historical Data, Nursing Documentation, Vital Signs Vital Signs: Last Vital Signs Temp 97.4 F L 10/28/17 22:28 Pulse 93 H 10/28/17 22:28 Resp 20 10/28/17 22:28 BP 108/78 10/28/17 22:28 Pulse Ox 100 10/28/17 22:54 - Medical History PMH: CAD, CHF, HTN, Hyperlipidemia Denies: Chronic Kidney Disease Surgical History: No Surg Hx - [facility] Procedures FLUOROSCOPY OF MULT COR ART USING L OSM CONTRAST (04/06/17) MEASURE CARDIAC SAMPL & PRESSURE, BILATERAL, PERC (04/06/17) Family History: States: Unknown Family Hx, CAD - Social History Hx Alcohol Use: Yes Hx Substance Use: No - Immunization History Hx Tetanus Toxoid Vaccination: No Hx Influenza Vaccination: No Hx Pneumococcal Vaccination: No Review Of Systems Constitutional: Negative for: Fever, Chills Cardiovascular: Negative for: Chest Pain Respiratory: Negative for: Shortness of Breath Gastrointestinal: Negative for: Nausea, Vomiting Skin: Negative for: Rash Psych: Negative for: Depression, Suicidal ideation Physical Exam - Physical Exam Appears: Non-toxic, No Acute Distress, Other (AOB, intoxicated) Skin: Normal Color, Warm, Dry Head: Atraumatic, Normacephalic Eye(s): bilateral: Normal Inspection Oral Mucosa: Moist Neck: Normal ROM, Supple Chest: Symmetrical Cardiovascular: Rhythm Regular Respiratory: Normal Breath Sounds, No Rales, No Rhonchi, No Wheezing Gastrointestinal/Abdominal: Soft, No Tenderness, No Guarding, No Rebound Extremity: Normal ROM, No Tenderness, No Swelling Neurological/Psych: Oriented x3, Normal Speech Gait: Steady ED Course And Treatment O2 Sat by Pulse Oximetry: 100 (ON RA) Pulse Ox Interpretation: Normal Disposition Counseled Patient/Family Regarding: Diagnosis - Disposition Referrals: [facility] [Outside] Disposition: HOME/ ROUTINE Disposition Time: 23:06 Condition: STABLE Instructions: Alcohol Abuse and Alcoholism (DC) Forms: [employer] (Ghanaian) - POA Present On Arrival: None - Clinical Impression Clinical Impression: Alcohol abuse - Scribe Statement The provider has reviewed the documentation as recorded by the Scribe Aki Griffin All medical record entries made by the Scribe were at my direction and personally dictated by me. I have reviewed the chart and agree that the record accurately reflects my personal performance of the history, physical exam, medical decision making, and the department course for this patient. I have also personally directed, reviewed, and agree with the discharge instructions and disposition.
[2017-10-28 23:13] VITALS: BP 98/70; PULSE 70; RESP 80; TEMP 97.6; O2SAT 98
== END 2017-10-28 23:28 | disposition home or self-care (01) ==
LOC: C.ER 22:23
DX: F10.10 Alcohol abuse, uncomplicated (principal)

== ENCOUNTER 2017-11-26 02:13 | Emergency (ER) | payer OTHER ==
[2017-11-26 02:14] VITALS: BMI 19.0
[2017-11-26] MEDS ORDERED: Aspirin 325 mg EC Tablets PO STA (02:27)
--- NOTE | 2017-11-26 02:31 | C.PDOC ---
History Of Present Illness Patient presents to the ER with a complaint of chest pain. Patient admits to drinking tonight, contrary to triage, he denies any syncopal episodes today. 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 Denies nausea, vomiting, or SOB. Time Seen by Provider: 11/26/17 02:27 Chief Complaint (Nursing): Chest Pain History Per: Patient History/Exam Limitations: no limitations Onset/Duration Of Symptoms: Hrs Current Symptoms Are (Timing): Still Present Severity: Moderate Pain Scale Rating Of: 4 Recent travel outside of the [place]: No Past Medical History Reviewed: Historical Data, Nursing Documentation, Vital Signs Vital Signs: Last Vital Signs Temp 97.7 F 11/26/17 02:23 Pulse 86 11/26/17 03:49 Resp 16 11/26/17 03:49 BP 107/85 11/26/17 02:23 Pulse Ox 100 11/26/17 04:19 - Medical History PMH: CAD, CHF, HTN, Hyperlipidemia - [facility] Procedures FLUOROSCOPY OF MULT COR ART USING L OSM CONTRAST (04/06/17) MEASURE CARDIAC SAMPL & PRESSURE, BILATERAL, PERC (04/06/17) Family History: States: CAD - Social History Hx Alcohol Use: Yes Hx Substance Use: No - Immunization History Hx Tetanus Toxoid Vaccination: No Hx Influenza Vaccination: No Hx Pneumococcal Vaccination: No Review Of Systems Constitutional: Negative for: Fever, Chills Cardiovascular: Positive for: Chest Pain. Negative for: Palpitations Respiratory: Negative for: Cough, Shortness of Breath Gastrointestinal: Negative for: Nausea, Vomiting Physical Exam - Physical Exam Appears: Non-toxic, Other (ETOH on breath) Skin: Warm, Dry Head: Normacephalic Oral Mucosa: Moist Chest: Symmetrical, No Tenderness Cardiovascular: Rhythm Regular Respiratory: No Rales, No Rhonchi, No Wheezing Gastrointestinal/Abdominal: Soft, No Tenderness Neurological/Psych: Oriented x3 ED Course And Treatment - Laboratory Results Result Diagrams: 11/26/17 02:43 11/26/17 02:43 ECG: Interpreted By Me, Viewed By Me ECG Rhythm: Sinus Rhythm (82), L BBB, Nonspecific Changes O2 Sat by Pulse Oximetry: 100 (room air) Pulse Ox Interpretation: Normal - Radiology CXR: Interpreted by Me, Viewed By Me CXR Interpretation: No: Infiltrates, Fracture, Cardiomegaly Progress Note: EKG, blood work, CXR, and urinalysis ordered. Reevaluation Time: 05:18 Reassessment Condition: Improved Disposition Counseled Patient/Family Regarding: Studies Performed, Diagnosis, Need For Followup - Disposition Referrals: Venkat Allen MD [Medical Doctor] - Disposition: HOME/ ROUTINE Disposition Time: 02:30 Condition: FAIR Instructions: Alcohol Abuse and Alcoholism (DC) Forms: [employer] (Spanish) - Clinical Impression Clinical Impression: Alcohol abuse, Alcohol intoxication - Scribe Statement The provider has reviewed the documentation as recorded by the Scriblexii Rey All medical record entries made by the Scribe were at my direction and personally dictated by me. I have reviewed the chart and agree that the record accurately reflects my personal performance of the history, physical exam, medical decision making, and the department course for this patient. I have also personally directed, reviewed, and agree with the discharge instructions and disposition.
[2017-11-26 02:51] LABS: URINE BILIRUBIN NEGATIVE (NEGATIVE); URINE BLOOD NEGATIVE (NEGATIVE); URINE CLARITY Clear (Clear); URINE COLOR Straw (YELLOW); URINE GLUCOSE (UA) NORMAL (Normal); URINE LEUKOCYTE ESTERASE NEG Leu/uL (Negative); URINE PROTEIN NEGATIVE (NEGATIVE)
[2017-11-26 02:52] LABS: BASO # 0.1 K/uL (0.0-0.2); BASO % 3.7 % (0.0-2.0); EOS # 0.2 K/uL (0.0-0.7); EOS % 6.3 % (0.0-4.0); LYMPH # 1.2 K/uL (1.0-4.3); LYMPH % 44.9 % (20.0-40.0); MEAN CELL VOLUME 95.9 fL (80.0-94.0); MEAN CORPUSCULAR HGB CONC 34.4 g/dL (33.0-37.0); MEAN PLATELET VOLUME 7.9 fL (7.2-11.7); MONO # 0.4 K/uL (0.0-0.8); MONO % 14.8 % (0.0-10.0); NEUT # 0.8 K/uL (1.8-7.0); NEUT % 30.3 % (50.0-75.0); NRBC % 0.3 % (0.0-2.0); PLATELET COUNT 124 K/uL (130-400); RBC 3.35 Mil/uL (4.40-5.90); RED CELL DISTRIBUTION WIDTH 20.7 % (11.5-14.5); WHITE BLOOD COUNT 2.6 K/uL (4.8-10.8)
[2017-11-26 02:56] LABS: INR 1.3; PROTHROMBIN TIME 13.8 SECONDS (9.7-12.2)
[2017-11-26 03:00] LABS: ALB/GLOB RATIO 0.9 (1.0-2.1); ALBUMIN 3.8 g/dL (3.5-5.0); ALT/SGPT 41 U/L (21-72); AST/SGOT 177 U/L (17-59); BLOOD UREA NITROGEN 17 mg/dL (9-20); CALCIUM 8.5 mg/dl (8.6-10.4); GFR AFRICAN-AMERICAN > 60; GFR NON-AFRICAN AMERICAN > 60
[2017-11-26 03:09] LABS: BARBITURATES, UR NEGATIVE (NEGATIVE); BENZODIAZEPINES, UR NEGATIVE (NEGATIVE); OPIATES, UR NEGATIVE (NEGATIVE); PHENCYCLIDINE, UR NEGATIVE (NEGATIVE)
[2017-11-26 03:18] LABS: B-TYPE NATRIURETIC PEPTIDE 1390 pg/mL (0-900)
[2017-11-26 03:24] LABS: BASOPHIL 2 % (0-2); EOSINOPHIL 9 % (0-4); NEUTROPHIL 29 % (50-75); TOTAL CELLS COUNTED 100
[2017-11-26 03:25] LABS: ANISOCYTOSIS SLIGHT; LYMPHOCYTE 49 % (20-40); MONOCYTE 11 % (0-10); PLATELET ESTIMATE SLIGHTLY DECREASED (NORMAL); POIKILOCYTOSIS SLIGHT
[2017-11-26 06:16] VITALS: BP 128/74; PULSE 82; RESP 20; TEMP 98; O2SAT 97
--- NOTE | 2017-11-26 10:38 | RAD ---
PROCEDURE: CHEST RADIOGRAPH, 1 VIEW HISTORY: chest pain COMPARISON: Chest radiograph dated 10/26/2017. FINDINGS: LUNGS: Clear. PLEURA: No pneumothorax or pleural fluid seen. CARDIOVASCULAR: Cardiomediastinal silhouette stably enlarged. OSSEOUS STRUCTURES: Unchanged. VISUALIZED UPPER ABDOMEN: Normal. OTHER FINDINGS: None. IMPRESSION: No active disease.
--- NOTE | 2017-11-26 18:13 | CARD ---
APPROVED REPORT EKG Measurement Heart [id number] [place] 178P81 [id number] <Conclusion> Normal sinus rhythm Biatrial enlargement Left bundle branch block Abnormal ECG
== END 2017-11-26 06:05 | disposition home or self-care (01) ==
LOC: C.ER 02:13
DX: F10.129 Alcohol abuse with intoxication, unspecified (principal); Y90.8 Blood alcohol level of 240 mg/100 ml or more; I25.10 Atherosclerotic heart disease of native coronary artery without angina pectoris; I10 Essential (primary) hypertension; E78.5 Hyperlipidemia, unspecified; F17.210 Nicotine dependence, cigarettes, uncomplicated

== ENCOUNTER 2018-03-19 23:11 | Inpatient (IN) | payer MEDICAID, OTHER ==
[2018-03-19 23:12] VITALS: BMI 19.0
[2018-03-20 00:34] LABS: INR 1.4; PROTHROMBIN TIME 14.8 SECONDS (9.7-12.2)
[2018-03-20 00:36] LABS: BASO # 0.1 K/uL (0.0-0.2); BASO % 1.2 % (0.0-2.0); EOS # 0.2 K/uL (0.0-0.7); EOS % 2.7 % (0.0-4.0); HEMOGLOBIN 13.7 g/dL (12.0-18.0); LYMPH # 1.2 K/uL (1.0-4.3); LYMPH % 20.9 % (20.0-40.0); MEAN CORPUSCULAR HEMOGLOBIN 29.5 pg (27.0-31.0); MEAN CORPUSCULAR HGB CONC 32.7 g/dL (33.0-37.0); MEAN PLATELET VOLUME 7.7 fL (7.2-11.7); MONO # 0.7 K/uL (0.0-0.8); MONO % 12.3 % (0.0-10.0); NEUT # 3.6 K/uL (1.8-7.0); NEUT % 62.9 % (50.0-75.0); NRBC % 0.1 % (0.0-2.0); RBC 4.64 Mil/uL (4.40-5.90); RED CELL DISTRIBUTION WIDTH 16.4 % (11.5-14.5); WHITE BLOOD COUNT 5.7 K/uL (4.8-10.8)
[2018-03-20 00:40] LABS: ALB/GLOB RATIO 0.8 (1.0-2.1); ALBUMIN 4.3 g/dL (3.5-5.0); ALT/SGPT 22 U/L (21-72); AST/SGOT 44 U/L (17-59); BLOOD UREA NITROGEN 23 mg/dL (9-20); CALCIUM 9.8 mg/dl (8.6-10.4); GFR NON-AFRICAN AMERICAN > 60
--- NOTE | 2018-03-20 00:43 | C.PDOC ---
History Of Present Illness 57 year old male with a history of an enlarged heart, and CAD, presents to the emergency department with complaints of shortness of breath and chest pain that began 5 hours [employer]. Patient admits to drinking alcohol today. He states that his symptoms have resolved, but states that he does feel generally weak. He reports feeling as if he was going to pass out today, but he denies fever, cough, and vomiting. Time Seen by Provider: 03/19/18 23:20 Chief Complaint (Nursing): Shortness Of Breath History Per: Patient History/Exam Limitations: no limitations Onset/Duration Of Symptoms: Hrs Current Symptoms Are (Timing): Gone Associated Symptoms: Chest Pain. denies: Fever, Bloody Cough, Productive Cough, Other (vomiting) Past Medical History Vital Signs: Last Vital Signs Temp 98.0 F 03/19/18 23:26 Pulse 83 03/19/18 23:26 Resp 20 03/19/18 23:26 BP 108/72 03/19/18 23:26 Pulse Ox 97 03/19/18 23:26 - Medical History PMH: CAD, CHF, HTN, Hyperlipidemia Denies: Chronic Kidney Disease - [facility] Procedures FLUOROSCOPY OF MULT COR ART USING L OSM CONTRAST (04/06/17) MEASURE CARDIAC SAMPL & PRESSURE, BILATERAL, PERC (04/06/17) Family History: States: Unknown Family Hx, CAD - Social History Hx Alcohol Use: Yes Hx Substance Use: No - Immunization History Hx Tetanus Toxoid Vaccination: No Hx Influenza Vaccination: No Hx Pneumococcal Vaccination: No Review Of Systems Except As Marked, All Systems Reviewed And Found Negative. Constitutional: Negative for: Fever Cardiovascular: Positive for: Chest Pain Respiratory: Positive for: Shortness of Breath. Negative for: Cough Gastrointestinal: Negative for: Vomiting Physical Exam - Physical Exam Additional Physical Exam Comments: Constitutional: No acute distress. Head: Normocephalic. Atraumatic. Eyes: PERRL. ENT: Moist mucous membranes. Neck: Supple. Cardiovascular: Regular rate. Radial pulse 2+ bilaterally. Chest: No tenderness. Respiratory: Clear to auscultation bilaterally. GI: Soft. Nontender. Nondistended. Back: No CVA tenderness. Musculoskeletal: No tenderness or swelling of extremities. Skin: No rash. Neurologic: Alert, no focal deficit. ED Course And Treatment - Laboratory Results Result Diagrams: 03/20/18 00:21 03/20/18 00:21 ECG Rhythm: Sinus Rhythm, L BBB Interpretation Of ECG: No concordant ST elevation. Rate From EC O2 Sat by Pulse Oximetry: 97 (RA) Pulse Ox Interpretation: Normal Medical Decision Making Medical Decision Making: Plan: EKG Alcohol Serum BNP CK-MB CMP CPK Troponin CBC PTT Prothrombin Time CXR Glucose POC Aspirin 325mg PO CXR no consolidation. Disposition Discussed With DrGene: Luis Enrique Peres - Disposition Disposition: HOSPITALIZED Disposition Time: 01:06 Condition: FAIR - POA Core Measure Indicators: Chest Pain - Clinical Impression Clinical Impression: Chest pain - Scribe Statement The provider has reviewed the documentation as recorded by the Scribe (Demetri Pineda) Provider Attestation: All medical record entries made by the Scribe were at my direction and personally dictated by me. I have reviewed the chart and agree that the record accurately reflects my personal performance of the history, physical exam, medical decision making, and the department course for this patient. I have also personally directed, reviewed, and agree with the discharge instructions and disposition.
[2018-03-20 00:51] LABS: B-TYPE NATRIURETIC PEPTIDE 1770 pg/mL (0-900)
[2018-03-20 08:32] LABS: CK-MB 2.39 ng/mL (0.0-3.38); TROPONIN I 0.019 ng/mL (0.00-0.120)
--- NOTE | 2018-03-20 09:17 | RAD ---
Date of service: 03/20/2018 HISTORY: chest pain COMPARISON: No prior. FINDINGS: LUNGS: No active pulmonary disease. PLEURA: No significant pleural effusion identified, no pneumothorax apparent. CARDIOVASCULAR: No aortic atherosclerotic calcification present. Stable cardiomegaly. No pulmonary vascular congestion. OSSEOUS STRUCTURES: No significant abnormalities. VISUALIZED UPPER ABDOMEN: Normal. OTHER FINDINGS: None. IMPRESSION: Stable cardiomegaly. No pulmonary vascular congestion. No acute airspace disease bilaterally.
[2018-03-20] MEDS: Metoprolol Succinate 25 mg XL Tab PO SCH (10:23)
[2018-03-20] MEDS: Enoxaparin 40 mg Syringe SC SCH ×2 (10:28→10:32)
[2018-03-20 14:12] LABS: CK-MB 1.59 ng/mL (0.0-3.38); TROPONIN I 0.017 ng/mL (0.00-0.120)
--- NOTE | 2018-03-20 21:51 | CP.PCM.HP ---
Past Patient History - Infectious Disease Hx of Infectious Diseases: None - Past Medical History & Family History Past Medical History?: Yes - Past Social History Smoking Status: Light Smoker < 10 Cigarettes Daily - CARDIAC Hx Congestive Heart Failure: Yes Hx Hypertension: Yes - PULMONARY Hx Respiratory Disorders: No - NEUROLOGICAL Hx Neurological Disorder: No - HEENT Hx HEENT Problems: No - RENAL Hx Chronic Kidney Disease: No - ENDOCRINE/METABOLIC Hx Endocrine Disorders: No - HEMATOLOGICAL/ONCOLOGICAL Hx Blood Disorders: No - INTEGUMENTARY Hx Dermatological Problems: No - MUSCULOSKELETAL/RHEUMATOLOGICAL Hx Falls: Yes - GASTROINTESTINAL Hx Gastrointestinal Disorders: No - GENITOURINARY/GYNECOLOGICAL Hx Genitourinary Disorders: No - PSYCHIATRIC Hx Substance Use: No - SURGICAL HISTORY Other/Comment: no further information given,. no additional information given 09/05/17 - ANESTHESIA Hx Anesthesia: No Hx Anesthesia Reactions: No Hx Malignant Hyperthermia: No Meds Allergies/Adverse Reactions: Allergies Allergy/AdvReac Type Severity Reaction Status Date / Time No Known Allergies Allergy Verified 03/19/18 23:30 Results - Vital Signs Recent Vital Signs: Last Vital Signs Temp 99.1 F 03/20/18 15:15 Pulse 84 03/20/18 16:59 Resp 20 03/20/18 15:15 BP 108/72 03/20/18 15:15 Pulse Ox 97 03/20/18 15:15 - Labs Result Diagrams: 03/20/18 00:21 03/20/18 00:21 Labs: Laboratory Results - last 24 hr 03/19/18 03/20/18 03/20/18 23:27 00:21 00:21 WBC 5.7 D RBC 4.64 Hgb 13.7 D Hct 41.8 MCV 90.0 D MCH 29.5 MCHC 32.7 L RDW 16.4 H Plt Count 309 D MPV 7.7 Neut % (Auto) 62.9 Lymph % (Auto) 20.9 Coos % (Auto) 12.3 H Eos % (Auto) 2.7 Baso % (Auto) 1.2 Neut # (Auto) 3.6 Lymph # (Auto) 1.2 Coos # (Auto) 0.7 Eos # (Auto) 0.2 Baso # (Auto) 0.1 PT 14.8 H INR 1.4 APTT 43 H Sodium Potassium Chloride Carbon Dioxide Anion Gap BUN Creatinine Est GFR ( Amer) Est GFR (Non-Af Amer) POC Glucose (mg/dL) 100 Random Glucose Calcium Total Bilirubin AST ALT Alkaline Phosphatase Total Creatine Kinase CK-MB (Mass) Troponin I NT-Pro-B Natriuret Pep Total Protein Albumin Globulin Albumin/Globulin Ratio Alcohol, Quantitative 03/20/18 03/20/18 03/20/18 00:21 06:57 13:42 WBC RBC Hgb Hct MCV MCH MCHC RDW Plt Count MPV Neut % (Auto) Lymph % (Auto) Coos % (Auto) Eos % (Auto) Baso % (Auto) Neut # (Auto) Lymph # (Auto) Coos # (Auto) Eos # (Auto) Baso # (Auto) PT INR APTT Sodium 136 Potassium 4.5 Chloride 95 L Carbon Dioxide 27 Anion Gap 18 BUN 23 H Creatinine 0.8 Est GFR ( Amer) > 60 Est GFR (Non-Af Amer) > 60 POC Glucose (mg/dL) Random Glucose 65 L Calcium 9.8 Total Bilirubin 0.8 AST 44 ALT 22 Alkaline Phosphatase 144 H D Total Creatine Kinase 164 136 134 CK-MB (Mass) 2.50 2.39 1.59 Troponin I 0.0180 0.0190 0.0170 NT-Pro-B Natriuret Pep 1770 H Total Protein 9.7 H Albumin 4.3 Globulin 5.4 H Albumin/Globulin Ratio 0.8 L Alcohol, Quantitative 162 H
--- NOTE | 2018-03-21 06:57 | HP ---
CHIEF COMPLAINT: Chest pain. HISTORY OF PRESENT ILLNESS: This is a 57-year-old male well known to me with history of cardiomegaly, congestive heart failure, hypertension, alcohol abuse. He is noncompliant with his diet, medication, and followup. According to the patient, he has not been taking any of his medications, and he started drinking large amount, and he was drinking every day in large quantities. He was getting drunk, and he developed shortness of breath and chest pain about 5 hours prior to the arrival in the emergency room. He was brought by ambulance. According to the patient, his symptoms resolved; and he felt wheeze, tired, fatigued; and he felt like he is about to pass out. He denies any nausea, vomiting, diarrhea. He denies any cough, sore throat, runny nose. He denies any itchy eyes, itchy nose, bleeding. He denies any history of rash. No history of polyuria, polydipsia, polyphagia. Positive nocturia. No frequency, no dysuria. He denies any abdominal pain, hip pain, rectal bleeding. SOCIAL HISTORY: He smokes. He drinks, and he denies substance abuse. FAMILY HISTORY: Negative for premature coronary artery disease. CURRENT MEDICATIONS: At home, he is supposed to be on thiamine, Crestor, Toprol-XL, lisinopril, Neurontin, Lasix, folic acid, aspirin. ALLERGIES: UNKNOWN. PHYSICAL EXAMINATION: GENERAL: A middle-aged male, in no acute distress. VITAL SIGNS: Blood pressure 108/72, pulse 87, respiratory rate 20, and temperature 99.1. SKIN: Senile turgor. No bruises. No purpura. No petechiae. No ecchymosis. HEENT: Atraumatic, normocephalic. Negative pallor. Negative jaundice. Extraocular movements are intact. NECK: Supple. No JVD. No lymph node. No thyromegaly. No carotid bruit. CHEST WALL: Bilateral symmetrical expansion. No masses. LUNGS: Bilateral basal crepitation. CARDIOVASCULAR SYSTEM: S1 and S2, regular. S3 positive. ABDOMEN: Soft, nontender. Bowel sounds are positive. RECTAL: Enlarged prostate. EXTREMITIES: No clubbing, cyanosis, edema. CENTRAL NERVOUS SYSTEM: Awake, alert, and oriented x3. ASSESSMENT: 1. Chest pain, rule out myocardial infarction. 2. Cardiomegaly, alcohol induced cardiomyopathy. 3. Alcohol intoxication. 4. Alcohol abuse. PLAN: Admit. Detail orders written. Seen and examined. Luis Enrique Peres MD
[2018-03-21] MEDS: Enoxaparin 40 mg Syringe SC SCH ×2 (09:48→09:50)
[2018-03-21] MEDS: Metoprolol Succinate 25 mg XL Tab PO SCH (09:48)
[2018-03-21] MEDS ORDERED: Influenza Vaccine 60 MCG/0.5 ML SYR (3 yr & up) IM ONE (14:00)
[2018-03-21] MEDS ORDERED: Magnesium Sulfate 1 gm in D5W 1 GM/100 ML BAG IVPB ONE (20:12)
--- NOTE | 2018-03-21 22:25 | CP.PCM.PN ---
Subjective - Subjective Subjective: dictated Objective - Vital Signs/Intake and Output Vital Signs (last 24 hours): Temp Pulse Resp BP Pulse Ox 994 F H 86 20 103/69 96 03/21/18 15:00 03/21/18 20:07 03/21/18 15:00 03/21/18 15:00 03/21/18 15:00 - Medications Medications: Current Medications Aspirin (Ecotrin) 81 mg PO DAILY [facility] Last Admin: 03/21/18 09:48 Dose: 81 mg Enoxaparin Sodium (Lovenox) 40 mg SC DAILY [facility] Last Admin: 03/21/18 09:50 Dose: Not Given Folic Acid (Folic Acid) 1 mg PO DAILY [facility] Last Admin: 03/21/18 09:47 Dose: 1 mg Furosemide (Lasix) 40 mg PO DAILY [facility] Last Admin: 03/21/18 09:47 Dose: 40 mg Gabapentin (Neurontin) 100 mg PO TID [facility] Last Admin: 03/21/18 18:53 Dose: 100 mg Lisinopril (Zestril) 5 mg PO DAILY [facility] Last Admin: 03/21/18 09:49 Dose: 5 mg Metoprolol Succinate (Toprol Xl) 25 mg PO DAILY [facility] Last Admin: 03/21/18 09:48 Dose: 25 mg Rosuvastatin Calcium (Crestor) 20 mg PO HS [facility] Last Admin: 03/20/18 21:30 Dose: 20 mg Thiamine HCl (Vitamin B1 Tab) 100 mg PO DAILY [facility] Last Admin: 03/21/18 09:48 Dose: 100 mg - Labs Labs: 03/20/18 00:21 03/20/18 00:21 PT 14.8 SECONDS (9.7-12.2) H 03/20/18 00:21 INR 1.4 03/20/18 00:21 APTT 43 SECONDS (21-34) H 03/20/18 00:21
--- NOTE | 2018-03-22 07:15 | PN ---
DATE: 03/21/2018 SUBJECTIVE: The patient has V-tach today. The patient was monitored. The patient has been seen by Cardiology. In the meantime, the patient denies any chest pain since hospitalization. Troponin x3 are negative. He is afebrile. PHYSICAL EXAMINATION: VITAL SIGNS: Blood pressure 103/69, pulse 86, respiratory rate 20, temperature 99.4. LUNGS: Bilateral basal crepitations. CARDIOVASCULAR SYSTEM: S1 and S2 plus S3 positive. ABDOMEN: Soft. ASSESSMENT: 1. Ventricular tachycardia, it is most likely hypertensive cardiomyopathy. 2. Hypertension. 3. Chest pain, noncoronary. 4. Alcoholism. PLAN: Continue to monitor the patient. Luis Enrique Peres MD
--- NOTE | 2018-03-22 08:15 | CP.PCM.CON ---
History of Present Illness - History of Present Illness History of Present Illness: Augusto Espinal, PGY-[address] Chavez, Cardiology Mr. Mckeon is a 57 year old male with a PMHx of dilated cardiomyopathy, CHF, HTN, and HLD who presents with chest pain and an episode of ventricular tachycardia over the weekend. Patient is non complaint with medications and followup per chart and drinks ETOH heavily. Patient does not remember experiencing chest pain, and denies current chest pain, palpitations, dizziness, fatigue, shortness of breath, leg swelling. Patient reports foot and ankle pain, but admits to a chronic nature. Past Patient History - Infectious Disease Hx of Infectious Diseases: None - Past Medical History & Family History Past Medical History?: Yes - Past Social History Smoking Status: Light Smoker < 10 Cigarettes Daily - CARDIAC Hx Congestive Heart Failure: Yes Hx Hypertension: Yes - PULMONARY Hx Respiratory Disorders: No - NEUROLOGICAL Hx Neurological Disorder: No - HEENT Hx HEENT Problems: No - RENAL Hx Chronic Kidney Disease: No - ENDOCRINE/METABOLIC Hx Endocrine Disorders: No - HEMATOLOGICAL/ONCOLOGICAL Hx Blood Disorders: No - INTEGUMENTARY Hx Dermatological Problems: No - MUSCULOSKELETAL/RHEUMATOLOGICAL Hx Falls: Yes - GASTROINTESTINAL Hx Gastrointestinal Disorders: No - GENITOURINARY/GYNECOLOGICAL Hx Genitourinary Disorders: No - PSYCHIATRIC Hx Substance Use: No - SURGICAL HISTORY Other/Comment: no further information given,. no additional information given 09/05/17 - ANESTHESIA Hx Anesthesia: No Hx Anesthesia Reactions: No Hx Malignant Hyperthermia: No Meds Allergies/Adverse Reactions: Allergies Allergy/AdvReac Type Severity Reaction Status Date / Time No Known Allergies Allergy Verified 03/19/18 23:30 - Medications Medications: Current Medications Aspirin (Ecotrin) 81 mg PO DAILY [facility] Last Admin: 03/21/18 09:48 Dose: 81 mg Enoxaparin Sodium (Lovenox) 40 mg SC DAILY [facility] Last Admin: 03/21/18 09:50 Dose: Not Given Folic Acid (Folic Acid) 1 mg PO DAILY [facility] Last Admin: 03/21/18 09:47 Dose: 1 mg Furosemide (Lasix) 40 mg PO DAILY [facility] Last Admin: 03/21/18 09:47 Dose: 40 mg Gabapentin (Neurontin) 100 mg PO TID [facility] Last Admin: 03/21/18 18:53 Dose: 100 mg Lisinopril (Zestril) 5 mg PO DAILY [facility] Last Admin: 03/21/18 09:49 Dose: 5 mg Metoprolol Succinate (Toprol Xl) 25 mg PO DAILY [facility] Last Admin: 03/21/18 09:48 Dose: 25 mg Rosuvastatin Calcium (Crestor) 20 mg PO HS [facility] Last Admin: 03/21/18 22:42 Dose: 20 mg Thiamine HCl (Vitamin B1 Tab) 100 mg PO DAILY [facility] Last Admin: 03/21/18 09:48 Dose: 100 mg Physical Exam - Constitutional Appears: Well, Non-toxic, No Acute Distress - Head Exam Head Exam: ATRAUMATIC, NORMAL INSPECTION, NORMOCEPHALIC - Eye Exam Eye Exam: EOMI, Normal appearance Pupil Exam: PERRL - ENT Exam ENT Exam: Mucous Membranes Moist - Neck Exam Neck exam: Positive for: Normal Inspection - Cardiovascular Exam Cardiovascular Exam: RRR, +S1, +S2, Systolic Murmur (+S3). absent: JVD - GI/Abdominal Exam GI & Abdominal Exam: Soft. absent: Distended, Tenderness - Skin Skin Exam: Dry, Intact, Normal Color, Warm Results - Vital Signs Recent Vital Signs: Last Vital Signs Temp 98.0 F 03/22/18 06:00 Pulse 85 03/22/18 06:00 Resp 20 03/22/18 06:00 BP 102/68 03/22/18 06:00 Pulse Ox 96 03/22/18 06:00 - Labs Result Diagrams: 03/20/18 00:21 03/20/18 00:21 Assessment & Plan - Assessment and Plan (Free Text) Assessment: Assessment: 57 M with PMHx of dilated cardiomyopathy, CHF, HTN, and HLD who pr esents with chest pain and an episode of ventricular tachycardia. Patient is currently asymptomatic. Plan: Cardiomyopathy +S3 likely 2/2 ETOH F/U echo report Monitor for further v-tach episodes Last drink 03/20 CHF BNP 1770 No leg swelling present, although there are some rales on auscultation of lungs F/u Echo report C/W Lasix and BUZZ-I Chest Pain Trops neg x3, decreasing from 2 weeks ago, most recent 0.017 ASA, Lovenox, Statin continue to monitor Patient seen, case discussed. Further recs per Dr. Chavez. Augusto Espinal, PGY-1
[2018-03-22] MEDS: Metoprolol Succinate 25 mg XL Tab PO SCH (10:01)
[2018-03-22] MEDS: Enoxaparin 40 mg Syringe SC SCH (10:17)
--- NOTE | 2018-03-22 12:49 | CARD ---
APPROVED REPORT Date of service: 03/20/2018 EKG Measurement Heart [id number] <Conclusion> Normal sinus rhythm Biatrial enlargement Left bundle branch block Abnormal ECG
--- NOTE | 2018-03-22 12:57 | CARD ---
APPROVED REPORT Date of service: 03/20/2018 EKG Measurement Heart [id number] P63 [id number] <Conclusion> Atrial flutter Left bundle branch block Abnormal ECG
--- NOTE | 2018-03-22 17:14 | CARD ---
APPROVED REPORT Date of service: 03/20/2018 EXAM: Two-dimensional and M-mode echocardiogram with Doppler and color Doppler. Other Information Quality : GoodRhythm : NSR INDICATION CAD Cardiomyopathy Chest Pain Syncope Congestive Heart Failure RISK FACTORS Hypertension 2D DIMENSIONS IVSd1.2 (0.7-1.1cm)LVDd6.3 (3.9-5.9cm) PWd1.8 (0.7-1.1cm)LA Ianuem400 (18-58mL) M-Mode DIMENSIONS RVDd3.24 (2.1-3.2cm)Left Atrium (MM)4.57 (2.5-4.0cm) IVSd1.13 (0.7-1.1cm)Aortic Root3.59 (2.2-3.7cm) LVDd7.30 (4.0-5.6cm)Aortic Cusp Exc.2.03 (1.5-2.0cm) PWd1.05 (0.7-1.1cm)FS (%) 7 % LVDs6.79 (2.0-3.8cm)LVEF (%)15 (>50%) Aortic Valve AoV Peak Iwflwduu81.1cm/Jason Peak GR.4mmHg Mitral Valve MV E Yfedsiwu98.6cm/sMV A Lrwlfnyy39.1cm/sE/A ratio1.6 TDI Lateral E' Peak V7.13cm/sMedial E' Peak V4.03cm/sE/Lateral E'9.6 E/Medial E'17.0 Tricuspid Valve TR Peak Yftlrgwl241de/sTR Peak Gr.[id number] LEFT VENTRICLE The Left Ventricle is severely dilated. There is mild concentric left ventricular hypertrophy. The Ejection Fraction is 15-20%. There is global hypokinesis of the left ventricle. Transmitral Doppler flow pattern is Grade II-pseudonormal filling dynamics. moderately increased la volume index. RIGHT VENTRICLE The right ventricle is normal size. rv Systolic function is moderately reduced. ATRIA The left atrium is moderately dilated. The right atrium is mildly dilated. The interatrial septum is intact with no evidence for an atrial septal defect. AORTIC VALVE The aortic valve is normal in structure. No aortic regurgitation is present. MITRAL VALVE The mitral valve is normal in structure. Mitral regurgitation is mild. TRICUSPID VALVE The tricuspid valve is normal in structure. There is mild to moderate tricuspid regurgitation. Right ventricular systolic pressure is estimated at 56 mmHg. There is moderate pulmonary hypertension. PULMONIC VALVE The pulmonary valve is normal in structure. There is trace pulmonic valvular regurgitation. GREAT VESSELS The aortic root is normal in size. The IVC is normal in size and collapses >50% with inspiration. PERICARDIAL EFFUSION There is no pericardial effusion. <Conclusion> The Left Ventricle is severely dilated. There is mild concentric left ventricular hypertrophy. The Ejection Fraction is 15-20%. Transmitral Doppler flow pattern is Grade II-pseudonormal filling dynamics. moderately increased la volume index. There is global hypokinesis of the left ventricle. rv Systolic function is moderately reduced. The left atrium is moderately dilated. The right atrium is mildly dilated. Mitral regurgitation is mild. There is mild to moderate tricuspid regurgitation. Right ventricular systolic pressure is estimated at 56 mmHg. There is moderate pulmonary hypertension. There is mild to moderate tricuspid regurgitation. Right ventricular systolic pressure is estimated at 56 mmHg. There is moderate pulmonary hypertension. The aortic root is normal in size. There is no pericardial effusion.
--- NOTE | 2018-03-22 22:18 | CP.PCM.PN ---
Subjective - Subjective Subjective: dictated Objective - Vital Signs/Intake and Output Vital Signs (last 24 hours): Temp Pulse Resp BP Pulse Ox 98.7 F 86 20 100/62 97 03/22/18 15:00 03/22/18 15:56 03/22/18 15:00 03/22/18 15:00 03/22/18 15:53 - Medications Medications: Current Medications Aspirin (Ecotrin) 81 mg PO DAILY [facility] Last Admin: 03/22/18 10:01 Dose: 81 mg Enoxaparin Sodium (Lovenox) 40 mg SC DAILY [facility] Last Admin: 03/22/18 10:17 Dose: Not Given Folic Acid (Folic Acid) 1 mg PO DAILY [facility] Last Admin: 03/22/18 10:01 Dose: 1 mg Furosemide (Lasix) 40 mg PO DAILY [facility] Last Admin: 03/22/18 10:00 Dose: 40 mg Gabapentin (Neurontin) 100 mg PO TID [facility] Last Admin: 03/22/18 17:10 Dose: 100 mg Lisinopril (Zestril) 5 mg PO DAILY [facility] Last Admin: 03/22/18 10:01 Dose: 5 mg Metoprolol Succinate (Toprol Xl) 25 mg PO DAILY [facility] Last Admin: 03/22/18 10:01 Dose: 25 mg Rosuvastatin Calcium (Crestor) 20 mg PO HS [facility] Last Admin: 03/22/18 21:26 Dose: 20 mg Thiamine HCl (Vitamin B1 Tab) 100 mg PO DAILY [facility] Last Admin: 03/22/18 10:18 Dose: 100 mg - Labs Labs: 03/20/18 00:21 03/20/18 00:21 PT 14.8 SECONDS (9.7-12.2) H 03/20/18 00:21 INR 1.4 03/20/18 00:21 APTT 43 SECONDS (21-34) H 03/20/18 00:21
--- NOTE | 2018-03-23 04:30 | PN ---
DATE: 03/22/2018 SUBJECTIVE: Capo Mckeon is feeling better. He is afebrile. No shortness of breath. He is complaining of leg pain. PHYSICAL EXAMINATION: VITAL SIGNS: Blood pressure 100/62, pulse 71, respiratory rate 20, and temperature 98.7. LUNGS: Bilateral basal crepitation. CARDIOVASCULAR SYSTEM: S1 and S2 plus S3 positive. ABDOMEN: Soft. ASSESSMENT: 1. Dilated cardiomyopathy. 2. Noncoronary chest pain. 3. Alcohol abuse. PLAN: Continue current medications. Luis Enrique Peres MD
--- NOTE | 2018-03-23 09:32 | CP.PCM.PN ---
Subjective - Date & Time of Evaluation Date of Evaluation: 03/23/18 Time of Evaluation: 07:51 - Subjective Subjective: Augusto Espinal, PGY-[address] Chavez Patient seen and evaluated at bedside. No acute events overnight. Endorses lower leg pains bilaterally. Denies CP, SOB, palpitations, swelling, UE numbness. Objective - Vital Signs/Intake and Output Vital Signs (last 24 hours): Temp Pulse Resp BP Pulse Ox 98.1 F 72 18 99/65 L 97 03/23/18 07:15 03/23/18 07:15 03/23/18 07:15 03/23/18 07:15 03/23/18 07:15 Intake and Output: 03/23/18 03/23/18 06:59 18:59 Intake Total 420 Output Total 524 Balance -104 - Medications Medications: Current Medications Aspirin (Ecotrin) 81 mg PO DAILY [facility] Last Admin: 03/22/18 10:01 Dose: 81 mg Enoxaparin Sodium (Lovenox) 40 mg SC DAILY [facility] Last Admin: 03/22/18 10:17 Dose: Not Given Folic Acid (Folic Acid) 1 mg PO DAILY [facility] Last Admin: 03/22/18 10:01 Dose: 1 mg Furosemide (Lasix) 40 mg PO DAILY [facility] Last Admin: 03/22/18 10:00 Dose: 40 mg Gabapentin (Neurontin) 100 mg PO TID [facility] Last Admin: 03/22/18 17:10 Dose: 100 mg Lisinopril (Zestril) 5 mg PO DAILY [facility] Last Admin: 03/22/18 10:01 Dose: 5 mg Metoprolol Succinate (Toprol Xl) 25 mg PO DAILY [facility] Last Admin: 03/22/18 10:01 Dose: 25 mg Rosuvastatin Calcium (Crestor) 20 mg PO HS [facility] Last Admin: 03/22/18 21:26 Dose: 20 mg Thiamine HCl (Vitamin B1 Tab) 100 mg PO DAILY [facility] Last Admin: 03/22/18 10:18 Dose: 100 mg - Labs Labs: 03/20/18 00:21 03/20/18 00:21 PT 14.8 SECONDS (9.7-12.2) H 03/20/18 00:21 INR 1.4 03/20/18 00:21 APTT 43 SECONDS (21-34) H 03/20/18 00:21 - Additional Findings Additional findings: - Constitutional Appears: Well, Non-toxic, No Acute Distress - Head Exam Head Exam: ATRAUMATIC, NORMAL INSPECTION, NORMOCEPHALIC - Eye Exam Eye Exam: EOMI, Normal appearance Pupil Exam: PERRL - ENT Exam ENT Exam: Mucous Membranes Moist - Neck Exam Neck exam: Positive for: Normal Inspection - Cardiovascular Exam Cardiovascular Exam: RRR, +S1, +S2, Systolic Murmur (+S3). absent: JVD - GI/Abdominal Exam GI & Abdominal Exam: Soft. absent: Distended, Tenderness - Skin Skin Exam: Dry, Intact, Normal Color, Warm Assessment and Plan - Assessment and Plan (Free Text) Assessment: Assessment: Mr. Mckeon is a 57 M with PMHx of dilated cardiomyopathy, CHF, HTN, and HLD who presents with chest pain and an episode of ventricular tachycardia. Patient is currently asymptomatic. Plan: Cardiomyopathy +S3 likely 2/2 ETOH Echo report 03/21 shows global hypokinesis and severely dilated LV. Mild LVH. EF 15-20%. RV systolic function is moderately reduced. LA and RA moderately dilated. Moderate Pulm HTN. Monitor for further v-tach episodes HFrEF EF 15-20% on recent Echo BNP 1770 No leg swelling present, although there are some rales on auscultation of lungs C/W Lasix and BUZZ-I Chest Pain Trops neg x3, decreasing from 2 weeks ago, most recent 0.017 ASA, Lovenox, Statin continue to monitor Patient seen, case discussed. Further recs per Dr. Chavez. Augusto Espinal, PGY-1
[2018-03-23] MEDS: Metoprolol Succinate 25 mg XL Tab PO SCH (10:53)
[2018-03-23] MEDS: Enoxaparin 40 mg Syringe SC SCH (10:56)
--- NOTE | 2018-03-23 13:57 | CP.PCM.PN ---
Subjective - Date & Time of Evaluation Date of Evaluation: 03/23/18 Time of Evaluation: 13:57 - Subjective Subjective: PT SEEN BY DR. GELLER AND CLEARED FOR D/C HOME TODAY WITH RX FOR GABAPENTIN 300 MG PO BID AND AMIODARONE 200 MG QD (PER DR. SAAB). I DISCUSSED ALL D/C, RX, AND F/U WITH THE PT. HE VERBALIZES UNDERSTANDING. SEE BELOW FOR D/C INSTRU CTIONS. NO FURTHER ORDERS. -FOLLOW UP WITH DR. PARSONS (YOUR PRIMARY DOCTOR) OR DR. GELLER IN THE OFFICE WITHIN 7 DAYS---CALL THE OFFICE TO MAKE AN APPOINTMENT TIME. -FOLLOW UP WITH DR. SAAB (HEART DOCTOR) IN THE OFFICE WITHIN 10-14 DAYS---CALL THE OFFICE TO MAKE AN APPOINTMENT TIME. -CONTINUE ALL HOME MEDICATIONS USUAL. -STOP TAKING YOUR GABAPENTIN AT HOME, DR. GELLER HAS CHANGED YOUR DOSE. -NEW PRESCRIPTIONS THAT HAVE BEEN SENT TO YOUR PHARMACY INCLUDE: 1) GABAPENTIN 300 MG---TAKE 1 CAPSULE BY MOUTH TWICE A DAY (MORNING AND EVENING). 2) AMIODARONE (FOR YOUR HEART) 200 MG---TAKE 1 TABLET BY MOUTH ONCE A DAY (MORNING). -FOR FURTHER QUESTIONS OR CONCERNS, FEEL FREE TO CONTACT DR. GELLER OR DR. SAAB. Objective - Vital Signs/Intake and Output Vital Signs (last 24 hours): Temp Pulse Resp BP Pulse Ox 98.1 F 72 18 100/55 L 97 03/23/18 07:15 03/23/18 07:15 03/23/18 07:15 03/23/18 10:53 03/23/18 07:15 Intake and Output: 03/23/18 03/23/18 06:59 18:59 Intake Total 420 Output Total 524 Balance -104 - Medications Medications: Current Medications Aspirin (Ecotrin) 81 mg PO DAILY [facility] Last Admin: 03/23/18 10:53 Dose: 81 mg Enoxaparin Sodium (Lovenox) 40 mg SC DAILY [facility] Last Admin: 03/23/18 10:56 Dose: Not Given Folic Acid (Folic Acid) 1 mg PO DAILY [facility] Last Admin: 03/23/18 10:53 Dose: 1 mg Furosemide (Lasix) 40 mg PO DAILY [facility] Last Admin: 03/23/18 10:53 Dose: 40 mg Gabapentin (Neurontin) 300 mg PO BID [facility] Lisinopril (Zestril) 5 mg PO DAILY [facility] Last Admin: 03/23/18 10:53 Dose: 5 mg Metoprolol Succinate (Toprol Xl) 25 mg PO DAILY [facility] Last Admin: 03/23/18 10:53 Dose: 25 mg Rosuvastatin Calcium (Crestor) 20 mg PO HS [facility] Last Admin: 03/22/18 21:26 Dose: 20 mg Thiamine HCl (Vitamin B1 Tab) 100 mg PO DAILY [facility] Last Admin: 03/23/18 10:56 Dose: 100 mg - Labs Labs: 03/20/18 00:21 03/20/18 00:21 PT 14.8 SECONDS (9.7-12.2) H 03/20/18 00:21 INR 1.4 03/20/18 00:21 APTT 43 SECONDS (21-34) H 03/20/18 00:21
[2018-03-23 15:32] VITALS: BP 96/61; PULSE 89; RESP 20; TEMP 98.5; O2SAT 95
--- NOTE | 2018-03-23 22:35 | CP.PCM.DIS ---
Provider - Provider Date of Admission: 03/22/18 19:27 Attending physician: Luis Enrique Peres MD Hospital Course - Lab Results Lab Results: Most Recent Lab Values WBC 5.7 K/uL (4.8-10.8) D 03/20/18 00:21 RBC 4.64 Mil/uL (4.40-5.90) 03/20/18 00:21 Hgb 13.7 g/dL (12.0-18.0) D 03/20/18 00:21 Hct 41.8 % (35.0-51.0) 03/20/18 00:21 MCV 90.0 fL (80.0-94.0) D 03/20/18 00:21 MCH 29.5 pg (27.0-31.0) 03/20/18 00:21 MCHC 32.7 g/dL (33.0-37.0) L 03/20/18 00:21 RDW 16.4 % (11.5-14.5) H 03/20/18 00:21 Plt Count 309 K/uL (130-400) D 03/20/18 00:21 MPV 7.7 fL (7.2-11.7) 03/20/18 00:21 Neut % (Auto) 62.9 % (50.0-75.0) 03/20/18 00:21 Lymph % (Auto) 20.9 % (20.0-40.0) 03/20/18 00:21 [place] % (Auto) 12.3 % (0.0-10.0) H 03/20/18 00:21 Eos % (Auto) 2.7 % (0.0-4.0) 03/20/18 00:21 Baso % (Auto) 1.2 % (0.0-2.0) 03/20/18 00:21 Neut # (Auto) 3.6 K/uL (1.8-7.0) 03/20/18 00:21 Lymph # (Auto) 1.2 K/uL (1.0-4.3) 03/20/18 00:21 [place] # (Auto) 0.7 K/uL (0.0-0.8) 03/20/18 00:21 Eos # (Auto) 0.2 K/uL (0.0-0.7) 03/20/18 00:21 Baso # (Auto) 0.1 K/uL (0.0-0.2) 03/20/18 00:21 PT 14.8 SECONDS (9.7-12.2) H 03/20/18 00:21 INR 1.4 03/20/18 00:21 APTT 43 SECONDS (21-34) H 03/20/18 00:21 Sodium 136 mmol/L (132-148) 03/20/18 00:21 Potassium 4.5 mmol/L (3.6-5.2) 03/20/18 00:21 Chloride 95 mmol/L (98-107) L 03/20/18 00:21 Carbon Dioxide 27 mmol/L (22-30) 03/20/18 00:21 Anion Gap 18 (10-20) 03/20/18 00:21 BUN 23 mg/dL (9-20) H 03/20/18 00:21 Creatinine 0.8 mg/dL (0.8-1.5) 03/20/18 00:21 Est GFR ( Amer) > 60 03/20/18 00:21 Est GFR (Non-Af Amer) > 60 03/20/18 00:21 POC Glucose (mg/dL) 108 mg/dL (65-110) 03/23/18 06:09 Random Glucose 65 mg/dL (75-110) L 03/20/18 00:21 Calcium 9.8 mg/dl (8.6-10.4) 03/20/18 00:21 Total Bilirubin 0.8 mg/dL (0.2-1.3) 03/20/18 00:21 AST 44 U/L (17-59) 03/20/18 00:21 ALT 22 U/L (21-72) 03/20/18 00:21 Alkaline Phosphatase 144 U/L (38-126) H D 03/20/18 00:21 Total Creatine Kinase 134 U/L (55-170) 03/20/18 13:42 CK-MB (Mass) 1.59 ng/mL (0.0-3.38) 03/20/18 13:42 Troponin I 0.0170 ng/mL (0.00-0.120) 03/20/18 13:42 NT-Pro-B Natriuret Pep 1770 pg/mL (0-900) H 03/20/18 00:21 Total Protein 9.7 g/dL (6.3-8.3) H 03/20/18 00:21 Albumin 4.3 g/dL (3.5-5.0) 03/20/18 00:21 Globulin 5.4 gm/dL (2.2-3.9) H 03/20/18 00:21 Albumin/Globulin Ratio 0.8 (1.0-2.1) L 03/20/18 00:21 Alcohol, Quantitative 162 mg/dl (0-10) H 03/20/18 00:21 Discharge Exam - Head Exam Head Exam: ATRAUMATIC, NORMAL INSPECTION, NORMOCEPHALIC Discharge Plan - Discharge Medications Prescriptions: Amiodarone [Cordarone] 200 mg PO DAILY #30 tab Gabapentin 300 mg PO BID #60 capsule - Follow Up Plan Condition: FAIR Disposition: HOME/ ROUTINE Instructions: Heart Failure, Adult (DC), Chest Pain (DC), Coronary Heart Disease (DC), Amiodarone, Gabapentin Additional Instructions: -FOLLOW UP WITH DR. PARSONS (YOUR PRIMARY DOCTOR) OR DR. PERES IN THE OFFICE WITHIN 7 DAYS---CALL THE OFFICE TO MAKE AN APPOINTMENT TIME. -FOLLOW UP WITH DR. CHAVEZ (HEART DOCTOR) IN THE OFFICE WITHIN 10-14 DAYS---CALL THE OFFICE TO MAKE AN APPOINTMENT TIME. -CONTINUE ALL HOME MEDICATIONS USUAL. -STOP TAKING YOUR GABAPENTIN AT HOME, DR. PERES HAS CHANGED YOUR DOSE. -NEW PRESCRIPTIONS THAT HAVE BEEN SENT TO YOUR PHARMACY INCLUDE: 1) GABAPENTIN 300 MG---TAKE 1 CAPSULE BY MOUTH TWICE A DAY (MORNING AND EVENING). 2) AMIODARONE (FOR YOUR HEART) 200 MG---TAKE 1 TABLET BY MOUTH ONCE A DAY (MORNING). -FOR FURTHER QUESTIONS OR CONCERNS, FEEL FREE TO CONTACT DR. PERES OR DR. CHAVEZ. Referrals: Derek Chavez MD [Staff Provider] - Luis Enrique Peres MD [Staff Provider] -
[2018-03-24] MEDS ORDERED: Pneumococcal 23-Valent Vaccine IM ONE (10:00)
--- NOTE | 2018-03-24 22:04 | DS ---
ADMISSION DIAGNOSIS: Chest pain. DISCHARGE DIAGNOSES: 1. Noncoronary chest pain. 2. Severe end-stage dilated cardiomyopathy. 3. Alcohol abuse. 4. Hypertension. 5. Alcohol-induced neuropathy. HISTORY OF PRESENT ILLNESS: This is a 57-year-old male with history of severe dilated cardiomyopathy with low LV ejection fraction due to alcohol. The patient is an alcohol user and he has been drinking alcohol without taking his medications. His chest pain is substernal, nonradiating, not associated with diaphoresis, dizziness. He was admitted to the floor. TX was ruled out by three sets of negative cardiac enzymes V-Tach which subsided by itself. He is feeling better. He is being discharged with outpatient followup. He needs to stop drinking. Seek alcohol rehab for his insurance as I discussed with him and needs to have regular medical followup. WBC 5.7, hemoglobin 13.7, hematocrit 41.8, platelets 309, sodium 136, potassium 4.5, chloride 95, bicarb 23, BUN 5, proBNP 1770, total protein 9.7, globulin 5.4, alcohol level 162. PHYSICAL EXAMINATION: VITAL SIGNS: Blood pressure 96/61, pulse 89, respiratory rate 20, temperature 98.5. CONDITION UPON DISCHARGE: Stable. Luis Enrique Peres MD
== END 2018-03-23 18:25 | disposition home or self-care (01) | DRG 198 ==
LOC: C.ER 23:11 → C.6T 03-20 01:06 → OBSVTOIN 03-22 19:27
PROVIDERS: ADMIT Internal Medicine; ATTEND Internal Medicine
DX: R07.89 Other chest pain (principal); I25.10 Atherosclerotic heart disease of native coronary artery without angina pectoris; I47.2 Ventricular tachycardia; I42.0 Dilated cardiomyopathy; I11.0 Hypertensive heart disease with heart failure; I50.9 Heart failure, unspecified; I27.20 Pulmonary hypertension, unspecified; I42.6 Alcoholic cardiomyopathy; G62.1 Alcoholic polyneuropathy; E78.5 Hyperlipidemia, unspecified; F10.229 Alcohol dependence with intoxication, unspecified; F17.200 Nicotine dependence, unspecified, uncomplicated; Y90.6 Blood alcohol level of 120-199 mg/100 ml; Z91.11 Patient's noncompliance with dietary regimen

== ENCOUNTER 2018-06-12 02:43 | Emergency (ER) | payer MEDICAID ==
[2018-06-12 02:43] VITALS: BMI 18.8
--- NOTE | 2018-06-12 03:11 | C.PDOC ---
History Of Present Illness 57 year old male presents to the ER with a complaint of chest pain to the anterior wall area that began tonight. Patient reports he has Hx of chest pain before in the past. Denies SOB, nausea, or vomiting. Chief Complaint (Nursing): Chest Pain History Per: Patient History/Exam Limitations: no limitations Onset/Duration Of Symptoms: Hrs Current Symptoms Are (Timing): Still Present Associated Symptoms: denies: Nausea, Dyspnea Modifying Factors: None Exacerbating Factors: None Alleviating Factors: None Recent travel outside of the [place]: No Past Medical History Reviewed: Historical Data, Nursing Documentation, Vital Signs Vital Signs: Last Vital Signs Temp 97.8 F 06/12/18 02:57 Pulse Resp BP 142/88 06/12/18 02:57 Pulse Ox - Medical History PMH: CAD, CHF, Dementia (SYNCOPE WHEN INTOXICATED PER PT.), HTN, Hypercholesterolemia, Hyperlipidemia Denies: Alzheimer's Disease, Asthma, Atrial Fibrillation, Bronchitis, Cardia Arrhythmia, Cardiac Aneurysm, Deep Vein Thrombosis, Emphysema, Pneumonia, Pneumothorax, Pulmonary Embolism, Chronic Kidney Disease, Sleep Apnea - [facility] Procedures FLUOROSCOPY OF MULT COR ART USING L OSM CONTRAST (04/06/17) MEASURE CARDIAC SAMPL & PRESSURE, BILATERAL, PERC (04/06/17) Family History: States: CAD - Social History Hx Alcohol Use: Yes Hx Substance Use: No - Immunization History Hx Tetanus Toxoid Vaccination: No Hx Influenza Vaccination: No Hx Pneumococcal Vaccination: No Review Of Systems Constitutional: Negative for: Fever, Chills Cardiovascular: Positive for: Chest Pain. Negative for: Palpitations Respiratory: Negative for: Cough, Shortness of Breath Gastrointestinal: Negative for: Nausea, Vomiting Skin: Negative for: Rash Neurological: Negative for: Weakness, Numbness Physical Exam - Physical Exam Appears: Non-toxic, No Acute Distress Skin: Normal Color, Warm, Dry Head: Atraumatic, Normacephalic Eye(s): bilateral: Normal Inspection Oral Mucosa: Moist Neck: Normal, Supple Chest: Tenderness (Left anterolateral area) Cardiovascular: Rhythm Regular Respiratory: Normal Breath Sounds, No Rales, No Rhonchi, No Wheezing Gastrointestinal/Abdominal: Soft, No Tenderness Back: No CVA Tenderness Neurological/Psych: Oriented x3, Normal Speech ED Course And Treatment - Laboratory Results Result Diagrams: 06/12/18 03:23 06/12/18 03:23 ECG: Interpreted By Me, Viewed By Me ECG Rhythm: Sinus Rhythm ECG Interpretation: No Acute Changes, Abnormal Interpretation Of ECG: NSR, IVCD-LBBB, no significnt tracings from old tracings of 05/31/2018. Rate From EC Progress Note: EKG, blood work, and CXR ordered. Toradol administered. Disposition Counseled Patient/Family Regarding: Diagnosis - Disposition Referrals: [facility] [Outside] Disposition: HOME/ ROUTINE Disposition Time: 05:55 Condition: STABLE Prescriptions: Naproxen [Naprosyn] 1 tab PO BID PRN #25 tab PRN Reason: Pain Instructions: Costochondritis (DC) Forms: [employer] (Yi) - POA Present On Arrival: None - Clinical Impression Clinical Impression: Chest wall pain - Scribe Statement The provider has reviewed the documentation as recorded by the Scriblexii Rey All medical record entries made by the Scribe were at my direction and personally dictated by me. I have reviewed the chart and agree that the record accurately reflects my personal performance of the history, physical exam, medical decision making, and the department course for this patient. I have also personally directed, reviewed, and agree with the discharge instructions and disposition.
[2018-06-12 03:29] LABS: BASO # 0.1 K/uL (0.0-0.2); BASO % 1.4 % (0.0-2.0); EOS # 0.2 K/uL (0.0-0.7); EOS % 3.9 % (0.0-4.0); HEMOGLOBIN 12.6 g/dL (12.0-18.0); LYMPH # 1.4 K/uL (1.0-4.3); LYMPH % 33.6 % (20.0-40.0); MEAN CELL VOLUME 87.5 fL (80.0-94.0); MEAN CORPUSCULAR HEMOGLOBIN 29.1 pg (27.0-31.0); MEAN CORPUSCULAR HGB CONC 33.3 g/dL (33.0-37.0); MEAN PLATELET VOLUME 8.4 fL (7.2-11.7); MONO # 0.4 K/uL (0.0-0.8); MONO % 10.3 % (0.0-10.0); NEUT # 2.1 K/uL (1.8-7.0); NEUT % 50.8 % (50.0-75.0); NRBC % 0.1 % (0.0-2.0); RBC 4.32 Mil/uL (4.40-5.90); RED CELL DISTRIBUTION WIDTH 20.1 % (11.5-14.5); WHITE BLOOD COUNT 4.1 K/uL (4.8-10.8)
[2018-06-12 03:48] LABS: ALB/GLOB RATIO 1.1 (1.0-2.1); ALBUMIN 4.7 g/dL (3.5-5.0); BLOOD UREA NITROGEN 13 mg/dL (9-20); CALCIUM 9.1 mg/dl (8.6-10.4); GFR NON-AFRICAN AMERICAN > 60
[2018-06-12 04:01] LABS: ALT/SGPT 9 U/L (21-72); AST/SGOT 53 U/L (17-59)
[2018-06-12 04:46] VITALS: RESP 18; TEMP 98
[2018-06-12 06:05] VITALS: BP 129/81; PULSE 65; O2SAT 97
--- NOTE | 2018-06-12 17:14 | RAD ---
Date of service: 06/12/2018 HISTORY: chest pain COMPARISON: Comparison chest dated 03/20/2018. Correlation also made with CTA chest dated 08/14/2017. TECHNIQUE: Chest PA and lateral FINDINGS: LUNGS: Hyperinflation with emphysematous changes seen to better advantage on prior CT scan. PLEURA: No significant pleural effusion identified. No pneumothorax apparent. CARDIOVASCULAR: No aortic atherosclerotic calcification present. Cardiomegaly.. No pulmonary vascular congestion. OSSEOUS STRUCTURES: No significant abnormalities. VISUALIZED UPPER ABDOMEN: Normal. OTHER FINDINGS: None. IMPRESSION: Hyperinflation hyperinflation with emphysematous changes seen to better advantage on prior CT scan. Cardiomegaly.
--- NOTE | 2018-06-14 11:56 | CARD ---
APPROVED REPORT Date of service: 06/12/2018 EKG Measurement Heart [id number] <Conclusion> Normal sinus rhythm with sinus arrhythmia Possible Left atrial enlargement Nonspecific intraventricular block Abnormal ECG
== END 2018-06-12 06:09 | disposition home or self-care (01) ==
LOC: C.ER 02:43
DX: R07.89 Other chest pain (principal)
CPT/HCPCS: 71046; 80053; 84484; 85025; 93005; 96374; 99284; J1885

== ENCOUNTER 2018-06-13 00:29 | Emergency (ER) | payer MEDICAID | END 2018-06-13 02:25 | disposition home or self-care (01) | LOC: C.ER 00:29 ==